=== PATIENT | male | born 1950 | race Caucasian/White ===

== ENCOUNTER 2017-10-30 13:34 | Inpatient (IN) ==
[2017-10-30] MEDS ORDERED: Acetaminophen 325 MG TABLET PO PRN (16:37)
[2017-10-30] MEDS ORDERED: Naloxone 0.4 MG/ML INJ IVP PRN (16:37)
--- NOTE | 2017-10-30 16:58 | Internal Med History&Physical ---
<HollyBrian kwon - Last Filed: 10/30/17 17:38> Date of Encounter: 10/30/17 Time of Encounter: 16:00 Assessment and Plan (1) Left trimalleolar fracture Current visit: Yes Status: Acute Acute left trimalleolar fracture sustained 2 days ago when patient fell at local grocery store. 3 view x-ray of the left ankle shows acute, displaced, and mildly comminuted fractures of the medial malleolus and distal fibula. There is probable fracture of the posterior malleolus. There is disruption of the ankle mortise teas concerning for ligamentous injuries. There is moderate to severe osteopenia. [id number]-jq-[id number] degenerative changes. [facility] consulted Dr. Alegre from Podiatry and I appreciate the consult. Will work to bring pts. INR to therapeutic level for possible surgical intervention. Stair- step pain medications for pain mgmt. Falls/safety precautions, up with assist, bed rest w/bedside commode w/assist only. Pt. is high risk for further morbidity and complications d/t left ankle fxs, supratherapeutic INR, chronic anemia, recent C. diff dx (10/07/17), hx, and risk factors. Inpatient. Qualifiers: Encounter type: initial encounter Fracture type: closed Qualified Code(s) : S82.852A - Displaced trimalleolar fracture of left lower leg, initial encounter for closed fracture (2) Elevated INR Current visit: Yes Status: Acute Acutely supratherapeutic INR of 4.6 on admission. Pt. takes Coumadin for mechanical heart valve and states he is compliant. AquaMEPHYTON IVPB 10 mg ordered. w/follow-up INR and APTT ordered. Coumadin to be continued w/pharmacy dosing w/monitoring. Monitor pt. for signs of bleeding. (3) C. difficile diarrhea Current visit: Yes Status: Suspected Hx of C. diff on 10/07/17. Will presume pt. is infectious w/contact precautions until ordered C. diff toxin screen results are back. Pt. denies current diarrhea. Will add Cipro and Flagyl if warranted. Monitor I&O. (4) CKD (chronic kidney disease) stage 3, GFR 30-59 ml/min Current visit: Yes Status: Chronic Hx of CKD. Current GFR 34 and creatinine 1.99. Will use IV fluids judiciously. Avoid nephrotoxins. Monitor I&O and daily weight. (5) HTN (hypertension) Current visit: Yes Status: Chronic Hx of chronic HTN. Monitor patient and vital signs. Continue patient's Lopressor. Qualifiers: Hypertension type: essential hypertension Qualified Code(s): I10 - Essential (primary) hypertension (6) HLD (hyperlipidemia) Current visit: Yes Status: Chronic Hx of chronic HLD. Lipid panel in a.m. labs. Continue patient's Zocor and fenofibrate. Qualifiers: Hyperlipidemia type: pure hypercholesterolemia Qualified Code(s): E78.00 - Pure hypercholesterolemia, unspecified; E78.0 - Pure hypercholesterolemia (7) Anemia Current visit: Yes Status: Chronic Hx of chronic anemia. Hgb 9.1 and Hct 27.4 on admission, down from 9.8 and 30.9 on 10/07/17. Patient denies unusual bleeding. Fecal Hemoccult ordered. Will continue patient's by mouth iron. H/H in a.m. labs. Qualifiers: Anemia type: unspecified type Qualified Code(s): D64.9 - Anemia, unspecified (8) GERD (gastroesophageal reflux disease) Current visit: Yes Status: Chronic Hx of chronic GERD. IVP Zofran 4 mg Q8 for N/V. Will continue pts. Pepcid. Qualifiers: Esophagitis presence: esophagitis presence not specified Qualified Code(s) : K21.9 - Gastro-esophageal reflux disease without esophagitis (9) COPD (chronic obstructive pulmonary disease) Current visit: Yes Status: Chronic Hx of chronic COPD. Stable. Qualifiers: COPD type: unspecified COPD Qualified Code(s): J44.9 - Chronic obstructive pulmonary disease, unspecified (10) Hypothyroid Current visit: Yes Status: Chronic Hx fof chronic hypothyroidism. Continue pts. Synthroid. Qualifiers: Hypothyroidism type: acquired Qualified Code(s): E03.9 - Hypothyroidism, unspecified (11) Insulin dependent diabetes mellitus Current visit: Yes Status: Chronic Hx of chronic diabetes controlled by insulin pump. Will continue pts. insulin pump while inpatient. BG checks ACHS. A1c in a.m. labs. (12) Gout Current visit: Yes Status: Chronic Hx of chronic gout. Continue pts. Allopurinol. Qualifiers: Gout site: unspecified site Gout etiology: unspecified cause Chronicity: chronic Presence of tophus: without tophus Qualified Code(s): M1A.9XX0 - Chronic gout, unspecified, without tophus (tophi) (13) Previous myocardial infarction older than 8 weeks Current visit: No Status: Resolved Hx of two previous MIs in 2004 and 2005. No stents placed. (14) DVT prophylaxis Current visit: Yes Status: Acute Will continue pts. Coumadin w/pharmacy dosing for DVT prophylaxis. Pt. is currently supratherapeutic w/INR of 4.6. Monitor pt. for signs of bleeding. Internal Medicine - H&P: HPI Chief complaint: Left ankle injury Admitted From: Intrahospital Transfer Plans for Post Hospital Care: Home History of present illness: Mr. Cortez is a 66 year old male with medical history of asthma, prostate cancer ( resolved), COPD, diabetes controlled with insulin pump, HLD, HTN, myocardial infarctions in 2004 and 2005 without stent placement, renal disease, gout, GERD , and thyroid disease presents with a [facility] with chief complaint of left ankle injury that he sustained 2 days ago. Patient states he has bilateral peripheral neuropathy due to his diabetes and lost his balance 2 days ago at the grocery store. Patient also reports history of falls at home. Patient is currently anticoagulated on Coumadin due to mechanical heart valve. Patient denies recent illness, fever, chills, nausea, vomiting, headache, changes in vision, numbness, tingling, chest pain, shortness of breath, abdominal pain, diarrhea, constipation, dizziness, lightheadedness, pre-syncope , or syncope. Past Med Surg Social Fam HX - Past Medical History Source: patient, old records reviewed Medical history: asthma, cancer (Prostate (resolved)), CHF, COPD, diabetes ( Controlled by insulin pump), hyperlipidemia, hypertension, myocardial infarction (2004, 2005 w/o stent placement), renal disease, thyroid disease Psychiatric history: no psych history - Past Surgical History Surgical History: cholecystectomy - Social History Smoking Status: Former smoker Packs per day: 1 PPD Smokeless Tobacco Status: Yes Alcohol use: none Drug use: none Current living situation: Home, With Family Activity Level: Independent ambulation, Uses cane/walker Recent Out of Country Travel Within the Last 8 Weeks: No Exposure or Possible Exposure to Illness During Travel: No - Family History Father Race: Family Member Ethnicity: Non- Living Status: Age at : 63 Cause of : Lung cancer Hx Family Cancer: Yes (Lung) Mother Race: Family Member Ethnicity: Non- Living Status: Age at : 83 Cause of : Old age Sister Race: Family Member Ethnicity: Non- Living Status: Age at : 57 Cause of : Breast cancer Hx Family Cancer: Yes (Breast, lung, brain) Internal Medicine - H&P: Meds Albuterol Sulfate [Ventolin Hfa] 2 puff IH BID 05/14/16 [History] Allopurinol [Zyloprim 100 MG] 200 mg PO DAILY 05/14/16 [History] Aspirin [Lo-Dose Aspirin EC] 81 mg PO DAILY 05/14/16 [History] Bicalutamide [Casodex] 50 mg PO DAILY 05/14/16 [History] Budesonide/Formoterol 160/4.5 [Symbicort 160/4.5] 2 puff IH BIDR 05/14/16 [ History] Calcitriol [Rocaltrol] 0.25 mcg PO DAILY 05/14/16 [History] Cholecalciferol (Vitamin D3) [Vitamin D3] 5,000 unit PO DAILY 05/14/16 [History] Docusate [Colace] 100 mg PO BID PRN 05/14/16 [History] Famotidine [Pepcid] 40 mg PO HS 05/14/16 [History] Fenofibrate 145 mg PO DAILY 05/14/16 [History] Flecainide Acetate 100 mg PO Q12HR 05/14/16 [History] Furosemide [Lasix] 40 mg PO BID 05/14/16 [History] Insulin Regular U-500 [HumuLIN R U-500] 0 unit SQ PRN PRN 05/14/16 [History] Levothyroxine [Synthroid] 150 mcg PO DAILY 05/14/16 [History] Montelukast [Singulair] 10 mg PO DAILY 05/14/16 [History] Nitroglycerin [Nitrostat] 0.4 mg SL AD PRN 05/14/16 [History] Simvastatin [Zocor] 40 mg PO HS 05/14/16 [History] Valsartan [Diovan] 80 mg PO DAILY 05/14/16 [History] Warfarin [Coumadin] 5.5 mg PO SUMOWETHFRSA@1800 05/14/16 [History] Warfarin [Coumadin] 10 mg PO TU@1800 05/14/16 [History] Metoprolol [Lopressor] 25 mg PO DAILY 07/31/16 [History] Pantoprazole Sodium [Protonix] 40 mg PO DAILY 07/31/16 [History] Albuterol Neb [Proventil Neb] 2.5 mg IH Q4HR PRN 10/07/17 [History] Citalopram [CeleXA] 20 mg PO DAILY 10/07/17 [History] FentaNYL PATCH [Duragesic] 50 mcg TD Q72H 10/07/17 [History] Gabapentin [Neurontin] 100 mg PO HS 10/07/17 [History] Iron 65 mg PO BID 10/07/17 [History] Phenylephrine/Dm/Acetaminop/GG [Kro Mucus Relief Cold-Flu Cplt] 1 each PO Q6-8H PRN 10/07/17 [History] Dicyclomine [Bentyl] 10 mg PO QID PRN #20 capsule 10/08/17 [Rx] Ondansetron HCl [Zofran] 4 mg PO Q6H PRN #10 tablet 10/08/17 [Rx] 3 Allergy/AdvReac Type Severity Reaction Status Date / Time niacin Allergy See Verified 10/30/17 14:26 [From [facility] Comments Extended-Release] All Systems PM: A 10-system review of systems was performed and is negative for pertinent findings except as documented above in the HPI. - Constitutional Constitutional: as per HPI, falls, no chills, no fever(s), no night sweats - EENT Eyes: no change in vision, no discharge, no pain, no photophobia Ears: no ear discharge, no ear pain, no tinnitus Nose, mouth and throat: no dysphagia, no nasal discharge, no neck pain, no sore throat - Breasts Breasts: as per HPI - Cardiovascular Cardiovascular ROS IM: no chest pain, no diaphoresis, no dyspnea, no lightheadedness, no palpitations, no syncope - Respiratory Respiratory: no cough, no dyspnea, no wheezing, no excessive phlegm production - Gastrointestinal Gastrointestinal: no abdominal pain, no diarrhea, no hematemesis, no hematochezia, no melena, no nausea, no vomiting - Genitourinary Genitourinary ROS male: as per HPI - Musculoskeletal Musculoskeletal ROS IM: as per HPI, other (Left ankle pain and swelling), no numbness, no tingling - Integumentary Integumentary IM: no rash, no unusual bruising - Neurological Neurological ROS: no confusion, no convulsions, no focal weakness, no numbness, no tingling, no tremor(s) - Psychiatric Psychiatric: as per HPI - Endocrine Endocrine IM: as per HPI - Hematologic/Lymphatic Hematologic/Lymphatic: no easy bruising - Allergic/Immunologic Allergic/Immunologic: as per HPI - Constitutional Vitals: Temp Pulse Resp BP Pulse Ox 100.3 F H 74 18 150/87 98 10/30/17 16:01 10/30/17 16:01 10/30/17 16:01 10/30/17 16:10/30/17 16:01 General appearance: Present: cooperative, A&O X 3, no acute distress, obese, answers questions appropriately - Head Head exam: Present: atraumatic, normocephalic - Eye Eye exam: Present: PERRL, conjuntiva pink, sclera anicteric Pupils: Present: PERRL - ENT ENT exam: Present: normal exam - Neck Neck exam general surgery: Present: supple, trachea midline. Absent: lymphadenopathy - Respiratory Respiratory exam: Present: CTAB. Absent: accessory muscle use, rales, rhonchi, wheezes - Cardiovascular Cardiovascular exam: Present: RRR, +S1, +S2. Absent: diastolic murmur, gallop, rubs, systolic murmur - GI/Abdominal GI/Abdominal exam: Present: normal bowel sounds, soft, no peritoneal signs. Absent: distended, tenderness - Rectal Rectal exam: Present: deferred - Additional comments: exam deferred. - Extremities Exam Extremities exam: Present: pedal edema (Left ankle), tenderness (Left ankle), warm, radial pulses palpable and symmetrical. Absent: calf tenderness, cyanotic - Back Exam Back exam: Present: normal inspection - Neurological Exam Neurological exam: Present: CN II-XII intact, oriented X3, no focal deficits. Absent: pronater drift, facial droop, speech deficit - Psychiatric Psychiatric exam: Present: normal affect, normal mood - Skin Skin exam: Present: dry, intact Internal Med - H&P Results - EKG Data EKG shows normal: sinus rhythm - EKG Data Prior EKG available for review: no EKG comments: 10/30/17 17:04 EKG dated 10/30/17 sinus rhythm with first-degree AV block, marked left axis deviation, and right bundle branch block. - Diagnostic Studies Chest x-ray Additional comments: EXAMINATION: SINGLE VIEW OF THE CHEST 10/30/2017 12:13 pm COMPARISON: 09/20/2017. HISTORY: ORDERING SYSTEM PROVIDED HISTORY: PRE OP FINDINGS: Status post median sternotomy. Enlarged cardiomediastinal silhouettes are unchanged. No focal consolidation, pneumothorax, or pleural effusions. XR/XR chest 1V portable IMPRESSION: No significant interval change since 09/20/2017. Enlarged cardiomediastinal silhouettes are unchanged D/ / Sav Liao MD / Sav Liao MD Interpreting Provider: Sav Liao MD Other Images Additional comments: EXAMINATION: 3 VIEWS OF THE LEFT ANKLE 10/30/2017 12:14 pm COMPARISON: None. HISTORY: ORDERING SYSTEM PROVIDED HISTORY: fell 2 days ago FINDINGS: There are acute, displaced, and mildly comminuted fracture of medial malleolus, and distal fibula. There is probable fracture of the posterior malleolus. There is disruption of the ankle mortise, concerning for ligamentous injuries. There is moderate to severe osteopenia. [id number] degenerative changes. XR/XR ankle complete min 3V LT IMPRESSION: Acute fracture-dislocation of the left ankle as detailed above. D/ / Sav Liao MD / Sav Liao MD Interpreting Provider: Sav Liao MD <Slava Goddard - Last Filed: 10/30/17 17:52> Date of Encounter: 10/30/17 Internal Medicine - H&P: HPI History of present illness: Mr. Cortez is a 66 year old male All Systems PM: A 10-system review of systems was performed and is negative for pertinent findings except as documented above in the HPI. - Constitutional Vitals: Temp Pulse Resp BP Pulse Ox 100.3 F H 74 18 150/87 98 10/30/17 16:01 10/30/17 16:01 10/30/17 16:01 10/30/17 16:01 10/30/17 16:01 - Attending Attestation I examined this patient and my medical decision-making was reviewed with the Resident Physician. I agree with the documented findings, disposition and treatment plan as described except to the extent set forth below.
[2017-10-30] MEDS ORDERED: Ondansetron 4 MG/2 ML VIAL IVP PRN (17:18)
[2017-10-30] MEDS: 0.9 % Sodium Chloride 1,000 ML IVC SCH (17:56)
[2017-10-30] MEDS: *HR* HYDROcodone/Acet 5/325 mg TABLET PO PRN (17:56)
[2017-10-30] MEDS ORDERED: Warfarin perPT PO PRN (18:00)
[2017-10-31 04:30] LABS: Basophils % 0.1 %; Eosinophils # 0.3 K/mcL (0.0-0.6); Eosinophils % 3.2 %; Hematocrit 26.9 % (37.5-50.1); Hemoglobin 8.4 g/dL (12.9-16.9); Immature Granulocytes % 0.5 % (0-4); Lymphocytes # 0.8 K/mcL (0.6-4.6); Lymphocytes % 9.4 %; Mean Corpuscular HGB Conc 31.2 g/dL (31.6-35.5); Mean Corpuscular Hemoglobin 28.4 pg (28.0-33.3); Mean Corpuscular Volume 90.9 fL (83.0-100.0); Mean Platelet Volume 10.1 fL (9.4-12.4); Monocytes # 0.8 K/mcL (0.0-1.3); Monocytes % 9.5 %; Neutrophils # 6.6 K/mcL (1.6-8.9); Platelet Count 284 K/mcL (140-400); Red Blood Count 2.96 M/mcL (4.19-5.50); Red Cell Distribution Width 14.9 % (11.5-14.5); Segmented Neutrophils % 77.3 %
[2017-10-31 04:32] LABS: INR 1.7; Prothrombin Time 18.6 Seconds (9.4-12.1)
[2017-10-31 04:35] LABS: Activated Partial Thrombo Time 30.4 Seconds (26.0-36.0)
[2017-10-31 04:38] LABS: Hemoglobin A1C 5.3 %
[2017-10-31 04:55] LABS: Albumin 3.1 g/dL (3.5-5.7); Albumin/Globulin Ratio 0.9 (1.1-2.2); Bilirubin,Total 0.5 mg/dL (0.3-1.0); Calcium 8.4 mg/dL (8.6-10.3); Chol/HDL Ratio 4.1 (0-4.9); Globulin 3.4 g/dL (2.4-3.5); Potassium 3.8 mEq/L (3.5-5.1); Total Protein 6.5 g/dL (6.4-8.9)
[2017-10-31] MEDS: 0.9 % Sodium Chloride 1,000 ML IVC SCH (10:03)
--- NOTE | 2017-10-31 11:48 | Podiatry Consult Note ---
Date of Encounter: 10/31/17 Time of Encounter: 11:05 Assessment and Plan (1) Closed trimalleolar fracture of left ankle Current visit: Yes Status: Acute I had a thorough review with the patient regarding his injury/condition, my findings, and treatment options. Discussed with patient trimalleolar ankle fracture and surgery. Nature of left ankle ORIF disussed at length as well as the risks vs benefits, potential complications and consequences of the procedure. 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 Risks and potential complications included but were not limited to infection, bleeding, swelling, nerve damage, numbness, tingling, loss of function, wound healing problems, delayed or non-union of bone fracture healing , loss of leg, , heart attack, blood clot, pulomary embolism, pneumonia, reaction to implants, need for implant removal, and need for further surgery. It was explained he could need more surgery in the future. No guarantees made as to the outcome. Discussed typical course of recovery and he will be non- weight bearing up to 12 weeks following the procedure. All questions answered. Informed consent signed. Spoke with Dr. Vicente regarding patient, will get cardio on board for evaluation and recommendations. Will require surgery once optimized and INR approx 1. Qualifiers: Encounter type: initial encounter Qualified Code(s): S82.852A - Displaced trimalleolar fracture of left lower leg, initial encounter for closed fracture History of Present Illness HPI: Mr. Cortez is a 66 year old diabetic male with neuropathy who says he fell a few days ago in the parking lot at [employer]. He says he just fell over and when he tried to get up he could not put weight on the left ankle. He says he crawled around for a while. He was taken to [facility], found and told he had an ankle fracture. I was called. He was transferred to [facility]. He has a mechanical heart valve and on coumadin. His INR was 4.6 in [facility]. Past Med Surg Social Fam HX - Past Medical History Medical history: asthma, cancer (Prostate (resolved)), CHF, COPD, diabetes ( Controlled by insulin pump), hyperlipidemia, hypertension, myocardial infarction (2004, 2005 w/o stent placement), renal disease, thyroid disease Psychiatric history: no psych history - Past Surgical History Surgical History: cholecystectomy - Social History Smoking Status: Former smoker Packs per day: 1 PPD Smokeless Tobacco Status: Yes Alcohol use: none Drug use: none - Family History Father Race: Family Member Ethnicity: Non- Living Status: Age at : 63 Cause of : Lung cancer Hx Family Cancer: Yes (Lung) Mother Race: Family Member Ethnicity: Non- Living Status: Age at : 83 Cause of : Old age Sister Race: Family Member Ethnicity: Non- Living Status: Age at : 57 Cause of : Breast cancer Hx Family Cancer: Yes (Breast, lung, brain) Medications and Allergies Albuterol Sulfate [Ventolin Hfa] 2 puff IH BID 05/14/16 [History] Allopurinol [Zyloprim 100 MG] 200 mg PO DAILY 05/14/16 [History] Aspirin [Lo-Dose Aspirin EC] 81 mg PO DAILY 05/14/16 [History] Bicalutamide [Casodex] 50 mg PO DAILY 05/14/16 [History] Calcitriol [Rocaltrol] 0.25 mcg PO DAILY 05/14/16 [History] Cholecalciferol (Vitamin D3) [Vitamin D3] 5,000 unit PO DAILY 05/14/16 [History] Docusate [Colace] 100 mg PO BID PRN 05/14/16 [History] Famotidine [Pepcid] 40 mg PO HS 05/14/16 [History] Fenofibrate 145 mg PO DAILY 05/14/16 [History] Flecainide Acetate 100 mg PO Q12HR 05/14/16 [History] Furosemide [Lasix] 40 mg PO BID 05/14/16 [History] Insulin Regular U-500 [HumuLIN R U-500] 0 unit SQ PRN PRN 05/14/16 [History] Levothyroxine [Synthroid] 150 mcg PO DAILY 05/14/16 [History] Montelukast [Singulair] 10 mg PO DAILY 05/14/16 [History] Nitroglycerin [Nitrostat] 0.4 mg SL AD PRN 05/14/16 [History] Simvastatin [Zocor] 40 mg PO HS 05/14/16 [History] Warfarin [Coumadin] 10 mg PO DAILY@1800 05/14/16 [History] Metoprolol [Lopressor] 25 mg PO DAILY 07/31/16 [History] Pantoprazole Sodium [Protonix] 40 mg PO DAILY 07/31/16 [History] Albuterol Neb [Proventil Neb] 2.5 mg IH Q4HR PRN 10/07/17 [History] Citalopram [CeleXA] 20 mg PO DAILY 10/07/17 [History] FentaNYL PATCH [Duragesic] 50 mcg TD Q72H 10/07/17 [History] Gabapentin [Neurontin] 100 mg PO HS 10/07/17 [History] Iron 65 mg PO BID 10/07/17 [History] Phenylephrine/Dm/Acetaminop/GG [Kro Mucus Relief Cold-Flu Cplt] 1 each PO Q6-8H PRN 10/07/17 [History] Dicyclomine [Bentyl] 10 mg PO QID PRN #20 capsule 10/08/17 [Rx] Budesonide/Formoterol 160/4.5 [Symbicort 160/4.5] 2 puff IH BIDR 10/31/17 [ History] Nut.tx.gluc.intoler,Lac-Fr,Soy [Glucerna] 1 can PO TID 10/31/17 [History] Primidone [Mysoline] 25 mg PO BID 10/31/17 [History] Valsartan [Diovan] 80 mg PO DAILY 10/31/17 [History] 3 Allergy/AdvReac Type Severity Reaction Status Date / Time niacin Allergy See Verified 10/30/17 14:26 [From [facility] Comments Extended-Release] All Systems Reviewed: A 10-system review of systems was performed and is negative for pertinent findings except as documented above in the HPI. - Constitutional Constitutional: as per HPI, no fever(s) - Cardiovascular Cardiovascular: as per HPI, no chest pain, no dyspnea - Respiratory Respiratory: no cough, no dyspnea - Musculoskeletal Musculoskeletal: abnormal gait, joint swelling Physical Exam - Constitutional Vitals: Temp Pulse Resp BP Pulse Ox 99.3 F 71 17 117/70 96 10/31/17 07:16 10/31/17 07:16 10/31/17 07:16 10/31/17 07:16 10/31/17 07:16 Exam: Well-developed obese male, AO x 3 in no acute distress CFT < 3 sec x 5 digits left foot. left foot warm to touch. mild to moderate edema of the left ankle. no open lesions. no tenting of the skin. no necrosis. skin is warm to touch. sensation absent to touch. Results - Labs Result Diagrams: 10/31/17 04:10 10/31/17 04:10 Labs: Abnormal lab results RBC 2.96 M/mcL (4.19-5.50) L 10/31/17 04:10 Hgb 8.4 g/dL (12.9-16.9) L 10/31/17 04:10 Hct 26.9 % (37.5-50.1) L 10/31/17 04:10 MCHC 31.2 g/dL (31.6-35.5) L 10/31/17 04:10 RDW 14.9 % (11.5-14.5) H 10/31/17 04:10 PT 18.6 Seconds (9.4-12.1) H D 10/31/17 04:10 Carbon Dioxide 30 mEq/L (23-29) H 10/31/17 04:10 BUN 31 mg/dL (8-23) H 10/31/17 04:10 Creatinine 2.04 mg/dL (0.70-1.30) H 10/31/17 04:10 Est GFR ( Amer) 40 (> 60) L 10/31/17 04:10 Est GFR (Non-Af Amer) 33 (> 60) L 10/31/17 04:10 Glucose 147 mg/dL (70-105) H 10/31/17 04:10 Calcium 8.4 mg/dL (8.6-10.3) L 10/31/17 04:10 Albumin 3.1 g/dL (3.5-5.7) L 10/31/17 04:10 Albumin/Globulin Ratio 0.9 (1.1-2.2) L 10/31/17 04:10 HDL Cholesterol 29 mg/dL (40-59) L 10/31/17 04:10 H & H 10/31/17 Range/Units 04:10 Hgb 8.4 L (12.9-16.9) g/dL Hct 26.9 L (37.5-50.1) % All other labs normal. Consult Discharge Plan - Plan Instructions: Bed Bugs (GEN), Bed Bugs, [employer]st [employer] (GEN) Referrals: Calli Estes, STORE STOCK ASSOCIATE [Primary Care Provider] -
[2017-10-31] MEDS ORDERED: Albuterol 2.5 MG/3 ML NEBULIZER IH PRN (16:26)
[2017-10-31] MEDS ORDERED: Nitroglycerin 0.4 MG TAB.SUBL SL PRN (16:26)
[2017-10-31] MEDS ORDERED: *HR* FentaNYL PATCH 50 MCG PATCH TD SCH (16:30)
[2017-10-31] MEDS ORDERED: *HR* Warfarin 7.5 MG TABLET PO ONE ×2 (17:20→18:00)
[2017-10-31] MEDS: Furosemide 40 MG TABLET PO SCH (17:29)
--- NOTE | 2017-10-31 18:07 | Internal Med Progress Note ---
Date of Encounter: 10/31/17 Time of Encounter: 18:05 - Assessment and plan (1) Closed trimalleolar fracture of left ankle Current Visit: Yes Status: Acute Assessment and plan: patient has closed trimalleolar fracture. Podiatry on board and plan for surgical intervention in next 1-2 days. noted that in view of multiple comorbid conditions this patient needs risk stratification and possible cardiology evaluation. ( patient has mechanical heart valve and Podiatry prefers INE to be around 1 before he goes for surgery.) Qualifiers: Encounter type: initial encounter Qualified Code(s): S82.852A - Displaced trimalleolar fracture of left lower leg, initial encounter for closed fracture (2) S/P aortic valve replacement Current Visit: No Status: Chronic Assessment and plan: Patient has mechanical aortic valve upon admission his INR was above 4 and he received Vitamin K for reversal. patient's current INR is 1.7 and it is not acceptable when he has mechanical valve. plan we will start heparin drip. will get cardiology tomorrow close observation. (3) Chronic anticoagulation Current Visit: No Status: Acute Assessment and plan: patient is on chronic coumadin therapy and noted that pharmacy to manage A/C therapy. (4) HTN (hypertension) Current Visit: No Status: Chronic Assessment and plan: stable for now. Qualifiers: Hypertension type: essential hypertension Qualified Code(s): I10 - Essential (primary) hypertension (5) Insulin dependent diabetes mellitus Current Visit: No Status: Chronic Assessment and plan: patient is known to have Type II DM he is using presently insulin pump. will need DM educator to take care insulin Pump. will call tomorrow. (6) DVT prophylaxis Current Visit: No Status: Acute Assessment and plan: heparin drip Medical decision making: this patient has moderate to severe risk of worsening in spite of getting appropriate treatment as he has multiple chronic comorbid conditions. - Subjective Interval history: patient seen and examined. chart reviewed. noted that patient has ongoing pain in ankle for more than 4 days. denies chest pain/AVEL/Nausea and vomiting. - Constitutional Vitals: Temp Pulse Resp BP Pulse Ox 99.8 F H 74 17 132/70 96 10/31/17 17:35 10/31/17 17:35 10/31/17 17:35 10/31/17 17:35 10/31/17 17:35 General appearance: Present: cooperative, A&O X 3, no acute distress, obese, answers questions appropriately - Head Head exam: Present: atraumatic, normocephalic - Eye Eye exam: Present: PERRL, conjuntiva pink, sclera anicteric Pupils: Present: PERRL - Neck Neck exam general surgery: Present: supple, trachea midline. Absent: lymphadenopathy - Respiratory Respiratory exam: Present: CTAB. Absent: accessory muscle use, rales, rhonchi, wheezes - Cardiovascular Cardiovascular exam: Present: RRR, +S1, +S2. Absent: diastolic murmur, gallop, rubs, systolic murmur - GI/Abdominal GI/Abdominal exam: Present: normal bowel sounds, soft, no peritoneal signs. Absent: distended, tenderness - Extremities Exam Extremities exam: Present: warm, radial pulses palpable and symmetrical. Absent : calf tenderness, cyanotic, pedal edema - Neurological Exam Neurological exam: Present: CN II-XII intact, oriented X3, no focal deficits. Absent: pronater drift, facial droop, speech deficit - Skin Skin exam: Present: dry, intact Internal Medicine: Result - Labs CBC & Chem 7: 10/31/17 04:10 10/31/17 04:10 Labs: Short CBC 10/31/17 Range/Units 04:10 WBC 8.6 (4.3-11.1) K/mcL Hgb 8.4 L (12.9-16.9) g/dL Hct 26.9 L (37.5-50.1) % Plt Count 284 (140-400) K/mcL Neutrophils # 6.6 (1.6-8.9) K/mcL BMP 10/31/17 04:10 Sodium 136 Potassium 3.8 Chloride 100 Carbon Dioxide 30 H BUN 31 H Creatinine 2.04 H Glucose 147 H Calcium 8.4 L Liver Function 10/31/17 Range/Units 04:10 Total Bilirubin 0.5 (0.3-1.0) mg/dL AST 13 (13-39) Units/L ALT 8 (7-52) Units/L Alkaline Phosphatase 45 (34-104) Units/L Albumin 3.1 L (3.5-5.7) g/dL - ABG Interpretation ABG results: PT/INR, D-dimer PT 18.6 Seconds (9.4-12.1) H D 10/31/17 04:10 Consult Discharge Plan - Plan Instructions: Bed Bugs (GEN), Bed Bugs, Estate Administrator (GEN) Referrals: Calli Estes, FLOOR POLISHER [Primary Care Provider] -
[2017-10-31] MEDS ORDERED: Heparin 25,000 UNIT/500 ML D5W 25,000 UNIT/500 ML BAG IVC SCH (18:15)
[2017-10-31] MEDS ORDERED: *HR* Heparin 5,000 UNIT/ML VIAL IVP PRN ×2 (18:28)
[2017-10-31] MEDS ORDERED: *HR* Heparin 5,000 UNIT/ML VIAL IVP ONE (18:28)
[2017-10-31 20:41] LABS: Hemoglobin 8.8 g/dL (12.9-16.9); Mean Corpuscular HGB Conc 31.4 g/dL (31.6-35.5); Mean Corpuscular Hemoglobin 28.9 pg (28.0-33.3); Mean Corpuscular Volume 91.8 fL (83.0-100.0); Platelet Count 311 K/mcL (140-400); Red Blood Count 3.05 M/mcL (4.19-5.50); Red Cell Distribution Width 14.7 % (11.5-14.5)
[2017-10-31] MEDS: Budesonide/Formoterol 160/4.5 MDI IH SCH (20:42)
[2017-10-31 20:47] LABS: INR 1.4; Prothrombin Time 14.7 Seconds (9.4-12.1)
[2017-10-31 20:49] LABS: Activated Partial Thrombo Time 22.6 Seconds (26.0-36.0)
[2017-10-31] MEDS: Heparin 25,000 UNIT/500 ML D5W 25,000 UNIT/500 ML BAG IVC SCH (20:55)
[2017-10-31] MEDS: Primidone 50 MG TABLET PO SCH (20:55)
[2017-10-31] MEDS: Gabapentin 100 MG CAPSULE PO SCH (20:55)
[2017-10-31] MEDS: Famotidine 20 MG TABLET PO SCH (20:56)
[2017-11-01 02:59] LABS: Basophils % 0.2 %; Eosinophils # 0.3 K/mcL (0.0-0.6); Eosinophils % 3.3 %; Hematocrit 25.7 % (37.5-50.1); Hemoglobin 8.3 g/dL (12.9-16.9); Immature Granulocytes % 0.5 % (0-4); Lymphocytes # 0.8 K/mcL (0.6-4.6); Lymphocytes % 9.5 %; Mean Corpuscular HGB Conc 32.3 g/dL (31.6-35.5); Mean Corpuscular Volume 89.9 fL (83.0-100.0); Mean Platelet Volume 9.9 fL (9.4-12.4); Monocytes # 0.7 K/mcL (0.0-1.3); Monocytes % 7.7 %; Neutrophils # 6.7 K/mcL (1.6-8.9); Platelet Count 308 K/mcL (140-400); Red Blood Count 2.86 M/mcL (4.19-5.50); Red Cell Distribution Width 14.7 % (11.5-14.5); Segmented Neutrophils % 78.8 %
[2017-11-01 03:05] LABS: INR 1.4; Prothrombin Time 14.7 Seconds (9.4-12.1)
[2017-11-01 03:07] LABS: Activated Partial Thrombo Time 28.1 Seconds (26.0-36.0)
[2017-11-01 03:22] LABS: Albumin 3.1 g/dL (3.5-5.7); Albumin/Globulin Ratio 0.9 (1.1-2.2); Bilirubin,Total 0.5 mg/dL (0.3-1.0); Calcium 8.4 mg/dL (8.6-10.3); Globulin 3.5 g/dL (2.4-3.5); Potassium 3.9 mEq/L (3.5-5.1); Total Protein 6.6 g/dL (6.4-8.9)
[2017-11-01] MEDS: Bicalutamide 50 MG TABLET PO SCH (09:44)
[2017-11-01] MEDS: Primidone 50 MG TABLET PO SCH ×2 (09:44→21:38)
[2017-11-01] MEDS: Valsartan 80 MG TABLET PO SCH (09:45)
[2017-11-01] MEDS: Furosemide 40 MG TABLET PO SCH ×2 (09:45→18:00)
[2017-11-01] MEDS: Fenofibrate 54 MG TABLET PO SCH (09:45)
[2017-11-01] MEDS: Cholecalciferol (D-3) 1,000 UNIT TABLET PO SCH (09:45)
[2017-11-01] MEDS: Budesonide/Formoterol 160/4.5 MDI IH SCH ×2 (10:53→20:24)
[2017-11-01] MEDS: Heparin 25,000 UNIT/500 ML D5W 25,000 UNIT/500 ML BAG IVC SCH (11:16)
--- NOTE | 2017-11-01 13:48 | Cardiology Consult Note ---
Date of Encounter: 11/01/17 Time of Encounter: 13:43 Assessment and Plan (1) Closed trimalleolar fracture of left ankle Current Visit: Yes Status: Acute Per cardiology: -Admitted after fall with closed trimalleolar fracture. -Awaiting surgery. -Management per priamary and podiatry services. Qualifiers: Encounter type: initial encounter Qualified Code(s): S82.852A - Displaced trimalleolar fracture of left lower leg, initial encounter for closed fracture (2) S/P aortic valve replacement Current Visit: No Status: Chronic Per cardiology: -Known mechanical aortic valve replacement 2005 at [facility]. -Last TTE 10/2012 with LVEF 55%, mild diastolic dysfunction, biatrial enlargement , mechanical aortic valve, mildly elevated gradiant of 22mmHg (unknown valve type and size) may be underestimated. No segmental wall motion abnormalities. -ON coumadin in outpatient setting. Currently being held due to upcoming surgery. -Currently on heparin drip. -Recommend continuing heparin drip. Recommend bridging with heparin drip to coumadin for a goal INR of 2.5-3.5. -Will check TTE. (3) Preop cardiovascular exam Current Visit: Yes Status: Acute Per cardiology: -Pre-op risk assessment for ankle surgery. -Denies chest pain, shortness of breath, or increased fatigue. -States is able to do activities of daily living without symptoms. Patient states ADLs is the most active thing he does. -ECG with SR, first degree AV blockk, right bundle branch block. -Last TTE as above. -Will repeat TTE. -Further recommendations pending TTE. Discussion w patient/family: The assessment and plan as outlined above was discussed with the patient who expressed understanding and agreement. All questions were answered. Thank you for involving us in the care of your patient. Please call with any questions. Discussed and reviewed with . History of Present Illness Consult date: 11/01/17 Requesting physician: Nikhil Vicente Consult reason: mechanical aortic valve Chief complaint: left ankle injury History of present illness: Mr. Cortez is a 66 year old male with a relevant past medical history of DMII has insulin pump, HTN, hyperlipidemia, CKD, hypothyroidism, neuropathy, COPD, GERD, PAF, obesity, LENNY, pancreatitic cancer, tobacco abuse (chewing tobacco). Patient presented to [facility] after a fall with ankle injury last . Patient denies loss of consciousness prior to fall. Patient denies chest pain. Denies shortness of breath or increased fatigue. Patient denies increased edema or weight gain. Patient denies bleeding or blood loss. Past Med Surg Social Fam HX - Past Medical History Attestation: Yes The following information was validated with the patient. Source: patient, old records reviewed Medical history: asthma, cancer (Prostate (resolved)), CHF, COPD, diabetes ( Controlled by insulin pump), hyperlipidemia, hypertension, myocardial infarction (2004, 2005 w/o stent placement), renal disease, thyroid disease, valvular heart disease Psychiatric history: no psych history - Past Surgical History Surgical History: cholecystectomy - Social History Smoking Status: Former smoker Packs per day: 1 PPD Smokeless Tobacco Status: Yes Alcohol use: none Drug use: none - Family History Father Race: Family Member Ethnicity: Non- Living Status: Age at : 63 Cause of : Lung cancer Hx Family Cancer: Yes (Lung) Mother Race: Family Member Ethnicity: Non- Living Status: Age at : 83 Cause of : Old age Sister Race: Family Member Ethnicity: Non- Living Status: Age at : 57 Cause of : Breast cancer Hx Family Cancer: Yes (Breast, lung, brain) Medications and Allergies Albuterol Sulfate [Ventolin Hfa] 2 puff IH BID 05/14/16 [History] Allopurinol [Zyloprim 100 MG] 200 mg PO DAILY 05/14/16 [History] Aspirin [Lo-Dose Aspirin EC] 81 mg PO DAILY 05/14/16 [History] Bicalutamide [Casodex] 50 mg PO DAILY 05/14/16 [History] Calcitriol [Rocaltrol] 0.25 mcg PO DAILY 05/14/16 [History] Cholecalciferol (Vitamin D3) [Vitamin D3] 5,000 unit PO DAILY 05/14/16 [History] Docusate [Colace] 100 mg PO BID PRN 05/14/16 [History] Famotidine [Pepcid] 40 mg PO HS 05/14/16 [History] Fenofibrate 145 mg PO DAILY 05/14/16 [History] Flecainide Acetate 100 mg PO Q12HR 05/14/16 [History] Furosemide [Lasix] 40 mg PO BID 05/14/16 [History] Insulin Regular U-500 [HumuLIN R U-500] 0 unit SQ PRN PRN 05/14/16 [History] Levothyroxine [Synthroid] 150 mcg PO DAILY 05/14/16 [History] Montelukast [Singulair] 10 mg PO DAILY 05/14/16 [History] Nitroglycerin [Nitrostat] 0.4 mg SL AD PRN 05/14/16 [History] Simvastatin [Zocor] 40 mg PO HS 05/14/16 [History] Warfarin [Coumadin] 10 mg PO MOWEFR 05/14/16 [History] Metoprolol [Lopressor] 25 mg PO DAILY 07/31/16 [History] Pantoprazole Sodium [Protonix] 40 mg PO DAILY 07/31/16 [History] Albuterol Neb [Proventil Neb] 2.5 mg IH Q4HR PRN 10/07/17 [History] Citalopram [CeleXA] 20 mg PO DAILY 10/07/17 [History] FentaNYL PATCH [Duragesic] 50 mcg TD Q72H 10/07/17 [History] Gabapentin [Neurontin] 100 mg PO HS 10/07/17 [History] Iron 65 mg PO BID 10/07/17 [History] Phenylephrine/Dm/Acetaminop/GG [Kro Mucus Relief Cold-Flu Cplt] 1 tab PO Q6-8H PRN 10/07/17 [History] Dicyclomine [Bentyl] 10 mg PO QID PRN #20 capsule 10/08/17 [Rx] Budesonide/Formoterol 160/4.5 [Symbicort 160/4.5] 2 puff IH BIDR 10/31/17 [ History] Nut.tx.gluc.intoler,Lac-Fr,Soy [Glucerna] 1 can PO TID 10/31/17 [History] Primidone [Mysoline] 25 mg PO BID 10/31/17 [History] Valsartan [Diovan] 80 mg PO DAILY 10/31/17 [History] Warfarin [Coumadin] 7.5 mg PO SUTUTHSA 10/31/17 [History] 3 Allergy/AdvReac Type Severity Reaction Status Date / Time niacin Allergy See Verified 10/30/17 14:26 [From [facility] Comments Extended-Release] All Systems Review: A 10-system review of systems was performed and is negative for pertinent findings except as documented above in the HPI. - Cardiovascular Cardiovascular: as per HPI - Musculoskeletal Musculoskeletal: other (fall, left ankle pain) Physical Examination Vital Signs, Last 4 Hours Temp Pulse Resp BP Pulse Ox 11/01/17 11:21 98.4 F 82 18 149/64 95 11/01/17 10:53 18 93 General: Conversant, No Apparent Distress HEENT: Atraumatic, Normocephaly, Mucus Membranes Moist Neck: No JVD, Normal carotid pulses Cardiac: Reg Rate and Rhythm, Normal S1 and S2, No Murmur Lungs: Normal Breath Sounds, No Wheeze, Rales, Rhonchi Neuro: Alert and responsive, No focal deficits noted Abdomen: Soft, Non-Tender Skin: No rashes noted on visualized skin Musculoskeletal: No Chest Wall Tenderness Extremities: No Clubbing, No Cyanosis, No Edema, Normal Pulses, Other (Left ankle with moi wrap noted. ) Results 11/01/17 02:51 11/01/17 02:51 Lab Results Active Medications Acetaminophen (Tylenol) 650 mg PO Q6HR PRN PRN Reason: Mild Pain/Fever Stop: 05/01/18 16:38 Hydrocodone Bitart/Acetaminophen ([place] 5-325 Mg) 1 tab PO Q6HR PRN PRN Reason: Moderate Pain Stop: 05/01/18 16:38 Last Admin: 10/30/17 17:56 Dose: 1 tab Albuterol Sulfate (Proventil Neb) 2.5 mg IH Q4HR PRN; Protocol PRN Reason: Bronchospasm Stop: 05/02/18 16:27 Allopurinol (Zyloprim) 200 mg PO DAILY [facility] Stop: 05/03/18 09:01 Last Admin: 11/01/17 09:45 Dose: 200 mg Bicalutamide (Casodex) 50 mg PO DAILY [facility] Stop: 05/03/18 09:01 Last Admin: 11/01/17 09:44 Dose: 50 mg Budesonide/Formoterol Fumarate (Symbicort) 2 puff IH BIDR [facility] PRN Reason: Protocol Stop: 05/02/18 22:01 Last Admin: 11/01/17 10:53 Dose: 2 puff Citalopram Hydrobromide (Celexa) 20 mg PO DAILY [facility] Stop: 05/03/18 09:01 Last Admin: 11/01/17 09:45 Dose: 20 mg Dicyclomine HCl (Bentyl) 10 mg PO QID PRN PRN Reason: Diarrhea Stop: 05/02/18 16:27 Docusate Sodium (Colace) 100 mg PO BID PRN; Protocol PRN Reason: Constipation Stop: 05/02/18 16:27 Famotidine (Pepcid) 20 mg PO HS BECKY PRN Reason: Protocol Stop: 05/02/18 21:01 Last Admin: 10/31/17 20:56 Dose: 20 mg Fenofibrate (Tricor) 108 mg PO DAILY BECKY Stop: 05/03/18 09:01 Last Admin: 11/01/17 09:45 Dose: 108 mg Fentanyl (Duragesic) 50 mcg TD Q72H [facility] Stop: 05/02/18 16:31 Last Admin: 10/31/17 17:57 Dose: 50 mcg Flecainide Acetate (Flecainide) 100 mg PO Q12HR BECKY Stop: 05/02/18 18:01 Last Admin: 11/01/17 06:30 Dose: 100 mg Furosemide (Lasix) 40 mg PO BIDDIURETIC BECKY Stop: 05/02/18 17:01 Last Admin: 11/01/17 09:45 Dose: 40 mg Gabapentin (Neurontin) 100 mg PO HS [facility] Stop: 05/02/18 21:01 Last Admin: 10/31/17 20:55 Dose: 100 mg Heparin Sodium (Porcine) (Heparin) 9,000 unit 70 unit/kg (9000 unit) IVP Q6HR PRN PRN Reason: SEE COMMENTS Stop: 05/02/18 18:29 Last Admin: 11/01/17 04:23 Dose: 9,000 unit Heparin Sodium (Porcine) (Heparin) 4,500 unit 35 unit/kg (4500 unit) IVP Q6H PRN PRN Reason: SEE COMMENTS Stop: 05/02/18 18:29 Heparin Sodium/Dextrose (Heparin 25,000 Unit/500 Ml D5w) 25,000 unit in 500 mls @ 35.924 mls/hr IVC .[id number] BECKY; 14 UNIT/KG/HR PRN Reason: Protocol Stop: 05/02/18 18:31 Last Admin: 11/01/17 11:16 Dose: 17.88 unit/kg/hr, 45.9 mls/hr Levothyroxine Sodium (Synthroid) 150 mcg PO 0630 [facility] Stop: 05/03/18 06:31 Last Admin: 11/01/17 06:30 Dose: 150 mcg Metoprolol Tartrate (Lopressor) 25 mg PO DAILY [facility] Stop: 05/03/18 09:01 Last Admin: 11/01/17 09:45 Dose: 25 mg Montelukast Sodium (Singulair) 10 mg PO DAILY [facility] Stop: 05/03/18 09:01 Last Admin: 11/01/17 09:44 Dose: 10 mg Naloxone HCl (Narcan) 0.4 mg IVP Q2MIN PRN PRN Reason: SEE COMMENTS Stop: 05/01/18 16:38 Nitroglycerin (Nitroglycerin) 0.4 mg SL AD PRN PRN Reason: Chest Pain Stop: 05/02/18 16:27 Omeprazole (Prilosec) 40 mg PO DAILY [facility] Stop: 05/03/18 09:01 Last Admin: 11/01/17 09:44 Dose: 40 mg Ondansetron HCl (Zofran) 4 mg IVP Q8HR PRN; Protocol PRN Reason: Nausea And Vomiting Stop: 05/01/18 17:19 Oxycodone HCl (Roxicodone) 10 mg PO Q6HR PRN PRN Reason: Severe Pain Stop: 05/01/18 16:38 Primidone (Mysoline) 25 mg PO BID [facility] Stop: 05/02/18 21:01 Last Admin: 11/01/17 09:44 Dose: 25 mg Simvastatin (Zocor) 40 mg PO HS BECKY PRN Reason: Protocol Stop: 05/02/18 21:01 Last Admin: 10/31/17 20:56 Dose: 40 mg Valsartan (Diovan) 80 mg PO DAILY [facility] Stop: 05/03/18 09:01 Last Admin: 11/01/17 09:45 Dose: 80 mg Vitamin D (Vitamin D) 1,000 unit PO DAILY [facility] Stop: 05/03/18 09:01 Last Admin: 11/01/17 09:45 Dose: 1,000 unit Laboratory Tests 09/20/17 10/07/17 10/30/17 16:42 23:10 12:38 Hgb Creatinine 2.65 H 3.39 H 1.99 H 10/31/17 11/01/17 11/01/17 04:10 02:51 02:51 Hgb 8.3 L Creatinine 2.04 H 1.77 H - Imaging and Cardiology Chest Xray: report reviewed Stress Test: report reviewed Echo: pending, report reviewed - EKG Interpretation EKG results cardiology: personally reviewed (ECG with SR, HR 64. First degree AV block, RIght BBB.), other (Not on telemetry.) Consult Discharge Plan - Plan Instructions: Bed Bugs (GEN), Bed Bugs, Wing Commander (GEN) Referrals: Calli Estes, SYSTEMS PLANNER [Primary Care Provider] -
--- NOTE | 2017-11-01 18:22 | Internal Med Progress Note ---
Date of Encounter: 11/01/17 Time of Encounter: 18:20 - Assessment and plan (1) Closed trimalleolar fracture of left ankle Current Visit: Yes Status: Acute Assessment and plan: patient has closed trimalleolar fracture. Podiatry on board and plan for surgical intervention in next 1-2 days. noted that in view of multiple comorbid conditions this patient needs risk stratification and possible cardiology evaluation. ( patient has mechanical heart valve and Podiatry prefers INR to be around 1 before he goes for surgery.) 11/01/2017 Patient denies any pain. Comfortably lying in bed. Cardiology on the board for risk stratification. Qualifiers: Encounter type: initial encounter Qualified Code(s): S82.852A - Displaced trimalleolar fracture of left lower leg, initial encounter for closed fracture (2) S/P aortic valve replacement Current Visit: No Status: Chronic Assessment and plan: Patient has mechanical aortic valve upon admission his INR was above 4 and he received Vitamin K for reversal. patient's current INR is 1.7 and it is not acceptable when he has mechanical valve. plan we will start heparin drip. will get cardiology tomorrow close observation. 11/01/2017 Cardiology on the board. We will follow the recommendations. Awaiting echocardiogram (3) Chronic anticoagulation Current Visit: No Status: Acute Assessment and plan: patient is on chronic coumadin therapy and noted that pharmacy to manage A/C therapy. (4) HTN (hypertension) Current Visit: No Status: Chronic Assessment and plan: stable for now. Qualifiers: Hypertension type: essential hypertension Qualified Code(s): I10 - Essential (primary) hypertension (5) Insulin dependent diabetes mellitus Current Visit: No Status: Chronic Assessment and plan: patient is known to have Type II DM he is using presently insulin pump. will need DM educator to take care insulin Pump. will call tomorrow. (6) DVT prophylaxis Current Visit: No Status: Acute Assessment and plan: heparin drip Medical decision making: this patient has moderate to severe risk of worsening in spite of getting appropriate treatment as he has multiple chronic comorbid conditions. - Subjective Interval history: patient seen and examined. chart reviewed. noted that patient has ongoing pain in ankle for more than 4 days. denies chest pain/AVEL/Nausea and vomiting. 11/01/2017 Patient seen and examined. Chart reviewed. Patient is comfortably lying in the bed. Patient's is at bedside. Patient denies any pain at this point. - Constitutional Vitals: Temp Pulse Resp BP Pulse Ox 99.3 F 68 20 126/67 98 11/01/17 15:21 11/01/17 15:21 11/01/17 15:21 11/01/17 15:21 11/01/17 15:21 General appearance: Present: cooperative, A&O X 3, no acute distress, obese, answers questions appropriately - Head Head exam: Present: atraumatic, normocephalic - Eye Eye exam: Present: PERRL, conjuntiva pink, sclera anicteric Pupils: Present: PERRL - Neck Neck exam general surgery: Present: supple, trachea midline. Absent: lymphadenopathy - Respiratory Respiratory exam: Present: CTAB. Absent: accessory muscle use, rales, rhonchi, wheezes - Cardiovascular Cardiovascular exam: Present: RRR, +S1, +S2. Absent: diastolic murmur, gallop, rubs, systolic murmur - GI/Abdominal GI/Abdominal exam: Present: normal bowel sounds, soft, no peritoneal signs. Absent: distended, tenderness - Extremities Exam Extremities exam: Present: warm, radial pulses palpable and symmetrical. Absent : calf tenderness, cyanotic, pedal edema - Neurological Exam Neurological exam: Present: CN II-XII intact, oriented X3, no focal deficits. Absent: pronater drift, facial droop, speech deficit - Skin Skin exam: Present: dry, intact Internal Medicine: Result - Labs CBC & Chem 7: 11/01/17 02:51 11/01/17 02:51 Labs: Short CBC 10/31/17 11/01/17 Range/Units 20:34 02:51 WBC 9.7 8.5 (4.3-11.1) K/mcL Hgb 8.8 L 8.3 L (12.9-16.9) g/dL Hct 28.0 L 25.7 L (37.5-50.1) % Plt Count 311 308 (140-400) K/mcL Neutrophils # 6.7 (1.6-8.9) K/mcL BMP 11/01/17 02:51 Sodium 133 L Potassium 3.9 Chloride 98 Carbon Dioxide 26 BUN 26 H Creatinine 1.77 H Glucose 166 H Calcium 8.4 L Liver Function 11/01/17 Range/Units 02:51 Total Bilirubin 0.5 (0.3-1.0) mg/dL AST 12 L (13-39) Units/L ALT 8 (7-52) Units/L Alkaline Phosphatase 50 (34-104) Units/L Albumin 3.1 L (3.5-5.7) g/dL - ABG Interpretation ABG results: PT/INR, D-dimer PT 14.7 Seconds (9.4-12.1) H 11/01/17 02:51 Consult Discharge Plan - Plan Instructions: Bed Bugs (GEN), Bed Bugs, Public Health Representative (GEN) Referrals: Calli Estes, MANUFACTURING QUALITY TECHNICIAN [Primary Care Provider] -
[2017-11-01] MEDS: Famotidine 20 MG TABLET PO SCH (21:38)
[2017-11-01] MEDS: *HR* OxyCODONE Immed Rel 5 MG TABLET PO PRN (21:38)
[2017-11-01] MEDS: Gabapentin 100 MG CAPSULE PO SCH (21:38)
[2017-11-02] MEDS: Heparin 25,000 UNIT/500 ML D5W 25,000 UNIT/500 ML BAG IVC SCH ×2 (00:31→13:01)
[2017-11-02] MEDS: *HR* OxyCODONE Immed Rel 5 MG TABLET PO PRN (04:29)
[2017-11-02 07:48] LABS: INR 1.4; Prothrombin Time 14.7 Seconds (9.4-12.1)
[2017-11-02 08:07] LABS: Albumin/Globulin Ratio 0.9 (1.1-2.2); Bilirubin,Total 0.4 mg/dL (0.3-1.0); Calcium 8.3 mg/dL (8.6-10.3); Globulin 3.4 g/dL (2.4-3.5); Potassium 3.9 mEq/L (3.5-5.1); Total Protein 6.4 g/dL (6.4-8.9)
[2017-11-02 08:11] LABS: Basophils % 0.3 %; Eosinophils # 0.3 K/mcL (0.0-0.6); Hematocrit 23.9 % (37.5-50.1); Hemoglobin 7.7 g/dL (12.9-16.9); Immature Granulocytes % 0.5 % (0-4); Lymphocytes # 0.6 K/mcL (0.6-4.6); Lymphocytes % 10.2 %; Mean Corpuscular HGB Conc 32.2 g/dL (31.6-35.5); Mean Corpuscular Hemoglobin 28.5 pg (28.0-33.3); Mean Corpuscular Volume 88.5 fL (83.0-100.0); Mean Platelet Volume 10.4 fL (9.4-12.4); Monocytes # 0.5 K/mcL (0.0-1.3); Monocytes % 8.3 %; Neutrophils # 4.7 K/mcL (1.6-8.9); Platelet Count 314 K/mcL (140-400); Red Cell Distribution Width 14.6 % (11.5-14.5); Segmented Neutrophils % 75.7 %
[2017-11-02] MEDS: Budesonide/Formoterol 160/4.5 MDI IH SCH ×2 (08:14→22:11)
[2017-11-02] MEDS: Primidone 50 MG TABLET PO SCH ×2 (09:15→19:57)
[2017-11-02] MEDS: Bicalutamide 50 MG TABLET PO SCH (09:15)
[2017-11-02] MEDS: Cholecalciferol (D-3) 1,000 UNIT TABLET PO SCH (09:15)
[2017-11-02] MEDS: Fenofibrate 54 MG TABLET PO SCH (09:15)
[2017-11-02] MEDS: Valsartan 80 MG TABLET PO SCH (09:28)
[2017-11-02] MEDS: Furosemide 40 MG TABLET PO SCH ×2 (09:28→18:23)
--- NOTE | 2017-11-02 12:13 | Cardiology Progress Note ---
Date of Encounter: 11/02/17 Time of Encounter: 12:11 Assessment and Plan (1) Closed trimalleolar fracture of left ankle Current Visit: Yes Status: Acute Per cardiology: -Admitted after fall with closed trimalleolar fracture. -Awaiting surgery. -Management per priamary and podiatry services. Qualifiers: Encounter type: initial encounter Qualified Code(s): S82.852A - Displaced trimalleolar fracture of left lower leg, initial encounter for closed fracture (2) S/P aortic valve replacement Current Visit: No Status: Chronic Per cardiology: -Known mechanical aortic valve replacement 2005 at [facility]. -Last TTE 10/2012 with LVEF 55%, mild diastolic dysfunction, biatrial enlargement , mechanical aortic valve, mildly elevated gradiant of 22mmHg (unknown valve type and size) may be underestimated. No segmental wall motion abnormalities. -TTE this admisison with LVEF 55-60%, mild concentric LVH, mild diastolic dysfunction, normal RV structure with low normal function, borderline aortic valve stenosis with no regurgitation, mild MR, mild TR, borderline PH, trivial pericardial effusion without evidence of tamponade, no segmental wall motion abnormalities. -ON coumadin in outpatient setting. Currently being held due to upcoming surgery. -Currently on heparin drip. -Recommend continuing heparin drip. Recommend bridging with heparin drip to coumadin for a goal INR of 2.5-3.5. -Cardiology will follow in outpatient setting. Follow up set. (3) Preop cardiovascular exam Current Visit: Yes Status: Acute Per cardiology: -Pre-op risk assessment for ankle surgery. -Denies chest pain, shortness of breath, or increased fatigue. -States is able to do activities of daily living without symptoms. Patient states ADLs is the most active thing he does. -ECG with SR, first degree AV block, right bundle branch block. -Last TTE as above. -TTE this admission as above. -Discussed and reviewed with , patient is acceptable, intermediate risk for cardiovascular complications. Discussion w patient/family: The assessment and plan as outlined above was discussed with the patient who expressed understanding and agreement. All questions were answered. Thank you for involving us in the care of your patient. Please call with any questions. Discussed and reviewed with . Subjective Principal diagnosis: left ankle fracture Interval history: Patient denies chest pain or shortness of breath. Patient reports ankle pain. Objective Vital Signs, Last 4 Hours Temp Pulse Resp BP Pulse Ox 11/02/17 10:56 98.4 F 84 18 101/66 94 11/02/17 08:16 18 94 General: Conversant, No Apparent Distress HEENT: Atraumatic, Normocephaly, Mucus Membranes Moist Neck: No JVD, Normal carotid pulses Cardiac: Reg Rate and Rhythm, Normal S1 and S2, No Murmur Lungs: Normal Breath Sounds, No Wheeze, Rales, Rhonchi Neuro: Alert and responsive, No focal deficits noted Abdomen: Soft, Non-Tender Skin: No rashes noted on visualized skin Musculoskeletal: No Chest Wall Tenderness Extremities: No Clubbing, No Cyanosis, No Edema, Normal Pulses, Other (left leg moi wrap noted. ) Results 11/02/17 07:14 11/02/17 07:14 Lab Results Impressions Echocardiogram 11/01/17 12:42 Impressions: LVEF 55-60%. Mild concentric left ventricular hypertrophy. Mild left ventricular diastolic dysfunction. Normal right ventricular structure with low normal function. Mechanical aortic valve is suboptimally visualized. Borderline criteria for prosthetic stenosis. No regurgitation. Mild mitral regurgitation. Mild tricuspid regurgitation. Borderline pulmonary hypertension. There is a trivial pericardial effusion present. There is no echocardiographic evidence of tamponade. Left Ventricular Wall Motion: Rest Echo Findings All wall segments showed normal motion. Findings: Study Quality * Technically challenging due to body habitus. ECG Findings * Sinus rhythm with BBB. Left Ventricle * LVEF 55-60%. * Mild concentric left ventricular hypertrophy. * Mild left ventricular diastolic dysfunction. Right Ventricle * Normal right ventricular structure with low normal function. Left Atrium * Moderately dilated left atrium. Right Atrium * Normal right atrial size. Aortic Valve * Aortic valve not well visualized. * No aortic regurgitation. * Borderline criteria for prosthetic stenosis (PV 3.5m/s, MG 26 mmHg, DI 0.25, EOA 0.80cm2, AT 88ms) Mitral Valve * Mitral valve not well visualized. * No mitral stenosis. * Mild mitral regurgitation. * Mild mitral annular calcification * Mildly calcified mitral valve leaflets. Tricuspid Valve * Tricuspid valve not well visualized. * Mild tricuspid regurgitation. * Estimated RA pressure is 3 mmHg. * Estimated RVSP is 35 mmHg. * Borderline pulmonary hypertension. Pulmonic Valve * Pulmonic valve is not well visualized. * No pulmonic stenosis. * No pulmonic regurgitation. Pulmonary Artery * Pulmonary artery not well visualized. Aorta * Normally sized aortic root. * Ascending aorta is not well visualized. Pericardium * There is a trivial pericardial effusion present. * There is no echocardiographic evidence of tamponade. Interatrial Septum * No evidence of PFO by color Doppler. IVC * Normal IVC dimensions and inspiratory collapse. Active Medications Acetaminophen (Tylenol) 650 mg PO Q6HR PRN PRN Reason: Mild Pain/Fever Stop: 05/01/18 16:38 Hydrocodone Bitart/Acetaminophen ([place] 5-325 Mg) 1 tab PO Q6HR PRN PRN Reason: Moderate Pain Stop: 05/01/18 16:38 Last Admin: 10/30/17 17:56 Dose: 1 tab Albuterol Sulfate (Proventil Neb) 2.5 mg IH Q4HR PRN; Protocol PRN Reason: Bronchospasm Stop: 05/02/18 16:27 Allopurinol (Zyloprim) 200 mg PO DAILY BECKY Stop: 05/03/18 09:01 Last Admin: 11/02/17 09:15 Dose: 200 mg Bicalutamide (Casodex) 50 mg PO DAILY BECKY Stop: 05/03/18 09:01 Last Admin: 11/02/17 09:15 Dose: 50 mg Budesonide/Formoterol Fumarate (Symbicort) 2 puff IH BIDR BECKY PRN Reason: Protocol Stop: 05/02/18 22:01 Last Admin: 11/02/17 08:14 Dose: 2 puff Citalopram Hydrobromide (Celexa) 20 mg PO DAILY BECKY Stop: 05/03/18 09:01 Last Admin: 11/02/17 09:15 Dose: 20 mg Dicyclomine HCl (Bentyl) 10 mg PO QID PRN PRN Reason: Diarrhea Stop: 05/02/18 16:27 Docusate Sodium (Colace) 100 mg PO BID PRN; Protocol PRN Reason: Constipation Stop: 05/02/18 16:27 Famotidine (Pepcid) 20 mg PO HS BECKY PRN Reason: Protocol Stop: 05/02/18 21:01 Last Admin: 11/01/17 21:38 Dose: 20 mg Fenofibrate (Tricor) 108 mg PO DAILY BECKY Stop: 08/07/18 09:01 Last Admin: 11/02/17 09:15 Dose: 108 mg Fentanyl (Duragesic) 50 mcg TD Q72H BECKY Stop: 05/02/18 16:31 Last Admin: 10/31/17 17:57 Dose: 50 mcg Flecainide Acetate (Flecainide) 100 mg PO Q12HR BECYK Stop: 05/02/18 18:01 Last Admin: 11/02/17 05:29 Dose: 100 mg Furosemide (Lasix) 40 mg PO BIDDIURETIC BECKY Stop: 05/02/18 17:01 Last Admin: 11/02/17 09:28 Dose: Not Given Gabapentin (Neurontin) 100 mg PO HS BECKY Stop: 05/02/18 21:01 Last Admin: 11/01/17 21:38 Dose: 100 mg Heparin Sodium (Porcine) (Heparin) 9,000 unit 70 unit/kg (9000 unit) IVP Q6HR PRN PRN Reason: SEE COMMENTS Stop: 05/02/18 18:29 Last Admin: 11/01/17 04:23 Dose: 9,000 unit Heparin Sodium (Porcine) (Heparin) 4,500 unit 35 unit/kg (4500 unit) IVP Q6H PRN PRN Reason: SEE COMMENTS Stop: 05/02/18 18:29 Heparin Sodium/Dextrose (Heparin 25,000 Unit/500 Ml D5w) 25,000 unit in 500 mls @ 35.924 mls/hr IVC .[id number] BECKY; 14 UNIT/KG/HR PRN Reason: Protocol Stop: 05/02/18 18:31 Last Admin: 11/02/17 00:31 Dose: 17.88 unit/kg/hr, 45.9 mls/hr Levothyroxine Sodium (Synthroid) 150 mcg PO 0630 BECKY Stop: 05/03/18 06:31 Last Admin: 11/02/17 05:29 Dose: 150 mcg Metoprolol Tartrate (Lopressor) 25 mg PO BID [facility] Stop: 05/03/18 21:01 Last Admin: 11/02/17 09:20 Dose: Not Given Montelukast Sodium (Singulair) 10 mg PO DAILY BECKY Stop: 05/03/18 09:01 Last Admin: 11/02/17 09:15 Dose: 10 mg Naloxone HCl (Narcan) 0.4 mg IVP Q2MIN PRN PRN Reason: SEE COMMENTS Stop: 05/01/18 16:38 Nitroglycerin (Nitroglycerin) 0.4 mg SL AD PRN PRN Reason: Chest Pain Stop: 05/02/18 16:27 Omeprazole (Prilosec) 40 mg PO DAILY BECKY Stop: 05/03/18 09:01 Last Admin: 11/02/17 09:15 Dose: 40 mg Ondansetron HCl (Zofran) 4 mg IVP Q8HR PRN; Protocol PRN Reason: Nausea And Vomiting Stop: 05/01/18 17:19 Oxycodone HCl (Roxicodone) 10 mg PO Q6HR PRN PRN Reason: Severe Pain Stop: 05/01/18 16:38 Last Admin: 11/02/17 04:29 Dose: 10 mg Primidone (Mysoline) 25 mg PO BID BECKY Stop: 05/02/18 21:01 Last Admin: 11/02/17 09:15 Dose: 25 mg Simvastatin (Zocor) 40 mg PO HS BECKY PRN Reason: Protocol Stop: 05/02/18 21:01 Last Admin: 11/01/17 21:38 Dose: 40 mg Valsartan (Diovan) 80 mg PO DAILY BECKY Stop: 05/03/18 09:01 Last Admin: 11/02/17 09:28 Dose: Not Given Vitamin D (Vitamin D) 1,000 unit PO DAILY BECKY Stop: 05/03/18 09:01 Last Admin: 11/02/17 09:15 Dose: 1,000 unit - Imaging and Cardiology Chest Xray: report reviewed Echo: report reviewed - EKG Interpretation EKG results cardiology: other (Patient is not on telemetry) Consult Discharge Plan - Plan Instructions: Bed Bugs (GEN), Bed Bugs, Director Of Sustainability Programs (GEN) Referrals: Calli Estes, QUARTER INSPECTOR [Primary Care Provider] -
--- NOTE | 2017-11-02 14:49 | Podiatry Progress Note ---
Date of Encounter: 11/03/17 Time of Encounter: 12:50 - Assessment and Plan (1) Closed trimalleolar fracture of left ankle Current Visit: Yes Status: Acute Posterior splint dry and intact to the LLE. Closed trimalleolar fracture of left ankle. INR: 1.4 Cardiovascular evaluated patient, patient is acceptable, intermediate risk for cardiovascular complications. Plan for ORIF of left ankle with Dr. Alegre tomorrow on 11/03/17. Recommend stopping Herparin drip 6 hours prior to surgery. Possible transfusion post operatively. NPO after midnight. Qualifiers: Encounter type: initial encounter Qualified Code(s): S82.852A - Displaced trimalleolar fracture of left lower leg, initial encounter for closed fracture Subjective Principal diagnosis: left ankle fracture Interval history: Patient is lying in bed with posterior splint dry and intact to the LLE. Patient rates pain currently at a 6 out of 10 to the LLE. Patient is awaiting an ORIF of the left ankle with Dr. Alegre once patient has cardiac clearance. Patient had a TTE this admisison with LVEF 55-60%, per cardiology patient is acceptable, intermediate risk for cardiovascular complications. No c/o fever, chills, cp or sob. Objective - Vital Signs Vital Signs: Vital Signs Temp Pulse Resp BP Pulse Ox 11/02/17 10:56 98.4 F 84 18 101/66 94 11/02/17 08:16 18 94 11/02/17 06:26 98.6 F 66 18 105/63 93 11/02/17 04:28 98.9 F 71 20 129/76 98 11/01/17 22:56 100.6 F H 72 20 120/70 97 11/01/17 21:40 97 11/01/17 20:25 16 97 11/01/17 19:17 99.7 F H 74 20 130/67 96 11/01/17 15:21 99.3 F 68 20 126/67 98 Intake and Output 11/01/17 11/02/17 11/02/17 23:59 07:59 15:59 Intake Total 540 / 540 60 / 60 740 / 740 Output Total 300 / 300 450 / 450 800 / 800 Balance 240 / 240 -390 / -390 -60 / -60 Intake: IV Fluids 440 / 440 60 / 60 500 / 500 Heparin 25,000 UNIT/500 ML D5W 440 / 440 60 / 60 500 / 500 25,000 unit In 500 ml @ 14 UNIT /KG/HR 35.924 mls/hr IVC . [id number] BECKY Rx#:[id number] Oral 100 / 100 240 / 240 Output: Urine 300 / 300 450 / 450 800 / 800 Other: Meal Dinner Lunch Percent of Meal Consumed 75% 60% # Voids 1 1 1 # Urine Diapers 1 Blood Glucose* 295 251 266 - Exam Exam: General appearance: alert awake oriented X 3. Calm and pleasant, no acute distress.. Vascular: LLE: No evidence of cyanosis, pallor or rubor, Posterior splint is dry and intact, toes #1 through #5 left are pink, warm and dry, No calf pain with manual compression. capillary refill time is immediate to digits. Neurologic: Sensation diminished with light touch to foot. Musckuloskeletal: Posterior splint dry and intact to the LLE. - Lab Result Diagrams: 11/03/17 00:29 11/03/17 00:29 Labs: Abnormal lab results RBC 2.70 M/mcL (4.19-5.50) L 11/02/17 07:14 Hgb 7.7 g/dL (12.9-16.9) L 11/02/17 07:14 Hct 23.9 % (37.5-50.1) L 11/02/17 07:14 RDW 14.6 % (11.5-14.5) H 11/02/17 07:14 PT 14.7 Seconds (9.4-12.1) H 11/02/17 07:14 APTT 86.2 Seconds (26.0-36.0) H 11/01/17 22:10 Sodium 133 mEq/L (136-145) L 11/02/17 07:14 Chloride 96 mEq/L (98-107) L 11/02/17 07:14 Carbon Dioxide 30 mEq/L (23-29) H 11/02/17 07:14 BUN 27 mg/dL (8-23) H 11/02/17 07:14 Creatinine 1.65 mg/dL (0.70-1.30) H 11/02/17 07:14 Est GFR ( Amer) 51 (> 60) L 11/02/17 07:14 Est GFR (Non-Af Amer) 42 (> 60) L 11/02/17 07:14 Glucose 225 mg/dL (70-105) H 11/02/17 07:14 POC Glucose 266 (58-89) H 11/02/17 10:58 Calcium 8.3 mg/dL (8.6-10.3) L 11/02/17 07:14 AST 12 Units/L (13-39) L 11/02/17 07:14 Albumin 3.0 g/dL (3.5-5.7) L 11/02/17 07:14 Albumin/Globulin Ratio 0.9 (1.1-2.2) L 11/02/17 07:14 HDL Cholesterol 29 mg/dL (40-59) L 10/31/17 04:10 Consult Discharge Plan - Plan Instructions: Bed Bugs (GEN), Bed Bugs, State Game Protector (GEN) Referrals: Calli Estes, SILVER SOLUTION MIXER [Primary Care Provider] -
--- NOTE | 2017-11-02 17:42 | Internal Med Progress Note ---
Date of Encounter: 11/02/17 Time of Encounter: 14:30 - Assessment and plan (1) Closed trimalleolar fracture of left ankle Current Visit: Yes Status: Acute Assessment and plan: Left ankle fracture status post mechanical fall, confirmed with left ankle x- ray. Podiatry has been consulted, plan for open reduction and internal fixation tomorrow. Cardiology evaluation completed, patient cleared with intermediate perioperative risk. Continue supportive care and pain control with oral oxycodone and hydrocodone, continue home dose of fentanyl patch. Supportive care. Qualifiers: Encounter type: initial encounter Qualified Code(s): S82.852A - Displaced trimalleolar fracture of left lower leg, initial encounter for closed fracture (2) Diabetes mellitus Current Visit: Yes Status: Chronic Assessment and plan: Continue Accu-Chek blood glucose monitoring with sliding scale insulin. Diabetic diet. Qualifiers: Diabetes mellitus type: type 2 Diabetes mellitus complication status: with kidney complications Diabetes mellitus complication detail: with chronic kidney disease Diabetes mellitus assisted insulin use: with watermelon harvesting supervisor use Chronic kidney disease stage: stage 3 (moderate) Qualified Code(s): E11.22 - Type 2 diabetes mellitus with diabetic chronic kidney disease; N18.3 - Chronic kidney disease, stage 3 (moderate); N18.3 - Chronic kidney disease, stage 3 ( moderate); Z79.4 - custodial (current) use of insulin; Z79.4 - intermediate project manager ( current) use of insulin; Z79.4 - intermediate project manager (current) use of insulin; Z79.4 - intermediate project manager (current) use of insulin (3) COPD (chronic obstructive pulmonary disease) Current Visit: Yes Status: Chronic Qualifiers: COPD type: unspecified COPD Qualified Code(s): J44.9 - Chronic obstructive pulmonary disease, unspecified (4) HTN (hypertension) Current Visit: Yes Status: Chronic Assessment and plan: Blood pressure well controlled. Continue home medications. Qualifiers: Hypertension type: essential hypertension Qualified Code(s): I10 - Essential (primary) hypertension (5) Hypothyroid Current Visit: Yes Status: Chronic Assessment and plan: Continue levothyroxine. Qualifiers: Hypothyroidism type: unspecified Qualified Code(s): E03.9 - Hypothyroidism , unspecified (6) S/P aortic valve replacement Current Visit: Yes Status: Chronic Assessment and plan: INR currently subtherapeutic, started on IV heparin drip for uninterrupted anticoagulation. Echocardiogram showed preserved ejection fraction, mild concentric LVH, mild left ventricular diastolic dysfunction, mechanical aortic valve is suboptimally visualized. - Subjective Interval history: Reports left ankle pain, plan for surgical fixation tomorrow. No chest or abdominal pain, shortness of breath, vomiting. - Constitutional Vitals: Temp Pulse Resp BP Pulse Ox 99.3 F 63 18 112/65 96 11/02/17 16:08 11/02/17 16:08 11/02/17 16:08 11/02/17 16:08 11/02/17 16:08 General appearance: Present: A&O X 3, obese, answers questions appropriately - Respiratory Respiratory exam: Present: CTAB. Absent: accessory muscle use, rales, rhonchi, wheezes - Cardiovascular Cardiovascular exam: Present: RRR, +S1, +S2 (Mechanical heart sound). Absent: diastolic murmur, gallop, rubs, systolic murmur - GI/Abdominal GI/Abdominal exam: Present: normal bowel sounds, soft (Obese), no peritoneal signs. Absent: distended, tenderness - Extremities Exam Extremities exam: Present: full ROM (Restricted in left ankle), warm, radial pulses palpable and symmetrical. Absent: calf tenderness, cyanotic, pedal edema Additional comments: Left ankle currently in a pressure dressing/Roly wrap - Neurological Exam Neurological exam: Present: CN II-XII intact, oriented X3, no focal deficits. Absent: pronater drift, facial droop, speech deficit Internal Medicine: Result - Labs CBC & Chem 7: 11/03/17 00:29 11/03/17 00:29 Labs: Short CBC 11/02/17 Range/Units 07:14 WBC 6.2 (4.3-11.1) K/mcL Hgb 7.7 L (12.9-16.9) g/dL Hct 23.9 L (37.5-50.1) % Plt Count 314 (140-400) K/mcL Neutrophils # 4.7 (1.6-8.9) K/mcL BMP 11/02/17 07:14 Sodium 133 L Potassium 3.9 Chloride 96 L Carbon Dioxide 30 H BUN 27 H Creatinine 1.65 H Glucose 225 H Calcium 8.3 L Liver Function 11/02/17 Range/Units 07:14 Total Bilirubin 0.4 (0.3-1.0) mg/dL AST 12 L (13-39) Units/L ALT 7 (7-52) Units/L Alkaline Phosphatase 50 (34-104) Units/L Albumin 3.0 L (3.5-5.7) g/dL - ABG Interpretation ABG results: PT/INR, D-dimer PT 14.7 Seconds (9.4-12.1) H 11/02/17 07:14 - Impressions Impressions Echocardiogram 11/01/17 12:42 Impressions: LVEF 55-60%. Mild concentric left ventricular hypertrophy. Mild left ventricular diastolic dysfunction. Normal right ventricular structure with low normal function. Mechanical aortic valve is suboptimally visualized. Borderline criteria for prosthetic stenosis. No regurgitation. Mild mitral regurgitation. Mild tricuspid regurgitation. Borderline pulmonary hypertension. There is a trivial pericardial effusion present. There is no echocardiographic evidence of tamponade. Left Ventricular Wall Motion: Rest Echo Findings All wall segments showed normal motion. Findings: Study Quality * Technically challenging due to body habitus. ECG Findings * Sinus rhythm with BBB. Left Ventricle * LVEF 55-60%. * Mild concentric left ventricular hypertrophy. * Mild left ventricular diastolic dysfunction. Right Ventricle * Normal right ventricular structure with low normal function. Left Atrium * Moderately dilated left atrium. Right Atrium * Normal right atrial size. Aortic Valve * Aortic valve not well visualized. * No aortic regurgitation. * Borderline criteria for prosthetic stenosis (PV 3.5m/s, MG 26 mmHg, DI 0.25, EOA 0.80cm2, AT 88ms) Mitral Valve * Mitral valve not well visualized. * No mitral stenosis. * Mild mitral regurgitation. * Mild mitral annular calcification * Mildly calcified mitral valve leaflets. Tricuspid Valve * Tricuspid valve not well visualized. * Mild tricuspid regurgitation. * Estimated RA pressure is 3 mmHg. * Estimated RVSP is 35 mmHg. * Borderline pulmonary hypertension. Pulmonic Valve * Pulmonic valve is not well visualized. * No pulmonic stenosis. * No pulmonic regurgitation. Pulmonary Artery * Pulmonary artery not well visualized. Aorta * Normally sized aortic root. * Ascending aorta is not well visualized. Pericardium * There is a trivial pericardial effusion present. * There is no echocardiographic evidence of tamponade. Interatrial Septum * No evidence of PFO by color Doppler. IVC * Normal IVC dimensions and inspiratory collapse. Consult Discharge Plan - Plan Instructions: Bed Bugs (GEN), Bed Bugs, Wiring Mechanic (GEN) Referrals: Calli Estes, HARP ACTION ASSEMBLER [Primary Care Provider] -
[2017-11-02] MEDS: Famotidine 20 MG TABLET PO SCH (19:56)
[2017-11-02] MEDS: Gabapentin 100 MG CAPSULE PO SCH (19:56)
[2017-11-02] MEDS: *HR* HYDROcodone/Acet 5/325 mg TABLET PO PRN (19:57)
--- NOTE | 2017-11-02 20:32 | Anesthesia Evaluation PreOp ---
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) Other Medical History: Renal (stage 3 CKD), Diabetes Type II, Thyroid, GERD Anesthesia History: No Prior Anesthetic Complications, Past Anesthesia Alcohol Use: none Drug use: none Medications and Allergies Albuterol Sulfate [Ventolin Hfa] 2 puff IH BID 05/14/16 [History] Allopurinol [Zyloprim 100 MG] 200 mg PO DAILY 05/14/16 [History] Aspirin [Lo-Dose Aspirin EC] 81 mg PO DAILY 05/14/16 [History] Bicalutamide [Casodex] 50 mg PO DAILY 05/14/16 [History] Calcitriol [Rocaltrol] 0.25 mcg PO DAILY 05/14/16 [History] Cholecalciferol (Vitamin D3) [Vitamin D3] 5,000 unit PO DAILY 05/14/16 [History] Docusate [Colace] 100 mg PO BID PRN 05/14/16 [History] Famotidine [Pepcid] 40 mg PO HS 05/14/16 [History] Fenofibrate 145 mg PO DAILY 05/14/16 [History] Flecainide Acetate 100 mg PO Q12HR 05/14/16 [History] Furosemide [Lasix] 40 mg PO BID 05/14/16 [History] Insulin Regular U-500 [HumuLIN R U-500] 0 unit SQ PRN PRN 05/14/16 [History] Levothyroxine [Synthroid] 150 mcg PO DAILY 05/14/16 [History] Montelukast [Singulair] 10 mg PO DAILY 05/14/16 [History] Nitroglycerin [Nitrostat] 0.4 mg SL AD PRN 05/14/16 [History] Simvastatin [Zocor] 40 mg PO HS 05/14/16 [History] Warfarin [Coumadin] 10 mg PO MOWEFR 05/14/16 [History] Metoprolol [Lopressor] 25 mg PO DAILY 07/31/16 [History] Pantoprazole Sodium [Protonix] 40 mg PO DAILY 07/31/16 [History] Albuterol Neb [Proventil Neb] 2.5 mg IH Q4HR PRN 10/07/17 [History] Citalopram [CeleXA] 20 mg PO DAILY 10/07/17 [History] FentaNYL PATCH [Duragesic] 50 mcg TD Q72H 10/07/17 [History] Gabapentin [Neurontin] 100 mg PO HS 10/07/17 [History] Iron 65 mg PO BID 10/07/17 [History] Phenylephrine/Dm/Acetaminop/GG [Kro Mucus Relief Cold-Flu Cplt] 1 tab PO Q6-8H PRN 10/07/17 [History] Dicyclomine [Bentyl] 10 mg PO QID PRN #20 capsule 10/08/17 [Rx] Budesonide/Formoterol 160/4.5 [Symbicort 160/4.5] 2 puff IH BIDR 10/31/17 [ History] Nut.tx.gluc.intoler,Lac-Fr,Soy [Glucerna] 1 can PO TID 10/31/17 [History] Primidone [Mysoline] 25 mg PO BID 10/31/17 [History] Valsartan [Diovan] 80 mg PO DAILY 10/31/17 [History] Warfarin [Coumadin] 7.5 mg PO SUTUTHSA 10/31/17 [History] 3 Allergy/AdvReac Type Severity Reaction Status Date / Time niacin Allergy See Verified 10/30/17 14:26 [From [facility] Comments Extended-Release] - Meds/Allergy Pre-op Review Medications Reviewed: Yes Allergies Reviewed: Yes Beta Blockers on Current Med List: Yes If Beta Blockers taken, Date/Time (Last Dose taken): 11/02/2017 at 1956 Anesthesia Results - Labs 11/02/17 07:14 11/02/17 07:14 - Imaging EKG: report reviewed (10/30/2017 SINUS RHYTHM WITH FIRST DEGREE AV BLOCK MARKED LEFT AXIS DEVIATION RIGHT BUNDLE BRANCH BLOCK) Additional studies: 11/01/2017 Echo Impressions: LVEF 55-60%. Mild concentric left ventricular hypertrophy. Mild left ventricular diastolic dysfunction. Normal right ventricular structure with low normal function. Mechanical aortic valve is suboptimally visualized. Borderline criteria for prosthetic stenosis. No regurgitation. Mild mitral regurgitation. Mild tricuspid regurgitation. Borderline pulmonary hypertension. There is a trivial pericardial effusion present. There is no echocardiographic evidence of tamponade. Anesthesia Exam Vital Signs/O2 Sat/Glucose, Most Recent Temp Pulse Resp BP Pulse Ox 98.3 F 68 16 127/70 98 11/02/17 19:42 11/02/17 19:42 11/02/17 19:42 11/02/17 19:42 11/02/17 19:42 Blood Glucose* 252 Height: 6'3''/1.91m Weight: 282 lbs/128.3 kg NPO (# of Hours): 8 Pain Scale: 6 Pain Scale Used: Numeric (1 - 10) - HEENT Pupil (Motor): EOMI Mallampati: III Teeth: Edentulous Oral Opening: Greater than 3 - FARM MACHINERY ASSEMBLER LOC: Oriented FARM MACHINERY ASSEMBLER Motor: Normal RUE, Normal RLE, Normal LLE, Normal Face, Deficit LUE FARM MACHINERY ASSEMBLER Sensory: Normal: RUE, LUE, Face, Deficit: RLE (neuropathy), LLE (neuropathy) - Cardiac Rhythm: Regular Murmur: None - Pulmonary Breath Sounds: bilateral Clear Respiratory Effort: Symmetrical Anesthesia Assess/Plan ASA Score: 4 Modified Hubbard Scale for Level of Consciousness: Cooperative, oriented, and tranquil Anesthetic Plan: General, Regional Monitoring Plan: Standard Monitors Recovery Plan: PACU
[2017-11-03 01:41] LABS: Basophils % 0.2 %; Eosinophils # 0.3 K/mcL (0.0-0.6); Eosinophils % 5.3 %; Hematocrit 24.5 % (37.5-50.1); Hemoglobin 7.7 g/dL (12.9-16.9); Immature Platelets 5.8 % (1.1-6.1); Lymphocytes # 0.6 K/mcL (0.6-4.6); Lymphocytes % 9.2 %; Mean Corpuscular HGB Conc 31.4 g/dL (31.6-35.5); Mean Corpuscular Hemoglobin 28.9 pg (28.0-33.3); Mean Corpuscular Volume 92.1 fL (83.0-100.0); Mean Platelet Volume 10.8 fL (9.4-12.4); Monocytes # 0.5 K/mcL (0.0-1.3); Monocytes % 8.2 %; Neutrophils # 4.6 K/mcL (1.6-8.9); Platelet Count 335 K/mcL (140-400); Red Blood Count 2.66 M/mcL (4.19-5.50); Red Cell Distribution Width 14.6 % (11.5-14.5); Segmented Neutrophils % 76.1 %
[2017-11-03 01:49] LABS: INR 1.3; Prothrombin Time 13.8 Seconds (9.4-12.1)
[2017-11-03 02:14] LABS: Albumin 2.9 g/dL (3.5-5.7); Albumin/Globulin Ratio 0.9 (1.1-2.2); Bilirubin,Total 0.4 mg/dL (0.3-1.0); Calcium 8.4 mg/dL (8.6-10.3); Globulin 3.3 g/dL (2.4-3.5); Potassium 3.9 mEq/L (3.5-5.1); Total Protein 6.2 g/dL (6.4-8.9)
[2017-11-03] MEDS: Budesonide/Formoterol 160/4.5 MDI IH SCH ×2 (08:38→20:22)
[2017-11-03] MEDS: Furosemide 40 MG TABLET PO SCH ×2 (09:44→17:07)
[2017-11-03] MEDS: Valsartan 80 MG TABLET PO SCH (09:44)
[2017-11-03] MEDS: Primidone 50 MG TABLET PO SCH ×2 (09:44→21:14)
[2017-11-03] MEDS: Bicalutamide 50 MG TABLET PO SCH (09:44)
[2017-11-03] MEDS: Cholecalciferol (D-3) 1,000 UNIT TABLET PO SCH (09:45)
[2017-11-03] MEDS: Fenofibrate 54 MG TABLET PO SCH (09:45)
--- NOTE | 2017-11-03 10:36 | Podiatry Progress Note ---
Date of Encounter: 11/03/17 Time of Encounter: 10:20 - Assessment and Plan (1) Closed trimalleolar fracture of left ankle Current Visit: Yes Status: Acute reviewed again with the patient regarding his injury/condition, my findings, and treatment options. Discussed with patient again the trimalleolar ankle fracture and surgery. Nature of left ankle ORIF disussed at length as well as the risks vs benefits, potential complications and consequences of the procedure. 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 Risks and potential complications included but were not limited to infection, bleeding, swelling, nerve damage, numbness, tingling, loss of function, wound healing problems, delayed or non-union of bone fracture healing , loss of leg, , heart attack, blood clot, pulomary embolism, pneumonia, reaction to implants, need for implant removal, and need for further surgery. It was explained he could need more surgery in the future. No guarantees made as to the outcome. Discussed typical course of recovery and he will be non- weight bearing up to 12 weeks following the procedure. Patient says he understands and is ready for the procedure. Heparin drip was stopped early this AM. Proceed as planned with ORIF of left ankle fracture. . Qualifiers: Encounter type: initial encounter Qualified Code(s): S82.852A - Displaced trimalleolar fracture of left lower leg, initial encounter for closed fracture Subjective Principal diagnosis: left ankle fracture Interval history: patient says he feels okay. denies f/c/n/v/sob/cp. Objective - Vital Signs Vital Signs: Vital Signs Temp Pulse Resp BP Pulse Ox 11/03/17 10:00 80 11/03/17 06:55 98.6 F 57 18 100/55 96 11/03/17 00:41 98.9 F 67 16 109/67 93 11/02/17 22:14 14 98 11/02/17 19:42 98.3 F 68 16 127/70 98 11/02/17 16:08 99.3 F 63 18 112/65 96 11/02/17 10:56 98.4 F 84 18 101/66 94 Intake and Output 11/02/17 11/03/17 11/03/17 23:59 07:59 15:59 Intake Total 120 / 120 370 / 370 Output Total 400 / 400 Balance -280 / -280 370 / 370 Intake: IV Fluids 370 / 370 Heparin 25,000 UNIT/500 ML D5W 370 / 370 25,000 unit In 500 ml @ 14 UNIT /KG/HR 35.924 mls/hr IVC . [id number] [facility] Rx#:[id number] Oral 120 / 120 Output: Urine 400 / 400 Other: Meal Dinner Percent of Meal Consumed 100% Blood Glucose* 293 242 - Exam Exam: deformity left ankle. foot and ankle warm to touch. ecchymosis present. no fracture blisters. absent sensation to touch. - Lab Result Diagrams: 11/03/17 00:29 11/03/17 00:29 Labs: Abnormal lab results RBC 2.66 M/mcL (4.19-5.50) L 11/03/17 00:29 Hgb 7.7 g/dL (12.9-16.9) L 11/03/17 00:29 Hct 24.5 % (37.5-50.1) L 11/03/17 00:29 MCHC 31.4 g/dL (31.6-35.5) L 11/03/17 00:29 RDW 14.6 % (11.5-14.5) H 11/03/17 00:29 PT 13.8 Seconds (9.4-12.1) H 11/03/17 00:29 APTT 70.2 Seconds (26.0-36.0) H 11/03/17 00:29 Sodium 131 mEq/L (136-145) L 11/03/17 00:29 Chloride 93 mEq/L (98-107) L 11/03/17 00:29 Carbon Dioxide 30 mEq/L (23-29) H 11/03/17 00:29 BUN 29 mg/dL (8-23) H 11/03/17 00:29 Creatinine 1.86 mg/dL (0.70-1.30) H 11/03/17 00:29 Est GFR ( Amer) 44 (> 60) L 11/03/17 00:29 Est GFR (Non-Af Amer) 37 (> 60) L 11/03/17 00:29 Glucose 252 mg/dL (70-105) H 11/03/17 00:29 POC Glucose 242 (58-89) H 11/03/17 06:57 Calcium 8.4 mg/dL (8.6-10.3) L 11/03/17 00:29 AST 10 Units/L (13-39) L 11/03/17 00:29 Serum Total Protein 6.2 g/dL (6.4-8.9) L 11/03/17 00:29 Albumin 2.9 g/dL (3.5-5.7) L 11/03/17 00:29 Albumin/Globulin Ratio 0.9 (1.1-2.2) L 11/03/17 00:29 HDL Cholesterol 29 mg/dL (40-59) L 10/31/17 04:10 Consult Discharge Plan - Plan Instructions: Bed Bugs (GEN), Bed Bugs, Interlibrary Loan Services Librarian (GEN) Referrals: Calli Estes, STANISLAV [Primary Care Provider] -
[2017-11-03] MEDS ORDERED: *HR* FentaNYL (PF) 100 MCG/2 ML VIAL ONE (11:22)
[2017-11-03] MEDS ORDERED: EPHEDrine 50 MG/ML VIAL ONE (11:22)
[2017-11-03] MEDS ORDERED: Lidocaine -MPF 2% 2 ML VIAL ONE (11:22)
[2017-11-03] MEDS ORDERED: *HR* Propofol 200 MG/20 ML VIAL IVP ONE (11:22)
[2017-11-03] MEDS ORDERED: *HR* Midazolam HCl 2 MG/2 ML VIAL ONE (11:22)
[2017-11-03] MEDS ORDERED: Ondansetron 4 MG/2 ML VIAL ONE (11:38)
[2017-11-03] MEDS ORDERED: Dexamethasone 4 MG/ML VIAL ONE (11:38)
[2017-11-03] MEDS ORDERED: Dextrose Gel 15 GM/37.5 ML TUBE PO PRN ×4 (13:06→14:06)
[2017-11-03] MEDS ORDERED: D5% in Water 1,000 ML IVC PRN ×2 (13:06→14:06)
[2017-11-03] MEDS ORDERED: *HR* Dextrose 50 % in Water (Syg) 50 ML SYRINGE IVP PRN ×2 (13:06→14:06)
--- NOTE | 2017-11-03 13:09 | Operative Note ---
Date of procedure: 11/03/17 Pre-op diagnosis: left trimalleolar ankle fracture Post-op diagnosis: same Procedure: left trimalleolar ankle fracture ORIF left syndesmosis ORIF left deltoid ligament repair Implants: Jenners locking plate with 3.5mm locking and non-locking screws, arthrex 3.5mm anchor Complications: none Anesthesia: GETA Local Anesthetics: 1% Lidocaine HCL SubQ (cc) Surgeon: Ajith Alegre Was there an dietetic assistant present: No Estimated blood loss (cc): 20 Specimen: none Condition: stable Disposition: PACU Procedure in Detail: Indications: 67 year old diabetic male with profound neuropathy who sustained a left trimalleolar ankle fracture. He has a mechanical heart valve and was admitted to the hospital with his ankle fracture and an INR of 4.6. He was seen and evaluated by Cardiology and INR was at an acceptable level at the time of the surgery. The nature of the procedure ORIF of left ankle fracture was discussed with the patient at length. The risks versus benefits potential complications and consequences of the procedure discussed with the patient preoperatively. No guarantees made as to the outcome. Patient understood that he will have arthritis due to the nature of his injury and the left ankle joint may always have some swelling and could require further surgery. All questions were answered and informed consent was signed patient was taken from the preoperative holding area and into the operating room placed on operating room table in the supine position. Following induction of general anesthesia the left lower extremity was scrubbed prepped and draped in the usual sterile fashion and a thigh tourniquet was inflated to 300 mmHg. Following procedures began. ORIF left trimalleolar ankle fracture and syndesmosis, deltoid ligament repair. Attention was directed to the lateral aspect of the patient's left ankle where a #15 blade was used to make an incision approximately 8 cm in length over the fibula. Skin incision was deepened through blunt dissection taking care to protect all neurovascular tendinous structures. Once down to the level of the periosteum, it was incised and reflected from the fibula exposing the fracture zone of the fibula. Hematoma from the site was evacuated and bone curet used to freshen the ends of the fracture zone. Reduction clamps were then used to hold the fibula in a reduced position. C-arm was utilized to ensure that the fibula was out to length and reduction of the fracture of the fibula had been achieved. Next using standard technique and 3.5 mm Payal cortical lag screw was thrown using standard technique. Excellent compression was noted across the fracture zone. Next using standard technique a Jenners fibula plate was applied to the lateral aspect of the fibula using 3.5 mm locking and nonlocking screws. Attention was then directed medially where the displaced small medial malleolar fracture was present. A #15 blade was used to make an incision approximately 4 cm in length. The deltoid ligament was visualized and noted to be frangly rupture with the small medial malleolar fragment within the rupture. K-wire were used to pin the fragment, k-wires were thrown through the small fragment while it was held with a reduction clamp. One 4.0mm screw was thrown through the fragment and the fragment cracked. A k-wire was used to hold the fragment in addition to the screw.. A cotton hook test was performed and syndesmotic instability was felt to be present. Tib-profib screws were thrown x 3 across the syndesmosis The reduction clamp was utilized and three Payal non-locking screw was utilized through the plate to reduce the syndesmosis with the reduction clamp in place. The C-arm was utilized and there was tib-fib overlap was present. The talus was sitting well in the ankle mortise but with some valgus tilt. As the deltoid ligament was frankly ruptured and there was some widening of the medial clear space with tilting of the talus in the mortise, a deltoid ligament repair was performed using an Arthrex 3.5mm suture anchor using standard techinique. The ruptured ligament was grasped with the fiberwire suture and cinched down to the medial malleolusClinically the syndesmosis was felt to be stable. Posterior malleolar fragment was small and the decision was made not to fixate the small posterior malleolus fragment. C-arm was utilized to confirm good position and alignment of the ankle joint and hardware in AP lateral and oblique views. Surgical site was flushed with copious amounts of normal sterile saline. Deep and subcutaneous tissues were closed with 2-0 Vicryl and the skin was reapproximated with que. Postoperative bandaging included Xeroform, 4 x 4 gauze, abdomen pad, Kerlix and an adequately padded posterior splint applied. The patient tolerated the anesthesia and procedure well and was escorted to the recovery room with vital signs stable and vascular status intact to the left foot noted by instant capillary refill time to all digits of the left foot. He will return to the floor where he will restart the heparin drip and coumadin and be bridged back to a therapeutic INR level. Ancef ordered post-operatively. Patient given strict instructions for nonweightbearing to the left lower extremity.
[2017-11-03] MEDS ORDERED: Lidocaine 1% 20 ML MDV ONE (13:13)
[2017-11-03] MEDS ORDERED: *HR* Heparin 5,000 UNIT/ML VIAL IVP PRN (13:52)
[2017-11-03] MEDS ORDERED: Naloxone 0.4 MG/ML INJ IVP PRN (13:52)
[2017-11-03] MEDS ORDERED: Acetaminophen 325 MG TABLET PO PRN (13:52)
[2017-11-03] MEDS ORDERED: Albuterol 2.5 MG/3 ML NEBULIZER IH PRN (13:52)
[2017-11-03] MEDS ORDERED: Ondansetron 4 MG/2 ML VIAL IVP PRN (13:52)
[2017-11-03] MEDS ORDERED: Nitroglycerin 0.4 MG TAB.SUBL SL PRN (13:52)
--- NOTE | 2017-11-03 14:30 | Event Note ---
Date of Encounter: 11/03/17 Time of Encounter: 13:00 okay to restart hep drip to bridge coumadin back to therapeutic level. monitor H &H. blood loss approx 20cc in surgery.
--- NOTE | 2017-11-03 14:56 | Anesthesia Evaluation Post Op ---
Date of Encounter: 11/03/17 Time of Encounter: 13:30 - Vital Signs Vital Signs: Vital Signs/O2 Sat/Glucose, Most Current Temp Pulse Resp BP Pulse Ox 11/03/17 13:39 98.9 F 67 17 109/69 100 11/03/17 13:29 66 18 118/66 98 11/03/17 13:19 67 15 126/60 97 11/03/17 13:09 35.7 F L 70 16 113/59 96 - Lungs Lungs: Clear Ascult./Percussion - Airway Airway: Non-obstructed - Cardiovascular Regular Rate - Mental Status Mental Status: Alert & Oriented, Answers Appropriately - Pain Pain Scale: 0 Pain Scale used: Numeric (1 - 10) - Nausea Vomiting Nausea Vomiting: Not Present - Hydration Hydration: Tolerates oral liquids - Discharge PostOp Status: Transfer Patient to floor
[2017-11-03] MEDS: *HR* HYDROcodone/Acet 5/325 mg TABLET PO PRN (15:35)
[2017-11-03] MEDS ORDERED: Insulin LISPRO 300 UNITS/3 ML VIAL SQ SCH (16:30)
[2017-11-03] MEDS ORDERED: 0.9 % Sodium Chloride 250 ML IVC ONE (16:58)
[2017-11-03] MEDS ORDERED: 0.9 % Sodium Chloride 250 ML ONE (17:04)
[2017-11-03] MEDS: *HR* FentaNYL PATCH 50 MCG PATCH TD SCH (17:07)
[2017-11-03] MEDS: Insulin LISPRO 300 UNITS/3 ML VIAL SQ SCH ×2 (17:07→21:15)
--- NOTE | 2017-11-03 17:08 | Internal Med Progress Note ---
Date of Encounter: 11/03/17 Time of Encounter: 15:30 - Assessment and plan (1) Closed trimalleolar fracture of left ankle Current Visit: Yes Status: Acute Assessment and plan: Left ankle fracture status post mechanical fall, confirmed with left ankle x- ray. Podiatry has been consulted, underwent left trimalleolar ankle fracture ORIF left syndesmosis ORIF, left deltoid ligament repair, postoperative day 0. Continue supportive care and pain control with oral oxycodone and hydrocodone, continue home dose of fentanyl patch. Physical and occupational therapy evaluation. Qualifiers: Encounter type: initial encounter Qualified Code(s): S82.852A - Displaced trimalleolar fracture of left lower leg, initial encounter for closed fracture (2) Diabetes mellitus Current Visit: Yes Status: Chronic Assessment and plan: Noted to have elevated blood sugars. Start basal bolus insulin regimen. Continue Accu-Chek blood glucose monitoring. Hemoglobin A1c noted to be 5.3%. Diabetic diet. Qualifiers: Diabetes mellitus type: type 2 Diabetes mellitus complication status: with kidney complications Diabetes mellitus complication detail: with chronic kidney disease Diabetes mellitus oil heaterman insulin use: with oil heaterman use Chronic kidney disease stage: stage 3 (moderate) Qualified Code(s): E11.22 - Type 2 diabetes mellitus with diabetic chronic kidney disease; N18.3 - Chronic kidney disease, stage 3 (moderate); N18.3 - Chronic kidney disease, stage 3 ( moderate); Z79.4 - senior care (current) use of insulin; Z79.4 - senior care ( current) use of insulin; Z79.4 - senior care (current) use of insulin; 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 Continue home medications. Qualifiers: Hypertension type: essential hypertension Qualified Code(s): I10 - Essential (primary) hypertension (5) Hypothyroid Current Visit: Yes Status: Chronic Assessment and plan: Continue levothyroxine. Qualifiers: Hypothyroidism type: unspecified Qualified Code(s): E03.9 - Hypothyroidism , unspecified (6) S/P aortic valve replacement Current Visit: Yes Status: Chronic Assessment and plan: INR currently subtherapeutic at 1.3. We will restart IV heparin drip post surgery, resume Coumadin. (7) Hyponatremia Current Visit: Yes Status: Acute Assessment and plan: Hypoosmolar. Likely related to diuretic use. Continue to monitor. - Subjective Interval history: He just returned from operating room. Reports minimal pain in left ankle. No chest pain, shortness of breath, palpitations. No fever or chills. - Constitutional Vitals: Temp Pulse Resp BP Pulse Ox 98.4 F 89 16 122/66 93 11/03/17 15:22 11/03/17 15:22 11/03/17 15:22 11/03/17 15:22 11/03/17 15:22 General appearance: Present: A&O X 3, obese, answers questions appropriately - Respiratory Respiratory exam: Present: decreased breath sounds (At bilateral bases), CTAB. Absent: accessory muscle use, rales, rhonchi, wheezes - Cardiovascular Cardiovascular exam: Present: RRR, +S1, +S2 (Mechanical heart sound). Absent: diastolic murmur, gallop, rubs, systolic murmur - GI/Abdominal GI/Abdominal exam: Present: normal bowel sounds, soft (Obese), no peritoneal signs. Absent: distended, tenderness - Extremities Exam Extremities exam: Present: warm, radial pulses palpable and symmetrical. Absent : calf tenderness, cyanotic, pedal edema Additional comments: Left ankle in surgical dressing, dry and intact - Neurological Exam Neurological exam: Present: CN II-XII intact, oriented X3, no focal deficits. Absent: pronater drift, facial droop, speech deficit Internal Medicine: Result - Labs CBC & Chem 7: 11/03/17 00:29 11/03/17 00:29 Labs: Short CBC 11/03/17 Range/Units 00:29 WBC 6.1 (4.3-11.1) K/mcL Hgb 7.7 L (12.9-16.9) g/dL Hct 24.5 L (37.5-50.1) % Plt Count 335 (140-400) K/mcL Neutrophils # 4.6 (1.6-8.9) K/mcL BMP 11/03/17 00:29 Sodium 131 L Potassium 3.9 Chloride 93 L Carbon Dioxide 30 H BUN 29 H Creatinine 1.86 H Glucose 252 H Calcium 8.4 L Liver Function 11/03/17 Range/Units 00:29 Total Bilirubin 0.4 (0.3-1.0) mg/dL AST 10 L (13-39) Units/L ALT 8 (7-52) Units/L Alkaline Phosphatase 51 (34-104) Units/L Albumin 2.9 L (3.5-5.7) g/dL - ABG Interpretation ABG results: PT/INR, D-dimer PT 13.8 Seconds (9.4-12.1) H 11/03/17 00:29 - Impressions Impressions Ankle X-Ray 11/03/17 11:28 IMPRESSION: Intraprocedural fluoroscopic spot images as above. See separate procedure report for more information. D/ /03/2017 13:13:17 Fidelia Liao MD / giorgio Interpreting Provider: Fidelia Liao MD Fluoroscopy 11/03/17 11:28 IMPRESSION: Intraprocedural fluoroscopic spot images as above. See separate procedure report for more information. D/ /03/2017 13:13:17 Fidelia Liao MD / giorgio Interpreting Provider: Fidelia Liao MD - VTE Documentation of Mechanical Device: Intermittent pneumatic compression device Consult Discharge Plan - Plan Instructions: Bed Bugs (GEN), Bed Bugs, Track Leader (GEN) Referrals: Calli Estes, MARINE HABITAT RESOURCE SPECIALIST [Primary Care Provider] -
[2017-11-03] MEDS ORDERED: *HR* Warfarin 5 MG TABLET PO SCH (18:00)
[2017-11-03] MEDS: Heparin 25,000 UNIT/500 ML D5W 25,000 UNIT/500 ML BAG IVC SCH (18:35)
[2017-11-03] MEDS: CeFAZolin Premix DUPLEX 2,000 MG/50 ML BAG IVPB SCH (19:51)
[2017-11-03] MEDS: *HR* OxyCODONE Immed Rel 5 MG TABLET PO PRN (20:07)
[2017-11-03] MEDS ORDERED: Insulin DETEMIR 100 UNIT/ML X5UNITS SQ SCH (21:00)
[2017-11-03] MEDS: Famotidine 20 MG TABLET PO SCH (21:14)
[2017-11-03] MEDS: Gabapentin 100 MG CAPSULE PO SCH (21:15)
[2017-11-03] MEDS: Insulin DETEMIR 100 UNIT/ML X5UNITS SQ SCH (21:16)
[2017-11-04] MEDS: *HR* OxyCODONE Immed Rel 5 MG TABLET PO PRN (04:16)
[2017-11-04] MEDS: CeFAZolin Premix DUPLEX 2,000 MG/50 ML BAG IVPB SCH ×2 (04:38→14:57)
[2017-11-04 06:50] LABS: Basophils % 0.1 %; Eosinophils % 0.6 %; Hematocrit 21.8 % (37.5-50.1); Hemoglobin 6.9 g/dL (12.9-16.9); Immature Granulocytes % 1.1 % (0-4); Lymphocytes # 0.5 K/mcL (0.6-4.6); Lymphocytes % 7.2 %; Mean Corpuscular HGB Conc 31.7 g/dL (31.6-35.5); Mean Corpuscular Hemoglobin 29.1 pg (28.0-33.3); Mean Platelet Volume 9.8 fL (9.4-12.4); Monocytes # 0.6 K/mcL (0.0-1.3); Monocytes % 7.9 %; Platelet Count 284 K/mcL (140-400); Red Blood Count 2.37 M/mcL (4.19-5.50); Red Cell Distribution Width 14.6 % (11.5-14.5); Segmented Neutrophils % 83.1 %
[2017-11-04 06:58] LABS: INR 1.3; Prothrombin Time 14.6 Seconds (9.4-12.1)
[2017-11-04 07:11] LABS: Albumin 2.9 g/dL (3.5-5.7); Albumin/Globulin Ratio 0.9 (1.1-2.2); Bilirubin,Total 0.2 mg/dL (0.3-1.0); Globulin 3.2 g/dL (2.4-3.5); Total Protein 6.1 g/dL (6.4-8.9)
[2017-11-04] MEDS: Budesonide/Formoterol 160/4.5 MDI IH SCH ×2 (08:26→23:12)
[2017-11-04] MEDS: Cholecalciferol (D-3) 1,000 UNIT TABLET PO SCH (08:44)
[2017-11-04] MEDS: Insulin DETEMIR 100 UNIT/ML X5UNITS SQ SCH ×2 (08:44→22:45)
[2017-11-04] MEDS: Insulin LISPRO 300 UNITS/3 ML VIAL SQ SCH ×4 (08:44→22:44)
[2017-11-04] MEDS: Furosemide 40 MG TABLET PO SCH ×2 (08:45→17:15)
[2017-11-04] MEDS: Primidone 50 MG TABLET PO SCH ×2 (08:45→19:53)
[2017-11-04] MEDS: Bicalutamide 50 MG TABLET PO SCH (08:45)
[2017-11-04] MEDS: Fenofibrate 54 MG TABLET PO SCH (08:46)
[2017-11-04] MEDS: Valsartan 80 MG TABLET PO SCH (08:46)
[2017-11-04] MEDS: *HR* Heparin 5,000 UNIT/ML VIAL IVP PRN (11:04)
[2017-11-04] MEDS: Heparin 25,000 UNIT/500 ML D5W 25,000 UNIT/500 ML BAG IVC SCH (11:06)
[2017-11-04] MEDS ORDERED: 0.9 % Sodium Chloride 250 ML ONE ×2 (11:50→16:23)
--- NOTE | 2017-11-04 12:50 | Podiatry Progress Note ---
Date of Encounter: 11/04/17 Time of Encounter: 12:20 - Assessment and Plan (1) Closed trimalleolar fracture of left ankle Current Visit: Yes Status: Acute Closed trimalleolar fracture of left ankle. S/p left trimalleolar ankle fracture ORIF, left syndesmosis ORIF, left deltoid ligament repair by Dr. Alegre on 11/03/17. Hgb: 6.9, 2 units of PRBC ordered to be transfused today. Strict non weight bearing to LLE. PT/OT consulted to assess for possible rehabilitation needs. Okay to restart heparin drip to bridge coumadin back to therapeutic level. lawn maintenance worker consulted for discharge planning. Keep posterior splint dry and intact. Patient will need a 1 week f/u in Podiatry clinic a week after discharge from the hospital. Qualifiers: Encounter type: initial encounter Qualified Code(s): S82.852A - Displaced trimalleolar fracture of left lower leg, initial encounter for closed fracture Subjective Principal diagnosis: left ankle fracture Interval history: Patient is sitting up on the bedside commode with posterior splint dry and intact. Patient transferred to bed with assistance, no weight applied to the LLE. Patient is s/p left trimalleolar ankle fracture ORIF, left syndesmosis ORIF , left deltoid ligament repair by Dr. Alegre on 11/03/17. Patient states he has neck and LLE pain, rates it at a 9 out 10. Nurse is preparing blood transfusion at bedside. Patients Hgb was 6.9 today and is scheduled to receive 2 units of PRBC. No c/o fever, chills, cp or sob. Objective - Vital Signs Vital Signs: Vital Signs Temp Pulse Resp BP Pulse Ox 11/04/17 12:29 97.8 F 89 16 91/41 96 11/04/17 11:42 97.8 F 65 16 99/45 97 11/04/17 08:26 16 96 11/04/17 06:42 98.5 F 59 16 108/69 94 11/03/17 23:32 98.9 F 88 19 115/72 96 11/03/17 20:33 98.2 F 90 19 125/65 98 11/03/17 20:22 18 99 11/03/17 15:22 98.4 F 89 16 122/66 93 11/03/17 14:49 98.7 F 89 16 118/72 100 11/03/17 14:11 98.7 F 89 16 123/99 93 11/03/17 13:39 98.9 F 67 17 109/69 100 11/03/17 13:29 66 18 118/66 98 11/03/17 13:19 67 15 126/60 97 11/03/17 13:09 35.7 F L 70 16 113/59 96 Intake and Output 11/03/17 11/04/17 11/04/17 23:59 07:59 15:59 Intake Total 650 / 650 614 / 614 286 / 286 Output Total 400 / 400 700 / 700 Balance 250 / 250 -86 / -86 286 / 286 Intake: IV Fluids 50 / 50 214 / 214 286 / 286 Heparin 25,000 UNIT/500 ML D5W 214 / 214 286 / 286 25,000 unit In 500 ml @ 14 UNIT /KG/HR 35.924 mls/hr IVC . [id number] [facility] Rx#:[id number] Ancef Premix DUPLEX 2,000 mg In 50 / 50 50 ml @ 100 mls/hr IVPB Q8H [facility] Rx#:[id number] Oral 600 / 600 400 / 400 Blood Product 0 / 0 Rbcs Leuko Poor As-1 Unit 0 / 0 [id number] Output: Urine 400 / 400 700 / 700 Other: Weight 129.6 kg Blood Glucose* 382 363 287 Patient Weight 11/04/17 23:59 Weight 129.6 kg - Exam Exam: General appearance: alert awake oriented X 3. Calm and pleasant, no acute distress.. Vascular: LLE: No evidence of cyanosis, pallor or rubor, Posterior splint is dry and intact, toes #1 through #5 left are pink, warm and dry, No calf pain with manual compression. capillary refill time is immediate to digits. Neurologic: Sensation diminished with light touch to foot. Musckuloskeletal: Posterior splint dry and intact to the LLE. - Lab Result Diagrams: 11/04/17 06:35 11/04/17 06:35 Labs: Abnormal lab results RBC 2.37 M/mcL (4.19-5.50) L 11/04/17 06:35 Hgb 6.9 g/dL (12.9-16.9) L 11/04/17 06:35 Hct 21.8 % (37.5-50.1) L 11/04/17 06:35 RDW 14.6 % (11.5-14.5) H 11/04/17 06:35 Lymphocytes # 0.5 K/mcL (0.6-4.6) L 11/04/17 06:35 PT 14.6 Seconds (9.4-12.1) H 11/04/17 06:35 APTT 50.2 Seconds (26.0-36.0) H 11/04/17 08:47 Sodium 131 mEq/L (136-145) L 11/04/17 06:35 Chloride 94 mEq/L (98-107) L 11/04/17 06:35 Carbon Dioxide 30 mEq/L (23-29) H 11/04/17 06:35 BUN 34 mg/dL (8-23) H 11/04/17 06:35 Creatinine 2.00 mg/dL (0.70-1.30) H 11/04/17 06:35 Est GFR ( Amer) 41 (> 60) L 11/04/17 06:35 Est GFR (Non-Af Amer) 34 (> 60) L 11/04/17 06:35 Glucose 349 mg/dL (70-105) H 11/04/17 06:35 POC Glucose 382 (58-89) H 11/03/17 20:23 Calcium 8.0 mg/dL (8.6-10.3) L 11/04/17 06:35 Total Bilirubin 0.2 mg/dL (0.3-1.0) L 11/04/17 06:35 AST 12 Units/L (13-39) L 11/04/17 06:35 ALT 6 Units/L (7-52) L 11/04/17 06:35 Serum Total Protein 6.1 g/dL (6.4-8.9) L 11/04/17 06:35 Albumin 2.9 g/dL (3.5-5.7) L 11/04/17 06:35 Albumin/Globulin Ratio 0.9 (1.1-2.2) L 11/04/17 06:35 HDL Cholesterol 29 mg/dL (40-59) L 10/31/17 04:10 - VTE Documentation of Mechanical Device: Intermittent pneumatic compression device Consult Discharge Plan - Plan Instructions: Bed Bugs (GEN), Bed Bugs, Teacher Resource (GEN) Referrals: Calli Estes, SCORER SINGLE [Primary Care Provider] -
--- NOTE | 2017-11-04 17:55 | Internal Med Progress Note ---
Date of Encounter: 11/04/17 Time of Encounter: 14:45 - Assessment and plan (1) Closed trimalleolar fracture of left ankle Current Visit: Yes Status: Acute Assessment and plan: Left ankle fracture status post mechanical fall, confirmed with left ankle x- ray. Podiatry has been consulted, underwent left trimalleolar ankle fracture ORIF left syndesmosis ORIF, left deltoid ligament repair, postoperative day 1. Patient noted to have acute blood loss anemia, hemoglobin dropped to 6.9. We will transfuse 2 units PRBC. Continue supportive care and pain control with oral oxycodone and hydrocodone, continue home dose of fentanyl patch. Physical and occupational therapy evaluation pending. Qualifiers: Encounter type: subsequent encounter Fracture healing: with routine healing Qualified Code(s): S82.852D - Displaced trimalleolar fracture of left lower leg, subsequent encounter for closed fracture with routine healing (2) Diabetes mellitus Current Visit: Yes Status: Chronic Assessment and plan: Continues to have uncontrolled blood sugars. We will increase Levemir and add nutritional insulin. Continue sliding scale insulin. Continue Accu-Chek blood glucose monitoring. Hemoglobin A1c noted to be 5.3%. Diabetic diet. Patient is noted to be on insulin pump at home, currently turned off. Qualifiers: Diabetes mellitus type: type 2 Diabetes mellitus complication status: with kidney complications Diabetes mellitus complication detail: with chronic kidney disease Diabetes mellitus intermediate school teacher insulin use: with intermediate school teacher use Chronic kidney disease stage: stage 3 (moderate) Qualified Code(s): E11.22 - Type 2 diabetes mellitus with diabetic chronic kidney disease; N18.3 - Chronic kidney disease, stage 3 (moderate); N18.3 - Chronic kidney disease, stage 3 ( moderate); Z79.4 - terminal operations supervisor (current) use of insulin; Z79.4 - terminal operations supervisor ( current) use of insulin; Z79.4 - USP (current) use of insulin; Z79.4 - USP (current) use of insulin (3) COPD (chronic obstructive pulmonary disease) Current Visit: Yes Status: Chronic Qualifiers: COPD type: unspecified COPD Qualified Code(s): J44.9 - Chronic obstructive pulmonary disease, unspecified (4) HTN (hypertension) Current Visit: Yes Status: Chronic Assessment and plan: Blood pressure well controlled. Continue home medications. Qualifiers: Hypertension type: essential hypertension Qualified Code(s): I10 - Essential (primary) hypertension (5) Hypothyroid Current Visit: Yes Status: Chronic Qualifiers: Hypothyroidism type: unspecified Qualified Code(s): E03.9 - Hypothyroidism , unspecified (6) S/P aortic valve replacement Current Visit: Yes Status: Chronic Assessment and plan: INR currently subtherapeutic at 1.3. Continue bridging IV heparin drip along with Coumadin until at least 2 therapeutic INRs. (7) Hyponatremia Current Visit: Yes Status: Acute Assessment and plan: Hypoosmolar. Likely related to diuretic use. Improving. Continue to monitor. (8) Chronic kidney disease Current Visit: Yes Status: Chronic Assessment and plan: Serum creatinine slightly worsening from baseline, 2 today, likely related to anemia. Continue to monitor. Qualifiers: Chronic kidney disease stage: stage 3 (moderate) Qualified Code(s): N18.3 - Chronic kidney disease, stage 3 (moderate) - Subjective Interval history: Noted to be slightly drowsy, but answers appropriately. Reports no chest or abdominal pain, vomiting or diarrhea. Reports some left ankle pain. - Constitutional Vitals: Temp Pulse Resp BP Pulse Ox 98.7 F 64 16 120/79 95 11/04/17 17:00 11/04/17 17:00 11/04/17 17:00 11/04/17 17:00 11/04/17 17:00 General appearance: Present: A&O X 3 (Slightly drowsy), obese, answers questions appropriately - Respiratory Respiratory exam: Present: CTAB. Absent: accessory muscle use, rales, rhonchi, wheezes - Cardiovascular Cardiovascular exam: Present: RRR, +S1, +S2 (Mechanical heart sound). Absent: diastolic murmur, gallop, rubs, systolic murmur - GI/Abdominal GI/Abdominal exam: Present: normal bowel sounds, soft (obese), no peritoneal signs. Absent: distended, tenderness - Extremities Exam Extremities exam: Present: pedal edema (Bilateral pedal edema, left more than right), warm, radial pulses palpable and symmetrical. Absent: calf tenderness, cyanotic Additional comments: Left foot in surgical dressing Internal Medicine: Result - Labs CBC & Chem 7: 11/05/17 06:30 11/05/17 06:30 Labs: Short CBC 11/04/17 Range/Units 06:35 WBC 7.2 (4.3-11.1) K/mcL Hgb 6.9 L (12.9-16.9) g/dL Hct 21.8 L (37.5-50.1) % Plt Count 284 (140-400) K/mcL Neutrophils # 6.0 (1.6-8.9) K/mcL BMP 11/04/17 06:35 Sodium 131 L Potassium 4.0 Chloride 94 L Carbon Dioxide 30 H BUN 34 H Creatinine 2.00 H Glucose 349 H Calcium 8.0 L Liver Function 11/04/17 Range/Units 06:35 Total Bilirubin 0.2 L (0.3-1.0) mg/dL AST 12 L (13-39) Units/L ALT 6 L (7-52) Units/L Alkaline Phosphatase 50 (34-104) Units/L Albumin 2.9 L (3.5-5.7) g/dL - ABG Interpretation ABG results: PT/INR, D-dimer PT 14.6 Seconds (9.4-12.1) H 11/04/17 06:35 - VTE Documentation of Mechanical Device: Intermittent pneumatic compression device Consult Discharge Plan - Plan Instructions: Bed Bugs (GEN), Bed Bugs, Substitute School Nurse (GEN) Referrals: Calli Estes, PAINTING DEPARTMENT SUPERVISOR [Primary Care Provider] -
[2017-11-04] MEDS ORDERED: *HR* Warfarin 5 MG TABLET PO ONE (18:00)
[2017-11-04] MEDS ORDERED: Warfarin perPT PO PRN (18:00)
[2017-11-04] MEDS ORDERED: Furosemide 40 MG/4 ML VIAL IVP ONE (19:22)
[2017-11-04] MEDS: Gabapentin 100 MG CAPSULE PO SCH (19:53)
[2017-11-04] MEDS: Famotidine 20 MG TABLET PO SCH (19:53)
[2017-11-05] MEDS: *HR* Heparin 5,000 UNIT/ML VIAL IVP PRN (00:08)
[2017-11-05] MEDS: Heparin 25,000 UNIT/500 ML D5W 25,000 UNIT/500 ML BAG IVC SCH ×3 (00:20→23:58)
[2017-11-05 07:13] LABS: Calcium 8.5 mg/dL (8.6-10.3); Potassium 3.7 mEq/L (3.5-5.1)
[2017-11-05 07:27] LABS: Basophils % 0.3 %; Eosinophils # 0.3 K/mcL (0.0-0.6); Eosinophils % 3.8 %; Hematocrit 29.8 % (37.5-50.1); Immature Granulocytes % 1.3 % (0-4); Lymphocytes # 0.8 K/mcL (0.6-4.6); Lymphocytes % 9.4 %; Mean Corpuscular HGB Conc 31.2 g/dL (31.6-35.5); Mean Corpuscular Hemoglobin 28.7 pg (28.0-33.3); Mean Platelet Volume 10.4 fL (9.4-12.4); Monocytes # 0.6 K/mcL (0.0-1.3); Monocytes % 6.8 %; Platelet Count 405 K/mcL (140-400); Red Blood Count 3.24 M/mcL (4.19-5.50); Red Cell Distribution Width 14.7 % (11.5-14.5); Segmented Neutrophils % 78.4 %
[2017-11-05 07:30] LABS: INR 1.5; Prothrombin Time 16.5 Seconds (9.4-12.1)
[2017-11-05 07:32] LABS: Activated Partial Thrombo Time 64.6 Seconds (26.0-36.0)
[2017-11-05 07:48] LABS: Hemoglobin 9.3 g/dL (12.9-16.9)
[2017-11-05] MEDS: Budesonide/Formoterol 160/4.5 MDI IH SCH ×2 (07:55→20:23)
[2017-11-05] MEDS: Bicalutamide 50 MG TABLET PO SCH (08:23)
[2017-11-05] MEDS: Valsartan 80 MG TABLET PO SCH (08:23)
[2017-11-05] MEDS: Fenofibrate 54 MG TABLET PO SCH (08:23)
[2017-11-05] MEDS: Cholecalciferol (D-3) 1,000 UNIT TABLET PO SCH (08:23)
[2017-11-05] MEDS: Primidone 50 MG TABLET PO SCH ×2 (08:24→20:28)
[2017-11-05] MEDS: Insulin LISPRO 300 UNITS/3 ML VIAL SQ SCH ×7 (08:24→20:29)
[2017-11-05] MEDS: Furosemide 40 MG TABLET PO SCH ×2 (08:24→17:10)
[2017-11-05] MEDS: Insulin DETEMIR 100 UNIT/ML X5UNITS SQ SCH ×2 (08:31→20:29)
--- NOTE | 2017-11-05 13:16 | Podiatry Progress Note ---
Date of Encounter: 11/05/17 Time of Encounter: 10:15 - Assessment and Plan (1) Closed trimalleolar fracture of left ankle Current Visit: Yes Status: Acute Closed trimalleolar fracture of left ankle. S/p left trimalleolar ankle fracture ORIF, left syndesmosis ORIF, left deltoid ligament repair by Dr. Alegre on 11/03/17. Strict non weight bearing to LLE. PT/OT consulted - recommend SNF placement Heparin gtt to bridge to coumadin welfare eligibility worker consulted for discharge planning. Keep posterior splint dry and intact. Patient will need a 1 week f/u in Podiatry clinic a week after discharge from the hospital. Qualifiers: Encounter type: subsequent encounter Fracture healing: with routine healing Qualified Code(s): S82.852D - Displaced trimalleolar fracture of left lower leg, subsequent encounter for closed fracture with routine healing Subjective Principal diagnosis: left ankle fracture Interval history: Patient is asleep in bed with posterior splint dry and intact. Patient is s/p left trimalleolar ankle fracture ORIF, left syndesmosis ORIF, left deltoid ligament repair by Dr. Alegre on 11/03/17. Patient states he has neck and body pain rates it at a 9 out 10. Patient was asleep on arrival and very tired today , dozing off during conversation. Patient received 2 units PRBCs yesterday. No c/o fever, chills, cp or sob. Objective - Vital Signs Vital Signs: Vital Signs Temp Pulse Resp BP Pulse Ox 11/05/17 10:45 98.9 F 68 16 114/68 94 11/05/17 07:57 14 90 11/05/17 06:30 98.8 F 73 16 118/76 96 11/05/17 04:26 99.1 F 78 18 113/72 95 11/05/17 00:51 100.4 F H 98 16 115/73 93 11/04/17 19:28 98.6 F 69 15 137/87 95 11/04/17 17:00 98.7 F 64 16 120/79 95 11/04/17 16:45 98.7 F 65 15 115/75 96 11/04/17 14:55 98.0 F 65 17 109/70 94 11/04/17 14:22 64 18 97/59 95 Intake and Output 11/04/17 11/05/17 11/05/17 23:59 07:59 15:59 Intake Total 508 / 508 1047 / 1047 700 / 700 Output Total 400 / 400 750 / 750 750 / 750 Balance 108 / 108 297 / 297 -50 / -50 Intake: IV Fluids 253 / 253 247 / 247 500 / 500 Heparin 25,000 UNIT/500 ML D5W 253 / 253 247 / 247 500 / 500 25,000 unit In 500 ml @ 14 UNIT /KG/HR 35.924 mls/hr IVC . [id number] [facility] Rx#:[id number] Oral 800 / 800 200 / 200 Blood Product 255 / 255 Rbcs Leuko Poor As-1 Unit 255 / 255 [id number] Output: Urine 400 / 400 750 / 750 750 / 750 Other: # Voids 1 1 Blood Glucose* 233 149 - Exam Exam: Awake alert and oriented Sensation and movement intact to toes Toes #1 through #5 warm, cap refill <3 seconds No calf pain with manual compression Will leave posterior splint intact- no drainage - Lab Result Diagrams: 11/05/17 06:30 11/05/17 06:30 Labs: Abnormal lab results RBC 3.24 M/mcL (4.19-5.50) L 11/05/17 06:30 Hgb 9.3 g/dL (12.9-16.9) L D 11/05/17 06:30 Hct 29.8 % (37.5-50.1) L 11/05/17 06:30 MCHC 31.2 g/dL (31.6-35.5) L 11/05/17 06:30 RDW 14.7 % (11.5-14.5) H 11/05/17 06:30 Plt Count 405 K/mcL (140-400) H 11/05/17 06:30 PT 16.5 Seconds (9.4-12.1) H 11/05/17 06:30 APTT 71.7 Seconds (26.0-36.0) H 11/05/17 12:10 Chloride 96 mEq/L (98-107) L 11/05/17 06:30 Carbon Dioxide 31 mEq/L (23-29) H 11/05/17 06:30 BUN 33 mg/dL (8-23) H 11/05/17 06:30 Creatinine 1.80 mg/dL (0.70-1.30) H 11/05/17 06:30 Est GFR ( Amer) 46 (> 60) L 11/05/17 06:30 Est GFR (Non-Af Amer) 38 (> 60) L 11/05/17 06:30 Glucose 138 mg/dL (70-105) H 11/05/17 06:30 POC Glucose 233 (58-89) H 11/04/17 20:43 Calcium 8.5 mg/dL (8.6-10.3) L 11/05/17 06:30 Total Bilirubin 0.2 mg/dL (0.3-1.0) L 11/04/17 06:35 AST 12 Units/L (13-39) L 11/04/17 06:35 ALT 6 Units/L (7-52) L 11/04/17 06:35 Serum Total Protein 6.1 g/dL (6.4-8.9) L 11/04/17 06:35 Albumin 2.9 g/dL (3.5-5.7) L 11/04/17 06:35 Albumin/Globulin Ratio 0.9 (1.1-2.2) L 11/04/17 06:35 HDL Cholesterol 29 mg/dL (40-59) L 10/31/17 04:10 - VTE Documentation of Mechanical Device: Intermittent pneumatic compression device Consult Discharge Plan - Plan Instructions: Bed Bugs (GEN), Bed Bugs, Bilingual Call Center Representative (GEN) Referrals: Calli Estes, MILLINERY COPYIST [Primary Care Provider] -
--- NOTE | 2017-11-05 17:54 | Internal Med Progress Note ---
Date of Encounter: 11/05/17 Time of Encounter: 14:00 - Assessment and plan (1) Closed trimalleolar fracture of left ankle Current Visit: Yes Status: Acute Assessment and plan: Left ankle fracture status post mechanical fall, confirmed with left ankle x- ray. Podiatry has been consulted, underwent left trimalleolar ankle fracture ORIF left syndesmosis ORIF, left deltoid ligament repair, postoperative day 2. Patient noted to have acute blood loss anemia, hemoglobin improved to 9.3 status post 2 units PRBC transfusion. Continue supportive care and pain control with oral oxycodone and hydrocodone, continue home dose of fentanyl patch. Physical and occupational therapy evaluation noted, recommend inpatient rehabilitation. clinical services manager on board , awaiting insurance prior authorization. Qualifiers: Encounter type: subsequent encounter Fracture healing: with routine healing Qualified Code(s): S82.852D - Displaced trimalleolar fracture of left lower leg, subsequent encounter for closed fracture with routine healing (2) Diabetes mellitus Current Visit: Yes Status: Chronic Assessment and plan: Blood sugars noted to be better controlled. Continue current basal bolus insulin regimen. Continue Accu-Chek blood glucose monitoring. Hemoglobin A1c noted to be 5.3%. Diabetic diet. Patient is noted to be on insulin pump at home, currently turned off. Qualifiers: Diabetes mellitus type: type 2 Diabetes mellitus complication status: with kidney complications Diabetes mellitus complication detail: with chronic kidney disease Diabetes mellitus nursing home insulin use: with nursing home use Chronic kidney disease stage: stage 3 (moderate) Qualified Code(s): E11.22 - Type 2 diabetes mellitus with diabetic chronic kidney disease; N18.3 - Chronic kidney disease, stage 3 (moderate); N18.3 - Chronic kidney disease, stage 3 ( moderate); Z79.4 - buttermaker (current) use of insulin; Z79.4 - buttermaker ( current) use of insulin; Z79.4 - buttermaker (current) use of insulin; Z79.4 - buttermaker (current) use of insulin (3) COPD (chronic obstructive pulmonary disease) Current Visit: Yes Status: Chronic Qualifiers: COPD type: unspecified COPD Qualified Code(s): J44.9 - Chronic obstructive pulmonary disease, unspecified (4) HTN (hypertension) Current Visit: Yes Status: Chronic Qualifiers: Hypertension type: essential hypertension Qualified Code(s): I10 - Essential (primary) hypertension (5) Hypothyroid Current Visit: Yes Status: Chronic Qualifiers: Hypothyroidism type: unspecified Qualified Code(s): E03.9 - Hypothyroidism , unspecified (6) S/P aortic valve replacement Current Visit: Yes Status: Chronic Assessment and plan: INR currently subtherapeutic at 1.5. Continue bridging IV heparin drip along with Coumadin until at least 2 therapeutic INRs. (7) Hyponatremia Current Visit: Yes Status: Resolved Assessment and plan: Hypoosmolar. Likely related to diuretic use. Improving. Continue to monitor. (8) Chronic kidney disease Current Visit: Yes Status: Chronic Assessment and plan: Serum creatinine slightly worsened initially likely due to anemia. Currently at 1.8, stable. Continue to monitor. Qualifiers: Chronic kidney disease stage: stage 3 (moderate) Qualified Code(s): N18.3 - Chronic kidney disease, stage 3 (moderate) - Subjective Interval history: Reports feeling well. Some left ankle pain, improving. No fever, chills, nausea, vomiting or shortness of breath. Awaiting rehabilitation placement. - Constitutional Vitals: Temp Pulse Resp BP Pulse Ox 98.7 F 64 16 118/57 95 11/05/17 14:25 11/05/17 14:25 11/05/17 14:25 11/05/17 14:25 11/05/17 14:25 General appearance: Present: A&O X 3, obese, answers questions appropriately - Respiratory Respiratory exam: Present: CTAB. Absent: accessory muscle use, rales, rhonchi, wheezes - Cardiovascular Cardiovascular exam: Present: RRR, +S1, +S2 (Mechanical heart sound). Absent: diastolic murmur, gallop, rubs, systolic murmur - GI/Abdominal GI/Abdominal exam: Present: normal bowel sounds, soft (Obese), no peritoneal signs. Absent: distended, tenderness - Extremities Exam Extremities exam: Present: full ROM, pedal edema, warm, radial pulses palpable and symmetrical. Absent: calf tenderness, cyanotic Additional comments: Left foot in surgical dressing Internal Medicine: Result - Labs CBC & Chem 7: 11/05/17 06:30 11/05/17 06:30 Labs: Short CBC 11/05/17 Range/Units 06:30 WBC 8.9 (4.3-11.1) K/mcL Hgb 9.3 L D (12.9-16.9) g/dL Hct 29.8 L (37.5-50.1) % Plt Count 405 H (140-400) K/mcL Neutrophils # 7.0 (1.6-8.9) K/mcL BMP 11/05/17 06:30 Sodium 136 Potassium 3.7 Chloride 96 L Carbon Dioxide 31 H BUN 33 H Creatinine 1.80 H Glucose 138 H Calcium 8.5 L - ABG Interpretation ABG results: PT/INR, D-dimer PT 16.5 Seconds (9.4-12.1) H 11/05/17 06:30 - VTE Documentation of Mechanical Device: Intermittent pneumatic compression device Consult Discharge Plan - Plan Instructions: Bed Bugs (GEN), Bed Bugs, Reference Data Expert (GEN) Referrals: Calli Estes, AGING ROOM HAND [Primary Care Provider] -
[2017-11-05] MEDS ORDERED: *HR* Warfarin 5 MG TABLET PO ONE (18:00)
[2017-11-05] MEDS: *HR* OxyCODONE Immed Rel 5 MG TABLET PO PRN (20:27)
[2017-11-05] MEDS: Famotidine 20 MG TABLET PO SCH (20:28)
[2017-11-05] MEDS: Gabapentin 100 MG CAPSULE PO SCH (20:28)
[2017-11-06] MEDS: *HR* OxyCODONE Immed Rel 5 MG TABLET PO PRN ×2 (04:00→21:37)
[2017-11-06 04:08] LABS: INR 1.7; Prothrombin Time 18.6 Seconds (9.4-12.1)
[2017-11-06] MEDS: Budesonide/Formoterol 160/4.5 MDI IH SCH ×2 (07:37→22:38)
[2017-11-06] MEDS: Valsartan 80 MG TABLET PO SCH (08:17)
[2017-11-06] MEDS: Fenofibrate 54 MG TABLET PO SCH (08:17)
[2017-11-06] MEDS: Primidone 50 MG TABLET PO SCH ×2 (08:17→20:55)
[2017-11-06] MEDS: Bicalutamide 50 MG TABLET PO SCH (08:17)
[2017-11-06] MEDS: Cholecalciferol (D-3) 1,000 UNIT TABLET PO SCH (08:17)
[2017-11-06] MEDS: Insulin LISPRO 300 UNITS/3 ML VIAL SQ SCH ×7 (08:18→20:55)
[2017-11-06] MEDS: Furosemide 40 MG TABLET PO SCH ×2 (08:18→16:10)
[2017-11-06] MEDS: Insulin DETEMIR 100 UNIT/ML X5UNITS SQ SCH ×2 (08:18→20:55)
[2017-11-06] MEDS: Heparin 25,000 UNIT/500 ML D5W 25,000 UNIT/500 ML BAG IVC SCH (11:09)
[2017-11-06] MEDS: *HR* FentaNYL PATCH 50 MCG PATCH TD SCH (16:10)
--- NOTE | 2017-11-06 17:51 | Internal Med Progress Note ---
Date of Encounter: 11/06/17 Time of Encounter: 13:00 - Assessment and plan (1) Closed trimalleolar fracture of left ankle Current Visit: Yes Status: Acute Assessment and plan: Left ankle fracture status post mechanical fall, confirmed with left ankle x- ray. Podiatry has been consulted, underwent left trimalleolar ankle fracture ORIF left syndesmosis ORIF, left deltoid ligament repair, postoperative day 3. Patient noted to have acute blood loss anemia, hemoglobin improved to 9.3 status post 2 units PRBC transfusion. Continue supportive care and pain control with oral oxycodone and hydrocodone, continue home dose of fentanyl patch. Physical and occupational therapy evaluation noted, recommend inpatient rehabilitation. shipping services sales representative on board , awaiting insurance prior authorization. Qualifiers: Encounter type: subsequent encounter Fracture healing: with routine healing Qualified Code(s): S82.852D - Displaced trimalleolar fracture of left lower leg, subsequent encounter for closed fracture with routine healing (2) Diabetes mellitus Current Visit: Yes Status: Chronic Assessment and plan: Blood sugars noted to be better controlled. Continue current basal bolus insulin regimen. Continue Accu-Chek blood glucose monitoring. Hemoglobin A1c noted to be 5.3%. Diabetic diet. Patient is noted to be on insulin pump at home, currently turned off. Qualifiers: Diabetes mellitus type: type 2 Diabetes mellitus complication status: with kidney complications Diabetes mellitus complication detail: with chronic kidney disease Diabetes mellitus shelter insulin use: with shelter use Chronic kidney disease stage: stage 3 (moderate) Qualified Code(s): E11.22 - Type 2 diabetes mellitus with diabetic chronic kidney disease; N18.3 - Chronic kidney disease, stage 3 (moderate); N18.3 - Chronic kidney disease, stage 3 ( moderate); Z79.4 - intermodal truck driver (current) use of insulin; Z79.4 - intermodal truck driver ( current) use of insulin; Z79.4 - intermodal truck driver (current) use of insulin; Z79.4 - intermodal truck driver (current) use of insulin (3) COPD (chronic obstructive pulmonary disease) Current Visit: Yes Status: Chronic Qualifiers: COPD type: unspecified COPD Qualified Code(s): J44.9 - Chronic obstructive pulmonary disease, unspecified (4) HTN (hypertension) Current Visit: Yes Status: Chronic Qualifiers: Hypertension type: essential hypertension Qualified Code(s): I10 - Essential (primary) hypertension (5) Hypothyroid Current Visit: Yes Status: Chronic Qualifiers: Hypothyroidism type: unspecified Qualified Code(s): E03.9 - Hypothyroidism , unspecified (6) S/P aortic valve replacement Current Visit: Yes Status: Chronic Assessment and plan: INR currently subtherapeutic at 1.7. Continue bridging IV heparin drip along with Coumadin until at least 2 therapeutic INRs. (7) Hyponatremia Current Visit: Yes Status: Resolved (8) Chronic kidney disease Current Visit: Yes Status: Chronic Qualifiers: Chronic kidney disease stage: stage 3 (moderate) Qualified Code(s): N18.3 - Chronic kidney disease, stage 3 (moderate) - Subjective Interval history: Reports feeling well. No new complaints. Awaiting rehabilitation placement. - Constitutional Vitals: Temp Pulse Resp BP Pulse Ox 98.4 F 60 16 105/66 95 11/06/17 15:23 11/06/17 15:23 11/06/17 15:23 11/06/17 15:23 11/06/17 15:23 General appearance: Present: A&O X 3, obese, answers questions appropriately - Respiratory Respiratory exam: Present: CTAB. Absent: accessory muscle use, rales, rhonchi, wheezes - Cardiovascular Cardiovascular exam: Present: RRR, +S1, +S2 (Mechanical heart sound). Absent: diastolic murmur, gallop, rubs, systolic murmur - GI/Abdominal GI/Abdominal exam: Present: normal bowel sounds, soft, no peritoneal signs. Absent: distended, tenderness Internal Medicine: Result - Labs CBC & Chem 7: 11/05/17 06:30 11/05/17 06:30 - ABG Interpretation ABG results: PT/INR, D-dimer PT 18.6 Seconds (9.4-12.1) H 11/06/17 03:50 - Impressions Impressions Ankle X-Ray 11/03/17 11:28 IMPRESSION: Intraprocedural fluoroscopic spot images as above. See separate procedure report for more information. D/ / 11/03/2017 13:13:17 Fidelia Liao MD / earnold Interpreting Provider: Fidelia Liao MD Fluoroscopy 11/03/17 11:28 IMPRESSION: Intraprocedural fluoroscopic spot images as above. See separate procedure report for more information. D/ / 11/03/2017 13:13:17 Fidelia Liao MD / giorgio Interpreting Provider: Fidelia Liao MD - VTE Documentation of Mechanical Device: Intermittent pneumatic compression device Consult Discharge Plan - Plan Instructions: Bed Bugs (GEN), Bed Bugs, Head Of Strategy (GEN) Referrals: Calli Estes, MOVING VAN DRIVER [Primary Care Provider] -
[2017-11-06] MEDS ORDERED: *HR* Warfarin 7.5 MG TABLET PO ONE (18:00)
[2017-11-06] MEDS: Gabapentin 100 MG CAPSULE PO SCH (20:55)
[2017-11-06] MEDS: Famotidine 20 MG TABLET PO SCH (20:55)
[2017-11-07] MEDS: Heparin 25,000 UNIT/500 ML D5W 25,000 UNIT/500 ML BAG IVC SCH ×2 (00:06→12:46)
[2017-11-07 04:37] LABS: Basophils % 0.3 %; Eosinophils # 0.3 K/mcL (0.0-0.6); Eosinophils % 4.6 %; Hematocrit 26.6 % (37.5-50.1); Hemoglobin 8.4 g/dL (12.9-16.9); Immature Granulocytes % 1.9 % (0-4); Lymphocytes # 0.9 K/mcL (0.6-4.6); Lymphocytes % 11.7 %; Mean Corpuscular HGB Conc 31.6 g/dL (31.6-35.5); Mean Corpuscular Hemoglobin 28.8 pg (28.0-33.3); Mean Corpuscular Volume 91.1 fL (83.0-100.0); Mean Platelet Volume 10.1 fL (9.4-12.4); Monocytes # 0.5 K/mcL (0.0-1.3); Monocytes % 6.6 %; Neutrophils # 5.6 K/mcL (1.6-8.9); Platelet Count 349 K/mcL (140-400); Red Blood Count 2.92 M/mcL (4.19-5.50); Red Cell Distribution Width 14.5 % (11.5-14.5); Segmented Neutrophils % 74.9 %
[2017-11-07 04:43] LABS: Prothrombin Time 21.6 Seconds (9.4-12.1)
[2017-11-07 05:19] LABS: Calcium 8.2 mg/dL (8.6-10.3); Potassium 3.1 mEq/L (3.5-5.1)
[2017-11-07] MEDS: Insulin DETEMIR 100 UNIT/ML X5UNITS SQ SCH ×2 (08:19→22:05)
[2017-11-07] MEDS: Insulin LISPRO 300 UNITS/3 ML VIAL SQ SCH ×7 (08:19→22:06)
[2017-11-07] MEDS: Bicalutamide 50 MG TABLET PO SCH (08:19)
[2017-11-07] MEDS: Cholecalciferol (D-3) 1,000 UNIT TABLET PO SCH (08:20)
[2017-11-07] MEDS: Primidone 50 MG TABLET PO SCH ×2 (08:20→22:05)
[2017-11-07] MEDS: Furosemide 40 MG TABLET PO SCH ×2 (08:20→16:52)
[2017-11-07] MEDS: Valsartan 80 MG TABLET PO SCH (08:20)
[2017-11-07] MEDS: Fenofibrate 54 MG TABLET PO SCH (08:20)
[2017-11-07] MEDS: Budesonide/Formoterol 160/4.5 MDI IH SCH ×2 (08:36→21:49)
[2017-11-07] MEDS: Potassium Chloride Elixir 20 MEQ/15 ML UDC PO SCH ×2 (14:28→18:11)
[2017-11-07] MEDS: *HR* OxyCODONE Immed Rel 5 MG TABLET PO PRN (16:55)
--- NOTE | 2017-11-07 17:23 | Internal Med Progress Note ---
Date of Encounter: 11/07/17 Time of Encounter: 13:40 - Assessment and plan (1) Closed trimalleolar fracture of left ankle Current Visit: Yes Status: Acute Assessment and plan: Left ankle fracture status post mechanical fall, confirmed with left ankle x- ray. Podiatry has been consulted, underwent left trimalleolar ankle fracture ORIF left syndesmosis ORIF, left deltoid ligament repair, postoperative day 4. Patient noted to have acute blood loss anemia, hemoglobin improved to 9.3 status post 2 units PRBC transfusion. Continue supportive care and pain control with oral oxycodone and hydrocodone, continue home dose of fentanyl patch. Physical and occupational therapy evaluation noted, recommend inpatient rehabilitation. fitness services manager on board , awaiting insurance prior authorization. Qualifiers: Encounter type: subsequent encounter Fracture healing: with routine healing Qualified Code(s): S82.852D - Displaced trimalleolar fracture of left lower leg, subsequent encounter for closed fracture with routine healing (2) Diabetes mellitus Current Visit: Yes Status: Chronic Assessment and plan: Blood sugars noted to be better controlled. Continue current basal bolus insulin regimen. Continue Accu-Chek blood glucose monitoring. Hemoglobin A1c noted to be 5.3%. Diabetic diet. Patient is noted to be on insulin pump at home, currently turned off. Qualifiers: Diabetes mellitus type: type 2 Diabetes mellitus complication status: with kidney complications Diabetes mellitus complication detail: with chronic kidney disease Diabetes mellitus fpc insulin use: with fpc use Chronic kidney disease stage: stage 3 (moderate) Qualified Code(s): E11.22 - Type 2 diabetes mellitus with diabetic chronic kidney disease; N18.3 - Chronic kidney disease, stage 3 (moderate); N18.3 - Chronic kidney disease, stage 3 ( moderate); Z79.4 - religious assistant (current) use of insulin; Z79.4 - religious assistant ( current) use of insulin; Z79.4 - religious assistant (current) use of insulin; Z79.4 - religious assistant (current) use of insulin (3) COPD (chronic obstructive pulmonary disease) Current Visit: Yes Status: Chronic Qualifiers: COPD type: unspecified COPD Qualified Code(s): J44.9 - Chronic obstructive pulmonary disease, unspecified (4) HTN (hypertension) Current Visit: Yes Status: Chronic Assessment and plan: Blood pressure well controlled. Continue home medications. Qualifiers: Hypertension type: essential hypertension Qualified Code(s): I10 - Essential (primary) hypertension (5) Hypothyroid Current Visit: Yes Status: Chronic Qualifiers: Hypothyroidism type: unspecified Qualified Code(s): E03.9 - Hypothyroidism , unspecified (6) S/P aortic valve replacement Current Visit: Yes Status: Chronic Assessment and plan: INR currently subtherapeutic, but improving at 2. Target INR 2.5-3.5. Continue bridging IV heparin drip along with Coumadin until at least 2 therapeutic INRs. (7) Hyponatremia Current Visit: Yes Status: Resolved (8) Chronic kidney disease Current Visit: Yes Status: Chronic Qualifiers: Chronic kidney disease stage: stage 3 (moderate) Qualified Code(s): N18.3 - Chronic kidney disease, stage 3 (moderate) - Subjective Interval history: Reports feeling well. No new complaints. Awaiting rehabilitation placement. On IV Heparin drip. - Constitutional Vitals: Temp Pulse Resp BP Pulse Ox 98.8 F 53 18 132/78 98 11/07/17 15:45 11/07/17 15:45 11/07/17 15:45 11/07/17 15:45 11/07/17 15:45 General appearance: Present: A&O X 3, obese, answers questions appropriately - Respiratory Respiratory exam: Present: CTAB. Absent: accessory muscle use, rales, rhonchi, wheezes - Cardiovascular Cardiovascular exam: Present: RRR, +S1, +S2 (Mechanical heart sound). Absent: diastolic murmur, gallop, rubs, systolic murmur Internal Medicine: Result - Labs CBC & Chem 7: 11/07/17 04:20 11/08/17 04:48 Labs: Short CBC 11/07/17 Range/Units 04:20 WBC 7.4 (4.3-11.1) K/mcL Hgb 8.4 L (12.9-16.9) g/dL Hct 26.6 L (37.5-50.1) % Plt Count 349 (140-400) K/mcL Neutrophils # 5.6 (1.6-8.9) K/mcL BMP 11/07/17 04:20 Sodium 135 L Potassium 3.1 L Chloride 95 L Carbon Dioxide 32 H BUN 29 H Creatinine 1.69 H Glucose 182 H Calcium 8.2 L - ABG Interpretation ABG results: PT/INR, D-dimer PT 21.6 Seconds (9.4-12.1) H 11/07/17 04:20 - VTE Documentation of Mechanical Device: Intermittent pneumatic compression device Consult Discharge Plan - Plan Instructions: Bed Bugs (GEN), Bed Bugs, Mash Tub Cooker Operator (GEN) Referrals: Calli Estes, VENETIAN BLIND CLEANER AND REPAIRER [Primary Care Provider] -
[2017-11-07] MEDS ORDERED: *HR* Warfarin 7.5 MG TABLET PO ONE (18:00)
[2017-11-07] MEDS: Gabapentin 100 MG CAPSULE PO SCH (22:05)
[2017-11-07] MEDS: Famotidine 20 MG TABLET PO SCH (22:05)
[2017-11-08] MEDS: *HR* OxyCODONE Immed Rel 5 MG TABLET PO PRN ×2 (01:33→22:43)
[2017-11-08] MEDS: Heparin 25,000 UNIT/500 ML D5W 25,000 UNIT/500 ML BAG IVC SCH (01:43)
[2017-11-08 02:27] LABS: Activated Partial Thrombo Time 164.3 Seconds (26.0-36.0)
[2017-11-08 02:37] LABS: Heparin anti-factor XA UFH 0.37 IU/mL (0.30-0.70)
[2017-11-08 05:00] LABS: INR 2.2; Prothrombin Time 24.3 Seconds (9.4-12.1)
[2017-11-08 05:04] LABS: Activated Partial Thrombo Time 51.7 Seconds (26.0-36.0)
[2017-11-08 05:16] LABS: Calcium 8.5 mg/dL (8.6-10.3); Magnesium 1.9 mg/dL (1.6-2.6); Potassium 3.6 mEq/L (3.5-5.1)
[2017-11-08] MEDS: Furosemide 40 MG TABLET PO SCH ×2 (08:19→17:35)
[2017-11-08] MEDS: Cholecalciferol (D-3) 1,000 UNIT TABLET PO SCH (08:19)
[2017-11-08] MEDS: Primidone 50 MG TABLET PO SCH ×2 (08:20→22:44)
[2017-11-08] MEDS: Fenofibrate 54 MG TABLET PO SCH (08:20)
[2017-11-08] MEDS: Bicalutamide 50 MG TABLET PO SCH (08:20)
[2017-11-08] MEDS: Valsartan 80 MG TABLET PO SCH (08:20)
[2017-11-08] MEDS: Insulin DETEMIR 100 UNIT/ML X5UNITS SQ SCH ×2 (08:20→22:46)
[2017-11-08] MEDS: Insulin LISPRO 300 UNITS/3 ML VIAL SQ SCH ×7 (08:21→20:36)
[2017-11-08] MEDS: Budesonide/Formoterol 160/4.5 MDI IH SCH ×2 (08:37→22:41)
[2017-11-08 11:53] LABS: Activated Partial Thrombo Time 139.4 Seconds (26.0-36.0)
[2017-11-08 11:56] LABS: Heparin anti-factor XA UFH 0.33 IU/mL (0.30-0.70)
--- NOTE | 2017-11-08 17:31 | Podiatry Progress Note ---
Date of Encounter: 11/08/17 Time of Encounter: 16:30 - Assessment and Plan (1) Closed trimalleolar fracture of left ankle Current Visit: Yes Status: Acute Closed trimalleolar fracture of left ankle. S/p left trimalleolar ankle fracture ORIF, left syndesmosis ORIF, left deltoid ligament repair by Dr. Alegre on 11/03/17. Strict non weight bearing to LLE. PT/OT consulted to assess for possible rehabilitation needs. early childhood worker coordinating discharge, awaiting insurance authorization for [facility]. Keep posterior splint dry and intact. Patient will need a 1 week f/u in Podiatry clinic a week after discharge from the hospital. Qualifiers: Encounter type: subsequent encounter Fracture healing: with routine healing Qualified Code(s): S82.852D - Displaced trimalleolar fracture of left lower leg, subsequent encounter for closed fracture with routine healing Subjective Principal diagnosis: left ankle fracture Interval history: Patient is lying in bed with posterior splint dry and intact. Patient is s/p left trimalleolar ankle fracture ORIF, left syndesmosis ORIF, left deltoid ligament repair by Dr. Alegre on 11/03/17. Patient states his LLE pain is more tolerable today. No c/o fever, chills, cp or sob. Objective - Vital Signs Vital Signs: Vital Signs Temp Pulse Resp BP Pulse Ox 11/08/17 16:51 98.6 F 54 17 110/67 99 11/08/17 11:49 98.8 F 54 16 101/65 95 11/08/17 08:38 16 95 11/08/17 08:12 62 11/08/17 08:10 98.1 F 67 16 138/68 95 11/08/17 02:38 98.1 F 67 14 135/72 99 11/07/17 21:50 16 94 11/07/17 21:26 99.2 F 66 16 98/58 96 Intake and Output 11/08/17 11/08/17 11/08/17 07:59 15:59 23:59 Intake Total 638.1 / 638.1 226.2 / 226.2 Output Total 300 / 300 300 / 300 Balance 338.1 / 338.1 -73.8 / -73.8 Intake: IV Fluids 638.1 / 638.1 226.2 / 226.2 Heparin 25,000 UNIT/500 ML D5W 638.1 / 638.1 226.2 / 226.2 25,000 unit In 500 ml @ 14 UNIT /KG/HR 35.924 mls/hr IVC . [id number] [id number] Rx#:[id number] Output: Urine 300 / 300 300 / 300 Other: # Voids 1 Blood Glucose* 240 152 - Exam Exam: eneral appearance: alert awake oriented X 3. Calm and pleasant, no acute distress.. Vascular: LLE: No evidence of cyanosis, pallor or rubor, Posterior splint is dry and intact, toes #1 through #5 left are pink, warm and dry, No calf pain with manual compression. capillary refill time is immediate to digits. Neurologic: Sensation diminished with light touch to foot. Musckuloskeletal: Posterior splint dry and intact to the LLE. - Lab Result Diagrams: 11/07/17 04:20 11/08/17 04:48 Labs: Abnormal lab results RBC 2.92 M/mcL (4.19-5.50) L 11/07/17 04:20 Hgb 8.4 g/dL (12.9-16.9) L 11/07/17 04:20 Hct 26.6 % (37.5-50.1) L 11/07/17 04:20 PT 24.3 Seconds (9.4-12.1) H 11/08/17 04:48 APTT 164.3 Seconds (26.0-36.0) H* D 11/08/17 Unknown Carbon Dioxide 31 mEq/L (23-29) H 11/08/17 04:48 BUN 25 mg/dL (8-23) H 11/08/17 04:48 Creatinine 1.59 mg/dL (0.70-1.30) H 11/08/17 04:48 Est GFR ( Amer) 53 (> 60) L 11/08/17 04:48 Est GFR (Non-Af Amer) 44 (> 60) L 11/08/17 04:48 Glucose 167 mg/dL (70-105) H 11/08/17 04:48 POC Glucose 152 (58-89) H 11/08/17 16:55 Calcium 8.5 mg/dL (8.6-10.3) L 11/08/17 04:48 Total Bilirubin 0.2 mg/dL (0.3-1.0) L 11/04/17 06:35 AST 12 Units/L (13-39) L 11/04/17 06:35 ALT 6 Units/L (7-52) L 11/04/17 06:35 Serum Total Protein 6.1 g/dL (6.4-8.9) L 11/04/17 06:35 Albumin 2.9 g/dL (3.5-5.7) L 11/04/17 06:35 Albumin/Globulin Ratio 0.9 (1.1-2.2) L 11/04/17 06:35 HDL Cholesterol 29 mg/dL (40-59) L 10/31/17 04:10 - VTE Documentation of Mechanical Device: Intermittent pneumatic compression device Consult Discharge Plan - Plan Instructions: Bed Bugs (GEN), Bed Bugs, Fish House Worker (GEN) Referrals: Calli Estes, GAS DISTRIBUTION SUPERVISOR [Primary Care Provider] -
[2017-11-08] MEDS: *HR* Enoxaparin 150 MG/ML SYRINGE SQ SCH (17:35)
[2017-11-08] MEDS ORDERED: *HR* Warfarin 7.5 MG TABLET PO ONE (18:00)
--- NOTE | 2017-11-08 18:13 | Discharge Summary ---
Date of Encounter: 11/08/17 Time of Encounter: 15:15 - Discharge Diagnosis (1) Closed trimalleolar fracture of left ankle Priority: Primary Status: Acute Qualifiers: Encounter type: subsequent encounter Fracture healing: with routine healing Qualified Code(s): S82.852D - Displaced trimalleolar fracture of left lower leg, subsequent encounter for closed fracture with routine healing (2) Diabetes mellitus Priority: Secondary Status: Chronic Qualifiers: Diabetes mellitus type: type 2 Diabetes mellitus complication status: with kidney complications Diabetes mellitus complication detail: with chronic kidney disease Diabetes mellitus termite exterminator insulin use: with termite exterminator use Chronic kidney disease stage: stage 3 (moderate) Qualified Code(s): E11.22 - Type 2 diabetes mellitus with diabetic chronic kidney disease; N18.3 - Chronic kidney disease, stage 3 (moderate); N18.3 - Chronic kidney disease, stage 3 ( moderate); Z79.4 - intermediate project manager (current) use of insulin; Z79.4 - intermediate project manager ( current) use of insulin; Z79.4 - intermediate project manager (current) use of insulin; Z79.4 - intermediate project manager (current) use of insulin (3) COPD (chronic obstructive pulmonary disease) Priority: Secondary Status: Chronic Qualifiers: COPD type: unspecified COPD Qualified Code(s): J44.9 - Chronic obstructive pulmonary disease, unspecified (4) HTN (hypertension) Priority: Secondary Status: Chronic Qualifiers: Hypertension type: essential hypertension Qualified Code(s): I10 - Essential (primary) hypertension (5) Hypothyroid Priority: Secondary Status: Chronic Qualifiers: Hypothyroidism type: unspecified Qualified Code(s): E03.9 - Hypothyroidism , unspecified (6) S/P aortic valve replacement Priority: Secondary Status: Chronic (7) Hyponatremia Priority: Primary Status: Resolved (8) Chronic kidney disease Priority: Secondary Status: Chronic Qualifiers: Chronic kidney disease stage: stage 3 (moderate) Qualified Code(s): N18.3 - Chronic kidney disease, stage 3 (moderate) - Discharge Medications Prescriptions: HYDROcodone/Acet 5/325 mg [Walnut 5-325 mg] 1 tab PO Q6HR PRN 5 Days #10 tablet PRN Reason: Severe Pain FentaNYL PATCH [Duragesic] 50 mcg TD Q72H 15 Days #5 patch.td72 Gabapentin [Neurontin] 100 mg PO HS #10 capsule Home Medications: Albuterol Sulfate [Ventolin Hfa] 2 puff IH BID 05/14/16 [History] Allopurinol [Zyloprim 100 MG] 200 mg PO DAILY 05/14/16 [History] Aspirin [Lo-Dose Aspirin EC] 81 mg PO DAILY 05/14/16 [History] Bicalutamide [Casodex] 50 mg PO DAILY 05/14/16 [History] Calcitriol [Rocaltrol] 0.25 mcg PO DAILY 05/14/16 [History] Cholecalciferol (Vitamin D3) [Vitamin D3] 5,000 unit PO DAILY 05/14/16 [History] Docusate [Colace] 100 mg PO BID PRN 05/14/16 [History] Famotidine [Pepcid] 40 mg PO HS 05/14/16 [History] Fenofibrate 145 mg PO DAILY 05/14/16 [History] Flecainide Acetate 100 mg PO Q12HR 05/14/16 [History] Furosemide [Lasix] 40 mg PO BID 05/14/16 [History] Levothyroxine [Synthroid] 150 mcg PO DAILY 05/14/16 [History] Montelukast [Singulair] 10 mg PO DAILY 05/14/16 [History] Nitroglycerin [Nitrostat] 0.4 mg SL AD PRN 05/14/16 [History] Simvastatin [Zocor] 40 mg PO HS 05/14/16 [History] Warfarin [Coumadin] 10 mg PO MOWEFR 05/14/16 [History] Metoprolol [Lopressor] 25 mg PO DAILY 07/31/16 [History] Pantoprazole Sodium [Protonix] 40 mg PO DAILY 07/31/16 [History] Albuterol Neb [Proventil Neb] 2.5 mg IH Q4HR PRN 10/07/17 [History] Citalopram [CeleXA] 20 mg PO DAILY 10/07/17 [History] FentaNYL PATCH [Duragesic] 50 mcg TD Q72H 10/07/17 [History] Gabapentin [Neurontin] 100 mg PO HS 10/07/17 [History] Iron 65 mg PO BID 10/07/17 [History] Phenylephrine/Dm/Acetaminop/GG [Kro Mucus Relief Cold-Flu Cplt] 1 tab PO Q6-8H PRN 10/07/17 [History] Dicyclomine [Bentyl] 10 mg PO QID PRN #20 capsule 10/08/17 [Rx] Budesonide/Formoterol 160/4.5 [Symbicort 160/4.5] 2 puff IH BIDR 10/31/17 [ History] Nut.tx.gluc.intoler,Lac-Fr,Soy [Glucerna] 1 can PO TID 10/31/17 [History] Primidone [Mysoline] 25 mg PO BID 10/31/17 [History] Valsartan [Diovan] 80 mg PO DAILY 10/31/17 [History] Warfarin [Coumadin] 7.5 mg PO SUTUTHSA 10/31/17 [History] Enoxaparin [Lovenox] 130 mg SQ Q12HR #10 syringe 11/08/17 [Rx] FentaNYL PATCH [Duragesic] 50 mcg TD Q72H 15 Days #5 patch.td72 11/08/17 [Rx] Gabapentin [Neurontin] 100 mg PO HS #10 capsule 11/08/17 [Rx] HYDROcodone/Acet 5/325 mg [Walnut 5-325 mg] 1 tab PO Q6HR PRN 5 Days #10 tablet 11/08/17 [Rx] Insulin DETEMIR [Levemir] 25 unit SQ BID [id number] 11/08/17 [Rx] Insulin LISPRO [HumaLOG] 0 units SQ HS vial 11/08/17 [Rx] Insulin LISPRO [HumaLOG] 0 units SQ TIDAC vial 11/08/17 [Rx] Insulin LISPRO [HumaLOG] 6 units SQ TIDWM vial 11/08/17 [Rx] Allergies/Adverse Reactions: 3 Allergy/AdvReac Type Severity Reaction Status Date / Time niacin Allergy See Verified 10/30/17 14:26 [From [facility] Comments Extended-Release] Date of admission: 10/30/17 17:18 Primary care physician: Calli Estes CNP Consults: 10/30/17 16:40 Consult to Cosmetic Consultant [CONS] Routine Reason for SW Consult: Please assess patient for possible home needs for post -discharge planning. Pt. states he needs a wheelchair. 10/30/17 16:41 Consult to Occupational Therapy [CONS] Routine Comment: Evaluate, develop and implement POC Reason for Consult: Pt. has left ankle fx and dislocation. Please assess patient for possible rehabilitation needs post-orthopedic consult for post-discharge planning. 10/30/17 16:42 Consult to Physical Therapy [CONS] Routine Comment: Evaluate, develop and implement POC Reason for Consult: Pt. has left ankle fx and dislocation. Please assess patient for possible rehabilitation needs post-orthopedic consult for post-discharge planning. 10/30/17 16:49 Consult to Nutrition [CONS] Routine Comment: Consulting Provider: NUTRITION Reason for Dietary Consult: MST Score 10/30/17 16:51 Consult to Podiatry [CONS] Routine Consulting Provider: Podiatry [facility] Reason for Consult: Pt. has acute fracture/dislocation of the left ankle that occurred two days ago. [facility] ED consult discussed w/Dr. Alegre. Call Completed: Yes 11/01/17 09:37 Consult to Cardiology [CONS] Routine Comment: Consulting Provider: Cardiology [facility] Reason for Consult: MEchanical Aortic valve/Anticoagulation management in patient with ankle # and risk assessment. Call Completed: Yes 11/04/17 10:07 Consult to Occupational Therapy [CONS] Routine Comment: Evaluate, develop and implement POC Reason for Consult: S/p ORIF left ankle, surgery date: 11/03/17. Nonweight bearing to LLE. Please assess patient for possible rehabilitation needs post- orthopedic consult for post-discharge planning. Consult to Physical Therapy [CONS] Routine Comment: Evaluate, develop and implement POC Reason for Consult: S/p ORIF left ankle, surgery date: 11/03/17. Nonweight bearing to LLE. Please assess patient for possible rehabilitation needs post- orthopedic consult for post-discharge planning. Discharging clinician: Karrie Lozada Anticipated date of discharge: 11/08/17 - Patient Status Disposition: Transfer Inpatient Rehab Fac Condition: Fair Functional capacity at discharge: uses cane/walker Overall status at discharge: patient is progressing back to baseline - Discharge Instructions Instructions: Bed Bugs (GEN), Bed Bugs, Plant Manager (GEN) Follow Up With: Calli Estes, MEDICAL LIAISON [Primary Care Provider] - Additional Instructions: F/up with Podiatry in 1 week F/up with PCP in 1-2 weeks - Diet and Activity Activity: as per physical therapy (nonweight-bearing on left foot) Diet: diabetic diet, low fat, low cholesterol, low salt diet, other (renal diet) Hospital course: Mr. Cortez is a 67 year old male with the above medical problems, admitted with left ankle fracture s/p mechanical fall. XRay left foot showed acute ankle fracture. Podiatry has been consulted, underwent left trimalleolar ankle fracture ORIF left syndesmosis ORIF, left deltoid ligament repai on 11/03/17, after Cardiology clearance. He had acute blood loss anemia after surgery and received 2units PRBC with improvement in Hb to around 9. PT/OT evaluation recommend IP rehab. He has been on Coumadin for mechanical aortic valve, which was held for perioperative bridging with IV Heparin. His INR is 2.2 today and has been steadily increasing; patient may need bridging subcutaneous Lovenox for 3-5 more days. He is medically stable for discharge. - Time Spent with Patient Total time spent providing and/or coordinating discharge services: Greater than 30 minutes (45 min) - Constitutional Vitals: Temp Pulse Resp BP Pulse Ox 98.6 F 54 17 110/67 99 11/08/17 16:51 11/08/17 16:51 11/08/17 16:51 11/08/17 16:51 11/08/17 16:51 General appearance: Present: A&O X 3, obese, answers questions appropriately - Respiratory Respiratory exam: Present: CTAB. Absent: accessory muscle use, rales, rhonchi, wheezes - Cardiovascular Cardiovascular exam: Present: RRR, +S1, +S2 (mechanical heart sound). Absent: diastolic murmur, gallop, rubs, systolic murmur - VTE Documentation of Mechanical Device: Intermittent pneumatic compression device
--- NOTE | 2017-11-08 18:20 | Physician Discharge Referral ---
ExtendedCare Referral Info Transfer To: [facility] Provider in Charge: Karrie Lozada Provider in Charge after Transfer: PCP Institutional Level of Care: Intermediate - Diagnosis (1) Closed trimalleolar fracture of left ankle Priority: Primary Status: Acute (2) Diabetes mellitus Priority: Secondary Status: Chronic (3) COPD (chronic obstructive pulmonary disease) Priority: Secondary Status: Chronic (4) HTN (hypertension) Priority: Secondary Status: Chronic (5) Hypothyroid Priority: Secondary Status: Chronic (6) S/P aortic valve replacement Priority: Secondary Status: Chronic (7) Hyponatremia Priority: Primary Status: Resolved (8) Chronic kidney disease Priority: Secondary Status: Chronic Expected Duration of Placement: 2 weeks Prognosis: Fair Aware of Diagnosis: Patient Aware of Prognosis: Patient - Transfer Medications Prescriptions: HYDROcodone/Acet 5/325 mg [Julian 5-325 mg] 1 tab PO Q6HR PRN 5 Days #10 tablet PRN Reason: Severe Pain FentaNYL PATCH [Duragesic] 50 mcg TD Q72H 15 Days #5 patch.td72 Gabapentin [Neurontin] 100 mg PO HS #10 capsule Home Medications: Albuterol Sulfate [Ventolin Hfa] 2 puff IH BID 05/14/16 [History] Allopurinol [Zyloprim 100 MG] 200 mg PO DAILY 05/14/16 [History] Aspirin [Lo-Dose Aspirin EC] 81 mg PO DAILY 05/14/16 [History] Bicalutamide [Casodex] 50 mg PO DAILY 05/14/16 [History] Calcitriol [Rocaltrol] 0.25 mcg PO DAILY 05/14/16 [History] Cholecalciferol (Vitamin D3) [Vitamin D3] 5,000 unit PO DAILY 05/14/16 [History] Docusate [Colace] 100 mg PO BID PRN 05/14/16 [History] Famotidine [Pepcid] 40 mg PO HS 05/14/16 [History] Fenofibrate 145 mg PO DAILY 05/14/16 [History] Flecainide Acetate 100 mg PO Q12HR 05/14/16 [History] Furosemide [Lasix] 40 mg PO BID 05/14/16 [History] Levothyroxine [Synthroid] 150 mcg PO DAILY 05/14/16 [History] Montelukast [Singulair] 10 mg PO DAILY 05/14/16 [History] Nitroglycerin [Nitrostat] 0.4 mg SL AD PRN 05/14/16 [History] Simvastatin [Zocor] 40 mg PO HS 05/14/16 [History] Warfarin [Coumadin] 10 mg PO MOWEFR 05/14/16 [History] Metoprolol [Lopressor] 25 mg PO DAILY 07/31/16 [History] Pantoprazole Sodium [Protonix] 40 mg PO DAILY 07/31/16 [History] Albuterol Neb [Proventil Neb] 2.5 mg IH Q4HR PRN 10/07/17 [History] Citalopram [CeleXA] 20 mg PO DAILY 10/07/17 [History] FentaNYL PATCH [Duragesic] 50 mcg TD Q72H 10/07/17 [History] Gabapentin [Neurontin] 100 mg PO HS 10/07/17 [History] Iron 65 mg PO BID 10/07/17 [History] Phenylephrine/Dm/Acetaminop/GG [Kro Mucus Relief Cold-Flu Cplt] 1 tab PO Q6-8H PRN 10/07/17 [History] Dicyclomine [Bentyl] 10 mg PO QID PRN #20 capsule 10/08/17 [Rx] Budesonide/Formoterol 160/4.5 [Symbicort 160/4.5] 2 puff IH BIDR 10/31/17 [ History] Nut.tx.gluc.intoler,Lac-Fr,Soy [Glucerna] 1 can PO TID 10/31/17 [History] Primidone [Mysoline] 25 mg PO BID 10/31/17 [History] Valsartan [Diovan] 80 mg PO DAILY 10/31/17 [History] Warfarin [Coumadin] 7.5 mg PO SUTUTHSA 10/31/17 [History] Enoxaparin [Lovenox] 130 mg SQ Q12HR #10 syringe 11/08/17 [Rx] FentaNYL PATCH [Duragesic] 50 mcg TD Q72H 15 Days #5 patch.td72 11/08/17 [Rx] Gabapentin [Neurontin] 100 mg PO HS #10 capsule 11/08/17 [Rx] HYDROcodone/Acet 5/325 mg [Julian 5-325 mg] 1 tab PO Q6HR PRN 5 Days #10 tablet 11/08/17 [Rx] Insulin DETEMIR [Levemir] 25 unit SQ BID [id number] 11/08/17 [Rx] Insulin LISPRO [HumaLOG] 0 units SQ HS vial 11/08/17 [Rx] Insulin LISPRO [HumaLOG] 0 units SQ TIDAC vial 11/08/17 [Rx] Insulin LISPRO [HumaLOG] 6 units SQ TIDWM vial 11/08/17 [Rx] Allergies/Adverse Reactions: 3 Allergy/AdvReac Type Severity Reaction Status Date / Time niacin Allergy See Verified 10/30/17 14:26 [From [facility] Comments Extended-Release] - Respiratory Orders Smoking Cessation: Smoking cessation has been advised. For more information, call the [place] Tobacco Quit Line at 2-492-DIWQNOW. - Advance Directives Code Status: Full Code - Mobility Orders Ambulate - Rehabiliation Orders Rehab Potential: Fair Rehab Orders: ROM Exercises, Evaluation for Physical Therapy, Evaluation for Occupational Therapy - Treatments List/Other: Needs subcutaneous Lovenox until two therapeutic INRs have been attained; target INR 2.5-3.5; - Diet Orders No Concentrated Sweets (diabetic), Cardiac CERTIFICATION: I certify that the transfer of the above named patient to an Extended Care Facility is necessary for the continuing treatment of the diagnosis listed. The above information is true and accurate reflection of patient's current condition. Confidential - Redisclosure prohibited without a patient's written consent.
[2017-11-08] MEDS: Famotidine 20 MG TABLET PO SCH (22:42)
[2017-11-08] MEDS: Gabapentin 100 MG CAPSULE PO SCH (22:42)
[2017-11-09] MEDS: *HR* Enoxaparin 150 MG/ML SYRINGE SQ SCH ×2 (06:22→17:43)
[2017-11-09 07:43] LABS: INR 2.3; Prothrombin Time 24.8 Seconds (9.4-12.1)
[2017-11-09] MEDS: Budesonide/Formoterol 160/4.5 MDI IH SCH ×2 (07:51→22:02)
[2017-11-09] MEDS: Fenofibrate 54 MG TABLET PO SCH (08:35)
[2017-11-09] MEDS: Furosemide 40 MG TABLET PO SCH ×2 (08:35→17:43)
[2017-11-09] MEDS: Primidone 50 MG TABLET PO SCH ×2 (08:35→20:30)
[2017-11-09] MEDS: Cholecalciferol (D-3) 1,000 UNIT TABLET PO SCH (08:35)
[2017-11-09] MEDS: Valsartan 80 MG TABLET PO SCH (08:35)
[2017-11-09] MEDS: Bicalutamide 50 MG TABLET PO SCH (08:36)
[2017-11-09] MEDS: Insulin LISPRO 300 UNITS/3 ML VIAL SQ SCH ×7 (08:36→20:30)
[2017-11-09] MEDS: Insulin DETEMIR 100 UNIT/ML X5UNITS SQ SCH ×2 (08:43→20:30)
--- NOTE | 2017-11-09 14:31 | Podiatry Progress Note ---
Date of Encounter: 11/09/17 Time of Encounter: 12:30 - Assessment and Plan (1) Closed trimalleolar fracture of left ankle Current Visit: Yes Status: Acute Closed trimalleolar fracture of left ankle. S/p left trimalleolar ankle fracture ORIF, left syndesmosis ORIF, left deltoid ligament repair by Dr. Alegre on 11/03/17. Strict non weight bearing to LLE. 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 Dressing was removed, incision line cleansed with saline and pat dry, new adaptic, 4x4, ABD, roll cast padding, kerlix, posterior splint and GERRY reapplied Keep posterior splint dry and intact.- no change needed unless becomes saturated Patient will need a 1 week f/u in Podiatry clinic a week after discharge from the hospital. Qualifiers: Encounter type: subsequent encounter Fracture healing: with routine healing Qualified Code(s): S82.852D - Displaced trimalleolar fracture of left lower leg, subsequent encounter for closed fracture with routine healing Subjective Principal diagnosis: left ankle fracture Interval history: Patient is resting in bed with posterior splint dry and intact. Patient is s/ p left trimalleolar ankle fracture ORIF, left syndesmosis ORIF, left deltoid ligament repair by Dr. Alegre on 11/03/17. Patient states he is doing ok. Patient awaiting LTCF placement, awaiting INR to reach therapeutic level. 2.3 today. Heparin gtt was stopped last night. Afebrile. Denies any chills, n/v or flu like symptoms. Denies calf pain or sob Objective - Vital Signs Vital Signs: Vital Signs Temp Pulse Resp BP Pulse Ox 11/09/17 12:09 98.5 F 50 16 116/71 96 11/09/17 08:53 67 11/09/17 07:52 16 96 11/09/17 07:48 98.3 F 53 16 134/74 95 11/08/17 22:42 16 94 11/08/17 22:34 98.9 F 59 18 139/71 96 11/08/17 20:21 98.7 F 58 18 156/79 97 11/08/17 16:51 98.6 F 54 17 110/67 99 Intake and Output 11/08/17 11/09/17 11/09/17 23:59 07:59 15:59 Intake Total 675.7 / 675.7 Output Total 1775 / 1775 750 / 750 Balance -1099.3 / -1099.3 -750 / -750 Intake: IV Fluids 135.7 / 135.7 Heparin 25,000 UNIT/500 ML D5W 135.7 / 135.7 25,000 unit In 500 ml @ 14 UNIT /KG/HR 35.924 mls/hr IVC . [id number] Rx#:[id number] Oral 540 / 540 Output: Urine 1775 / 1775 750 / 750 Other: # Voids 2 1 Blood Glucose* 143 169 129 - Exam Exam: Dressing fully removed Podiatry General Exam: General appearance: alert awake oriented X 3. Calm and pleasant, no acute distress.. Vascular: Pedal pulses +1/4 DP/PT , No evidence of cyanosis, pallor or rubor, Edema graded at 1+/4, Skin Temperature warm, No calf pain with manual compression. capillary refill time is immediate to digits. Edema noted at most to dorsal aspect of foot Neurologic: Sensation intact with light touch to foot. . Postop Exam: S/P que intact to medial and lateral ncision lines, no signs of dehiscence. No open area, no drainage, no odor, minimal erythema, no streaking. Minimal edema. There is a small fluid blister noted to posterior heel area. Intact- no drainage. No clinical appearance of infection. Clear/yellow center. - Lab Result Diagrams: 11/07/17 04:20 11/08/17 04:48 Labs: Abnormal lab results RBC 2.92 M/mcL (4.19-5.50) L 11/07/17 04:20 Hgb 8.4 g/dL (12.9-16.9) L 11/07/17 04:20 Hct 26.6 % (37.5-50.1) L 11/07/17 04:20 PT 24.8 Seconds (9.4-12.1) H 11/09/17 07:24 APTT 164.3 Seconds (26.0-36.0) H* D 11/08/17 Unknown Carbon Dioxide 31 mEq/L (23-29) H 11/08/17 04:48 BUN 25 mg/dL (8-23) H 11/08/17 04:48 Creatinine 1.59 mg/dL (0.70-1.30) H 11/08/17 04:48 Est GFR ( Amer) 53 (> 60) L 11/08/17 04:48 Est GFR (Non-Af Amer) 44 (> 60) L 11/08/17 04:48 Glucose 167 mg/dL (70-105) H 11/08/17 04:48 POC Glucose 143 (58-89) H 11/08/17 20:18 Calcium 8.5 mg/dL (8.6-10.3) L 11/08/17 04:48 Total Bilirubin 0.2 mg/dL (0.3-1.0) L 11/04/17 06:35 AST 12 Units/L (13-39) L 11/04/17 06:35 ALT 6 Units/L (7-52) L 11/04/17 06:35 Serum Total Protein 6.1 g/dL (6.4-8.9) L 11/04/17 06:35 Albumin 2.9 g/dL (3.5-5.7) L 11/04/17 06:35 Albumin/Globulin Ratio 0.9 (1.1-2.2) L 11/04/17 06:35 HDL Cholesterol 29 mg/dL (40-59) L 10/31/17 04:10 - VTE Documentation of Mechanical Device: Intermittent pneumatic compression device Consult Discharge Plan - Plan Instructions: Bed Bugs (GEN), Bed Bugs, 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
[2017-11-09] MEDS: *HR* FentaNYL PATCH 50 MCG PATCH TD SCH (17:43)
[2017-11-09] MEDS ORDERED: *HR* Warfarin 7.5 MG TABLET PO ONE (18:00)
--- NOTE | 2017-11-09 19:10 | Event Note ---
Date of Encounter: 11/09/17 Time of Encounter: 11:00 Awaiting placement at [facility]
[2017-11-09] MEDS: Gabapentin 100 MG CAPSULE PO SCH (20:30)
[2017-11-09] MEDS: Famotidine 20 MG TABLET PO SCH (20:30)
[2017-11-09] MEDS: *HR* OxyCODONE Immed Rel 5 MG TABLET PO PRN (20:43)
[2017-11-10] MEDS: *HR* HYDROcodone/Acet 5/325 mg TABLET PO PRN ×2 (00:37→09:41)
[2017-11-10] MEDS: *HR* Enoxaparin 150 MG/ML SYRINGE SQ SCH ×2 (05:02→17:59)
[2017-11-10 05:35] LABS: INR 2.1; Prothrombin Time 22.8 Seconds (9.4-12.1)
[2017-11-10] MEDS: Insulin LISPRO 300 UNITS/3 ML VIAL SQ SCH ×7 (07:54→21:45)
[2017-11-10] MEDS: Bicalutamide 50 MG TABLET PO SCH (08:00)
[2017-11-10] MEDS: Insulin DETEMIR 100 UNIT/ML X5UNITS SQ SCH ×2 (08:00→22:09)
[2017-11-10] MEDS: Cholecalciferol (D-3) 1,000 UNIT TABLET PO SCH (08:01)
[2017-11-10] MEDS: Primidone 50 MG TABLET PO SCH ×2 (08:01→22:09)
[2017-11-10] MEDS: Furosemide 40 MG TABLET PO SCH ×2 (08:01→17:59)
[2017-11-10] MEDS: Fenofibrate 54 MG TABLET PO SCH (08:01)
[2017-11-10] MEDS: Valsartan 80 MG TABLET PO SCH (08:01)
[2017-11-10] MEDS: Budesonide/Formoterol 160/4.5 MDI IH SCH ×2 (08:35→20:10)
[2017-11-10] MEDS ORDERED: *HR* Warfarin 5 MG TABLET PO ONE (18:00)
--- NOTE | 2017-11-10 19:36 | Event Note ---
Date of Encounter: 11/10/17 Time of Encounter: 11:00 Awaiting placement for ECF
[2017-11-10] MEDS: Famotidine 20 MG TABLET PO SCH (22:09)
[2017-11-10] MEDS: Gabapentin 100 MG CAPSULE PO SCH (22:09)
[2017-11-11] MEDS: *HR* Enoxaparin 150 MG/ML SYRINGE SQ SCH (05:58)
[2017-11-11] MEDS: Budesonide/Formoterol 160/4.5 MDI IH SCH (08:06)
[2017-11-11 08:10] LABS: INR 1.9; Prothrombin Time 20.6 Seconds (9.4-12.1)
[2017-11-11] MEDS: Insulin LISPRO 300 UNITS/3 ML VIAL SQ SCH ×4 (08:50→11:52)
[2017-11-11] MEDS: Cholecalciferol (D-3) 1,000 UNIT TABLET PO SCH (08:51)
[2017-11-11] MEDS: Fenofibrate 54 MG TABLET PO SCH (08:51)
[2017-11-11] MEDS: Primidone 50 MG TABLET PO SCH (08:51)
[2017-11-11] MEDS: Bicalutamide 50 MG TABLET PO SCH (08:51)
[2017-11-11] MEDS: Furosemide 40 MG TABLET PO SCH (08:51)
[2017-11-11] MEDS: Insulin DETEMIR 100 UNIT/ML X5UNITS SQ SCH (08:52)
[2017-11-11] MEDS: Valsartan 80 MG TABLET PO SCH (08:52)
[2017-11-11 11:10] VITALS: BP 118/76
--- NOTE | 2017-11-11 15:51 | Event Note ---
Date of Encounter: 11/11/17 Time of Encounter: 11:00 Patient was discharged to ECF today
[2017-11-11] MEDS ORDERED: *HR* Warfarin 7.5 MG TABLET PO ONE (18:00)
== END 2017-11-11 14:05 | DRG 493 ==
LOC: 3NENU → SUATTDRO 17:18
PROVIDERS: ADMIT Internal Medicine Cardiovascular Disease; ATTEND Hospitalist

== ENCOUNTER 2018-01-20 10:48 | Inpatient (IN) ==
[2018-01-20 13:28] LABS: Basophils % 0.4 %; Eosinophils # 0.1 K/mcL (0.0-0.6); Eosinophils % 1.8 %; Hematocrit 35.7 % (37.5-50.1); Hemoglobin 11.4 g/dL (12.9-16.9); Immature Granulocytes % 0.5 % (0-4); Lymphocytes # 1.1 K/mcL (0.6-4.6); Lymphocytes % 14.1 %; Mean Corpuscular HGB Conc 31.9 g/dL (31.6-35.5); Mean Corpuscular Hemoglobin 28.9 pg (28.0-33.3); Mean Corpuscular Volume 90.4 fL (83.0-100.0); Mean Platelet Volume 9.9 fL (9.4-12.4); Monocytes # 0.5 K/mcL (0.0-1.3); Monocytes % 6.2 %; Neutrophils # 6.1 K/mcL (1.6-8.9); Platelet Count 463 K/mcL (140-400); Red Blood Count 3.95 M/mcL (4.19-5.50); Red Cell Distribution Width 14.6 % (11.5-14.5)
[2018-01-20 13:34] LABS: INR 2.4; Prothrombin Time 25.9 Seconds (9.4-12.1)
--- NOTE | 2018-01-20 13:50 | Emergency Department Note ---
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 insulin use: with residential use Qualified Code(s): E11.621 - Type 2 diabetes mellitus with foot ulcer; L97.509 - Non-pressure chronic ulcer of other part of unspecified foot with unspecified severity; L97.509 - Non-pressure chronic ulcer of other part of unspecified foot with unspecified severity; L97.509 - Non-pressure chronic ulcer of other part of unspecified foot with unspecified severity; L97.509 - Non-pressure chronic ulcer of other part of unspecified foot with unspecified severity; Z79.4 - custodial (current) use of insulin; Z79.4 - custodial (current) use of insulin; Z79.4 - meterman (current) use of insulin; Z79.4 - meterman (current) use of insulin Disposition: Admitted As Inpatient Condition: Good Referrals: Calli Estes CNP [Primary Care Provider] - Forms: ED Satisfaction Letter Time of Disposition: 15:05 General Adult HPI - General Chief complaint: ED Wound/Laceration Stated complaint: foot infection/ tissue Time Seen by Provider: 01/20/18 11:52 Source: patient Limitations: physical limitation Nursing Notes Reviewed: Yes Vital Signs Reviewed: Yes - History of Present Illness HPI Narrative: Sent From wound care for admission for surgical debridement of left heel non- healing wound. Pain Scale: 4 - Related Data Home Medications Medication Instructions Recorded Confirmed Albuterol Sulfate [Ventolin Hfa] 2 puff IH BID 05/14/16 01/19/18 Allopurinol [Zyloprim 100 MG] 200 mg PO DAILY 05/14/16 01/19/18 Aspirin [Lo-Dose Aspirin EC] 81 mg PO DAILY 05/14/16 01/19/18 Bicalutamide [Casodex] 50 mg PO DAILY 05/14/16 01/19/18 Calcitriol [Rocaltrol] 0.25 mcg PO DAILY 05/14/16 01/19/18 Cholecalciferol (Vitamin D3) 5,000 unit PO DAILY 05/14/16 01/19/18 [Vitamin D3] Docusate [Colace] 100 mg PO BID PRN 05/14/16 01/19/18 Famotidine [Pepcid] 40 mg PO HS 05/14/16 01/19/18 Fenofibrate 145 mg PO DAILY 05/14/16 01/19/18 Flecainide Acetate 100 mg PO Q12HR 05/14/16 01/19/18 Furosemide [Lasix] 40 mg PO BID 05/14/16 01/19/18 Levothyroxine [Synthroid] 150 mcg PO DAILY 05/14/16 01/19/18 Montelukast [Singulair] 10 mg PO DAILY 05/14/16 01/19/18 Nitroglycerin [Nitrostat] 0.4 mg SL AD PRN 05/14/16 01/19/18 Simvastatin [Zocor] 40 mg PO HS 05/14/16 01/19/18 Warfarin [Coumadin] 10 mg PO MOWEFR 05/14/16 01/19/18 Metoprolol [Lopressor] 25 mg PO DAILY 07/31/16 01/19/18 Pantoprazole Sodium [Protonix] 40 mg PO DAILY 07/31/16 01/19/18 Albuterol Neb [Proventil Neb] 2.5 mg IH Q4HR PRN 10/07/17 01/19/18 Citalopram [CeleXA] 20 mg PO DAILY 10/07/17 01/19/18 Phenylephrine/Dm/Acetaminop/GG 1 tab PO Q6-8H PRN 10/07/17 01/19/18 [Kro Mucus Relief Cold-Flu Cplt] Budesonide/Formoterol 160/4.5 2 puff IH BIDR 10/31/17 01/19/18 [Symbicort 160/4.5] Nut.tx.gluc.intoler,Lac-Fr,Soy 1 can PO TID 10/31/17 01/19/18 [Glucerna] Primidone [Mysoline] 25 mg PO BID 10/31/17 01/19/18 Valsartan [Diovan] 80 mg PO DAILY 10/31/17 01/19/18 Warfarin [Coumadin] 7.5 mg PO SUTUTHSA 10/31/17 01/19/18 Previous Rx's Medication Instructions Recorded Dicyclomine [Bentyl] 10 mg PO QID PRN #20 capsule 10/08/17 Gabapentin [Neurontin] 100 mg PO HS #10 capsule 11/08/17 Insulin DETEMIR [Levemir] 25 unit SQ BID f2ogyev 11/08/17 Insulin LISPRO [HumaLOG] 6 units SQ TIDWM vial 11/08/17 Ferrous Sulfate 325 mg PO BIDWM tablet 11/18/17 Allergies Allergy/AdvReac Type Severity Reaction Status Date / Time niacin Allergy See Verified 01/20/18 10:50 [From [facility] Comments Extended-Release] All systems ED: reviewed and negative except as stated. Constitutional: Denies: fever ENT ED: Denies: congestion Cardiovascular: Denies: chest pain Respiratory: Denies: cough, dyspnea Gastrointestinal: Denies: abdominal pain, nausea, vomiting, diarrhea Genitourinary: Denies: urgency Musculoskeletal: Denies: back pain, neck pain Integumentary: Reports: lesions (The left heel. Purulent discharge.). Denies: rash Neurological: Denies: headache, weakness Past Medical History - Past Medical History Attestation: Yes The following information was validated with the patient. Source: patient Medical history: Reports: asthma, cancer, CHF, COPD, diabetes, hyperlipidemia, hypertension, myocardial infarction, renal disease, thyroid disease, valvular heart disease Surgical history: Reports: cholecystectomy Psychiatric history: Reports: no psych history - Social History Smoking Status: Former smoker Smokeless Tobacco Status: Yes Alcohol use: Reports: none Drug use: Reports: none Physical Exam - General Limitations: physical limitation General appearance: alert, in no apparent distress - Head Head exam: atraumatic, normocephalic, normal inspection - Eye Eye exam: Present: normal appearance, PERRL, EOMI - ENT ENT exam: normal exam, normal oropharynx, mucous membranes moist - Neck Neck exam: Present: normal inspection, full ROM, trachea midline - Chest Chest inspection: Present: normal inspection, symmetric chest wall rise - Respiratory Respiratory exam: Present: normal lung sounds bilaterally. Absent: respiratory distress - Cardiovascular Cardiovascular exam: Present: regular rate, normal rhythm - Abdominal Exam Abdominal exam: Present: soft, Non-Tender, organomegaly. Absent: distention, rigidity - Extremities Exam Extremities exam: Present: normal inspection, full ROM. Absent: tenderness, pedal edema - Back Exam Back exam: Present: normal inspection, full ROM. Absent: tenderness - Neurological Exam Neurological exam: Present: alert, oriented X3 - Psychiatric Psychiatric exam: Present: normal affect, normal mood - Skin Skin exam: Present: warm, dry, other (Nonhealing wounds the posterior left heel. Purulent discharge. necrotic center) Course Course Narrative: Patient presents emergency department after presenting to wound care today. He has a wound to his left heel that is nonhealing. He had surgery in October for a fracture ankle and has had trouble with this wound ever since. He is a diabetic. States he was on antibiotics a couple weeks ago however the wound has gotten progressively worse. He reports 3 on discharge. Denies any fevers. No other symptoms. He is requesting food whenever I enter the room. We will order him a food tray get basic lab workup and start patient on antibiotics and admitted to the hospital. Pt INR is elevated. He is on Coumadin. This will need to be normalized prior to surgery. - Consultations Consultation #1: I spoke with Dr Alegre. He agrees for the Pt to be started on vancomycin and he will consult with him in the hospital for surgical debriedment. Time: 14:26 Consultation #2: Dr Maddox accepted Pt in stable condition. Time: 15:02 Vital Signs Temperature 98.1 F 01/20/18 10:51 Pulse Rate 62 01/20/18 10:51 Respiratory Rate 18 01/20/18 10:51 Blood Pressure 130/77 01/20/18 10:51 O2 Sat by Pulse Oximetry 96 01/20/18 10:51 Temperature 98.1 F 01/20/18 10:51 Pulse Rate 62 01/20/18 10:51 Respiratory Rate 18 01/20/18 10:51 Blood Pressure 130/77 01/20/18 10:51 O2 Sat by Pulse Oximetry 96 01/20/18 10:51 Oxygen Delivery Oxygen Delivery Room Air Medical Decision Making - Medical Records Medical records reviewed: Yes I reviewed the patient's medical records. - Lab Data Lab results reviewed: Yes I reviewed the patient's lab results. Result diagrams: 01/20/18 13:16 01/20/18 13:16 Lab Results 01/20/18 01/20/18 01/20/18 Range/Units 13:16 13:16 13:16 WBC 7.9 (4.3-11.1) K/mcL RBC 3.95 L (4.19-5.50) M/mcL Hgb 11.4 L (12.9-16.9) g/dL Hct 35.7 L (37.5-50.1) % MCV 90.4 (83.0-100.0) fL MCH 28.9 (28.0-33.3) pg MCHC 31.9 (31.6-35.5) g/dL RDW 14.6 H (11.5-14.5) % Plt Count 463 H (140-400) K/mcL MPV 9.9 (9.4-12.4) fL Immature Gran % 0.5 (0-4) % Seg Neutrophils % 77.0 % Lymphocytes % 14.1 % Monocytes % 6.2 % Eosinophils % 1.8 % Basophils % 0.4 % Neutrophils # 6.1 (1.6-8.9) K/mcL Lymphocytes # 1.1 (0.6-4.6) K/mcL Monocytes # 0.5 (0.0-1.3) K/mcL Eosinophils # 0.1 (0.0-0.6) K/mcL Basophils # 0.0 (0.0-0.2) K/mcL PT 25.9 H (9.4-12.1) Seconds INR 2.4 Sodium 131 L (136-145) mEq/L Potassium 4.2 (3.5-5.1) mEq/L Chloride 93 L (98-107) mEq/L Carbon Dioxide 29 (23-29) mEq/L BUN 33 H (8-23) mg/dL Creatinine 1.80 H (0.70-1.30) mg/dL Est GFR ( Amer) 46 L (> 60) Est GFR (Non-Af Amer) 38 L (> 60) BUN/Creatinine Ratio 18 (6-26) Glucose 272 H (70-105) mg/dL Calculated Osmolality 289 (280-300) Calcium 9.4 (8.6-10.3) mg/dL - Radiology Data Radiology results reviewed: Yes I reviewed the patient's radiology results. Foot X-Ray 01/20/18 13:18 IMPRESSION: 1. Diffuse soft tissue swelling along the dorsal aspect of the left foot, near the metatarsals. Underlying infection cannot be excluded. 2. There are no areas of bone destruction or periosteal reaction to suggest osteomyelitis at this time. D/ / 01/20/2018 13:51:54 Gilmer Ventura MD / gauri Interpreting Provider: Gilmer Ventura MD Chest X-Ray 01/20/18 14:18 IMPRESSION: No acute process. D/ / Xiomara Vaughan MD / Xiomara Vaughan MD Interpreting Provider: Xiomara Vaughan MD
--- NOTE | 2018-01-20 14:13 | Emergency Department Note ---
START Narrative - START START: I examined this patient and my medical decision-making was reviewed with the Resident Physician. I agree with the documented findings, disposition and treatment plan as described except to the extent set forth below. 67-year-old male presented to the emergency room for left foot infection. Patient had recent surgical repair of the left foot that had a nonhealing surgical wound. Was sent over from the wound care clinic for admission for IV antibiotics. Plain films of the left foot showed no osteomyelitis findings. CBC shows a normal white count. He is afebrile. We will consult with diet tree in regards to antibiotic choice. Patient will be admitted at their request.
[2018-01-20 14:22] LABS: Calcium 9.4 mg/dL (8.6-10.3); Potassium 4.2 mEq/L (3.5-5.1)
[2018-01-20] MEDS ORDERED: Nitroglycerin 0.4 MG TAB.SUBL SL PRN (17:43)
[2018-01-20] MEDS ORDERED: Albuterol 2.5 MG/3 ML NEBULIZER IH PRN (17:43)
[2018-01-20] MEDS ORDERED: ACETAMINOP PO PRN (17:43)
[2018-01-20] MEDS ORDERED: PHENYLEPHRINE PO PRN (17:43)
[2018-01-20] MEDS ORDERED: SUBCUTANEOUS INSULIN PUMP MC PRN (17:43)
[2018-01-20] MEDS ORDERED: [UNRECOGNIZED DRUG - OTHER] PO PRN (17:43)
[2018-01-20] MEDS ORDERED: *HR* Phytonadione 10 MG/ML AMPUL SQ ONE (17:48)
[2018-01-20] MEDS ORDERED: Dextrose Gel 15 GM/37.5 ML TUBE PO PRN ×2 (17:49)
[2018-01-20] MEDS ORDERED: *HR* Dextrose 50 % in Water (Syg) 50 ML SYRINGE IVP PRN (17:49)
[2018-01-20] MEDS ORDERED: D5% in Water 1,000 ML IVC PRN (17:49)
[2018-01-20] MEDS ORDERED: Acetaminophen 325 MG TABLET PO PRN (17:52)
[2018-01-20] MEDS ORDERED: Naloxone 0.4 MG/ML INJ IVP PRN (17:52)
--- NOTE | 2018-01-20 18:02 | Internal Med History&Physical ---
<Shyam Maddox - Last Filed: 01/20/18 18:34> Date of Encounter: 01/20/18 Time of Encounter: 18:00 Internal Medicine - H&P: HPI Admitted From: Home Plans for Post Hospital Care: Home History of present illness: Mr. Cortez is a 67 year old male presented to the emergency room for left foot infection. Patient had recent surgical repair of the left foot that had a nonhealing surgical wound. Was sent over from the wound care clinic for admission for IV antibiotics. Plain films of the left foot showed no osteomyelitis findings. CBC shows a normal white count. He is afebrile. We will consult with podiatry in regards to antibiotic choice. Patient will be admitted at their request. Past Med Surg Social Fam HX - Past Medical History Medical history: asthma, cancer, CHF, COPD, diabetes, hyperlipidemia, hypertension, myocardial infarction, renal disease, thyroid disease, valvular heart disease Psychiatric history: no psych history - Past Surgical History Surgical History: cholecystectomy - Social History Smoking Status: Former smoker Smokeless Tobacco Status: Yes Alcohol use: none Drug use: none - Family History Father Family Member Ethnicity: Non- Living Status: Hx Family Cancer: Yes (Lung) Mother Family Member Ethnicity: Non- Living Status: Hx Family Cardiac Disorders: No Hx Family Respiratory Disorders: Yes Hx Family Cancer: No Hx Family GI Disorders: No Hx Family Endocrine Disorder: No Hx Family Neuromuscular Disorders: No Hx Family Neurologic Disorders: No Hx Family HEENT Disorders: No Hx Family Autoimmune Disorders: No Sister Adopted: No Family Member Ethnicity: Non- Living Status: Still Living Hx Family Cardiac Disorders: No Hx Family Respiratory Disorders: Yes Hx Family Cancer: Yes Hx Family GI Disorders: No Hx Family Endocrine Disorder: No Hx Family Neuromuscular Disorders: No Hx Family Neurologic Disorders: No Hx Family HEENT Disorders: No Hx Family Autoimmune Disorders: No Internal Medicine - H&P: Meds Albuterol Sulfate [Ventolin Hfa] 2 puff IH BID 05/14/16 [History] Allopurinol [Zyloprim 100 MG] 200 mg PO DAILY 05/14/16 [History] Aspirin [Lo-Dose Aspirin EC] 81 mg PO DAILY 05/14/16 [History] Bicalutamide [Casodex] 50 mg PO DAILY 05/14/16 [History] Calcitriol [Rocaltrol] 0.25 mcg PO DAILY 05/14/16 [History] Cholecalciferol (Vitamin D3) [Vitamin D3] 5,000 unit PO BID 05/14/16 [History] Docusate [Colace] 100 mg PO BID PRN 05/14/16 [History] Fenofibrate 145 mg PO DAILY 05/14/16 [History] Flecainide Acetate 100 mg PO Q12HR 05/14/16 [History] Furosemide [Lasix] 40 mg PO BID 05/14/16 [History] Levothyroxine [Synthroid] 150 mcg PO DAILY 05/14/16 [History] Montelukast [Singulair] 10 mg PO DAILY 05/14/16 [History] Nitroglycerin [Nitrostat] 0.4 mg SL AD PRN 05/14/16 [History] Simvastatin [Zocor] 40 mg PO HS 05/14/16 [History] Warfarin [Coumadin] 15 mg PO SUSA 05/14/16 [History] Metoprolol [Lopressor] 25 mg PO DAILY 07/31/16 [History] Pantoprazole Sodium [Protonix] 40 mg PO DAILY 07/31/16 [History] Albuterol Neb [Proventil Neb] 2.5 mg IH Q4HR PRN 10/07/17 [History] Citalopram [CeleXA] 20 mg PO DAILY 10/07/17 [History] Phenylephrine/Dm/Acetaminop/GG [Kro Mucus Relief Cold-Flu Cplt] 1 tab PO Q6-8H PRN 10/07/17 [History] Budesonide/Formoterol 160/4.5 [Symbicort 160/4.5] 2 puff IH BIDR 10/31/17 [ History] Nut.tx.gluc.intoler,Lac-Fr,Soy [Glucerna] 1 can PO TID 10/31/17 [History] Primidone [Mysoline] 25 mg PO BID 10/31/17 [History] Valsartan [Diovan] 80 mg PO DAILY 10/31/17 [History] Gabapentin [Neurontin] 100 mg PO HS #10 capsule 11/08/17 [Rx] Ferrous Sulfate 325 mg PO BIDWM tablet 11/18/17 [Rx] Collagenase Oint [Santyl] 1 appl TP BID 01/20/18 [History] Famotidine [Pepcid] 40 mg PO DAILY 01/20/18 [History] Gabapentin [Neurontin] 300 mg PO TID 01/20/18 [History] Subcutaneous Insulin Pump [T:Slim] 0 unit MC DAILY PRN MDD HUMULIN RU 500 [History] Warfarin [Coumadin] 10 mg PO MOTUWETHFR 01/20/18 [History] 3 Allergy/AdvReac Type Severity Reaction Status Date / Time niacin Allergy See Verified 01/20/18 15:22 [From [facility] Comments Extended-Release] All Systems PM: A 10-system review of systems was performed and is negative for pertinent findings except as documented above in the HPI. Review of systems: REVIEW OF SYSTEMS: CONSTITUTIONAL: No weight loss, fever, chills, weakness or fatigue. HEENT: Eyes: No visual loss, blurred vision, double vision or yellow sclerae. Ears, Nose, Throat: No hearing loss, sneezing, congestion, runny nose or sore throat. SKIN: No rash or itching. CARDIOVASCULAR: No chest pain, chest pressure or chest discomfort. No palpitations or edema. RESPIRATORY: No shortness of breath, cough or sputum. GASTROINTESTINAL: No anorexia, nausea, vomiting or diarrhea. No abdominal pain or blood. GENITOURINARY: No dysuria, urgency, or frequency. NEUROLOGICAL: No headache, dizziness, syncope, paralysis, ataxia, numbness or tingling in the extremities. No change in bowel or bladder control. MUSCULOSKELETAL: No muscle, back pain, joint pain or stiffness. HEMATOLOGIC: No anemia, bleeding or bruising. LYMPHATICS: No enlarged nodes. No history of splenectomy. PSYCHIATRIC: No history of depression or anxiety. ENDOCRINOLOGIC: No reports of sweating, cold or heat intolerance. No polyuria or polydipsia. - Constitutional Vitals: Temp Pulse Resp BP Pulse Ox 98.1 F 63 18 153/95 97 01/20/18 10:51 01/20/18 16:16 01/20/18 16:16 01/20/18 16:16 01/20/18 16:16 General appearance: Present: A&O X 3 Exam: PHYSICAL EXAMINATION: GENERAL APPEARANCE: The patient is alert, oriented and in no acute distress. HEENT: Head is normocephalic. The sinuses are nontender. Pupils are equal and reactive. The nares are patent. Oropharynx clear without lesions. NECK: Supple without lymphadenopathy. HEART: Regular rate and rhythm. LUNGS: No crackles or wheezes are heard. ABDOMEN: Soft, nontender, nondistended with good bowel sounds heard. Inguinal area is normal. EXTREMITIES: Without cyanosis, clubbing or edema. NEUROLOGICAL: Gross nonfocal. SKIN: Warm and dry without any rash. Internal Med - H&P Results - Labs CBC & Chem 7: 01/20/18 13:16 01/20/18 13:16 - Assessment and plan (1) Type 2 diabetes mellitus with foot ulcer Current Visit: Yes Status: Acute Assessment and plan: - pt had a diabetic ulcer at the bottom of the left foot, had a recent procedure done by a home planning consultant salesperson, wound was poorly healed after surgery. - He has an insulin pump, he manage the insulin doses by himself. It seems that his blood sugar was poorly controlled based on the labs upon admission. - He has developed another foot ulcer on the heel of left foot, he also has erythematous rash on the back of the left foot. - He has been seen by home planning consultant salesperson in the office today, X-ray of left foot did not reveal osteomyelitis, but cellulitis was suspected, patient was sent to the hospital for IV antibiotics. Received 1 dose of IV vancomycin at ED, continue IV vancomycin, dose adjusted based on renal function. Blood culture sent, wound culture ordered. - INR 2.4, home planning consultant salesperson wants INR to be reversed for the upcoming surgery. will give vitamin K 5 mg subcutaneous, repeat PT/INR in the morning, may give FFP if needed. Qualifiers: Diabetes mellitus snf insulin use: with snf use Qualified Code( s): E11.621 - Type 2 diabetes mellitus with foot ulcer; L97.509 - Non-pressure chronic ulcer of other part of unspecified foot with unspecified severity; L97.509 - Non-pressure chronic ulcer of other part of unspecified foot with unspecified severity; L97.509 - Non-pressure chronic ulcer of other part of unspecified foot with unspecified severity; L97.509 - Non-pressure chronic ulcer of other part of unspecified foot with unspecified severity; Z79.4 - senior care (current) use of insulin; Z79.4 - watermelon harvesting supervisor (current) use of insulin; Z79.4 - senior care (current) use of insulin; Z79.4 - senior care (current) use of insulin (2) Cellulitis Current Visit: Yes Status: Acute Assessment and plan: - Wound culture ordered, blood culture pending, Continue IV vancomycin. Qualifiers: Site of cellulitis: extremity Site of cellulitis of extremity: lower extremity Laterality: left Qualified Code(s): L03.116 - Cellulitis of left lower limb (3) S/P aortic valve replacement Current Visit: No Status: Chronic Assessment and plan: - On Coumadin, INR therapeutic, will hold Coumadin for upcoming surgery, reverse INR with vitamin K, may give FFP if needed. (4) Chronic renal failure, stage 3 (moderate) Current Visit: No Status: Chronic Assessment and plan: Creatinine slightly higher than baseline, hold Lasix, Repeat BMP in a.m. (5) GERD (gastroesophageal reflux disease) Current Visit: No Status: Chronic Assessment and plan: - Continue home medications. Qualifiers: Qualified Code(s): K21.9 - Gastro-esophageal reflux disease without esophagitis (6) Insulin dependent diabetes mellitus Current Visit: No Status: Chronic Assessment and plan: - Continue insulin pump, add insulin sliding scale. (7) Hypertension Current Visit: No Status: Chronic Assessment and plan: - BP under control, continue home medications. Qualifiers: Hypertension type: unspecified Qualified Code(s): I10 - Essential (primary ) hypertension (8) Diastolic heart failure Current Visit: No Status: Chronic Assessment and plan: - Euvolemic, creatinine slightly higher than baseline, hold Lasix, repeat BMP in a.m. Qualifiers: Heart failure chronicity: chronic Qualified Code(s): I50.32 - Chronic diastolic (congestive) heart failure - Time Spent With Patient Total time spent is greater than 50% in coordination of care (as documented) at patient's floor/unit and/or counseling patient: Greater than 35 minutes <Antonia Gilliam - Last Filed: 01/21/18 11:15> Date of Encounter: 01/21/18 Internal Medicine - H&P: HPI History of present illness: Mr. Cortez is a 67 year old male All Systems PM: A 10-system review of systems was performed and is negative for pertinent findings except as documented above in the HPI. - Constitutional Vitals: Temp Pulse Resp BP Pulse Ox 97.6 F 65 15 131/71 97 01/21/18 08:09 01/21/18 08:09 01/21/18 08:09 01/21/18 08:09 01/21/18 08:09 Internal Med - H&P Results - Labs CBC & Chem 7: 01/21/18 05:12 01/21/18 05:12 Labs: Short CBC 01/21/18 Range/Units 05:12 WBC 6.4 (4.3-11.1) K/mcL Hgb 9.6 L D (12.9-16.9) g/dL Hct 29.6 L (37.5-50.1) % Plt Count 378 (140-400) K/mcL Neutrophils # 4.4 (1.6-8.9) K/mcL BMP 01/21/18 05:12 Sodium 133 L Potassium 4.1 Chloride 97 L Carbon Dioxide 28 BUN 34 H Creatinine 1.67 H Glucose 195 H Calcium 8.7 Liver Function 01/21/18 Range/Units 05:12 Total Bilirubin 0.3 (0.3-1.0) mg/dL AST 11 L (13-39) Units/L ALT 7 (7-52) Units/L Alkaline Phosphatase 83 (34-104) Units/L Albumin 3.1 L (3.5-5.7) g/dL - Attending Attestation Examined the patient, reviewed the note and agree with plan of care except vitamin K was put on the hold. As per patient during last admission INR was high and only thing was done to hold warfarin and INR came down nicely therefore no vitamin K was given thought it could be a bit aggressive to reverse INR. Hold Coumadin for now. Daily INR. AK I therefore held Lasix. Continue vancomycin and will wait for culture report that was done outpatient - Assessment and plan (1) S/P aortic valve replacement Current Visit: Yes Status: Chronic (2) Chronic renal failure, stage 3 (moderate) Current Visit: No Status: Chronic (3) GERD (gastroesophageal reflux disease) Current Visit: No Status: Chronic Qualifiers: Qualified Code(s): K21.9 - Gastro-esophageal reflux disease without esophagitis (4) Diastolic heart failure Current Visit: No Status: Chronic Qualifiers: Heart failure chronicity: chronic Qualified Code(s): I50.32 - Chronic diastolic (congestive) heart failure (5) Insulin dependent diabetes mellitus Current Visit: No Status: Chronic (6) Hypertension Current Visit: No Status: Chronic Qualifiers: Hypertension type: unspecified Qualified Code(s): I10 - Essential (primary ) hypertension (7) Type 2 diabetes mellitus with foot ulcer Current Visit: Yes Status: Acute Qualifiers: Diabetes mellitus snf insulin use: with snf use Qualified Code( s): E11.621 - Type 2 diabetes mellitus with foot ulcer; L97.509 - Non-pressure chronic ulcer of other part of unspecified foot with unspecified severity; L97.509 - Non-pressure chronic ulcer of other part of unspecified foot with unspecified severity; L97.509 - Non-pressure chronic ulcer of other part of unspecified foot with unspecified severity; L97.509 - Non-pressure chronic ulcer of other part of unspecified foot with unspecified severity; Z79.4 - senior care (current) use of insulin; Z79.4 - watermelon harvesting supervisor (current) use of insulin; Z79.4 - watermelon harvesting supervisor (current) use of insulin; Z79.4 - watermelon harvesting supervisor (current) use of insulin (8) Cellulitis Current Visit: Yes Status: Acute Qualifiers: Site of cellulitis: extremity Site of cellulitis of extremity: lower extremity Laterality: left Qualified Code(s): L03.116 - Cellulitis of left lower limb - Time Spent With Patient Total time spent is greater than 50% in coordination of care (as documented) at patient's floor/unit and/or counseling patient:
[2018-01-20] MEDS: FLECAINIDE ACETATE 100 MG PO SCH (19:13)
[2018-01-20] MEDS: traMADol 50 MG TABLET PO PRN (20:26)
[2018-01-20] MEDS ORDERED: NON-FORMULARY MEDICATION 1 EACH EACH (Nut.Tx.Gluc.Intoler,Lac-Fr,Soy [Glucerna] 1 CAN) PO SCH (21:00)
[2018-01-20] MEDS: Gabapentin 300 MG CAPSULE PO SCH (21:43)
[2018-01-20] MEDS: Gabapentin 100 MG CAPSULE PO SCH (21:43)
[2018-01-20] MEDS: Primidone 50 MG TABLET PO SCH (21:43)
[2018-01-20] MEDS: Insulin LISPRO 300 UNITS/3 ML VIAL SQ SCH (21:43)
[2018-01-20] MEDS: Budesonide/Formoterol 160/4.5 MDI IH SCH (23:07)
[2018-01-20] MEDS ORDERED: traMADol 50 MG TABLET PO ONE (23:37)
[2018-01-21 05:57] LABS: Basophils % 0.3 %; Eosinophils # 0.2 K/mcL (0.0-0.6); Eosinophils % 3.1 %; Hematocrit 29.6 % (37.5-50.1); Immature Granulocytes % 0.5 % (0-4); Lymphocytes # 1.1 K/mcL (0.6-4.6); Lymphocytes % 17.1 %; Mean Corpuscular HGB Conc 32.4 g/dL (31.6-35.5); Mean Corpuscular Hemoglobin 29.4 pg (28.0-33.3); Mean Corpuscular Volume 90.8 fL (83.0-100.0); Mean Platelet Volume 10.1 fL (9.4-12.4); Monocytes # 0.6 K/mcL (0.0-1.3); Monocytes % 9.9 %; Neutrophils # 4.4 K/mcL (1.6-8.9); Platelet Count 378 K/mcL (140-400); Red Blood Count 3.26 M/mcL (4.19-5.50); Red Cell Distribution Width 14.6 % (11.5-14.5); Segmented Neutrophils % 69.1 %
[2018-01-21 06:08] LABS: Hemoglobin 9.6 g/dL (12.9-16.9)
[2018-01-21 06:11] LABS: Albumin 3.1 g/dL (3.5-5.7); Albumin/Globulin Ratio 0.9 (1.1-2.2); Bilirubin,Total 0.3 mg/dL (0.3-1.0); Calcium 8.7 mg/dL (8.6-10.3); Globulin 3.6 g/dL (2.4-3.5); Potassium 4.1 mEq/L (3.5-5.1); Total Protein 6.7 g/dL (6.4-8.9)
[2018-01-21] MEDS: FLECAINIDE ACETATE 100 MG PO SCH ×2 (06:13→16:27)
[2018-01-21 06:30] LABS: Prothrombin Time 21.4 Seconds (9.4-12.1)
[2018-01-21] MEDS: Budesonide/Formoterol 160/4.5 MDI IH SCH ×2 (07:38→20:37)
[2018-01-21] MEDS: Insulin LISPRO 300 UNITS/3 ML VIAL SQ SCH ×4 (09:05→21:31)
[2018-01-21] MEDS: Bicalutamide 50 MG TABLET PO SCH (09:06)
[2018-01-21] MEDS: Primidone 50 MG TABLET PO SCH ×2 (09:07→21:30)
[2018-01-21] MEDS: Fenofibrate 54 MG TABLET PO SCH (09:07)
[2018-01-21] MEDS: Valsartan 80 MG TABLET PO SCH (09:07)
[2018-01-21] MEDS: Gabapentin 300 MG CAPSULE PO SCH ×3 (09:07→21:30)
[2018-01-21] MEDS: Aspirin Enteric Coated 81 MG Tablet PO SCH (09:08)
[2018-01-21] MEDS: Cholecalciferol (D-3) 1,000 UNIT TABLET PO SCH (09:08)
[2018-01-21] MEDS ORDERED: *HR* Heparin 5,000 UNIT/ML VIAL IVP ONE (10:02)
[2018-01-21] MEDS ORDERED: *HR* Heparin 5,000 UNIT/ML VIAL IVP PRN ×2 (10:02)
[2018-01-21] MEDS ORDERED: Iron Sucrose Complex 400 MG in 0.9 % Sodium Chloride 250 ML IVPB ONE (10:09)
--- NOTE | 2018-01-21 10:14 | Internal Med Progress Note ---
Date of Encounter: 01/21/18 Time of Encounter: 10:11 - Assessment and plan (1) Type 2 diabetes mellitus with foot ulcer Current Visit: Yes Status: Acute Assessment and plan: - pt had a diabetic ulcer at the bottom of the left foot, had a recent procedure done by a construction technician, wound was poorly healed after surgery. - He has an insulin pump, he manage the insulin doses by himself. It seems that his blood sugar was poorly controlled based on the labs upon admission. - He has developed another foot ulcer on the heel of left foot, he also has erythematous rash on the back of the left foot. - He has been seen by construction technician in the office today, X-ray of left foot did not reveal osteomyelitis, but cellulitis was suspected, patient was sent to the hospital for IV antibiotics. Received 1 dose of IV vancomycin at ED, continue IV vancomycin, dose adjusted based on renal function. Blood culture sent, wound culture ordered. - INR 2.4, construction technician wants INR to be reversed for the upcoming surgery. will give vitamin K 5 mg subcutaneous, repeat PT/INR in the morning, may give FFP if needed. 01/21/2018-podiatry consult is awaited as is the plan of care in terms of debridement. Should he need a debridement his INR needs to be at least 1.5 and plan for and evaluation as documented below. For now I will continue him on antibiotics. He is already on IV vancomycin and pharmacy is following the dosing for that. I will not add Zosyn at this point. We will send cultures and wait for speciation before adjusting his antibiotics. Consider ID consultation as well. As mentioned below he did not get 5 mg of vitamin K, however his INR did drop significantly after holding just 1 days dosing. He is to have appropriate and accommodation on board until he goes for surgery because of his mechanical aortic valve and the plan of care has been explained to the patient as well as the nursing staff in detail. We will tailor the antibiotics cautiously going forward over the next several days. Qualifiers: Diabetes mellitus chcf insulin use: with parts counterman use Qualified Code( s): E11.621 - Type 2 diabetes mellitus with foot ulcer; L97.509 - Non-pressure chronic ulcer of other part of unspecified foot with unspecified severity; L97.509 - Non-pressure chronic ulcer of other part of unspecified foot with unspecified severity; L97.509 - Non-pressure chronic ulcer of other part of unspecified foot with unspecified severity; L97.509 - Non-pressure chronic ulcer of other part of unspecified foot with unspecified severity; Z79.4 - termination clerk (current) use of insulin; Z79.4 - termination clerk (current) use of insulin; Z79.4 - termination clerk (current) use of insulin; Z79.4 - care home (current) use of insulin (2) S/P aortic valve replacement Current Visit: Yes Status: Chronic Assessment and plan: - Patient takes Coumadin as an outpatient and had a tough time reaching his therapeutic INR of 2-1/2 for mechanical aortic valve. We have to partially reverse the INR in preparation for a potential debridement per podiatry. Yesterday he committed a dose of Coumadin and his INR today is 2.0 I am going to start him on IV heparin without a bolus at a maintenance dose to keep him anticoagulated. The IV heparin can be stopped for 3-4 hours prior to going for debridement. He did not receive vitamin K yesterday and I will refrain from using it today because we do not want to line up in a situation where we will overcorrect his INR and will again have trouble in reaching back to therapeutic levels once we resume his Coumadin. I discussed it with the pharmacy as well as the nursing care managing the patient. Once the surgery is done and then we will need to bridge him back to his therapeutic level on IV heparin. This may delay his discharge because we can ideally not use Lovenox given acute renal failure on chronic renal disease. Based on his GFR Lovenox may also be an option to bridge him on Coumadin to a therapeutic dosing but this will need to be determined at a later date in this hospitalization. (3) Chronic renal failure, stage 3 (moderate) Current Visit: No Status: Chronic Assessment and plan: Chronic renal failure stage III with acute renal failure on top of it. Today the creatinine is much better. We will continue to trend daily BMP (4) GERD (gastroesophageal reflux disease) Current Visit: No Status: Chronic Assessment and plan: - Continue home medications. Qualifiers: Qualified Code(s): K21.9 - Gastro-esophageal reflux disease without esophagitis (5) Diastolic heart failure Current Visit: No Status: Chronic Assessment and plan: - Euvolemic, we will continue to monitor. Qualifiers: Heart failure chronicity: chronic Qualified Code(s): I50.32 - Chronic diastolic (congestive) heart failure (6) Insulin dependent diabetes mellitus Current Visit: No Status: Chronic Assessment and plan: - We will stop the patient's insulin pump and remove it. It does not have insulin and has not been using it anyways. For now I will continue him on insulin sliding scale and may need to add a long-acting insulin in the form of Levemir depending on how his sugars go. He has been having some insurance trouble covering his insulin pump as an outpatient and most likely will need to be discharged on insulin sliding scale and Levemir combination at the time of discharge. Consult diabetes education. Off note, he does have an javascript front end developer but has not been able to get to their clinic in a regular fashion. His blood sugars are in the 200 range and hence I am comfortable with insulin sliding scale alone (7) Hypertension Current Visit: No Status: Chronic Assessment and plan: - BP under control, continue home medications. Qualifiers: Hypertension type: unspecified Qualified Code(s): I10 - Essential (primary ) hypertension (8) Cellulitis Current Visit: Yes Status: Acute Assessment and plan: - See plan as mentioned above. Continue antibiotics. Await blood cultures Qualifiers: Site of cellulitis: extremity Site of cellulitis of extremity: lower extremity Laterality: left Qualified Code(s): L03.116 - Cellulitis of left lower limb - Time Spent With Patient Total time spent is greater than 50% in coordination of care (as documented) at patient's floor/unit and/or counseling patient: Greater than 35 minutes (More than 50% of the time spent in counseling face-to- face) - Subjective Interval history: Patient denies any new shortness of breath, chest pain, fevers, chills. He has been feeling a little bit cold but that is due to the temperature in his room. He is awaiting decision and determination from podiatry. He states that his endocrine issues have been doing pretty well with his insulin pump functioning well but due to her recent change in insurance he has run out of the option to continue the same pump. He also told me that his outpatient primary care physician was going to give him a dose of IV iron for his iron deficiency anemia. - Constitutional Vitals: Temp Pulse Resp BP Pulse Ox 97.6 F 65 15 131/71 97 01/21/18 08:09 01/21/18 08:09 01/21/18 08:09 01/21/18 08:09 01/21/18 08:09 General appearance: Present: A&O X 3 Exam: GENERAL: Alert, moderate distress, cooperative EYES: PERRLA, EOMI EARS: External ears normal, canals clear OROPHARYNX: Lips, mucosa, and tongue normal. Teeth and gums normal. Oropharynx normal. NECK: No jugulovenous distention, No carotid bruits, Carotid pulse normal contour, Supple LUNGS: Lungs clear to auscultation, Good diaphragmatic excursion CARDIAC: Normal S1 and S2; no rubs, murmurs, or gallops ABDOMEN: Abdomen soft, non-tender, BS normal, No masses or organomegaly EXTREMITIES: 1+ pitting edema bilateral lower extremities Patient has a protective cushioning around his foot and it was not taken off due to patient preference however I was able to visualize the wound in pictures on his smartphone which were taken just prior to coming into the hospital. Left foot has a nonhealing necrotic ulcer to the left heel as well as left side of the foot. There is surrounding erythema that was documented in those images as well NEURO: Gait normal. Reflexes normal and symmetric. Sensation grossly intact, Cranial nerves II-XII intact PULSES: 2+ radial, 2+ carotid Rest of the exam is non contributory Internal Medicine: Result - Labs CBC & Chem 7: 01/21/18 05:12 01/21/18 05:12 Labs: Short CBC 01/21/18 Range/Units 05:12 WBC 6.4 (4.3-11.1) K/mcL Hgb 9.6 L D (12.9-16.9) g/dL Hct 29.6 L (37.5-50.1) % Plt Count 378 (140-400) K/mcL Neutrophils # 4.4 (1.6-8.9) K/mcL BMP 01/21/18 05:12 Sodium 133 L Potassium 4.1 Chloride 97 L Carbon Dioxide 28 BUN 34 H Creatinine 1.67 H Glucose 195 H Calcium 8.7 Liver Function 01/21/18 Range/Units 05:12 Total Bilirubin 0.3 (0.3-1.0) mg/dL AST 11 L (13-39) Units/L ALT 7 (7-52) Units/L Alkaline Phosphatase 83 (34-104) Units/L Albumin 3.1 L (3.5-5.7) g/dL - ABG Interpretation ABG results: PT/INR, D-dimer PT 21.4 Seconds (9.4-12.1) H 01/21/18 05:12 Consult Discharge Plan - Plan Referrals: Calli Estes, STANISLAV [Primary Care Provider] -
[2018-01-21] MEDS ORDERED: Heparin 25,000 UNIT/500 ML D5W 25,000 UNIT/500 ML BAG IVC SCH (10:15)
[2018-01-21 11:08] LABS: Hematocrit 30.7 % (37.5-50.1); Hemoglobin 9.9 g/dL (12.9-16.9); INR 1.8; Mean Corpuscular HGB Conc 32.2 g/dL (31.6-35.5); Mean Corpuscular Hemoglobin 29.4 pg (28.0-33.3); Mean Corpuscular Volume 91.1 fL (83.0-100.0); Mean Platelet Volume 10.3 fL (9.4-12.4); Platelet Count 371 K/mcL (140-400); Prothrombin Time 19.6 Seconds (9.4-12.1); Red Blood Count 3.37 M/mcL (4.19-5.50); Red Cell Distribution Width 14.5 % (11.5-14.5)
[2018-01-21 11:11] LABS: Activated Partial Thrombo Time 30.8 Seconds (26.0-36.0)
[2018-01-21] MEDS: traMADol 50 MG TABLET PO PRN ×2 (13:48→21:38)
--- NOTE | 2018-01-21 15:52 | Podiatry Consult Note ---
Date of Encounter: 01/21/18 Time of Encounter: 12:00 Assessment and Plan (1) Suspected deep tissue injury of unknown depth of heel Current visit: Yes Status: Acute DTI of left heel, eshcar tissue present- no fluctuance no surrounding warmth, edema or erythema. No appearance of infection Prevalon boot in place, continue offloading. Dry dressing (2) Type 2 diabetes mellitus with foot ulcer Current visit: Yes Status: Acute Estrada stage 3 ulcer to lateral aspect of left foot with probe to bone with associated cellulitis Plan: Continue IV antibiotics Once medically stable and INR to 1.5 will plan for formal debridement in OR with Cleansed wound with saline at bedside, calcium alginate placed to wound, adaptic applied to pressure area to medial ankle and dry sterile kerlix applied Change BID Keep foot elevated at all times Will continue to monitor. Orders placed for BID dressing changes until patient is taken to OR for surgical intervention. Qualifiers: Diabetes mellitus usp insulin use: with assistant terminal manager use Qualified Code( s): E11.621 - Type 2 diabetes mellitus with foot ulcer; L97.509 - Non-pressure chronic ulcer of other part of unspecified foot with unspecified severity; L97.509 - Non-pressure chronic ulcer of other part of unspecified foot with unspecified severity; L97.509 - Non-pressure chronic ulcer of other part of unspecified foot with unspecified severity; L97.509 - Non-pressure chronic ulcer of other part of unspecified foot with unspecified severity; Z79.4 - snf (current) use of insulin; Z79.4 - snf (current) use of insulin; Z79.4 - ferry terminal agent (current) use of insulin; Z79.4 - snf (current) use of insulin History of Present Illness HPI: Mr. Cortez is a 67 year old male underwent open reduction internal fixation bimalleolar fracture dislocation left ankle November 03. He has a chronic persistent ulcer on the lateral aspect base fifth metatarsal which has been managed with Santyl and ongoing dressing changes daily as well as a DTI to the heel. Patient is followed per in wound care center. Patient was seen in [facility] on 01/20 where appearance of lateral foot wound had worsened. He was sent to ED for admission for IV antibiotics and I&D of wound. Patient is also on coumadin, INR was obtained and coumadin is being held for now. Patient is resting comfortably at this time. Denies any pain. Denies any fevers or chills. Past Med Surg Social Fam HX - Past Medical History Medical history: asthma, cancer, CHF, COPD, diabetes, hyperlipidemia, hypertension, myocardial infarction, renal disease, thyroid disease, valvular heart disease Psychiatric history: no psych history - Past Surgical History Surgical History: cholecystectomy - Social History Smoking Status: Former smoker Smokeless Tobacco Status: Yes Alcohol use: none Drug use: none - Family History Father Family Member Ethnicity: Non- Living Status: Hx Family Cancer: Yes (Lung) Mother Family Member Ethnicity: Non- Living Status: Hx Family Cardiac Disorders: No Hx Family Respiratory Disorders: Yes Hx Family Cancer: No Hx Family GI Disorders: No Hx Family Endocrine Disorder: No Hx Family Neuromuscular Disorders: No Hx Family Neurologic Disorders: No Hx Family HEENT Disorders: No Hx Family Autoimmune Disorders: No Sister Adopted: No Family Member Ethnicity: Non- Living Status: Still Living Hx Family Cardiac Disorders: No Hx Family Respiratory Disorders: Yes Hx Family Cancer: Yes Hx Family GI Disorders: No Hx Family Endocrine Disorder: No Hx Family Neuromuscular Disorders: No Hx Family Neurologic Disorders: No Hx Family HEENT Disorders: No Hx Family Autoimmune Disorders: No Medications and Allergies Albuterol Sulfate [Ventolin Hfa] 2 puff IH BID 05/14/16 [History] Allopurinol [Zyloprim 100 MG] 200 mg PO DAILY 05/14/16 [History] Aspirin [Lo-Dose Aspirin EC] 81 mg PO DAILY 05/14/16 [History] Bicalutamide [Casodex] 50 mg PO DAILY 05/14/16 [History] Calcitriol [Rocaltrol] 0.25 mcg PO DAILY 05/14/16 [History] Cholecalciferol (Vitamin D3) [Vitamin D3] 5,000 unit PO BID 05/14/16 [History] Docusate [Colace] 100 mg PO BID PRN 05/14/16 [History] Fenofibrate 145 mg PO DAILY 05/14/16 [History] Flecainide Acetate 100 mg PO Q12HR 05/14/16 [History] Furosemide [Lasix] 40 mg PO BID 05/14/16 [History] Levothyroxine [Synthroid] 150 mcg PO DAILY 05/14/16 [History] Montelukast [Singulair] 10 mg PO DAILY 05/14/16 [History] Nitroglycerin [Nitrostat] 0.4 mg SL AD PRN 05/14/16 [History] Simvastatin [Zocor] 40 mg PO HS 05/14/16 [History] Warfarin [Coumadin] 15 mg PO SUSA 05/14/16 [History] Metoprolol [Lopressor] 25 mg PO DAILY 07/31/16 [History] Pantoprazole Sodium [Protonix] 40 mg PO DAILY 07/31/16 [History] Albuterol Neb [Proventil Neb] 2.5 mg IH Q4HR PRN 10/07/17 [History] Citalopram [CeleXA] 20 mg PO DAILY 10/07/17 [History] Phenylephrine/Dm/Acetaminop/GG [Kro Mucus Relief Cold-Flu Cplt] 1 tab PO Q6-8H PRN 10/07/17 [History] Budesonide/Formoterol 160/4.5 [Symbicort 160/4.5] 2 puff IH BIDR 10/31/17 [ History] Nut.tx.gluc.intoler,Lac-Fr,Soy [Glucerna] 1 can PO TID 10/31/17 [History] Primidone [Mysoline] 25 mg PO BID 10/31/17 [History] Valsartan [Diovan] 80 mg PO DAILY 10/31/17 [History] Gabapentin [Neurontin] 100 mg PO HS #10 capsule 11/08/17 [Rx] Ferrous Sulfate 325 mg PO BIDWM tablet 11/18/17 [Rx] Collagenase Oint [Santyl] 1 appl TP BID 01/20/18 [History] Famotidine [Pepcid] 40 mg PO DAILY 01/20/18 [History] Gabapentin [Neurontin] 300 mg PO TID 01/20/18 [History] Subcutaneous Insulin Pump [T:Slim] 0 unit MC DAILY PRN MDD HUMULIN RU 500 [History] Warfarin [Coumadin] 10 mg PO MOTUWETHFR 01/20/18 [History] 3 Allergy/AdvReac Type Severity Reaction Status Date / Time niacin Allergy See Verified 01/20/18 15:22 [From [facility] Comments Extended-Release] All Systems Reviewed: The remainder of the systems were reviewed and are negative Physical Exam - Constitutional Vitals: Temp Pulse Resp BP Pulse Ox 98.5 F 85 16 148/71 94 01/21/18 15:07 01/21/18 15:07 01/21/18 15:07 01/21/18 15:07 01/21/18 15:07 Exam: General Examination: CONSTITUTIONAL: Alert, oriented, in no acute distress, non-toxic. EXTREMITIES: CFT 3 seconds all toes. Edema +1 and pedal pulses palpable DP/PT SKIN: There is a noted ulceration to the lateral aspect of the left foot measuring [id number] with probe to bone and undermining of 0.4cm at the 9oclock area. Wound bed is 80% brown/green fibrous tissue 20% granulation. There is moderate serous drainage. Mild odor. Surrounding warmth, edema and erythema which is only direct to the wound, there is no ascending cellulitis noted at this time. There is a suspected DTI to heel measuring 1.5cmx1.5cm of black eschar tissue. Minimal surrounding erythema which is blanchable. There is no warmth edema or tenderness. No fluctuance. No appearance of abscess formation. Appears directly related to pressure There is also what appears to be an area of pressure injury just proximal to the left medial malleolus. 0.5cmx0.5cm deep purple discoloration which does not pricila. No appearance of ulceration at this time. No appearance of infection. No surrounding edema or erythema. No warmth. NEUROLOGIC: Intact sensation to moderate touch. Results - Labs Result Diagrams: 01/24/18 04:00 01/24/18 04:00 Labs: Abnormal lab results RBC 3.37 M/mcL (4.19-5.50) L 01/21/18 10:17 Hgb 9.9 g/dL (12.9-16.9) L 01/21/18 10:17 Hct 30.7 % (37.5-50.1) L 01/21/18 10:17 PT 19.6 Seconds (9.4-12.1) H 01/21/18 10:17 Sodium 133 mEq/L (136-145) L 01/21/18 05:12 Chloride 97 mEq/L (98-107) L 01/21/18 05:12 BUN 34 mg/dL (8-23) H 01/21/18 05:12 Creatinine 1.67 mg/dL (0.70-1.30) H 01/21/18 05:12 Est GFR ( Amer) 50 (> 60) L 01/21/18 05:12 Est GFR (Non-Af Amer) 41 (> 60) L 01/21/18 05:12 Glucose 195 mg/dL (70-105) H 01/21/18 05:12 POC Glucose 291 mg/dL (70-99) H 01/21/18 11:49 AST 11 Units/L (13-39) L 01/21/18 05:12 Albumin 3.1 g/dL (3.5-5.7) L 01/21/18 05:12 Globulin 3.6 g/dL (2.4-3.5) H 01/21/18 05:12 Albumin/Globulin Ratio 0.9 (1.1-2.2) L 01/21/18 05:12 H & H 01/21/18 01/21/18 Range/Units 05:12 10:17 Hgb 9.6 L D 9.9 L (12.9-16.9) g/dL Hct 29.6 L 30.7 L (37.5-50.1) % All other labs normal. Consult Discharge Plan - Plan Referrals: Calli Estes, STANISLAV [Primary Care Provider] -
[2018-01-21] MEDS: Gabapentin 100 MG CAPSULE PO SCH (21:30)
[2018-01-22] MEDS: FLECAINIDE ACETATE 100 MG PO SCH ×2 (05:39→17:42)
[2018-01-22] MEDS: traMADol 50 MG TABLET PO PRN (05:39)
[2018-01-22] MEDS: Budesonide/Formoterol 160/4.5 MDI IH SCH ×2 (07:39→21:46)
[2018-01-22] MEDS: Insulin LISPRO 300 UNITS/3 ML VIAL SQ SCH ×4 (07:59→21:08)
[2018-01-22] MEDS: Fenofibrate 54 MG TABLET PO SCH (09:03)
[2018-01-22] MEDS: Bicalutamide 50 MG TABLET PO SCH (09:04)
[2018-01-22] MEDS: Aspirin Enteric Coated 81 MG Tablet PO SCH (09:04)
[2018-01-22] MEDS: Primidone 50 MG TABLET PO SCH ×2 (09:04→21:06)
[2018-01-22] MEDS: Gabapentin 300 MG CAPSULE PO SCH ×2 (09:05→17:00)
[2018-01-22] MEDS: Valsartan 80 MG TABLET PO SCH (09:05)
[2018-01-22] MEDS: Cholecalciferol (D-3) 1,000 UNIT TABLET PO SCH (09:14)
--- NOTE | 2018-01-22 09:55 | Podiatry Progress Note ---
Date of Encounter: 01/22/18 Time of Encounter: 09:20 - Assessment and Plan (1) Type 2 diabetes mellitus with foot ulcer Current Visit: Yes Status: Acute emery grade 3 ulceration left lateral foot, worsening I had a thorough review with the patient regarding his condition, my findings, and treatment options. We discussed the possibility of bone infection in his x- ray. We also discussed clinically that the ulceration does probe down to the bone. We discussed the condition of the wound. We discussed the drainage able to be expressed from the wound sites. Incision and drainage of the left foot/ ankle discussed with patient at length as well as bone biopsy and removal of devitalized tissue from the left foot wound. Nature of these procedures discussed. Risks versus benefits potential complications and consequences of the procedure and his infection were also discussed. He understood that he could have persistent infection could require partial foot or leg amputation, during or after surgery, develop a blood clot, have a heart attack, pulmonary embolism, need further surgery, etc. It was explained to him that this is a staged procedure and could require future surgery. No guarantees were made as to the outcome of any procedure. High risk for partial foot/limb loss. Heparin drip stopped. hydro generation manager to OR. Qualifiers: Diabetes mellitus senior care insulin use: with manager long term care use Qualified Code( s): E11.621 - Type 2 diabetes mellitus with foot ulcer; L97.509 - Non-pressure chronic ulcer of other part of unspecified foot with unspecified severity; L97.509 - Non-pressure chronic ulcer of other part of unspecified foot with unspecified severity; L97.509 - Non-pressure chronic ulcer of other part of unspecified foot with unspecified severity; L97.509 - Non-pressure chronic ulcer of other part of unspecified foot with unspecified severity; Z79.4 - correction (current) use of insulin; Z79.4 - correction (current) use of insulin; Z79.4 - correction (current) use of insulin; Z79.4 - terminal carman (current) use of insulin Subjective Interval history: 67-year-old diabetic male admitted with a left diabetic foot infection, left fifth metatarsal bone is exposed and he has a small pin tract wound around the ankle with drainage. Previously underwent ORIF of the left ankle. Denies fever, chills, nausea, vomiting. Patient has been out of his insulin for approximately a week at home prior to admission. He does have neuropathy however says he has pain in the left foot. patient is NPO for OR. heparin drip stopped. Patient's family talked to me yesterday in the hallway and stated they cannot get him to listen and he was out mowing the lawn before he was admitted and stated his foot was probably getting dirt and grass under the bandage. Objective - Vital Signs Vital Signs: Vital Signs Temp Pulse Resp BP Pulse Ox 01/22/18 07:41 16 93 01/22/18 06:35 98.0 F 66 16 145/74 93 01/22/18 03:28 97.9 F 66 16 125/66 97 01/21/18 23:53 98.6 F 63 15 116/68 94 01/21/18 20:38 17 98 01/21/18 19:31 98.3 F 57 14 145/75 96 01/21/18 15:07 98.5 F 85 16 148/71 94 01/21/18 11:47 98.3 F 93 16 129/73 96 Intake and Output 01/21/18 01/22/18 01/22/18 23:59 07:59 15:59 Intake Total 1970 / 1970 259 / 259 0 / 0 Output Total 350 / 350 0 / 0 Balance 1621 / 1621 259 / 259 0 / 0 Intake: IV Fluids 241 / 241 259 / 259 Heparin 25,000 UNIT/500 ML D5W 241 / 241 259 / 259 25,000 unit In 500 ml @ 14 UNIT /KG/HR 35.924 mls/hr IVC . [id number] [facility] Rx#:[id number] Oral 1730 / 1730 0 / 0 0 / 0 Output: Urine 350 / 350 0 / 0 Other: Meal Dinner NPO NPO Percent of Meal Consumed 100% 0% 0% # Bowel Movements 0 0 Weight 128.7 kg Blood Glucose* 201 249 Patient Weight 01/22/18 23:59 Weight 128.7 kg - Exam Exam: Well developed obese male in no acute distress Left foot is warm to touch. Edema of the left foot and ankle. Fibronecrotic wound over the left 5th metatarsal base with exposed bone. there is erythema which is ascending from the lateral foot wound. lateral ankle pin tract with serosanguinous drainage expressed. protective sensation diminished. xray-questionable change of cortex most recent xray compared to previous. - Lab Result Diagrams: 01/21/18 10:17 01/21/18 05:12 Labs: Abnormal lab results RBC 3.37 M/mcL (4.19-5.50) L 01/21/18 10:17 Hgb 9.9 g/dL (12.9-16.9) L 01/21/18 10:17 Hct 30.7 % (37.5-50.1) L 01/21/18 10:17 PT 19.6 Seconds (9.4-12.1) H 01/21/18 10:17 Sodium 133 mEq/L (136-145) L 01/21/18 05:12 Chloride 97 mEq/L (98-107) L 01/21/18 05:12 BUN 34 mg/dL (8-23) H 01/21/18 05:12 Creatinine 1.67 mg/dL (0.70-1.30) H 01/21/18 05:12 Est GFR ( Amer) 50 (> 60) L 01/21/18 05:12 Est GFR (Non-Af Amer) 41 (> 60) L 01/21/18 05:12 Glucose 195 mg/dL (70-105) H 01/21/18 05:12 POC Glucose 279 mg/dL (70-99) H 01/22/18 07:58 AST 11 Units/L (13-39) L 01/21/18 05:12 Albumin 3.1 g/dL (3.5-5.7) L 01/21/18 05:12 Globulin 3.6 g/dL (2.4-3.5) H 01/21/18 05:12 Albumin/Globulin Ratio 0.9 (1.1-2.2) L 01/21/18 05:12 Consult Discharge Plan - Plan Referrals: Calli Estes, CRYSTAL CALIBRATOR [Primary Care Provider] -
[2018-01-22] MEDS ORDERED: Bupivacaine-MPF 0.25% 10 ML VIAL ONE (10:20)
[2018-01-22] MEDS ORDERED: Vancomycin 1,000 MG VIAL ONE (10:21)
[2018-01-22] MEDS ORDERED: Lidocaine 1% 20 ML MDV ONE (10:21)
--- NOTE | 2018-01-22 11:27 | Anesthesia Evaluation PreOp ---
Date of Encounter: 01/22/18 Time of Encounter: 11:25 - Past History Planned Operation: I & D Left Foot Cardiac History: [place] (2005), CHF, HTN, Hyperlipidemia, Arrhythmia (H/O A-Fib), Cardiac Surgery (S/P AVR with mechanical valve in 2005) Pulmonary History: Asthma, COPD FORESTRY AID TECHNICIAN History: Other (tremors) Other Medical History: Renal, Diabetes Type II, Thyroid, GERD Anesthesia History: No Prior Anesthetic Complications, Past Anesthesia Alcohol Use: none Drug use: none Medications and Allergies Albuterol Sulfate [Ventolin Hfa] 2 puff IH BID 05/14/16 [History] Allopurinol [Zyloprim 100 MG] 200 mg PO DAILY 05/14/16 [History] Aspirin [Lo-Dose Aspirin EC] 81 mg PO DAILY 05/14/16 [History] Bicalutamide [Casodex] 50 mg PO DAILY 05/14/16 [History] Calcitriol [Rocaltrol] 0.25 mcg PO DAILY 05/14/16 [History] Cholecalciferol (Vitamin D3) [Vitamin D3] 5,000 unit PO BID 05/14/16 [History] Docusate [Colace] 100 mg PO BID PRN 05/14/16 [History] Fenofibrate 145 mg PO DAILY 05/14/16 [History] Flecainide Acetate 100 mg PO Q12HR 05/14/16 [History] Furosemide [Lasix] 40 mg PO BID 05/14/16 [History] Levothyroxine [Synthroid] 150 mcg PO DAILY 05/14/16 [History] Montelukast [Singulair] 10 mg PO DAILY 05/14/16 [History] Nitroglycerin [Nitrostat] 0.4 mg SL AD PRN 05/14/16 [History] Simvastatin [Zocor] 40 mg PO HS 05/14/16 [History] Warfarin [Coumadin] 15 mg PO SUSA 05/14/16 [History] Metoprolol [Lopressor] 25 mg PO DAILY 07/31/16 [History] Pantoprazole Sodium [Protonix] 40 mg PO DAILY 07/31/16 [History] Albuterol Neb [Proventil Neb] 2.5 mg IH Q4HR PRN 10/07/17 [History] Citalopram [CeleXA] 20 mg PO DAILY 10/07/17 [History] Phenylephrine/Dm/Acetaminop/GG [Kro Mucus Relief Cold-Flu Cplt] 1 tab PO Q6-8H PRN 10/07/17 [History] Budesonide/Formoterol 160/4.5 [Symbicort 160/4.5] 2 puff IH BIDR 10/31/17 [ History] Nut.tx.gluc.intoler,Lac-Fr,Soy [Glucerna] 1 can PO TID 10/31/17 [History] Primidone [Mysoline] 25 mg PO BID 10/31/17 [History] Valsartan [Diovan] 80 mg PO DAILY 10/31/17 [History] Gabapentin [Neurontin] 100 mg PO HS #10 capsule 11/08/17 [Rx] Ferrous Sulfate 325 mg PO BIDWM tablet 11/18/17 [Rx] Collagenase Oint [Santyl] 1 appl TP BID 01/20/18 [History] Famotidine [Pepcid] 40 mg PO DAILY 01/20/18 [History] Gabapentin [Neurontin] 300 mg PO TID 01/20/18 [History] Subcutaneous Insulin Pump [T:Slim] 0 unit MC DAILY PRN MDD HUMULIN RU 500 [History] Warfarin [Coumadin] 10 mg PO MOTUWETHFR 01/20/18 [History] 3 Allergy/AdvReac Type Severity Reaction Status Date / Time niacin Allergy See Verified 01/20/18 15:22 [From [facility] Comments Extended-Release] - Meds/Allergy Pre-op Review Medications Reviewed: Yes Allergies Reviewed: Yes Beta Blockers on Current Med List: Yes If Beta Blockers taken, Date/Time (Last Dose taken): 01/22/2018 at 0800 Anesthesia Results - Labs 01/21/18 10:17 01/21/18 05:12 - Imaging EKG: report reviewed (10/30/2017 SINUS RHYTHM WITH FIRST DEGREE AV BLOCK MARKED LEFT AXIS DEVIATION RIGHT BUNDLE BRANCH BLOCK) Additional studies: 11/01/2017 Echo Impressions: LVEF 55-60%. Mild concentric left ventricular hypertrophy. Mild left ventricular diastolic dysfunction. Normal right ventricular structure with low normal function. Mechanical aortic valve is suboptimally visualized. Borderline criteria for prosthetic stenosis. No regurgitation. Mild mitral regurgitation. Mild tricuspid regurgitation. Borderline pulmonary hypertension. There is a trivial pericardial effusion present. There is no echocardiographic evidence of tamponade. Anesthesia Exam Vital Signs/O2 Sat/Glucose, Most Recent Temp Pulse Resp BP Pulse Ox 98.0 F 66 16 145/74 93 01/22/18 06:35 01/22/18 06:35 01/22/18 07:41 01/22/18 06:35 01/22/18 07:41 Blood Glucose* 279 Height: 6'3''/1.91m Weight: 283 lbs/128.7 kg NPO (# of Hours): 8 Pain Scale: 0 Pain Scale Used: Numeric (1 - 10) - HEENT Pupil (Motor): EOMI Mallampati: III Teeth: Edentulous Oral Opening: Greater than 3 - FORESTRY AID TECHNICIAN LOC: Oriented FORESTRY AID TECHNICIAN Motor: Normal RUE, Normal RLE, Normal LLE, Normal Face, Deficit LUE FORESTRY AID TECHNICIAN Sensory: Normal: RUE, LUE, Face, Deficit: RLE, LLE - Cardiac Rhythm: Regular Murmur: None - Pulmonary Breath Sounds: bilateral Clear Respiratory Effort: Symmetrical Anesthesia Assess/Plan ASA Score: 4 Modified Javier Scale for Level of Consciousness: Cooperative, oriented, and tranquil Anesthetic Plan: MAC Monitoring Plan: Standard Monitors
[2018-01-22] MEDS ORDERED: *HR* Midazolam HCl 2 MG/2 ML VIAL ONE (11:56)
[2018-01-22] MEDS ORDERED: Propofol 500 MG/50 ML INFUS..BTL ONE (11:59)
--- NOTE | 2018-01-22 12:54 | Anesthesia Evaluation Post Op ---
Date of Encounter: 01/22/18 Time of Encounter: 12:52 - Vital Signs Vital Signs: 3 BP 128/64 Pulse 57 Resp 20 O2 Sat 98% - Lungs Lungs: Clear Ascult./Percussion - Airway Airway: Non-obstructed - Cardiovascular Regular Rate - Mental Status Mental Status: Alert & Oriented, Answers Appropriately - Pain Pain Scale: 0 Pain Scale used: Numeric (1 - 10) - Nausea Vomiting Nausea Vomiting: Not Present - Hydration Hydration: NPO, Has not voided - Discharge PostOp Status: Transfer Patient to floor
--- NOTE | 2018-01-22 12:55 | Operative Note ---
Date of procedure: 01/22/18 Pre-op diagnosis: left foot/ankle abscess, ulceration 1.5cmx1.5cmx0.5cm, possible osteomyelit Post-op diagnosis: same Procedure: incision and drainage left foot/ankle, excisional debridement of left foot wound , bone biopsy Implants: none Complications: none Anesthesia: MAC Surgeon: Ajith Alegre Was there an collections assistant present: No Estimated blood loss (cc): 15 Specimen: pathology and microbiology 5th met bone, micro-left foot ulcer, left ankle Condition: stable Disposition: PACU Procedure in Detail: Indications: 67-year-old diabetic male with neuropathy and sinus tract over the left ankle as well as an ulceration to lateral aspect of the left fifth metatarsal base which probes to bone and erythema surrounding the wound. Sinus tract has drainage coming from it and there is purulence at the ulceration site on the left foot. Patient underwent previous ankle ORIF and has hardware in place at the lateral ankle. Nature of above procedures, risks versus benefits potential propagation and consequences discussed with patient at length. Patient understood this is a staged procedure and he would likely require more surgery. No guarantees were made as to the outcome. The patient was brought to the operating room and placed on the operating room table in the supine position the left lower extremity was scrubbed prepped and draped in the usual sterile fashion. A tourniquet was applied but not inflated during the entire procedure. The following procedures then began. Incision and drainage left foot and ankle. Attention was directed to the lateral aspect of the patient's left ankle where sinus tract was present incision was made proximal and distal to the sinus tract and through the sinus tract excising the sinus tract. The area was probed and explored. There was a scant amount of purulent drainage present. The drainage was cultured and sent to microbiology. The Pulsavac with vancomycin was utilized to flush the area. The area was probed and explored and no further purulence could be expressed in devitalized tissue was not present at the site. 0-Prolene was utilized to place retention sutures and the site packed with gauze. Attention was directed to the lateral aspect of the patient's foot #15 blade was used to make an incision proximal to the ulceration and no purulence could be expressed from this site. There was some purulence in the deep tissue adjacent to the fifth metatarsal bone. Cultures were taken and sent to microbiology. The site was flushed with the Pulsavac with vancomycin. No further purulence could be identified or expressed. There was devitalized tissue present in the wound base. Excisional debridement of left fifth metatarsal wound. The CaseMetrix debridement wand was utilized to perform an excisional debridement of the fibronecrotic base of the fifth metatarsal ulceration on the left foot. The excisional debridement was through subcutaneous tissue and down to the level of the bone which the ulcer probed to the bone. The upon debridement the wound had a granular base and the area surrounding the fifth metatarsal base which was exposed. The peroneus brevis insertion site was not felt to be disrupted during the debridement. Adequate hemostasis was present. Left fifth metatarsal base bone biopsy. A Jamshidi needle was utilized to obtain bone biopsy from the fifth metatarsal base. Fifth metatarsal bone was felt to be soft. Bone obtained was sent to pathology and microbiology. The left fifth metatarsal ulceration was covered with a wet to dry dressing. Patient tolerated the anesthesia and the procedure well and was escorted the recovery room with vital signs stable and vascular status intact to digits of the left foot noted by instant capillary refill time. Adequate hemostasis was present. Remainder bandage included 4 x 4 gauze, ABD pads, kerlix, and an GERRY wrap.
[2018-01-22] MEDS ORDERED: ACETAMINOP PO PRN (12:57)
[2018-01-22] MEDS ORDERED: traMADol 50 MG TABLET PO PRN (12:57)
[2018-01-22] MEDS ORDERED: D5% in Water 1,000 ML IVC PRN (12:57)
[2018-01-22] MEDS ORDERED: *HR* Dextrose 50 % in Water (Syg) 50 ML SYRINGE IVP PRN (12:57)
[2018-01-22] MEDS ORDERED: Acetaminophen 325 MG TABLET PO PRN (12:57)
[2018-01-22] MEDS ORDERED: Naloxone 0.4 MG/ML INJ IVP PRN (12:57)
[2018-01-22] MEDS ORDERED: *HR* Heparin 5,000 UNIT/ML VIAL IVP PRN (12:57)
[2018-01-22] MEDS ORDERED: Dextrose Gel 15 GM/37.5 ML TUBE PO PRN ×2 (12:57)
[2018-01-22] MEDS ORDERED: [UNRECOGNIZED DRUG - OTHER] PO PRN (12:57)
[2018-01-22] MEDS ORDERED: Albuterol 2.5 MG/3 ML NEBULIZER IH PRN (12:57)
[2018-01-22] MEDS ORDERED: PHENYLEPHRINE PO PRN (12:57)
[2018-01-22] MEDS ORDERED: Nitroglycerin 0.4 MG TAB.SUBL SL PRN (12:57)
--- NOTE | 2018-01-22 13:11 | Event Note ---
Date of Encounter: 01/22/18 Time of Encounter: 13:10 s/p procedure, adequate hemostasis present resume previous meds including hep and warfarin.
--- NOTE | 2018-01-22 16:30 | Internal Med Progress Note ---
Date of Encounter: 01/22/18 Time of Encounter: 16:28 - Assessment and plan (1) Type 2 diabetes mellitus with foot ulcer Current Visit: Yes Status: Acute Assessment and plan: - pt had a diabetic ulcer at the bottom of the left foot, had a recent procedure done by a middle school librarian, wound was poorly healed after surgery. - He has an insulin pump, he manage the insulin doses by himself. It seems that his blood sugar was poorly controlled based on the labs upon admission. - He has developed another foot ulcer on the heel of left foot, he also has erythematous rash on the back of the left foot. - He has been seen by middle school librarian in the office today, X-ray of left foot did not reveal osteomyelitis, but cellulitis was suspected, patient was sent to the hospital for IV antibiotics. Received 1 dose of IV vancomycin at ED, continue IV vancomycin, dose adjusted based on renal function. Blood culture sent, wound culture ordered. - INR 2.4, middle school librarian wants INR to be reversed for the upcoming surgery. will give vitamin K 5 mg subcutaneous, repeat PT/INR in the morning, may give FFP if needed. 01/21/2018-podiatry consult is awaited as is the plan of care in terms of debridement. Should he need a debridement his INR needs to be at least 1.5 and plan for and evaluation as documented below. For now I will continue him on antibiotics. He is already on IV vancomycin and pharmacy is following the dosing for that. I will not add Zosyn at this point. We will send cultures and wait for speciation before adjusting his antibiotics. Consider ID consultation as well. As mentioned below he did not get 5 mg of vitamin K, however his INR did drop significantly after holding just 1 days dosing. He is to have appropriate and accommodation on board until he goes for surgery because of his mechanical aortic valve and the plan of care has been explained to the patient as well as the nursing staff in detail. We will tailor the antibiotics cautiously going forward over the next several days. 01/22: I&D with bone biopsy, tolerated procedure well. Pain control with Tylenol and Roxicodone prn. Qualifiers: Diabetes mellitus longterm insulin use: with longterm use Qualified Code( s): E11.621 - Type 2 diabetes mellitus with foot ulcer; L97.509 - Non-pressure chronic ulcer of other part of unspecified foot with unspecified severity; L97.509 - Non-pressure chronic ulcer of other part of unspecified foot with unspecified severity; L97.509 - Non-pressure chronic ulcer of other part of unspecified foot with unspecified severity; L97.509 - Non-pressure chronic ulcer of other part of unspecified foot with unspecified severity; Z79.4 - vermin exterminator (current) use of insulin; Z79.4 - vermin exterminator (current) use of insulin; Z79.4 - vermin exterminator (current) use of insulin; Z79.4 - nursing home (current) use of insulin (2) Cellulitis Current Visit: Yes Status: Acute Assessment and plan: - See plan as mentioned above. Continue antibiotics. Await blood cultures Qualifiers: Site of cellulitis: extremity Site of cellulitis of extremity: lower extremity Laterality: left Qualified Code(s): L03.116 - Cellulitis of left lower limb (3) S/P aortic valve replacement Current Visit: Yes Status: Chronic Assessment and plan: - Patient takes Coumadin as an outpatient and had a tough time reaching his therapeutic INR of 2-1/2 for mechanical aortic valve. We have to partially reverse the INR in preparation for a potential debridement per podiatry. Started on heparin drip which was stopped for 3-4 hours prior to going for debridement. Done today without issue. Bridge patient with heparin back to Coumadin. Stop heparin when INR therapeutic. (4) Chronic renal failure, stage 3 (moderate) Current Visit: No Status: Chronic Assessment and plan: Chronic renal failure stage III with acute renal failure on top of it. Renally dose medications and trend BMP (5) GERD (gastroesophageal reflux disease) Current Visit: No Status: Chronic Assessment and plan: - Continue home medications. Qualifiers: Esophagitis presence: esophagitis presence not specified Qualified Code(s) : K21.9 - Gastro-esophageal reflux disease without esophagitis (6) Diastolic heart failure Current Visit: No Status: Chronic Assessment and plan: - Euvolemic, we will continue to monitor. No acute issues Qualifiers: Heart failure chronicity: chronic Qualified Code(s): I50.32 - Chronic diastolic (congestive) heart failure (7) Insulin dependent diabetes mellitus Current Visit: No Status: Chronic Assessment and plan: - Insulin pump was stopped and removed. He was not using it. Continue ISS Levemir - start at 20 units HS and monitor. Optimize glucose for wound healing. Goal 140-180 Insulin: most likely will need to be discharged on insulin sliding scale and Levemir combination at the time of discharge. Consult diabetes education. Note: he does have an skip load driver but has not been able to get to their clinic in a regular fashion. (8) Hypertension Current Visit: No Status: Chronic Assessment and plan: - BP under control, continue home medications. Qualifiers: Hypertension type: unspecified Qualified Code(s): I10 - Essential (primary ) hypertension - Time Spent With Patient Total time spent is greater than 50% in coordination of care (as documented) at patient's floor/unit and/or counseling patient: - Subjective Interval history: Patient recently returning from I&D of left foot/ankle with debridement of left foot wound and bone biopsy. - Constitutional Vitals: Temp Pulse Resp BP Pulse Ox 98.5 F 58 16 146/81 98 01/22/18 14:10 01/22/18 14:10 01/22/18 14:10 01/22/18 14:10 01/22/18 14:10 General appearance: Present: A&O X 3 Exam: GENERAL: AAOx3, no acute distress EYES: PERRLA, EOMIr NECK: No jugulovenous distention, No carotid bruits, Carotid pulse normal contour, Supple LUNGS: Lungs clear to auscultation CARDIAC: Normal S1 and S2; no rubs, murmurs, or gallops ABDOMEN: Abdomen soft, non-tender, BS normal, No masses or organomegaly EXTREMITIES: 1+ pitting edema bilateral lower extremities. Left foot has a nonhealing necrotic ulcer not currently visualized because of dressing made post -op. NEURO: Gait normal. Reflexes normal and symmetric. Sensation grossly intact, Cranial nerves II-XII intact PULSES: 2+ radial, 2+ carotid Internal Medicine: Result - Labs CBC & Chem 7: 01/21/18 10:17 01/21/18 05:12 - ABG Interpretation ABG results: PT/INR, D-dimer PT 19.6 Seconds (9.4-12.1) H 01/21/18 10:17 Consult Discharge Plan - Plan Referrals: Calli Estes, [employer]MBRE[employer] MENDER [Primary Care Provider] -
[2018-01-22] MEDS: OXYCODONE Oral CONC 10 MG/0.5 ML ORAL.SYG SL PRN (17:00)
[2018-01-22] MEDS: Heparin 25,000 UNIT/500 ML D5W 25,000 UNIT/500 ML BAG IVC SCH (17:33)
[2018-01-22] MEDS: *HR* Warfarin 5 MG TABLET PO SCH (17:41)
[2018-01-22] MEDS ORDERED: Insulin DETEMIR 100 UNIT/ML X5UNITS SQ SCH (21:00)
[2018-01-22] MEDS: Gabapentin 100 MG CAPSULE PO SCH (21:06)
[2018-01-22] MEDS: Acetaminophen 325 MG TABLET PO PRN (21:07)
[2018-01-23] MEDS: OXYCODONE Oral CONC 10 MG/0.5 ML ORAL.SYG SL PRN ×2 (01:07→07:50)
[2018-01-23 04:02] LABS: Basophils % 0.2 %; Eosinophils # 0.3 K/mcL (0.0-0.6); Eosinophils % 5.6 %; Hemoglobin 8.8 g/dL (12.9-16.9); Immature Granulocytes % 0.7 % (0-4); Lymphocytes # 0.8 K/mcL (0.6-4.6); Lymphocytes % 13.4 %; Mean Corpuscular HGB Conc 32.6 g/dL (31.6-35.5); Mean Corpuscular Hemoglobin 29.9 pg (28.0-33.3); Mean Corpuscular Volume 91.8 fL (83.0-100.0); Mean Platelet Volume 9.9 fL (9.4-12.4); Monocytes # 0.4 K/mcL (0.0-1.3); Monocytes % 6.9 %; Neutrophils # 4.4 K/mcL (1.6-8.9); Platelet Count 323 K/mcL (140-400); Red Blood Count 2.94 M/mcL (4.19-5.50); Red Cell Distribution Width 14.5 % (11.5-14.5); Segmented Neutrophils % 73.2 %
[2018-01-23 04:21] LABS: BUN/Creatinine Ratio 15 (6-26); Blood Urea Nitrogen 22 mg/dL (8-23); Calcium 8.2 mg/dL (8.6-10.3); Carbon Dioxide 26 mEq/L (23-29); Chloride 100 mEq/L (98-107); Glucose 304 mg/dL (70-105); Osmolality,Calculated 287 (280-300); Potassium 3.9 mEq/L (3.5-5.1); Sodium 131 mEq/L (136-145); eGFR For African Americans > 60 (> 60); eGFR For Non-African Americans 50 (> 60)
[2018-01-23] MEDS: FLECAINIDE ACETATE 100 MG PO SCH ×2 (06:09→17:48)
[2018-01-23 07:45] LABS: Estimated Average Glucose 169 mg/dl; Hemoglobin A1C 7.5 %
[2018-01-23] MEDS: Budesonide/Formoterol 160/4.5 MDI IH SCH ×2 (07:45→20:19)
[2018-01-23] MEDS: Insulin LISPRO 300 UNITS/3 ML VIAL SQ SCH ×4 (07:48→20:06)
[2018-01-23] MEDS: Gabapentin 300 MG CAPSULE PO SCH ×3 (07:49→16:24)
[2018-01-23] MEDS: Heparin 25,000 UNIT/500 ML D5W 25,000 UNIT/500 ML BAG IVC SCH (08:50)
[2018-01-23] MEDS: Aspirin Enteric Coated 81 MG Tablet PO SCH (09:10)
[2018-01-23] MEDS: Fenofibrate 54 MG TABLET PO SCH (09:10)
[2018-01-23] MEDS: Acetaminophen 325 MG TABLET PO PRN (09:10)
[2018-01-23] MEDS: Bicalutamide 50 MG TABLET PO SCH (09:11)
[2018-01-23] MEDS: Cholecalciferol (D-3) 1,000 UNIT TABLET PO SCH (09:12)
[2018-01-23] MEDS: Valsartan 80 MG TABLET PO SCH (09:12)
[2018-01-23] MEDS: Primidone 50 MG TABLET PO SCH ×2 (09:13→20:09)
--- NOTE | 2018-01-23 12:43 | Internal Med Progress Note ---
Date of Encounter: 01/23/18 Time of Encounter: 12:40 - Assessment and plan (1) Type 2 diabetes mellitus with foot ulcer Current Visit: Yes Status: Acute Assessment and plan: - pt had a diabetic ulcer at the bottom of the left foot, had a recent procedure done by a transverse abdominal muscle nurse, wound was poorly healed after surgery. - He has an insulin pump, he manage the insulin doses by himself. It seems that his blood sugar was poorly controlled based on the labs upon admission. 01/22: I&D with bone biopsy, tolerated procedure well. Pain control with Tylenol and Roxicodone prn. 01/23 blood cultures NGTD, wound culture prelim gram neg coccobacilli. Continue broad spectrum antibiotics until final results. Qualifiers: Diabetes mellitus custodial insulin use: with custodial use Qualified Code( s): E11.621 - Type 2 diabetes mellitus with foot ulcer; L97.509 - Non-pressure chronic ulcer of other part of unspecified foot with unspecified severity; L97.509 - Non-pressure chronic ulcer of other part of unspecified foot with unspecified severity; L97.509 - Non-pressure chronic ulcer of other part of unspecified foot with unspecified severity; L97.509 - Non-pressure chronic ulcer of other part of unspecified foot with unspecified severity; Z79.4 - intermediate frame tender (current) use of insulin; Z79.4 - intermediate frame tender (current) use of insulin; Z79.4 - intermediate frame tender (current) use of insulin; Z79.4 - intermediate frame tender (current) use of insulin (2) Cellulitis Current Visit: Yes Status: Acute Assessment and plan: - See plan as mentioned above. Continue antibiotics. Blood cultures NGTD Qualifiers: Site of cellulitis: extremity Site of cellulitis of extremity: lower extremity Laterality: left Qualified Code(s): L03.116 - Cellulitis of left lower limb (3) S/P aortic valve replacement Current Visit: Yes Status: Chronic Assessment and plan: Continue coumadin and Stop heparin when INR therapeutic. (4) Chronic renal failure, stage 3 (moderate) Current Visit: No Status: Chronic Assessment and plan: Chronic renal failure stage III with acute renal failure on top of it. Shows improvement Renally dose medications and trend BMP (5) GERD (gastroesophageal reflux disease) Current Visit: No Status: Chronic Assessment and plan: - Continue home medications. Qualifiers: Esophagitis presence: esophagitis presence not specified Qualified Code(s) : K21.9 - Gastro-esophageal reflux disease without esophagitis (6) Diastolic heart failure Current Visit: No Status: Chronic Assessment and plan: - Euvolemic, we will continue to monitor. No acute issues Qualifiers: Heart failure chronicity: chronic Qualified Code(s): I50.32 - Chronic diastolic (congestive) heart failure (7) Insulin dependent diabetes mellitus Current Visit: No Status: Chronic Assessment and plan: - Insulin pump was stopped and removed. He was not using it. Optimize glucose for wound healing. Insulin: most likely will need to be discharged on insulin sliding scale and Levemir combination at the time of discharge. Consult diabetes education. 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 Goal 140-180 Increase basal insulin to 30 HS. (8) Hypertension Current Visit: No Status: Chronic Assessment and plan: - BP under control, continue home medications. Qualifiers: Hypertension type: unspecified Qualified Code(s): I10 - Essential (primary ) hypertension - Time Spent With Patient Total time spent is greater than 50% in coordination of care (as documented) at patient's floor/unit and/or counseling patient: - Subjective Interval history: No acute events. Rates foot pain 7/10 denies fevers/chills, n/v, diaphoresis - Constitutional Vitals: Temp Pulse Resp BP Pulse Ox 98.1 F 62 16 145/73 99 01/23/18 12:00 01/23/18 12:00 01/23/18 12:00 01/23/18 12:00 01/23/18 12:00 General appearance: Present: A&O X 3 Exam: GENERAL: AAOx3, no acute distress EYES: PERRLA, EOMIr NECK: No jugulovenous distention, No carotid bruits, Carotid pulse normal contour, Supple LUNGS: Lungs clear to auscultation CARDIAC: Normal S1 and S2; no rubs, murmurs, or gallops ABDOMEN: Abdomen soft, non-tender, BS normal, No masses or organomegaly EXTREMITIES: 1+ pitting edema bilateral lower extremities. Left foot in boot. NEURO: Gait normal. Reflexes normal and symmetric. Sensation grossly intact, Cranial nerves II-XII intact PULSES: 2+ radial, 2+ carotid Internal Medicine: Result - Labs CBC & Chem 7: 01/23/18 03:50 01/23/18 03:50 Labs: Short CBC 01/23/18 Range/Units 03:50 WBC 6.1 (4.3-11.1) K/mcL Hgb 8.8 L (12.9-16.9) g/dL Hct 27.0 L (37.5-50.1) % Plt Count 323 (140-400) K/mcL Neutrophils # 4.4 (1.6-8.9) K/mcL BMP 01/23/18 03:50 Sodium 131 L Potassium 3.9 Chloride 100 Carbon Dioxide 26 BUN 22 Creatinine 1.43 H Glucose 304 H Calcium 8.2 L - ABG Interpretation ABG results: PT/INR, D-dimer PT 19.6 Seconds (9.4-12.1) H 01/21/18 10:17 Consult Discharge Plan - Plan Referrals: Calli Estes, [employer] [Primary Care Provider] -
[2018-01-23 14:06] LABS: INR 1.5; Prothrombin Time 16.1 Seconds (9.4-12.1)
[2018-01-23] MEDS: Gentamicin Oint 15 GM TUBE TP SCH (14:45)
[2018-01-23] MEDS: OXYCODONE Oral CONC 10 MG/0.5 ML ORAL.SYG SL SCH ×2 (16:23→20:10)
[2018-01-23] MEDS: *HR* Warfarin 5 MG TABLET PO SCH (17:49)
[2018-01-23] MEDS: Gabapentin 100 MG CAPSULE PO SCH (20:10)
[2018-01-23] MEDS ORDERED: Insulin DETEMIR 100 UNIT/ML X5UNITS SQ SCH (21:00)
[2018-01-24] MEDS: Heparin 25,000 UNIT/500 ML D5W 25,000 UNIT/500 ML BAG IVC SCH ×2 (00:44→16:35)
[2018-01-24] MEDS: OXYCODONE Oral CONC 10 MG/0.5 ML ORAL.SYG SL SCH ×6 (00:47→20:44)
[2018-01-24 05:02] LABS: Basophils % 0.2 %; Eosinophils # 0.3 K/mcL (0.0-0.6); Eosinophils % 6.3 %; Hemoglobin 8.4 g/dL (12.9-16.9); Immature Granulocytes % 1.1 % (0-4); Lymphocytes # 0.8 K/mcL (0.6-4.6); Lymphocytes % 14.4 %; Mean Corpuscular HGB Conc 32.3 g/dL (31.6-35.5); Mean Corpuscular Hemoglobin 29.9 pg (28.0-33.3); Mean Corpuscular Volume 92.5 fL (83.0-100.0); Mean Platelet Volume 9.5 fL (9.4-12.4); Monocytes # 0.3 K/mcL (0.0-1.3); Monocytes % 6.1 %; Neutrophils # 3.9 K/mcL (1.6-8.9); Platelet Count 307 K/mcL (140-400); Red Blood Count 2.81 M/mcL (4.19-5.50); Red Cell Distribution Width 14.7 % (11.5-14.5); Segmented Neutrophils % 71.9 %
[2018-01-24 05:07] LABS: INR 1.6; Prothrombin Time 17.4 Seconds (9.4-12.1)
[2018-01-24 05:28] LABS: BUN/Creatinine Ratio 14 (6-26); Blood Urea Nitrogen 20 mg/dL (8-23); Calcium 8.3 mg/dL (8.6-10.3); Carbon Dioxide 27 mEq/L (23-29); Chloride 103 mEq/L (98-107); Glucose 269 mg/dL (70-105); Osmolality,Calculated 294 (280-300); Potassium 4.1 mEq/L (3.5-5.1); Sodium 136 mEq/L (136-145); eGFR For African Americans > 60 (> 60); eGFR For Non-African Americans 50 (> 60)
[2018-01-24] MEDS: FLECAINIDE ACETATE 100 MG PO SCH ×2 (06:11→18:04)
[2018-01-24] MEDS: Primidone 50 MG TABLET PO SCH ×2 (07:43→22:14)
[2018-01-24] MEDS: Fenofibrate 54 MG TABLET PO SCH (07:44)
[2018-01-24] MEDS: Aspirin Enteric Coated 81 MG Tablet PO SCH (07:45)
[2018-01-24] MEDS: Valsartan 80 MG TABLET PO SCH (07:45)
[2018-01-24] MEDS: Gabapentin 300 MG CAPSULE PO SCH ×3 (07:45→16:35)
[2018-01-24] MEDS: Cholecalciferol (D-3) 1,000 UNIT TABLET PO SCH (07:45)
[2018-01-24] MEDS: Insulin LISPRO 300 UNITS/3 ML VIAL SQ SCH ×5 (07:47→22:14)
[2018-01-24] MEDS: Budesonide/Formoterol 160/4.5 MDI IH SCH ×2 (08:08→20:39)
[2018-01-24] MEDS: Bicalutamide 50 MG TABLET PO SCH (08:59)
--- NOTE | 2018-01-24 10:01 | Internal Med Progress Note ---
<Jordan Price - Last Filed: 01/24/18 13:40> Date of Encounter: 01/24/18 Time of Encounter: 09:59 - Assessment and plan (1) Type 2 diabetes mellitus with foot ulcer Current Visit: Yes Status: Acute Assessment and plan: - pt had a diabetic ulcer at the bottom of the left foot, had a recent procedure done by a cash control specialist, wound was poorly healed after surgery. - He has an insulin pump, he manage the insulin doses by himself. It seems that his blood sugar was poorly controlled based on the labs upon admission. 01/22: I&D with bone biopsy, tolerated procedure well. Pain control with Tylenol and Roxicodone prn. 01/23 blood cultures NGTD, wound culture prelim gram neg coccobacilli ( H.parainfluenza). Continue broad spectrum antibiotics until final results. - A1c of 7.5% on admission, blood sugars running in the mid to high 200s. Possibly elevated secondary to infection vs stress - Basal insulin was increased to 30 units QHS. We will adjust sliding scale if sugars do not improve Plan - Continue antibiotics including vancomycin, day #5 - Start cefepime 2 g every 8 hours for gram-negative coverage - We will de-escalate antibiotics as able - Podiatry following Qualifiers: Diabetes mellitus oysterman insulin use: with shelter use Qualified Code( s): E11.621 - Type 2 diabetes mellitus with foot ulcer; L97.509 - Non-pressure chronic ulcer of other part of unspecified foot with unspecified severity; L97.509 - Non-pressure chronic ulcer of other part of unspecified foot with unspecified severity; L97.509 - Non-pressure chronic ulcer of other part of unspecified foot with unspecified severity; L97.509 - Non-pressure chronic ulcer of other part of unspecified foot with unspecified severity; Z79.4 - retirement (current) use of insulin; Z79.4 - retirement (current) use of insulin; Z79.4 - retirement (current) use of insulin; Z79.4 - retirement (current) use of insulin (2) S/P aortic valve replacement Current Visit: Yes Status: Chronic Assessment and plan: Bridging back to Coumadin for goal INR of 2.5-3.5 Continue heparin drip until INR is therapeutic (3) Chronic renal failure, stage 3 (moderate) Current Visit: No Status: Chronic Assessment and plan: - Chronic renal failure stage III with acute renal failure on top of it. - The urine/creatinine of 20/.42 - Creatinine appears to be at baseline levels Plan - Continue supportive care, avoid nephrotoxic agents - Renally dose medications and trend BMP (4) GERD (gastroesophageal reflux disease) Current Visit: No Status: Chronic Assessment and plan: - Continue home medications. - Stable, no acute exacerbations per patient Qualifiers: Esophagitis presence: esophagitis presence not specified Qualified Code(s) : K21.9 - Gastro-esophageal reflux disease without esophagitis (5) Diastolic heart failure Current Visit: No Status: Chronic Assessment and plan: - Euvolemic, we will continue to monitor. No acute issues Qualifiers: Heart failure chronicity: chronic Qualified Code(s): I50.32 - Chronic diastolic (congestive) heart failure (6) Insulin dependent diabetes mellitus Current Visit: No Status: Chronic Assessment and plan: - Insulin pump was stopped and removed. He was not using it. - Optimize glucose for wound healing. - A1c of 7.5%, blood sugar this morning of 241 - Insulin: most likely will need to be discharged on insulin sliding scale and Levemir combination at the time of discharge. - Consulted diabetes education. Note: he does have an seismology teacher but has not been able to get to their clinic in a regular fashion. Plan - Goal 140-180 - Increase basal insulin to 30 HS. (7) Hypertension Current Visit: No Status: Chronic Assessment and plan: - BP under control, continue home medications. Most recent BP of 149/81 Qualifiers: Hypertension type: unspecified Qualified Code(s): I10 - Essential (primary ) hypertension (8) Cellulitis Current Visit: Yes Status: Acute Assessment and plan: - See plan as mentioned above. Continue antibiotics. Blood cultures NGTD - Wound culture growing gram-negative coccobacilli Qualifiers: Site of cellulitis: extremity Site of cellulitis of extremity: lower extremity Laterality: left Qualified Code(s): L03.116 - Cellulitis of left lower limb - Time Spent With Patient Total time spent is greater than 50% in coordination of care (as documented) at patient's floor/unit and/or counseling patient: 25 - 35 minutes - Subjective Interval history: Patient seen and examined at bedside. States he has had no fevers, chills, nausea, vomiting. Mild throbbing pain in his LL extremity. No complaints of erythema, drainage, warmth. - Constitutional Vitals: Temp Pulse Resp BP Pulse Ox 98.1 F 67 16 149/81 98 01/24/18 07:28 01/24/18 07:28 01/24/18 08:08 01/24/18 07:28 01/24/18 08:08 General appearance: Present: A&O X 3 Exam: Gen.: Vitals noted. No acute distress. AAOx3 HEENT: PERRL/EOMI, oropharynx clear, Normocephalic, atraumatic Cardiac: RRR, no murmur, +S1/S2, prominent S2 consistent with aortic valve mechanical replacement Pulmonary: CTA bilaterally, no wheezes, rales or rhonchi, equal chest expansion Abdomen: soft, nontender, BS noted, no guarding MSK: ROM intact, no joint swelling noted Extremities: no BLE edema, nontender calf, no cyanosis or clubbing. Left lower extremity dressed with brace and Roly compression wrapping. No signs of infection. Neuro: A&Ox3, moves all extremities, no focal deficits Psych: Appropriate mood and behavior Internal Medicine: Result - Labs CBC & Chem 7: 01/24/18 04:00 01/24/18 04:00 Labs: Short CBC 01/24/18 Range/Units 04:00 WBC 5.4 (4.3-11.1) K/mcL Hgb 8.4 L (12.9-16.9) g/dL Hct 26.0 L (37.5-50.1) % Plt Count 307 (140-400) K/mcL Neutrophils # 3.9 (1.6-8.9) K/mcL BMP 01/24/18 04:00 Sodium 136 Potassium 4.1 Chloride 103 Carbon Dioxide 27 BUN 20 Creatinine 1.42 H Glucose 269 H Calcium 8.3 L - ABG Interpretation ABG results: PT/INR, D-dimer PT 17.4 Seconds (9.4-12.1) H 01/24/18 04:00 Consult Discharge Plan - Plan Referrals: Calli Estes, [employer] [Primary Care Provider] - <Otis Qiu - Last Filed: 01/24/18 18:11> Date of Encounter: 01/24/18 - Assessment and plan (1) S/P aortic valve replacement Current Visit: Yes Status: Chronic (2) Chronic renal failure, stage 3 (moderate) Current Visit: No Status: Chronic (3) GERD (gastroesophageal reflux disease) Current Visit: No Status: Chronic Qualifiers: Esophagitis presence: esophagitis presence not specified Qualified Code(s) : K21.9 - Gastro-esophageal reflux disease without esophagitis (4) Diastolic heart failure Current Visit: No Status: Chronic Qualifiers: Heart failure chronicity: chronic Qualified Code(s): I50.32 - Chronic diastolic (congestive) heart failure (5) Insulin dependent diabetes mellitus Current Visit: No Status: Chronic (6) Hypertension Current Visit: No Status: Chronic Qualifiers: Hypertension type: unspecified Qualified Code(s): I10 - Essential (primary ) hypertension (7) Type 2 diabetes mellitus with foot ulcer Current Visit: Yes Status: Acute Qualifiers: Diabetes mellitus shelter insulin use: with oysterman use Qualified Code( s): E11.621 - Type 2 diabetes mellitus with foot ulcer; L97.509 - Non-pressure chronic ulcer of other part of unspecified foot with unspecified severity; L97.509 - Non-pressure chronic ulcer of other part of unspecified foot with unspecified severity; L97.509 - Non-pressure chronic ulcer of other part of unspecified foot with unspecified severity; L97.509 - Non-pressure chronic ulcer of other part of unspecified foot with unspecified severity; Z79.4 - retirement (current) use of insulin; Z79.4 - retirement (current) use of insulin; Z79.4 - retirement (current) use of insulin; Z79.4 - parts counterman (current) use of insulin (8) Cellulitis Current Visit: Yes Status: Acute Qualifiers: Site of cellulitis: extremity Site of cellulitis of extremity: lower extremity Laterality: left Qualified Code(s): L03.116 - Cellulitis of left lower limb - Time Spent With Patient Total time spent is greater than 50% in coordination of care (as documented) at patient's floor/unit and/or counseling patient: - Constitutional Vitals: Temp Pulse Resp BP Pulse Ox 98.7 F 69 14 144/78 98 01/24/18 14:48 01/24/18 14:48 01/24/18 14:48 01/24/18 14:48 01/24/18 14:48 Internal Medicine: Result - Labs CBC & Chem 7: 01/24/18 04:00 01/24/18 04:00 Labs: Short CBC 01/24/18 Range/Units 04:00 WBC 5.4 (4.3-11.1) K/mcL Hgb 8.4 L (12.9-16.9) g/dL Hct 26.0 L (37.5-50.1) % Plt Count 307 (140-400) K/mcL Neutrophils # 3.9 (1.6-8.9) K/mcL BMP 01/24/18 04:00 Sodium 136 Potassium 4.1 Chloride 103 Carbon Dioxide 27 BUN 20 Creatinine 1.42 H Glucose 269 H Calcium 8.3 L - ABG Interpretation ABG results: PT/INR, D-dimer PT 17.4 Seconds (9.4-12.1) H 01/24/18 04:00 - Attending Attestation I performed a history and physical examination of the patient and discussed his/ her management with the resident. I reviewed the residents note and agree with the documented findings and plan of care.
[2018-01-24] MEDS: Gentamicin Oint 15 GM TUBE TP SCH (11:34)
[2018-01-24] MEDS: *HR* Heparin 5,000 UNIT/ML VIAL IVP PRN (14:02)
--- NOTE | 2018-01-24 17:29 | Podiatry Progress Note ---
Date of Encounter: 01/24/18 Time of Encounter: 17:00 - Assessment and Plan (1) CKD (chronic kidney disease) stage 3, GFR 30-59 ml/min Current Visit: No Status: Chronic (2) Diabetes mellitus Current Visit: No Status: Chronic Qualifiers: Diabetes mellitus type: type 2 Diabetes mellitus case manager insulin use: with shelter use Diabetes mellitus complication status: with kidney complications Diabetes mellitus complication detail: with chronic kidney disease Chronic kidney disease stage: stage 3 (moderate) Qualified Code(s): E11.22 - Type 2 diabetes mellitus with diabetic chronic kidney disease; N18.3 - Chronic kidney disease, stage 3 (moderate); N18.3 - Chronic kidney disease, stage 3 (moderate); Z79.4 - penitentiary (current) use of insulin; Z79.4 - contracting officer (current) use of insulin; Z79.4 - contracting officer (current) use of insulin; Z79.4 - contracting officer (current) use of insulin (3) Type 2 diabetes mellitus with foot ulcer Current Visit: Yes Status: Acute S/p incision and drainage left foot/ankle, excisional debridement of left foot wound, bone biopsy by Dr. Alegre on 01/22/18. WBC: 5.4, a febrile Wound cultures: 01/21/18 Left foot- isolated Haemophilus parainfluenzae 01/22/18 Left ankle- prelim GPC 01/22/18 Left foot: no pathogens isolated Intraop bone culture pending. Plan: Wound vac applied to ulceration of base of 5th metatarsal. Adaptic applied with small back simplace wound vac sponge, connected to 125 mmhg low continuous suction. Surrounding skin prepped with Allkare and drape applied, adapctic applied to incision line with 4x4 dry sterile gauze and kerlix. Patient will be discharged with wound vac, change every M-W-. Continue heel relief boot while in bed. NWB to left foot. Antibiotic therapy per Hospitalist, Vancomycin, started on cefepime 2 g every 8 hours for gram-negative coverage F/u with Dr. Alegre in wound care one week after discharge from hospital. Qualifiers: Diabetes mellitus shelter insulin use: with shelter use Qualified Code( s): E11.621 - Type 2 diabetes mellitus with foot ulcer; L97.509 - Non-pressure chronic ulcer of other part of unspecified foot with unspecified severity; L97.509 - Non-pressure chronic ulcer of other part of unspecified foot with unspecified severity; L97.509 - Non-pressure chronic ulcer of other part of unspecified foot with unspecified severity; L97.509 - Non-pressure chronic ulcer of other part of unspecified foot with unspecified severity; Z79.4 - contracting officer (current) use of insulin; Z79.4 - contracting officer (current) use of insulin; Z79.4 - penitentiary (current) use of insulin; Z79.4 - contracting officer (current) use of insulin Subjective Interval history: Patient is s/p incision and drainage left foot/ankle, excisional debridement of left foot wound, bone biopsy by Dr. Alegre on 01/22/18. Patient is lying in bed with dressing dry and intact to the left foot. Patient rates left foot pain at a 6 out of 10. No c/o fever, cp, sob. Patient states he had chills last night because his room was so cold. Objective - Vital Signs Vital Signs: Vital Signs Temp Pulse Resp BP Pulse Ox 01/24/18 14:48 98.7 F 69 14 144/78 98 01/24/18 12:13 97.9 F 67 17 154/81 100 01/24/18 08:08 16 98 01/24/18 07:28 98.1 F 67 17 149/81 97 01/24/18 03:00 98.3 F 74 15 133/71 98 01/23/18 20:19 18 98 01/23/18 19:41 98.4 F 71 15 137/80 99 Intake and Output 01/24/18 01/24/18 01/24/18 07:59 15:59 23:59 Intake Total 100 / 100 1080.0 / 1080.0 Output Total 1100 / 1100 250 / 250 Balance -1000 / -1000 830.0 / 830.0 Intake: IV Fluids 100 / 100 400.0 / 400.0 Heparin 25,000 UNIT/500 ML D5W 100 / 100 400.0 / 400.0 25,000 unit In 500 ml @ 14 UNIT /KG/HR 35.924 mls/hr IVC . [id number] [facility] Rx#:[id number] Oral 0 / 0 680 / 680 Output: Urine 1100 / 1100 250 / 250 Other: Meal Lunch Percent of Meal Consumed 100% Stool Size Moderate Stool Consistency formed Stool Color Brown # Voids 1 Weight 130.5 kg Blood Glucose* 241 260 257 Patient Weight 01/24/18 23:59 Weight 130.5 kg - Exam Exam: General appearance: alert awake oriented X 3. Calm and pleasant, no acute distress.. Vascular: No evidence of cyanosis, pallor or rubor, Edema graded at 1+/4, Skin Temperature warm, No calf pain with manual compression. capillary refill time is immediate to digits. Neurologic: Sensation diminished with light touch to foot. . Postop Exam: S/P Sutures intact to incision line to left lateral ankle no signs of dehiscence , light periwound erythema, no streaking. Full thickness ulceration to the base of the 5th metatarsal, lateral aspect measuring 2.5 cm in length x 1.2 cm in width x 0.7 cm in depth, base of wound with 100% granulation tissue. Moderate amount of serous drainage observed to dressing. No pus, no odor, no erythema, no streaking. Minimal edema. Ecchymosis to the medial left ankle, 1.5 cm in diameter. - Lab Result Diagrams: 01/24/18 04:00 01/24/18 04:00 Labs: Abnormal lab results RBC 2.81 M/mcL (4.19-5.50) L 01/24/18 04:00 Hgb 8.4 g/dL (12.9-16.9) L 01/24/18 04:00 Hct 26.0 % (37.5-50.1) L 01/24/18 04:00 RDW 14.7 % (11.5-14.5) H 01/24/18 04:00 PT 17.4 Seconds (9.4-12.1) H 01/24/18 04:00 APTT 53.4 Seconds (26.0-36.0) H 01/24/18 12:40 Creatinine 1.42 mg/dL (0.70-1.30) H 01/24/18 04:00 Est GFR (Non-Af Amer) 50 (> 60) L 01/24/18 04:00 Glucose 269 mg/dL (70-105) H 01/24/18 04:00 POC Glucose 257 mg/dL (70-99) H 01/24/18 16:59 Hemoglobin A1c 7.5 % (-5.6) H 01/22/18 03:28 Calcium 8.3 mg/dL (8.6-10.3) L 01/24/18 04:00 AST 11 Units/L (13-39) L 01/21/18 05:12 Albumin 3.1 g/dL (3.5-5.7) L 01/21/18 05:12 Globulin 3.6 g/dL (2.4-3.5) H 01/21/18 05:12 Albumin/Globulin Ratio 0.9 (1.1-2.2) L 01/21/18 05:12 Vancomycin Trough 15 mcg/mL (5-10) H 01/23/18 08:00 Consult Discharge Plan - Plan Referrals: Calli Estes, STANISLAV [Primary Care Provider] -
[2018-01-24] MEDS ORDERED: Cefepime HCl 2,000 MG in Water for inj. (sterile) 20 ML IVP SCH (18:00)
[2018-01-24] MEDS ORDERED: *HR* Warfarin 10 MG TABLET PO SCH (18:00)
[2018-01-24] MEDS: Cefepime HCl 2,000 MG in Water for inj. (sterile) 20 ML 20 ML IVP SCH (20:39)
[2018-01-24] MEDS: Gabapentin 100 MG CAPSULE PO SCH (22:13)
[2018-01-24] MEDS: Insulin DETEMIR 100 UNIT/ML X5UNITS SQ SCH (22:14)
[2018-01-25 03:39] LABS: Activated Partial Thrombo Time 131.1 Seconds (26.0-36.0)
[2018-01-25 04:00] LABS: Heparin anti-factor XA UFH 0.3 IU/mL (0.30-0.70)
[2018-01-25] MEDS: OXYCODONE Oral CONC 10 MG/0.5 ML ORAL.SYG SL SCH ×5 (05:05→14:12)
[2018-01-25] MEDS: Cefepime HCl 2,000 MG in Water for inj. (sterile) 20 ML 20 ML IVP SCH (05:12)
[2018-01-25 05:39] LABS: Basophils % 0.4 %; Eosinophils # 0.4 K/mcL (0.0-0.6); Eosinophils % 5.8 %; Hematocrit 26.5 % (37.5-50.1); Hemoglobin 8.3 g/dL (12.9-16.9); Immature Granulocytes % 1.5 % (0-4); Lymphocytes # 0.8 K/mcL (0.6-4.6); Lymphocytes % 11.8 %; Mean Corpuscular HGB Conc 31.3 g/dL (31.6-35.5); Mean Corpuscular Hemoglobin 29.3 pg (28.0-33.3); Mean Corpuscular Volume 93.6 fL (83.0-100.0); Mean Platelet Volume 10.1 fL (9.4-12.4); Monocytes # 0.5 K/mcL (0.0-1.3); Monocytes % 7.1 %; Nucleated Red Blood Cells 0.3 /100 WBC (0); Platelet Count 321 K/mcL (140-400); Red Blood Count 2.83 M/mcL (4.19-5.50); Segmented Neutrophils % 73.4 %
[2018-01-25] MEDS: FLECAINIDE ACETATE 100 MG PO SCH ×2 (05:43→17:40)
[2018-01-25 05:46] LABS: INR 1.9; Prothrombin Time 20.5 Seconds (9.4-12.1)
[2018-01-25 05:56] LABS: BUN/Creatinine Ratio 13 (6-26); Blood Urea Nitrogen 17 mg/dL (8-23); Calcium 8.6 mg/dL (8.6-10.3); Carbon Dioxide 28 mEq/L (23-29); Chloride 102 mEq/L (98-107); Glucose 194 mg/dL (70-105); Osmolality,Calculated 287 (280-300); Potassium 4.1 mEq/L (3.5-5.1); Sodium 135 mEq/L (136-145); eGFR For African Americans > 60 (> 60); eGFR For Non-African Americans 55 (> 60)
[2018-01-25] MEDS: Fenofibrate 54 MG TABLET PO SCH (07:48)
[2018-01-25] MEDS: Valsartan 80 MG TABLET PO SCH (07:48)
[2018-01-25] MEDS: Aspirin Enteric Coated 81 MG Tablet PO SCH (07:49)
[2018-01-25] MEDS: Bicalutamide 50 MG TABLET PO SCH (07:49)
[2018-01-25] MEDS: Gabapentin 300 MG CAPSULE PO SCH ×3 (07:49→16:40)
[2018-01-25] MEDS: Primidone 50 MG TABLET PO SCH ×2 (07:49→20:15)
[2018-01-25] MEDS: Cholecalciferol (D-3) 1,000 UNIT TABLET PO SCH (07:49)
[2018-01-25] MEDS: Insulin LISPRO 300 UNITS/3 ML VIAL SQ SCH ×7 (07:53→20:21)
[2018-01-25] MEDS: Gentamicin Oint 15 GM TUBE TP SCH (08:01)
[2018-01-25] MEDS ORDERED: Aminoglycoside Consult 1 EACH MC ONE (08:23)
--- NOTE | 2018-01-25 10:20 | Internal Med Progress Note ---
<Jordan Price - Last Filed: 01/25/18 11:35> Date of Encounter: 01/25/18 Time of Encounter: 10:18 - Assessment and plan (1) Type 2 diabetes mellitus with foot ulcer Current Visit: Yes Status: Acute Assessment and plan: - pt had a diabetic ulcer at the bottom of the left foot, had a recent procedure done by a billboard erector, wound was poorly healed after surgery. - He has an insulin pump, however he reports not using it consistently due to complexity. Blood sugars were poorly controlled on admission the hospital. 01/22: I&D with bone biopsy, tolerated procedure well. Pain control with Tylenol and Roxicodone prn. 01/23 blood cultures NGTD, wound culture prelim gram neg coccobacilli ( H.parainfluenza), MSSA. - A1c of 7.5% on admission, blood sugars running in the mid to high 200s. Possibly elevated secondary to infection vs stress. Improved today in 194 - Basal insulin was increased to 30 units QHS. We will adjust sliding scale if sugars do not improve Plan - Continue antibiotics, cefepime day #2 until bone biopsy results. Discontinue vancomycin(day 6) as well as wound culture returned methicillin sensitive staph aureus - We will de-escalate antibiotics as able - Bone biopsy pending - Podiatry following, appreciate recommendations. Per note continue wound VAC and follow-up with Dr. Alegre one week after discharge Qualifiers: Diabetes mellitus local intermodal truck driver insulin use: with [facility] use Qualified Code( s): E11.621 - Type 2 diabetes mellitus with foot ulcer; L97.509 - Non-pressure chronic ulcer of other part of unspecified foot with unspecified severity; L97.509 - Non-pressure chronic ulcer of other part of unspecified foot with unspecified severity; L97.509 - Non-pressure chronic ulcer of other part of unspecified foot with unspecified severity; L97.509 - Non-pressure chronic ulcer of other part of unspecified foot with unspecified severity; Z79.4 - care home (current) use of insulin; Z79.4 - technician terminal and repeater (current) use of insulin; Z79.4 - care home (current) use of insulin; Z79.4 - care home (current) use of insulin (2) S/P aortic valve replacement Current Visit: Yes Status: Chronic Assessment and plan: Bridging back to Coumadin for goal INR of 2.5-3.5 INR continues to be subtherapeutic at 1.9, pharmacy to dose Continue heparin drip until INR is therapeutic (3) Chronic renal failure, stage 3 (moderate) Current Visit: No Status: Chronic Assessment and plan: - Chronic renal failure stage III - The BUN/creatinine of 17/1.31, improved from yesterday at 1.42 - Creatinine appears to be at baseline levels Plan - Continue supportive care, avoid nephrotoxic agents - Renally dose medications and trend BMP (4) GERD (gastroesophageal reflux disease) Current Visit: No Status: Chronic Assessment and plan: - Continue home medications. - Stable, no acute exacerbations per patient Qualifiers: Esophagitis presence: esophagitis presence not specified Qualified Code(s) : K21.9 - Gastro-esophageal reflux disease without esophagitis (5) Diastolic heart failure Current Visit: No Status: Chronic Assessment and plan: - Euvolemic, we will continue to monitor. No acute issues Qualifiers: Heart failure chronicity: chronic Qualified Code(s): I50.32 - Chronic diastolic (congestive) heart failure (6) Insulin dependent diabetes mellitus Current Visit: No Status: Chronic Assessment and plan: - Insulin pump was stopped and removed. He was not using it. - Optimize glucose for wound healing. - A1c of 7.5%, blood sugar this morning of 194, improved - Insulin: most likely will need to be discharged on insulin sliding scale and Levemir combination at the time of discharge. - Consulted diabetes education. 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 Plan - Goal 140-180 - Increase basal insulin to 30 HS. - Increase sliding scale insulin today (7) Hypertension Current Visit: No Status: Chronic Assessment and plan: - BP under control, continue home medications. Mildly elevated this morning, has been under control. One isolated finding and will continue to monitor at this time Most recent BP of 152/80 Qualifiers: Hypertension type: unspecified Qualified Code(s): I10 - Essential (primary ) hypertension (8) Cellulitis Current Visit: Yes Status: Acute Assessment and plan: - See plan as mentioned above. Continue antibiotics. Blood cultures NGTD - Wound culture growing Haemophilus parainfluenza, MSSA - Bone biopsy pending Qualifiers: Site of cellulitis: extremity Site of cellulitis of extremity: lower extremity Laterality: left Qualified Code(s): L03.116 - Cellulitis of left lower limb - Time Spent With Patient Total time spent is greater than 50% in coordination of care (as documented) at patient's floor/unit and/or counseling patient: 25 - 35 minutes - Subjective Interval history: Patient seen and examined at bedside. States he has had no fevers, chills, nausea, vomiting. No complaints of pain today in his left lower extremity, states he is ready to be discharged at any time. And is eager to go home. No symptoms of redness, warmth, drainage from his wound. - Constitutional Vitals: Temp Pulse Resp BP Pulse Ox 98.1 F 81 16 152/80 96 01/25/18 07:16 01/25/18 07:16 01/25/18 07:16 01/25/18 07:16 01/25/18 07:16 General appearance: Present: A&O X 3 Exam: Gen.: Vitals noted. No acute distress. AAOx3, resting comfortably in bed HEENT: PERRL/EOMI, oropharynx clear, Normocephalic, atraumatic. Patient is chewing tobacco at time of interview, Cardiac: RRR, no murmur, +S1/S2, prominent S2 consistent with aortic valve replacement Pulmonary: CTA bilaterally, no wheezes, rales or rhonchi, equal chest expansion Abdomen: soft, nontender, BS noted, no guarding MSK: ROM intact, no joint swelling noted Extremities: no BLE edema, nontender calf, no cyanosis or clubbing. Left lower extremity wrapped in Kerlix, wound VAC attached with no drainage in canister. Mildly increased warmth compared to right lower extremity. No erythema, drainage, infection appreciated. Neuro: A&Ox3, moves all extremities, no focal deficits Psych: Appropriate mood and behavior Internal Medicine: Result - Labs CBC & Chem 7: 01/25/18 04:00 01/25/18 04:00 Labs: Short CBC 01/25/18 Range/Units 04:00 WBC 6.8 (4.3-11.1) K/mcL Hgb 8.3 L (12.9-16.9) g/dL Hct 26.5 L (37.5-50.1) % Plt Count 321 (140-400) K/mcL Neutrophils # 5.0 (1.6-8.9) K/mcL BMP 01/25/18 04:00 Sodium 135 L Potassium 4.1 Chloride 102 Carbon Dioxide 28 BUN 17 Creatinine 1.31 H Glucose 194 H Calcium 8.6 - ABG Interpretation ABG results: PT/INR, D-dimer PT 20.5 Seconds (9.4-12.1) H 01/25/18 04:00 Consult Discharge Plan - Plan Referrals: Calli Estes CNP [Primary Care Provider] - <Shine Hein - Last Filed: 01/25/18 16:53> Date of Encounter: 01/25/18 - Assessment and plan (1) Type 2 diabetes mellitus with foot ulcer Current Visit: Yes Status: Acute Qualifiers: Diabetes mellitus local intermodal truck driver insulin use: with local intermodal truck driver use Qualified Code( s): E11.621 - Type 2 diabetes mellitus with foot ulcer; L97.509 - Non-pressure chronic ulcer of other part of unspecified foot with unspecified severity; L97.509 - Non-pressure chronic ulcer of other part of unspecified foot with unspecified severity; L97.509 - Non-pressure chronic ulcer of other part of unspecified foot with unspecified severity; L97.509 - Non-pressure chronic ulcer of other part of unspecified foot with unspecified severity; Z79.4 - care home (current) use of insulin; Z79.4 - care home (current) use of insulin; Z79.4 - care home (current) use of insulin; Z79.4 - technician terminal and repeater (current) use of insulin (2) Cellulitis Current Visit: Yes Status: Acute Qualifiers: Site of cellulitis: extremity Site of cellulitis of extremity: lower extremity Laterality: left Qualified Code(s): L03.116 - Cellulitis of left lower limb (3) Chronic renal failure, stage 3 (moderate) Current Visit: No Status: Chronic (4) GERD (gastroesophageal reflux disease) Current Visit: No Status: Chronic Qualifiers: Esophagitis presence: esophagitis presence not specified Qualified Code(s) : K21.9 - Gastro-esophageal reflux disease without esophagitis (5) Diastolic heart failure Current Visit: No Status: Chronic Qualifiers: Heart failure chronicity: chronic Qualified Code(s): I50.32 - Chronic diastolic (congestive) heart failure (6) Hypertension Current Visit: No Status: Chronic Qualifiers: Hypertension type: essential hypertension Qualified Code(s): I10 - Essential (primary) hypertension (7) S/P aortic valve replacement Current Visit: Yes Status: Chronic - Time Spent With Patient Total time spent is greater than 50% in coordination of care (as documented) at patient's floor/unit and/or counseling patient: - Constitutional Vitals: Temp Pulse Resp BP Pulse Ox 97.6 F 73 16 132/79 96 01/25/18 15:00 01/25/18 15:00 01/25/18 15:00 01/25/18 15:00 01/25/18 15:00 Internal Medicine: Result - Labs CBC & Chem 7: 01/25/18 04:00 01/25/18 04:00 Labs: Short CBC 01/25/18 Range/Units 04:00 WBC 6.8 (4.3-11.1) K/mcL Hgb 8.3 L (12.9-16.9) g/dL Hct 26.5 L (37.5-50.1) % Plt Count 321 (140-400) K/mcL Neutrophils # 5.0 (1.6-8.9) K/mcL BMP 01/25/18 04:00 Sodium 135 L Potassium 4.1 Chloride 102 Carbon Dioxide 28 BUN 17 Creatinine 1.31 H Glucose 194 H Calcium 8.6 - ABG Interpretation ABG results: PT/INR, D-dimer PT 20.5 Seconds (9.4-12.1) H 01/25/18 04:00 - Attending Attestation I examined this patient and my medical decision-making was reviewed with the Resident Physician on 01/25/18. I agree with the documented findings, disposition and treatment plan as described except to the extent set forth below. Mr Cortez is currently admitted for acute diabetic foot ulcer and infection. He remains moderate to high risk due to potential for worsening clinical status. Mr Cortez is feeling OK. No fever or chills. Tolerating abx. Bone biopsy pending. Exam alert Comfortable Mucus membranes dry Heart distant with click Lungs clear Dressing intact I/P 1. Presumptive OM - bone biopsy pending 2 Diabetic foot ulcer with cellulitis Further diagnoses and plan as above.
[2018-01-25] MEDS: Heparin 25,000 UNIT/500 ML D5W 25,000 UNIT/500 ML BAG IVC SCH (10:32)
[2018-01-25] MEDS: *HR* Heparin 5,000 UNIT/ML VIAL IVP PRN (10:37)
[2018-01-25] MEDS: Budesonide/Formoterol 160/4.5 MDI IH SCH ×2 (10:43→22:47)
--- NOTE | 2018-01-25 16:36 | Podiatry Progress Note ---
Date of Encounter: 01/25/18 Time of Encounter: 12:30 - Assessment and Plan (1) CKD (chronic kidney disease) stage 3, GFR 30-59 ml/min Current Visit: No Status: Chronic (2) Diabetes mellitus Current Visit: No Status: Chronic Qualifiers: Diabetes mellitus type: type 2 Diabetes mellitus wastewater operator insulin use: with wastewater operator use Diabetes mellitus complication status: with kidney complications Diabetes mellitus complication detail: with chronic kidney disease Chronic kidney disease stage: stage 3 (moderate) Qualified Code(s): E11.22 - Type 2 diabetes mellitus with diabetic chronic kidney disease; N18.3 - Chronic kidney disease, stage 3 (moderate); N18.3 - Chronic kidney disease, stage 3 (moderate); Z79.4 - residential (current) use of insulin; Z79.4 - residential (current) use of insulin; Z79.4 - systems engineer (current) use of insulin; Z79.4 - residential (current) use of insulin (3) Type 2 diabetes mellitus with foot ulcer Current Visit: Yes Status: Acute S/p incision and drainage left foot/ankle, excisional debridement of left foot wound, bone biopsy by Dr. Alegre on 01/22/18. Wound vac intact to the left foot with 10 mls of serous drainage observed to canister, moderate amount of strikethrough drainage observed to dressing from incision line of lateral left ankle. WBC: 6.8, a febrile Wound cultures: 01/21/18 Left foot- isolated Haemophilus parainfluenzae 01/22/18 Left ankle- isolated MSSA 01/22/18 Left foot: no pathogens isolated Intraop bone culture pending. Plan: Wound vac intact to ulceration of base of 5th metatarsal. Wound care orders: Apply adaptic with small back simplace wound vac sponge to ulceration at base of 5th metatarsal lateral aspect, connect to 125 mmhg low continuous suction. Prep surrounding skin with Allkare and apply drape, apply adaptic to incision line with 4x4 dry sterile gauze and kerlix. Patient will be discharged with wound vac, change every M-W-F. Wound vac paperwork completed today. Will consult drug abuse social worker for discharge needs. Patient needs to be in a rehab to manage the wound vac. Patient will require wound vac changes every M-W- F. Continue heel relief boot while in bed. NWB to left foot. Antibiotic therapy per Hospitalist, Vancomycin discontinued, on cefepime 2 g every 8 hours for gram-negative coverage F/u with Dr. Alegre in wound care one week after discharge from hospital. Qualifiers: Diabetes mellitus wastewater operator insulin use: with wastewater operator use Qualified Code( s): E11.621 - Type 2 diabetes mellitus with foot ulcer; L97.509 - Non-pressure chronic ulcer of other part of unspecified foot with unspecified severity; L97.509 - Non-pressure chronic ulcer of other part of unspecified foot with unspecified severity; L97.509 - Non-pressure chronic ulcer of other part of unspecified foot with unspecified severity; L97.509 - Non-pressure chronic ulcer of other part of unspecified foot with unspecified severity; Z79.4 - systems engineer (current) use of insulin; Z79.4 - residential (current) use of insulin; Z79.4 - systems engineer (current) use of insulin; Z79.4 - residential (current) use of insulin Subjective Interval history: Patient is s/p incision and drainage left foot/ankle, excisional debridement of left foot wound, bone biopsy by Dr. Alegre on 01/22/18. Patient is sitting up in bed eating lunch with dressing intact to the left foot and connected to wound vac. Patient denies any pain currently. No c/o fever, cp, sob. Objective - Vital Signs Vital Signs: Vital Signs Temp Pulse Resp BP Pulse Ox 01/25/18 15:00 97.6 F 73 16 132/79 96 01/25/18 11:00 98.8 F 65 16 130/65 96 01/25/18 07:16 98.1 F 81 16 152/80 96 01/25/18 04:12 97.9 F 72 14 131/81 94 01/25/18 00:55 98.5 F 75 14 132/76 95 01/24/18 20:42 18 96 01/24/18 19:00 99.1 F 96 16 137/76 97 Intake and Output 01/25/18 01/25/18 01/25/18 07:59 15:59 23:59 Intake Total 288.3 / 288.3 131.3 / 131.3 Output Total 1300 / 1300 425 / 425 Balance -1011.7 / -1011.7 -293.7 / -293.7 Intake: IV Fluids 48.3 / 48.3 11.3 / 11.3 Heparin 25,000 UNIT/500 ML D5W 28.3 / 28.3 11.3 / 11.3 25,000 unit In 500 ml @ 14 UNIT /KG/HR 35.924 mls/hr IVC . [id number] [facility] Rx#:[id number] Maxipime 2,000 MG In Water for 20 / 20 inj. (sterile) 20 ML @ 300 mls/ hr IVP Q12HR [facility] Rx#:[id number] Oral 240 / 240 120 / 120 Output: Urine 1300 / 1300 425 / 425 Other: Meal Breakfast Percent of Meal Consumed 100% Stool Size Small Stool Color Black # Bowel Movements 1 Weight 130.317 kg Blood Glucose* 192 194 318 Patient Weight 01/25/18 23:59 Weight 130.317 kg - Exam Exam: General appearance: alert awake oriented X 3. Calm and pleasant, no acute distress.. Vascular: No evidence of cyanosis, pallor or rubor, Edema graded at 1+/4, Skin Temperature warm, No calf pain with manual compression. capillary refill time is immediate to digits. Neurologic: Sensation diminished with light touch to foot. . Postop Exam: S/P Sutures intact to incision line to left lateral ankle no signs of dehiscence , light periwound erythema, no streaking. Small black simplace wound vac sponge intact to the left lateral foot at the base of the 5th metatarsal. 10 ml of serous drainage observed to canister. Moderate amount of serous drainage observed to dressing from incision line. No pus, no odor, no erythema, no streaking. Minimal edema. Ecchymosis to the medial left ankle, 1.5 cm in diameter. - Lab Result Diagrams: 01/25/18 04:00 01/25/18 04:00 Labs: Abnormal lab results RBC 2.83 M/mcL (4.19-5.50) L 01/25/18 04:00 Hgb 8.3 g/dL (12.9-16.9) L 01/25/18 04:00 Hct 26.5 % (37.5-50.1) L 01/25/18 04:00 MCHC 31.3 g/dL (31.6-35.5) L 01/25/18 04:00 RDW 15.0 % (11.5-14.5) H 01/25/18 04:00 Nucleated RBCs/100 WBC 0.3 /100 WBC (0) H 01/25/18 04:00 PT 20.5 Seconds (9.4-12.1) H 01/25/18 04:00 APTT 55.4 Seconds (26.0-36.0) H D 01/25/18 09:40 Sodium 135 mEq/L (136-145) L 01/25/18 04:00 Creatinine 1.31 mg/dL (0.70-1.30) H 01/25/18 04:00 Est GFR (Non-Af Amer) 55 (> 60) L 01/25/18 04:00 Glucose 194 mg/dL (70-105) H 01/25/18 04:00 POC Glucose 257 mg/dL (70-99) H 01/24/18 16:59 Hemoglobin A1c 7.5 % (-5.6) H 01/22/18 03:28 AST 11 Units/L (13-39) L 01/21/18 05:12 Albumin 3.1 g/dL (3.5-5.7) L 01/21/18 05:12 Globulin 3.6 g/dL (2.4-3.5) H 01/21/18 05:12 Albumin/Globulin Ratio 0.9 (1.1-2.2) L 01/21/18 05:12 Vancomycin Trough 15 mcg/mL (5-10) H 01/23/18 08:00 Consult Discharge Plan - Plan Referrals: Calli Estes, FUR REPAIRER [Primary Care Provider] -
[2018-01-25] MEDS: Ampicillin/Sulbactam 3,000 MG in 0.9 % Sodium Chloride Mini Bag 100 ML IVPB SCH ×2 (17:41→23:25)
[2018-01-25] MEDS ORDERED: *HR* Warfarin 10 MG TABLET PO ONE (18:00)
[2018-01-25] MEDS ORDERED: Warfarin perPT PO PRN (18:00)
[2018-01-25] MEDS: Gabapentin 100 MG CAPSULE PO SCH (20:15)
[2018-01-25] MEDS: Insulin DETEMIR 100 UNIT/ML X5UNITS SQ SCH (20:20)
[2018-01-25 23:22] LABS: Activated Partial Thrombo Time 166.8 Seconds (26.0-36.0)
[2018-01-25 23:23] LABS: Heparin anti-factor XA UFH 0.25 IU/mL (0.30-0.70)
[2018-01-26] MEDS: Heparin 25,000 UNIT/500 ML D5W 25,000 UNIT/500 ML BAG IVC SCH ×2 (02:40→20:22)
[2018-01-26] MEDS: FLECAINIDE ACETATE 100 MG PO SCH ×2 (05:31→17:18)
[2018-01-26] MEDS: Ampicillin/Sulbactam 3,000 MG in 0.9 % Sodium Chloride Mini Bag 100 ML IVPB SCH ×4 (05:32→23:36)
[2018-01-26 06:00] LABS: Basophils % 0.4 %; Eosinophils # 0.3 K/mcL (0.0-0.6); Hematocrit 25.6 % (37.5-50.1); Hemoglobin 8.1 g/dL (12.9-16.9); Immature Granulocytes % 1.4 % (0-4); Lymphocytes # 0.6 K/mcL (0.6-4.6); Lymphocytes % 8.3 %; Mean Corpuscular HGB Conc 31.6 g/dL (31.6-35.5); Mean Corpuscular Hemoglobin 29.5 pg (28.0-33.3); Mean Corpuscular Volume 93.1 fL (83.0-100.0); Mean Platelet Volume 10.2 fL (9.4-12.4); Monocytes # 0.5 K/mcL (0.0-1.3); Monocytes % 6.1 %; Neutrophils # 6.2 K/mcL (1.6-8.9); Nucleated Red Blood Cells 0.6 /100 WBC (0); Platelet Count 293 K/mcL (140-400); Red Blood Count 2.75 M/mcL (4.19-5.50); Red Cell Distribution Width 15.3 % (11.5-14.5); Segmented Neutrophils % 79.8 %
[2018-01-26 06:03] LABS: INR 1.9; Prothrombin Time 20.7 Seconds (9.4-12.1)
[2018-01-26 06:15] LABS: BUN/Creatinine Ratio 14 (6-26); Blood Urea Nitrogen 19 mg/dL (8-23); Calcium 8.6 mg/dL (8.6-10.3); Carbon Dioxide 28 mEq/L (23-29); Chloride 103 mEq/L (98-107); Glucose 212 mg/dL (70-105); Osmolality,Calculated 295 (280-300); Potassium 4.4 mEq/L (3.5-5.1); Sodium 138 mEq/L (136-145); eGFR For African Americans > 60 (> 60); eGFR For Non-African Americans 52 (> 60)
[2018-01-26] MEDS: *HR* Heparin 5,000 UNIT/ML VIAL IVP PRN (06:35)
[2018-01-26] MEDS: Budesonide/Formoterol 160/4.5 MDI IH SCH ×2 (07:47→20:38)
[2018-01-26] MEDS: Insulin LISPRO 300 UNITS/3 ML VIAL SQ SCH ×7 (08:45→20:48)
[2018-01-26] MEDS: Fenofibrate 54 MG TABLET PO SCH (08:47)
[2018-01-26] MEDS: Cholecalciferol (D-3) 1,000 UNIT TABLET PO SCH (08:47)
[2018-01-26] MEDS: Bicalutamide 50 MG TABLET PO SCH (08:47)
[2018-01-26] MEDS: Primidone 50 MG TABLET PO SCH ×2 (08:47→20:30)
[2018-01-26] MEDS: Valsartan 80 MG TABLET PO SCH (08:47)
[2018-01-26] MEDS: Aspirin Enteric Coated 81 MG Tablet PO SCH (08:48)
[2018-01-26] MEDS: Gabapentin 300 MG CAPSULE PO SCH ×3 (08:48→17:18)
--- NOTE | 2018-01-26 10:48 | Internal Med Progress Note ---
<Jordan Price - Last Filed: 01/26/18 13:38> Date of Encounter: 01/26/18 Time of Encounter: 10:46 - Assessment and plan (1) Type 2 diabetes mellitus with foot ulcer Current Visit: Yes Status: Acute Assessment and plan: - pt had a diabetic ulcer at the bottom of the left foot, had a recent procedure done by a selector packer, wound was poorly healed after surgery. - He has an insulin pump, however he reports not using it consistently due to complexity. Blood sugars were poorly controlled on admission the hospital. 01/22: I&D with bone biopsy, tolerated procedure well. Pain control with Tylenol and Roxicodone prn. 01/23 blood cultures NGTD, wound culture prelim gram neg coccobacilli ( H.parainfluenza), MSSA. - A1c of 7.5% on admission, blood sugars running in the mid to high 200s. Possibly elevated secondary to infection vs stress. Stable today at 221 - Basal insulin was increased to 30 units QHS. We will adjust sliding scale if sugars do not improve - Wound cultures growing MSSA, H. parainfluenza. Plan - Continue antibiotics, deescalated to unasyn on 01/25, total of day 3 of gram negative coverage. Had 6 days of vancomycin previously. - Bone biopsy pending, operative report stated soft bone on debridement. - Podiatry following, appreciate recommendations. Per note continue wound VAC and follow-up with Dr. Alegre one week after discharge Qualifiers: Diabetes mellitus prison insulin use: with termite exterminator helper use Qualified Code( s): E11.621 - Type 2 diabetes mellitus with foot ulcer; L97.509 - Non-pressure chronic ulcer of other part of unspecified foot with unspecified severity; L97.509 - Non-pressure chronic ulcer of other part of unspecified foot with unspecified severity; L97.509 - Non-pressure chronic ulcer of other part of unspecified foot with unspecified severity; L97.509 - Non-pressure chronic ulcer of other part of unspecified foot with unspecified severity; Z79.4 - lobsterman (current) use of insulin; Z79.4 - USP (current) use of insulin; Z79.4 - USP (current) use of insulin; Z79.4 - USP (current) use of insulin (2) S/P aortic valve replacement Current Visit: Yes Status: Chronic Assessment and plan: Bridging back to Coumadin for goal INR of 2.5-3.5 INR continues to be subtherapeutic at 1.9, pharmacy to dose Discussed with pharmacy and will increase coumadin dose tonight to increase goal Continue heparin drip until INR is therapeutic (3) Chronic renal failure, stage 3 (moderate) Current Visit: No Status: Chronic Assessment and plan: - Chronic renal failure stage III - The BUN/creatinine of 17/1.38, stable from previous. - Creatinine appears to be at baseline levels Plan - Continue supportive care, avoid nephrotoxic agents - Renally dose medications and trend BMP (4) GERD (gastroesophageal reflux disease) Current Visit: No Status: Chronic Assessment and plan: - Continue home medications. - Stable, no acute exacerbations per patient Qualifiers: Esophagitis presence: esophagitis presence not specified Qualified Code(s) : K21.9 - Gastro-esophageal reflux disease without esophagitis (5) Diastolic heart failure Current Visit: No Status: Chronic Assessment and plan: - Euvolemic, we will continue to monitor. No acute issues Qualifiers: Heart failure chronicity: chronic Qualified Code(s): I50.32 - Chronic diastolic (congestive) heart failure (6) Hypertension Current Visit: No Status: Chronic Assessment and plan: - BP under control, continue home medications. Mildly elevated this morning, has been under control. Most recent BP of 151/80 Qualifiers: Hypertension type: essential hypertension Qualified Code(s): I10 - Essential (primary) hypertension (7) Cellulitis Current Visit: Yes Status: Acute Assessment and plan: - See plan as mentioned above. Continue antibiotics. Blood cultures NGTD - Wound culture growing Haemophilus parainfluenza, MSSA - Bone biopsy pending Qualifiers: Site of cellulitis: extremity Site of cellulitis of extremity: lower extremity Laterality: left Qualified Code(s): L03.116 - Cellulitis of left lower limb (8) DVT prophylaxis Current Visit: Yes Status: Acute Assessment and plan: - On heparin gtt while bridging back to coumadin (9) Tobacco use Current Visit: Yes Status: Acute Assessment and plan: - Pt observed to be using chewing tobacco on exam. Encouraged to quit both while inpatient and after discharge. - Time Spent With Patient Total time spent is greater than 50% in coordination of care (as documented) at patient's floor/unit and/or counseling patient: - Subjective Interval history: Patient seen and examined at bedside. States he has had no fevers, chills, nausea, vomiting. No complaints of pain today in his left lower extremity, states he is ready to be discharged at any time. And is eager to go home. No symptoms of redness, warmth, drainage from his wound. - Constitutional Vitals: Temp Pulse Resp BP Pulse Ox 98.4 F 66 16 151/80 97 01/26/18 07:27 01/26/18 07:27 01/26/18 07:27 01/26/18 07:27 01/26/18 07:27 General appearance: Present: A&O X 3 Exam: Gen.: Vitals noted. No acute distress. AAOx3 HEENT: PERRL/EOMI, oropharynx clear, Normocephalic, atraumatic, MMM Cardiac: RRR, no murmur, +S1/S2, prominent S2 as previous. Pulmonary: CTA bilaterally, no wheezes, rales or rhonchi, equal chest expansion Abdomen: soft, nontender, BS noted, no guarding, no rebound. MSK: ROM intact, no joint swelling noted Extremities: no BLE edema, nontender calf, no cyanosis or clubbing. LLE with kerlix surrounding, no appreciable warmth or erythema. No drainage. Left heel does have necrotic tissue visible. Wound vac attached with no output. Neuro: A&Ox3, moves all extremities, no focal deficits Psych: Appropriate mood and behavior Internal Medicine: Result - Labs CBC & Chem 7: 01/26/18 05:04 01/26/18 05:30 Labs: Short CBC 01/26/18 Range/Units 05:04 WBC 7.7 (4.3-11.1) K/mcL Hgb 8.1 L (12.9-16.9) g/dL Hct 25.6 L (37.5-50.1) % Plt Count 293 (140-400) K/mcL Neutrophils # 6.2 (1.6-8.9) K/mcL BMP 01/26/18 05:30 Sodium 138 Potassium 4.4 Chloride 103 Carbon Dioxide 28 BUN 19 Creatinine 1.38 H Glucose 212 H Calcium 8.6 - ABG Interpretation ABG results: PT/INR, D-dimer PT 20.7 Seconds (9.4-12.1) H 01/26/18 05:30 Consult Discharge Plan - Plan Referrals: Calli Estes, CLIMATOLOGY TEACHER [Primary Care Provider] - <Shine Hein - Last Filed: 01/26/18 17:41> Date of Encounter: 01/26/18 - Assessment and plan (1) Type 2 diabetes mellitus with foot ulcer Current Visit: Yes Status: Acute Qualifiers: Diabetes mellitus termite exterminator helper insulin use: with prison use Qualified Code( s): E11.621 - Type 2 diabetes mellitus with foot ulcer; L97.509 - Non-pressure chronic ulcer of other part of unspecified foot with unspecified severity; L97.509 - Non-pressure chronic ulcer of other part of unspecified foot with unspecified severity; L97.509 - Non-pressure chronic ulcer of other part of unspecified foot with unspecified severity; L97.509 - Non-pressure chronic ulcer of other part of unspecified foot with unspecified severity; Z79.4 - USP (current) use of insulin; Z79.4 - lobsterman (current) use of insulin; Z79.4 - lobsterman (current) use of insulin; Z79.4 - lobsterman (current) use of insulin (2) Cellulitis Current Visit: Yes Status: Acute Qualifiers: Site of cellulitis: extremity Site of cellulitis of extremity: lower extremity Laterality: left Qualified Code(s): L03.116 - Cellulitis of left lower limb (3) DVT prophylaxis Current Visit: Yes Status: Acute (4) S/P aortic valve replacement Current Visit: Yes Status: Chronic (5) Chronic renal failure, stage 3 (moderate) Current Visit: No Status: Chronic (6) GERD (gastroesophageal reflux disease) Current Visit: No Status: Chronic Qualifiers: Esophagitis presence: esophagitis presence not specified Qualified Code(s) : K21.9 - Gastro-esophageal reflux disease without esophagitis (7) Diastolic heart failure Current Visit: No Status: Chronic Qualifiers: Heart failure chronicity: chronic Qualified Code(s): I50.32 - Chronic diastolic (congestive) heart failure (8) Hypertension Current Visit: No Status: Chronic Qualifiers: Hypertension type: essential hypertension Qualified Code(s): I10 - Essential (primary) hypertension (9) Tobacco use Current Visit: Yes Status: Acute - Time Spent With Patient Total time spent is greater than 50% in coordination of care (as documented) at patient's floor/unit and/or counseling patient: - Constitutional Vitals: Temp Pulse Resp BP Pulse Ox 98.8 F 64 16 153/79 97 01/26/18 15:00 01/26/18 15:00 01/26/18 15:00 01/26/18 15:00 01/26/18 15:00 Internal Medicine: Result - Labs CBC & Chem 7: 01/26/18 05:04 01/26/18 05:30 Labs: Short CBC 01/26/18 Range/Units 05:04 WBC 7.7 (4.3-11.1) K/mcL Hgb 8.1 L (12.9-16.9) g/dL Hct 25.6 L (37.5-50.1) % Plt Count 293 (140-400) K/mcL Neutrophils # 6.2 (1.6-8.9) K/mcL BMP 01/26/18 05:30 Sodium 138 Potassium 4.4 Chloride 103 Carbon Dioxide 28 BUN 19 Creatinine 1.38 H Glucose 212 H Calcium 8.6 - ABG Interpretation ABG results: PT/INR, D-dimer PT 20.7 Seconds (9.4-12.1) H 01/26/18 05:30 - Attending Attestation I examined this patient and my medical decision-making was reviewed with the Resident Physician on 01/26/18. I agree with the documented findings, disposition and treatment plan as described except to the extent set forth below. Mr Cortez is currently admitted for diabetic foot ulcer with possible OM. He remains moderate risk at this time. Mr Cortez feels OK. No fever. Tolerating current treatment. Awaiting bone biopsy results. Exam Alert Comfortable Mucus membranes dry Heart distant No wheeze Abd soft Dressing intact I/P 1. Possible OM 2. Diabetic foot ulcer Further diagnoses and plan as above.
[2018-01-26] MEDS: Gentamicin Oint 15 GM TUBE TP SCH (10:57)
[2018-01-26] MEDS ORDERED: Insulin LISPRO 300 UNITS/3 ML VIAL SQ SCH (14:28)
[2018-01-26] MEDS: OXYCODONE Oral CONC 10 MG/0.5 ML ORAL.SYG SL PRN ×2 (15:18→22:03)
--- NOTE | 2018-01-26 16:19 | Podiatry Progress Note ---
Date of Encounter: 01/26/18 Time of Encounter: 12:30 - Assessment and Plan (1) CKD (chronic kidney disease) stage 3, GFR 30-59 ml/min Current Visit: No Status: Chronic (2) Diabetes mellitus Current Visit: No Status: Chronic Qualifiers: Diabetes mellitus type: type 2 Diabetes mellitus estimate clerk insulin use: with estimate clerk use Diabetes mellitus complication status: with kidney complications Diabetes mellitus complication detail: with chronic kidney disease Chronic kidney disease stage: stage 3 (moderate) Qualified Code(s): E11.22 - Type 2 diabetes mellitus with diabetic chronic kidney disease; N18.3 - Chronic kidney disease, stage 3 (moderate); N18.3 - Chronic kidney disease, stage 3 (moderate); Z79.4 - USP (current) use of insulin; Z79.4 - USP (current) use of insulin; Z79.4 - corporate relations director (current) use of insulin; Z79.4 - USP (current) use of insulin (3) Type 2 diabetes mellitus with foot ulcer Current Visit: Yes Status: Acute S/p incision and drainage left foot/ankle, excisional debridement of left foot wound, bone biopsy by Dr. Alegre on 01/22/18. Wound vac intact to the left foot with 20 mls of serous drainage observed to canister, moderate amount of strike through drainage observed to dressing from incision line of lateral left ankle. Unstageable left heel ulcer. WBC: 7.7, a febrile Wound cultures: 01/21/18 Left foot- isolated Haemophilus parainfluenzae 01/22/18 Left ankle- isolated MSSA 01/22/18 Left foot: no pathogens isolated Intraop bone culture pending. Plan: Wound vac changed at bedside. One suture removed from incision line to allow for drainage, incision irrigated with saline, calcium alginate applied with 4x4 dry sterile gauze and kerlix. Wound care orders: Apply adaptic with small back simplace wound vac sponge to ulceration at base of 5th metatarsal lateral aspect, connect to 125 mmhg low continuous suction. Prep surrounding skin with Allkare and apply drape, apply calcium alginate to incision line with 4x4 dry sterile gauze and kerlix. Patient will be discharged with wound vac, change every M-W-. Wound vac paperwork completed. Apply 50/50 mix of Santyl and Gentamicin on saline moistened gauze to the left heel ulcer. Change daily. office services manager consulted for discharge needs. Patient needs to be in a rehab to manage the wound vac. Patient will require wound vac changes every --. Continue heel relief boot while in bed. NWB to left foot. Antibiotic therapy per Hospitalist, Vancomycin discontinued, on cefepime 2 g every 8 hours for gram-negative coverage F/u with Dr. Alegre in wound care one week after discharge from hospital. Qualifiers: Diabetes mellitus retirement insulin use: with retirement use Qualified Code( s): E11.621 - Type 2 diabetes mellitus with foot ulcer; L97.509 - Non-pressure chronic ulcer of other part of unspecified foot with unspecified severity; L97.509 - Non-pressure chronic ulcer of other part of unspecified foot with unspecified severity; L97.509 - Non-pressure chronic ulcer of other part of unspecified foot with unspecified severity; L97.509 - Non-pressure chronic ulcer of other part of unspecified foot with unspecified severity; Z79.4 - USP (current) use of insulin; Z79.4 - corporate relations director (current) use of insulin; Z79.4 - USP (current) use of insulin; Z79.4 - corporate relations director (current) use of insulin Subjective Interval history: Patient is s/p incision and drainage left foot/ankle, excisional debridement of left foot wound, bone biopsy by Dr. Alegre on 01/22/18. Patient is lying in bed with dressing intact to the left foot, connected to wound vac. Patient denies any pain currently. No c/o fever, cp, sob. Objective - Vital Signs Vital Signs: Vital Signs Temp Pulse Resp BP Pulse Ox 01/26/18 15:00 98.8 F 64 16 153/79 97 01/26/18 11:45 98.3 F 61 14 134/70 96 01/26/18 07:47 18 93 01/26/18 07:27 98.4 F 66 16 151/80 97 01/26/18 03:43 98.6 F 73 14 114/72 96 01/25/18 23:10 98.7 F 65 16 143/83 94 01/25/18 22:47 22 95 01/25/18 19:55 99.1 F 71 14 139/81 97 Intake and Output 01/26/18 01/26/18 01/26/18 07:59 15:59 23:59 Intake Total 260 / 260 1429 / 1429 Output Total 975 / 975 1150 / 1150 Balance -715 / -715 279 / 279 Intake: IV Fluids 260 / 260 309 / 309 Heparin 25,000 UNIT/500 ML D5W 160 / 160 209 / 209 25,000 unit In 500 ml @ 14 UNIT /KG/HR 35.924 mls/hr IVC . [id number] [facility] Rx#:[id number] Unasyn 3,000 MG In 0.9 % Sodium 100 / 100 100 / 100 Chloride (Mini-Bag +) 100 ML @ 200 mls/hr IVPB Q6HR [facility] Rx#: [id number] Oral 0 / 0 1120 / 1120 Output: Urine 975 / 975 1150 / 1150 Wound Drainage 0 / 0 left foot incision from I&D 04/ 0 / 0 Other: Meal Full Percent of Meal Consumed 100% Weight 131 kg Blood Glucose* 221 329 Patient Weight 01/26/18 23:59 Weight 131 kg - Exam Exam: General appearance: alert awake oriented X 3. Calm and pleasant, no acute distress.. Vascular: No evidence of cyanosis, pallor or rubor, Edema graded at 1+/4, Skin Temperature warm, No calf pain with manual compression. capillary refill time is immediate to digits. Neurologic: Sensation diminished with light touch to foot. . Postop Exam: S/P Sutures intact to incision line to left lateral ankle with macerated wound edges to the proximal end of the incision line, with light periwound erythema, no streaking. Small black simplace wound vac sponge intact to the left lateral foot at the base of the 5th metatarsal. 20 ml of serous drainage observed to canister. Moderate amount of serous drainage observed to dressing from incision line. No pus, no odor, no erythema, no streaking. Minimal edema. Wound vac removed: Full thickness ulceration to the base of the 5th metatarsal, lateral aspect measuring 2.5 cm in length x 1.2 cm in width x 0.7 cm in depth, base of wound with 100% granulation tissue. No pus, no odor, no streaking. Minimal edema. Ecchymosis to the medial left ankle, 1.5 cm in diameter. Ulcer to the posterior aspect of the left heel measuring 2 cm in length x 1.5 cm in width, unstageable with black eschar connected. - Lab Result Diagrams: 01/26/18 05:04 01/26/18 05:30 Labs: Abnormal lab results RBC 2.75 M/mcL (4.19-5.50) L 01/26/18 05:04 Hgb 8.1 g/dL (12.9-16.9) L 01/26/18 05:04 Hct 25.6 % (37.5-50.1) L 01/26/18 05:04 RDW 15.3 % (11.5-14.5) H 01/26/18 05:04 Nucleated RBCs/100 WBC 0.6 /100 WBC (0) H 01/26/18 05:04 PT 20.7 Seconds (9.4-12.1) H 01/26/18 05:30 APTT 87.1 Seconds (26.0-36.0) H D 01/26/18 12:30 Heparin Anti-Xa, Unfract 0.25 IU/mL (0.30-0.70) L 01/25/18 22:45 Creatinine 1.38 mg/dL (0.70-1.30) H 01/26/18 05:30 Est GFR (Non-Af Amer) 52 (> 60) L 01/26/18 05:30 Glucose 212 mg/dL (70-105) H 01/26/18 05:30 POC Glucose 329 mg/dL (70-99) H 01/26/18 11:40 Hemoglobin A1c 7.5 % (-5.6) H 01/22/18 03:28 AST 11 Units/L (13-39) L 01/21/18 05:12 Albumin 3.1 g/dL (3.5-5.7) L 01/21/18 05:12 Globulin 3.6 g/dL (2.4-3.5) H 01/21/18 05:12 Albumin/Globulin Ratio 0.9 (1.1-2.2) L 01/21/18 05:12 Vancomycin Trough 15 mcg/mL (5-10) H 01/23/18 08:00 Consult Discharge Plan - Plan Referrals: Calli Estes, SPIRITUAL MINISTER [Primary Care Provider] -
[2018-01-26] MEDS ORDERED: *HR* Warfarin 10 MG TABLET PO ONE ×2 (18:00)
[2018-01-26] MEDS: Gabapentin 100 MG CAPSULE PO SCH (20:30)
[2018-01-26] MEDS: Insulin DETEMIR 100 UNIT/ML X5UNITS SQ SCH (20:31)
[2018-01-27] MEDS: Ampicillin/Sulbactam 3,000 MG in 0.9 % Sodium Chloride Mini Bag 100 ML IVPB SCH ×3 (05:49→17:41)
[2018-01-27] MEDS: FLECAINIDE ACETATE 100 MG PO SCH ×2 (05:50→17:43)
[2018-01-27] MEDS: Budesonide/Formoterol 160/4.5 MDI IH SCH ×2 (08:01→22:45)
[2018-01-27] MEDS: Fenofibrate 54 MG TABLET PO SCH (08:58)
[2018-01-27] MEDS: Valsartan 80 MG TABLET PO SCH (08:59)
[2018-01-27] MEDS: Cholecalciferol (D-3) 1,000 UNIT TABLET PO SCH (08:59)
[2018-01-27] MEDS: Primidone 50 MG TABLET PO SCH ×2 (08:59→20:18)
[2018-01-27] MEDS: Gabapentin 300 MG CAPSULE PO SCH ×3 (08:59→17:41)
[2018-01-27] MEDS: Bicalutamide 50 MG TABLET PO SCH (08:59)
[2018-01-27] MEDS: Aspirin Enteric Coated 81 MG Tablet PO SCH (09:00)
[2018-01-27] MEDS: Insulin LISPRO 300 UNITS/3 ML VIAL SQ SCH ×7 (09:00→20:14)
[2018-01-27] MEDS: OXYCODONE Oral CONC 10 MG/0.5 ML ORAL.SYG SL PRN ×2 (09:01→20:18)
[2018-01-27] MEDS: Gentamicin Oint 15 GM TUBE TP SCH (09:03)
--- NOTE | 2018-01-27 11:37 | Internal Med Progress Note ---
<Jordan Price - Last Filed: 01/27/18 15:17> Date of Encounter: 01/27/18 Time of Encounter: 11:32 - Assessment and plan (1) Type 2 diabetes mellitus with foot ulcer Current Visit: Yes Status: Acute Assessment and plan: - pt had a diabetic ulcer at the bottom of the left foot, had a recent procedure done by a credit products officer, wound was poorly healed after surgery. - He has an insulin pump, however he reports not using it consistently due to complexity. Blood sugars were poorly controlled on admission the hospital. 01/22: I&D with bone biopsy, tolerated procedure well. Pain control with Tylenol and Roxicodone prn. 01/23 blood cultures NGTD, wound culture prelim gram neg coccobacilli ( H.parainfluenza), MSSA. - A1c of 7.5% on admission, blood sugars improved to 100s. Possibly elevated secondary to infection vs stress. - Basal insulin was increased to 30 units QHS. Adjust sliding scale insulin yesterday - Wound cultures growing MSSA, H. parainfluenza. Plan - Continue antibiotics, deescalated to unasyn on 01/25, total of day 4 of gram negative coverage. Had 6 days of vancomycin previously. - Bone biopsy pending, operative report stated soft bone on debridement. - Podiatry following, appreciate recommendations. Per note continue wound VAC and follow-up with Dr. Alegre one week after discharge - Per podiatry recommendation, will consult ID and obtain ESR, CRP for antibiotic management with possibility of osteomyelitis. Qualifiers: Diabetes mellitus rehabilitation construction specialist insulin use: with rehabilitation construction specialist use Qualified Code( s): E11.621 - Type 2 diabetes mellitus with foot ulcer; L97.509 - Non-pressure chronic ulcer of other part of unspecified foot with unspecified severity; L97.509 - Non-pressure chronic ulcer of other part of unspecified foot with unspecified severity; L97.509 - Non-pressure chronic ulcer of other part of unspecified foot with unspecified severity; L97.509 - Non-pressure chronic ulcer of other part of unspecified foot with unspecified severity; Z79.4 - chief technician (current) use of insulin; Z79.4 - care home (current) use of insulin; Z79.4 - chief technician (current) use of insulin; Z79.4 - care home (current) use of insulin (2) S/P aortic valve replacement Current Visit: Yes Status: Chronic Assessment and plan: Bridging back to Coumadin for goal INR of 2.5-3.5 INR continues to be subtherapeutic at 2.0, pharmacy to dose Discussed with pharmacy and will increase coumadin dose tonight to increase goal Continue heparin drip until INR is therapeutic (3) Chronic renal failure, stage 3 (moderate) Current Visit: No Status: Chronic Assessment and plan: - Chronic renal failure stage III - The BUN/creatinine of 17.38 most recently, stable from previous. - Creatinine appears to be at baseline levels Plan - Continue supportive care, avoid nephrotoxic agents - Renally dose medications and trend BMP (4) GERD (gastroesophageal reflux disease) Current Visit: No Status: Chronic Assessment and plan: - Continue home medications. - Stable, no acute exacerbations per patient Qualifiers: Esophagitis presence: esophagitis presence not specified Qualified Code(s) : K21.9 - Gastro-esophageal reflux disease without esophagitis (5) Diastolic heart failure Current Visit: No Status: Chronic Assessment and plan: - Euvolemic, we will continue to monitor. No acute issues Qualifiers: Heart failure chronicity: chronic Qualified Code(s): I50.32 - Chronic diastolic (congestive) heart failure (6) Hypertension Current Visit: No Status: Chronic Assessment and plan: - BP under control, continue home medications. Mildly elevated this morning, has been under control. Most recent BP of 124/62 Qualifiers: Hypertension type: essential hypertension Qualified Code(s): I10 - Essential (primary) hypertension (7) Cellulitis Current Visit: Yes Status: Acute Assessment and plan: - See plan as mentioned above. Continue antibiotics. Blood cultures NGTD - Wound culture growing Haemophilus parainfluenza, MSSA - Bone biopsy pending Qualifiers: Site of cellulitis: extremity Site of cellulitis of extremity: lower extremity Laterality: left Qualified Code(s): L03.116 - Cellulitis of left lower limb (8) DVT prophylaxis Current Visit: Yes Status: Acute Assessment and plan: - On heparin gtt while bridging back to coumadin (9) Tobacco use Current Visit: Yes Status: Acute Assessment and plan: - Pt observed to be using chewing tobacco on exam. Encouraged to quit both while inpatient and after discharge. - Time Spent With Patient Total time spent is greater than 50% in coordination of care (as documented) at patient's floor/unit and/or counseling patient: 25 - 35 minutes - Subjective Interval history: Patient seen and examined at bedside. States he has had no fevers, chills, nausea, vomiting. No complaints of pain today in his left lower extremity, states he is ready to be discharged at any time. And is eager to go home. No symptoms of redness, warmth, drainage from his wound. No changes from yesterday - Constitutional Vitals: Temp Pulse Resp BP Pulse Ox 98.6 F 79 16 124/62 95 01/27/18 10:39 01/27/18 10:39 01/27/18 10:39 01/27/18 10:39 01/27/18 10:39 General appearance: Present: A&O X 3 Exam: Gen.: Vitals noted. No acute distress. AAOx3 HEENT: PERRL/EOMI, oropharynx clear, Normocephalic, atraumatic Cardiac: RRR, no murmur, +S1/S2, prominent S2 as before Pulmonary: CTA bilaterally, no wheezes, rales or rhonchi, equal chest expansion Abdomen: soft, nontender, BS noted, no guarding MSK: ROM intact, no joint swelling noted Extremities: no BLE edema, nontender calf, no cyanosis or clubbing. Left lower extremity wrapped in a boot, no evidence of warmth, drainage, infection. Wound vac attached with no drainage Neuro: A&Ox3, moves all extremities, no focal deficits Psych: Appropriate mood and behavior Internal Medicine: Result - Labs CBC & Chem 7: 01/26/18 05:04 01/26/18 05:30 - ABG Interpretation ABG results: PT/INR, D-dimer PT 22.0 Seconds (9.4-12.1) H 01/27/18 03:33 Consult Discharge Plan - Plan Additional Instructions: Wound care orders: Apply adaptic with small back simplace wound vac sponge to ulceration at base of 5th metatarsal lateral aspect, left foot, connect to 125 mmhg low continuous suction. Prep surrounding skin with Allkare and apply drape , apply calcium alginate to incision line of left lateral ankle with 4x4 dry sterile gauze and kerlix. Apply 50/50 mix of Santyl and Gentamicin on saline moistened gauze to the left heel ulcer. Wound Vac to be changed every M-W-F Referrals: Calli Estes, SPIRAL RUNNER [Primary Care Provider] - <Shine Hein - Last Filed: 01/27/18 17:56> Date of Encounter: 01/27/18 - Assessment and plan (1) Type 2 diabetes mellitus with foot ulcer Current Visit: Yes Status: Acute Qualifiers: Diabetes mellitus rehabilitation construction specialist insulin use: with rehabilitation construction specialist use Qualified Code( s): E11.621 - Type 2 diabetes mellitus with foot ulcer; L97.509 - Non-pressure chronic ulcer of other part of unspecified foot with unspecified severity; L97.509 - Non-pressure chronic ulcer of other part of unspecified foot with unspecified severity; L97.509 - Non-pressure chronic ulcer of other part of unspecified foot with unspecified severity; L97.509 - Non-pressure chronic ulcer of other part of unspecified foot with unspecified severity; Z79.4 - care home (current) use of insulin; Z79.4 - chief technician (current) use of insulin; Z79.4 - chief technician (current) use of insulin; Z79.4 - chief technician (current) use of insulin (2) Cellulitis Current Visit: Yes Status: Acute Qualifiers: Site of cellulitis: extremity Site of cellulitis of extremity: lower extremity Laterality: left Qualified Code(s): L03.116 - Cellulitis of left lower limb (3) S/P aortic valve replacement Current Visit: Yes Status: Chronic (4) Chronic renal failure, stage 3 (moderate) Current Visit: No Status: Chronic (5) GERD (gastroesophageal reflux disease) Current Visit: No Status: Chronic Qualifiers: Esophagitis presence: esophagitis presence not specified Qualified Code(s) : K21.9 - Gastro-esophageal reflux disease without esophagitis (6) Diastolic heart failure Current Visit: No Status: Chronic Qualifiers: Heart failure chronicity: chronic Qualified Code(s): I50.32 - Chronic diastolic (congestive) heart failure (7) Hypertension Current Visit: No Status: Chronic Qualifiers: Hypertension type: essential hypertension Qualified Code(s): I10 - Essential (primary) hypertension (8) Tobacco use Current Visit: Yes Status: Acute (9) DVT prophylaxis Current Visit: Yes Status: Acute - Time Spent With Patient Total time spent is greater than 50% in coordination of care (as documented) at patient's floor/unit and/or counseling patient: - Constitutional Vitals: Temp Pulse Resp BP Pulse Ox 98.1 F 63 17 149/73 98 01/27/18 15:10 01/27/18 15:10 01/27/18 15:10 01/27/18 15:10 01/27/18 15:10 Internal Medicine: Result - Labs CBC & Chem 7: 01/26/18 05:04 01/26/18 05:30 - ABG Interpretation ABG results: PT/INR, D-dimer PT 22.0 Seconds (9.4-12.1) H 01/27/18 03:33 - Attending Attestation I examined this patient and my medical decision-making was reviewed with the Resident Physician on 01/27/18. I agree with the documented findings, disposition and treatment plan as described except to the extent set forth below. Mr Cortez is currently admitted for diabetic foot ulcer and possible OM. He remains moderate to high risk due to potential for worsening clinical status. Mr Cortez is feeling OK. Bone biopsy not back yet. INR only 2 today. No fever. No CP or SOB. No GI issues. Exam alert Comfortable Mucus membranes dry Heart not tachy Lungs no wheeze Dressing intact I/P 1. Diabetic foot ulcer with possible OM 2. [facility] aortic valve Further diagnoses and plan as above. Awaiting bone bx results. ID to see regarding outpatient management of abx. Possible d/c tomorrow.
--- NOTE | 2018-01-27 12:23 | Podiatry Progress Note ---
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 insulin use: with local company intermodal truck driver use Diabetes mellitus complication status: with kidney complications Diabetes mellitus complication detail: with chronic kidney disease Chronic kidney disease stage: stage 3 (moderate) Qualified Code(s): E11.22 - Type 2 diabetes mellitus with diabetic chronic kidney disease; N18.3 - Chronic kidney disease, stage 3 (moderate); N18.3 - Chronic kidney disease, stage 3 (moderate); Z79.4 - skilled nursing (current) use of insulin; Z79.4 - skilled nursing (current) use of insulin; Z79.4 - intermediate school teacher (current) use of insulin; Z79.4 - skilled nursing (current) use of insulin (3) Type 2 diabetes mellitus with foot ulcer Current Visit: Yes Status: Acute S/p incision and drainage left foot/ankle, excisional debridement of left foot wound, bone biopsy by Dr. Alegre on 01/22/18. Unstageable left heel ulcer. Wound cultures: 01/21/18 Left foot- isolated Haemophilus parainfluenzae 01/22/18 Left ankle- isolated MSSA 01/22/18 Left foot: no pathogens isolated Intraop bone culture pending. Plan: Wound vac changed yesterday. Patient will be discharged with wound vac, change every M-W-F. Wound vac paperwork completed Wound care orders: Apply adaptic with small back simplace wound vac sponge to ulceration at base of 5th metatarsal lateral aspect, connect to 125 mmhg low continuous suction. Prep surrounding skin with Allkare and apply drape, apply calcium alginate to incision line of left lateral ankle with 4x4 dry sterile gauze and kerlix. . Apply 50/50 mix of Santyl and Gentamicin on saline moistened gauze to the left heel ulcer. Change daily. director of volunteer services consulted for discharge needs. Patient will require wound vac changes every M-W-F. Continue heel relief boot while in bed. NWB to left foot. Recommend consult to Infectious Disease for antibiotic therapy. Spoke with Dr. Hein and will consult ID once bone culture is finalized. F/u with Dr. Alegre in wound care one week after discharge from hospital. Qualifiers: Diabetes mellitus local company intermodal truck driver insulin use: with longterm use Qualified Code( s): E11.621 - Type 2 diabetes mellitus with foot ulcer; L97.509 - Non-pressure chronic ulcer of other part of unspecified foot with unspecified severity; L97.509 - Non-pressure chronic ulcer of other part of unspecified foot with unspecified severity; L97.509 - Non-pressure chronic ulcer of other part of unspecified foot with unspecified severity; L97.509 - Non-pressure chronic ulcer of other part of unspecified foot with unspecified severity; Z79.4 - intermediate school teacher (current) use of insulin; Z79.4 - intermediate school teacher (current) use of insulin; Z79.4 - skilled nursing (current) use of insulin; Z79.4 - skilled nursing (current) use of insulin Subjective Interval history: Patient is s/p incision and drainage left foot/ankle, excisional debridement of left foot wound, bone biopsy by Dr. Alegre on 01/22/18. Patient is sitting up in bed with dressing intact to the left foot, connected to wound vac. Patient denies any pain currently. No c/o fever, cp, sob. Objective - Vital Signs Vital Signs: Vital Signs Temp Pulse Resp BP Pulse Ox 01/27/18 10:39 98.6 F 79 16 124/62 95 01/27/18 08:01 16 95 01/27/18 07:05 98.5 F 72 16 137/83 95 01/27/18 04:22 98.7 F 74 16 128/73 95 01/26/18 20:39 16 95 01/26/18 20:00 98.7 F 68 16 155/83 94 01/26/18 15:00 98.8 F 64 16 153/79 97 Intake and Output 01/26/18 01/27/18 01/27/18 23:59 07:59 15:59 Intake Total 531 / 531 400 / 400 240 / 240 Output Total 450 / 450 950 / 950 Balance 81 / 81 -550 / -550 240 / 240 Intake: IV Fluids 291 / 291 200 / 200 Heparin 25,000 UNIT/500 ML D5W 191 / 191 25,000 unit In 500 ml @ 14 UNIT /KG/HR 35.924 mls/hr IVC . [id number] BECKY Rx#:[id number] Unasyn 3,000 MG In 0.9 % Sodium 100 / 100 200 / 200 Chloride (Mini-Bag +) 100 ML @ 200 mls/hr IVPB Q6HR BECKY Rx#: [id number] Oral 240 / 240 200 / 200 240 / 240 Output: Urine 450 / 450 950 / 950 Other: Meal Dinner Breakfast Percent of Meal Consumed 100% 100% Stool Size Large Stool Consistency formed Stool Color Brown Green Weight 129.7 kg Blood Glucose* 163 136 170 Patient Weight 01/27/18 23:59 Weight 129.7 kg - Exam Exam: General appearance: alert awake oriented X 3. Calm and pleasant, no acute distress.. Postop Exam: S/P Small black simplace wound vac sponge intact to the left lateral foot at the base of the 5th metatarsal. No drainage observed to canister. Dressing intact to the left foot with prevalon boot. - Lab Result Diagrams: 01/26/18 05:04 01/26/18 05:30 Labs: Abnormal lab results RBC 2.75 M/mcL (4.19-5.50) L 01/26/18 05:04 Hgb 8.1 g/dL (12.9-16.9) L 01/26/18 05:04 Hct 25.6 % (37.5-50.1) L 01/26/18 05:04 RDW 15.3 % (11.5-14.5) H 01/26/18 05:04 Nucleated RBCs/100 WBC 0.6 /100 WBC (0) H 01/26/18 05:04 PT 22.0 Seconds (9.4-12.1) H 01/27/18 03:33 APTT 88.7 Seconds (26.0-36.0) H 01/26/18 18:35 Heparin Anti-Xa, Unfract 0.25 IU/mL (0.30-0.70) L 01/25/18 22:45 Creatinine 1.38 mg/dL (0.70-1.30) H 01/26/18 05:30 Est GFR (Non-Af Amer) 52 (> 60) L 01/26/18 05:30 Glucose 212 mg/dL (70-105) H 01/26/18 05:30 POC Glucose 170 mg/dL (70-99) H 01/27/18 11:11 Hemoglobin A1c 7.5 % (-5.6) H 01/22/18 03:28 AST 11 Units/L (13-39) L 01/21/18 05:12 Albumin 3.1 g/dL (3.5-5.7) L 01/21/18 05:12 Globulin 3.6 g/dL (2.4-3.5) H 01/21/18 05:12 Albumin/Globulin Ratio 0.9 (1.1-2.2) L 01/21/18 05:12 Vancomycin Trough 15 mcg/mL (5-10) H 01/23/18 08:00 Consult Discharge Plan - Plan Additional Instructions: Wound care orders: Apply adaptic with small back simplace wound vac sponge to ulceration at base of 5th metatarsal lateral aspect, left foot, connect to 125 mmhg low continuous suction. Prep surrounding skin with Allkare and apply drape , apply calcium alginate to incision line of left lateral ankle with 4x4 dry sterile gauze and kerlix. Apply 50/50 mix of Santyl and Gentamicin on saline moistened gauze to the left heel ulcer. Wound Vac to be changed every M-W- Referrals: Calli Estes, MODELING AGENT [Primary Care Provider] -
[2018-01-27] MEDS: Heparin 25,000 UNIT/500 ML D5W 25,000 UNIT/500 ML BAG IVC SCH (14:21)
--- NOTE | 2018-01-27 14:26 | Infectious Disease Consult ---
Date of Encounter: 01/27/18 Time of Encounter: 14:24 Assessment and Plan (1) Osteomyelitis Status: Acute Assessment and plan: patient met one SIRS interior upon admission. 01/20/18 left foot x-ray showed diffuse soft tissue swelling along dorsal aspect of the left foot, near the metatarsals. No areas of bone destruction or periosteum reaction to suggest osteomyelitis. 01/20/18 blood cultures negative X2 sets. 01/21/18: left foot wound culture positive for Haemophilus parainfluenza 01/22/18 wound culture from left ankle positive for MSSA. 01/22/18 anaerobic cultures preliminary negative. 01/22/18 wound culture and anaerobic cultures negative. Creatinine clearance: 75 plan: left foot bone biopsy pending. patient received one day cefepime-stopped 01/25 he received 2 days vancomycin-stopped 01/24. unasyn day 2- continue duration of antibiotics: minimum six weeks place PICC line before dishcharge blood culutres x2 sets now will call micro tomorrow morning and request sensitivities for Haemophilus paraInfluenza Qualifiers: Osteomyelitis type: unspecified type Osteomyelitis location: foot Laterality: left Qualified Code(s): M86.9 - Osteomyelitis, unspecified (2) Foot ulcer Status: Acute Assessment and plan: plan as above Qualifiers: Laterality: right Non-pressure ulcer stage: unspecified non-pressure ulcer stage Qualified Code(s): L97.519 - Non-pressure chronic ulcer of other part of right foot with unspecified severity (3) Closed trimalleolar fracture of left ankle Status: Acute Assessment and plan: On 11/03/17,patient had ORIF for left try malleolus her ankle fracture, ORIF for left syndesmosis, let deltoid ligament repair by Dr. Alegre. After this he had been seeing wound clinic and podiatry for continued wound care. Due to a nonhealing surgical wound, patient was sent over from the care clinic for IV antibiotics. Qualifiers: Encounter type: subsequent encounter Fracture healing: with routine healing Qualified Code(s): S82.852D - Displaced trimalleolar fracture of left lower leg, subsequent encounter for closed fracture with routine healing (4) S/P aortic valve replacement Status: Chronic Assessment and plan: Patient is still being bridged with heparin and Coumadin due to sub therapeutic INR. Management per primary team. (5) Anemia Status: Acute Assessment and plan: Per primary Qualifiers: Anemia type: iron deficiency Iron deficiency anemia type: unspecified iron deficiency Qualified Code(s): D50.9 - Iron deficiency anemia, unspecified (6) Hypothyroid Status: Chronic Qualifiers: Hypothyroidism type: unspecified Qualified Code(s): E03.9 - Hypothyroidism , unspecified (7) GERD (gastroesophageal reflux disease) Status: Chronic Qualifiers: Esophagitis presence: esophagitis presence not specified Qualified Code(s) : K21.9 - Gastro-esophageal reflux disease without esophagitis (8) COPD (chronic obstructive pulmonary disease) Status: Chronic Qualifiers: COPD type: unspecified COPD Qualified Code(s): J44.9 - Chronic obstructive pulmonary disease, unspecified (9) CKD (chronic kidney disease) stage 3, GFR 30-59 ml/min Status: Chronic (10) HTN (hypertension) Status: Chronic Qualifiers: Hypertension type: essential hypertension Qualified Code(s): I10 - Essential (primary) hypertension (11) HLD (hyperlipidemia) Status: Chronic Qualifiers: Hyperlipidemia type: pure hypercholesterolemia Qualified Code(s): E78.00 - Pure hypercholesterolemia, unspecified; E78.0 - Pure hypercholesterolemia Infectious Disease HPI - Data of Consult Patient: new to practice Consult date: 01/27/18 Requesting Physician: Shine Hein DO Primary Care Provider: Calli Estes CNP - Consult Narrative Reason for consult: s/p I&D, purulent drainage of left foot and ankle, possible Osteo History of present illness: Mr. Cortez is a 67 year old male who arrived to the hospital on 01/20/18 with chief complaint of foot infection. He had recent surgical repair of the left foot and had a nonhealing surgical wound. Patient was sent over from wound care clinic for admission for IV antibiotics. Infectious disease was consult it on 01/27/18 for possible osteomyelitis, recommendations regarding long-term antibiotics. He has a past medical history of asthma, CHF, COPD, diabetes, hyperlipidemia, hypertension, myocardial infarction, CKD, valvular heart disease. On 11/03/17, patient had ORIF for left try malleolus her ankle fracture, ORIF for left syndesmosis, let deltoid ligament repair by Dr. Alegre. After this he had been seeing wound clinic and podiatry for continued wound care. Due to a nonhealing surgical wound, patient was sent over from the care clinic for IV antibiotics. She was not having any systemic symptoms at this time. He denied having nausea , vomiting, diarrhea, fever, chills, chest pain, shortness of breath. Upon admission vitals were as follows: temperature 98.1, pulse 62, respirations 18, but pressure 130/77, oxygen saturation 96% on room air. Pertinent labs: hemoglobin 11.4, platelets 463, sodium 131, B1 33, creatinine 1.8, A1C 7.5. Patient was placed on IV vancomycin. Consult to podiatry was made. Left foot x -ray showed diffuse soft tissue swelling along the dorsal aspect of the left foot near the metatarsals, no areas of bone destruction or periosteum reaction to suggest osteomyelitis. Chest x-ray showed no acute process. On 01/22/18, patient underwent I&D to the left foot/ankle with excisional debridement of the left foot wound and bone biopsy. Infection was down to the bone. 01/20/18 blood cultures x2 no growth. 01/21/18 left foot wound culture positive for Haemophilus parainfluenzae. 01/22/18 left ankle wound culture positive for MSSA. 01/22/18 anaerobic cultures negative. 01/22/18 left foot wound culture and anerobic cultures negative. Bone biopsy is still pending. Patiently is currently on unasyn day 2. He received one day of cefepime, 2 days vancomycin. Today patient denies nausea, vomiting, diarrhea, fever, chills, chest pain, shortness of breath. CC: Shine Hein, DO Past Med Surg Social Fam HX - Past Medical History Medical history: asthma, cancer, CHF, COPD, diabetes, hyperlipidemia, hypertension, myocardial infarction, renal disease, thyroid disease, valvular heart disease Psychiatric history: no psych history - Past Surgical History Surgical History: cholecystectomy - Social History Smoking Status: Former smoker Smokeless Tobacco Status: Yes Alcohol use: none Drug use: none - Family History Father Family Member Ethnicity: Non- Living Status: Hx Family Cancer: Yes (Lung) Mother Family Member Ethnicity: Non- Living Status: Hx Family Cardiac Disorders: No Hx Family Respiratory Disorders: Yes Hx Family Cancer: No Hx Family GI Disorders: No Hx Family Endocrine Disorder: No Hx Family Neuromuscular Disorders: No Hx Family Neurologic Disorders: No Hx Family HEENT Disorders: No Hx Family Autoimmune Disorders: No Sister Adopted: No Family Member Ethnicity: Non- Living Status: Still Living Hx Family Cardiac Disorders: No Hx Family Respiratory Disorders: Yes Hx Family Cancer: Yes Hx Family GI Disorders: No Hx Family Endocrine Disorder: No Hx Family Neuromuscular Disorders: No Hx Family Neurologic Disorders: No Hx Family HEENT Disorders: No Hx Family Autoimmune Disorders: No Infectious Disease-CN:Meds Albuterol Sulfate [Ventolin Hfa] 2 puff IH BID 05/14/16 [History] Allopurinol [Zyloprim 100 MG] 200 mg PO DAILY 05/14/16 [History] Aspirin [Lo-Dose Aspirin EC] 81 mg PO DAILY 05/14/16 [History] Bicalutamide [Casodex] 50 mg PO DAILY 05/14/16 [History] Calcitriol [Rocaltrol] 0.25 mcg PO DAILY 05/14/16 [History] Cholecalciferol (Vitamin D3) [Vitamin D3] 5,000 unit PO BID 05/14/16 [History] Docusate [Colace] 100 mg PO BID PRN 05/14/16 [History] Fenofibrate 145 mg PO DAILY 05/14/16 [History] Flecainide Acetate 100 mg PO Q12HR 05/14/16 [History] Furosemide [Lasix] 40 mg PO BID 05/14/16 [History] Levothyroxine [Synthroid] 150 mcg PO DAILY 05/14/16 [History] Montelukast [Singulair] 10 mg PO DAILY 05/14/16 [History] Nitroglycerin [Nitrostat] 0.4 mg SL AD PRN 05/14/16 [History] Simvastatin [Zocor] 40 mg PO HS 05/14/16 [History] Warfarin [Coumadin] 15 mg PO SUSA 05/14/16 [History] Metoprolol [Lopressor] 25 mg PO DAILY 07/31/16 [History] Pantoprazole Sodium [Protonix] 40 mg PO DAILY 07/31/16 [History] Albuterol Neb [Proventil Neb] 2.5 mg IH Q4HR PRN 10/07/17 [History] Citalopram [CeleXA] 20 mg PO DAILY 10/07/17 [History] Phenylephrine/Dm/Acetaminop/GG [Kro Mucus Relief Cold-Flu Cplt] 1 tab PO Q6-8H PRN 10/07/17 [History] Budesonide/Formoterol 160/4.5 [Symbicort 160/4.5] 2 puff IH BIDR 10/31/17 [ History] Nut.tx.gluc.intoler,Lac-Fr,Soy [Glucerna] 1 can PO TID 10/31/17 [History] Primidone [Mysoline] 50 mg PO BID 10/31/17 [History] Valsartan [Diovan] 80 mg PO DAILY 10/31/17 [History] Gabapentin [Neurontin] 100 mg PO HS #10 capsule 11/08/17 [Rx] Ferrous Sulfate 325 mg PO BIDWM tablet 11/18/17 [Rx] Collagenase Oint [Santyl] 1 appl TP BID 01/20/18 [History] Famotidine [Pepcid] 40 mg PO DAILY 01/20/18 [History] Gabapentin [Neurontin] 300 mg PO TID 01/20/18 [History] Warfarin [Coumadin] 10 mg PO MOTUWETHFR 01/20/18 [History] 3 Allergy/AdvReac Type Severity Reaction Status Date / Time niacin Allergy See Verified 01/20/18 15:22 [From [facility] Comments Extended-Release] All systems: reviewed and no additional remarkable complaints except as stated Exam - Constitutional Vitals: Temp Pulse Resp BP Pulse Ox 98.6 F 79 16 124/62 95 01/27/18 10:39 01/27/18 10:39 01/27/18 10:39 01/27/18 10:39 01/27/18 10:39 General appearance: no acute distress, obese - Head Head exam: Present: atraumatic, normocephalic - Respiratory Respiratory exam: Present: CTAB - Cardiovascular Cardiovascular exam: Present: irregular rhythm (Systolic click noted), +S1, +S2 - GI/Abdominal Additional comments: Soft, distended, nontender, positive bowel sounds. Midline surgical incision scar present from prior surgery. Patient has an abdominal hernia on the left side of the midline scar. - Extremities Exam Additional comments: Left lower extremity wrapped and in a boot cast. - Neurological Exam Neurological exam: Present: alert, oriented X3, no focal deficits Infectious Disease CN: Results - Labs CBC & Chem 7: 01/26/18 05:04 01/26/18 05:30 Consult Discharge Plan - Plan Additional Instructions: Wound care orders: Apply adaptic with small back simplace wound vac sponge to ulceration at base of 5th metatarsal lateral aspect, left foot, connect to 125 mmhg low continuous suction. Prep surrounding skin with Allkare and apply drape , apply calcium alginate to incision line of left lateral ankle with 4x4 dry sterile gauze and kerlix. Apply 50/50 mix of Santyl and Gentamicin on saline moistened gauze to the left heel ulcer. Wound Vac to be changed every -W- Follow up orders for Infection: Weekly labs including: CBC, BMP, ESR, CRP. Follow up with Dr. Waldron in 2 weeks. Podiatry: Follow up with Dr. Alegre in 1 week. Referrals: Calli Estes, SECTION LEADER [Primary Care Provider] - - Attending Attestation I examined this patient and my medical decision-making was reviewed with the Resident Physician. I agree with the documented findings, disposition and treatment plan as described except to the extent set forth below. This is an addendum to original report dictated by resident physician. Please refer to residents note for full detail. Patient is 67-year-old gentleman with past medical history mentioned below including CHF, diabetes mellitus type 2, hyperlipidemia and history of PA, coronary artery disease, valvular heart disease status post bioprosthetic valve replacement in 2005 on blood thinners had a fall back in October of this year. Patient underwent a production internal fixation for the left malleolus. Patient apparently was having and U ulcer on the lateral side of the foot from mechanical abrasion. Patient states the surgical wound healed fully. On further discussion with Dr. Smart from podiatry, apparently there is a small little open wound on the surgical wound some wound dehiscence with no drainage. Patient wound did not heal and eventually was brought in for further workup and evaluation. Since admission patient was taken to the OR where he underwent I&D to the left foot ankle with excisional debridement of the left foot wound and bone biopsy. Dr. Smart tell me that the bone was pretty soft and he had a high index of suspicion for osteomyelitis. Intra-Op note also mentions that there was purulence going all the way to the bone. So by definition the patient had osteomyelitis. I did call Dr. Smart with podiatry and discussed the case with him. He states that the cultures were deep and tract all the way down to the bone. He there was the wound dehiscence on the surgical wound but he does not know if it went all the way down to the hardware. Hardware was not removed at this point. Discussed the option of possible started rifampin but on further review the other meds and the patient being on Coumadin there is significant drug drug interaction with the rifampin. At this point patient is on Unasyn, we will continue current treatment until the susceptibility for the parainfluenza Haemophilus is back. At that time out followed to [facility] which should cover MSSA and the parainfluenza. Duration of treatment will be 6 weeks. Patient will need PICC line placement. While on antibiotics we will need to do weekly labs including CBC, BMP, ESR and CRP. Patient needs to follow-up with us in clinic in 2 weeks
[2018-01-27] MEDS ORDERED: *HR* Warfarin 10 MG TABLET PO ONE (18:00)
[2018-01-27] MEDS: Insulin DETEMIR 100 UNIT/ML X5UNITS SQ SCH (20:18)
[2018-01-27] MEDS: Gabapentin 100 MG CAPSULE PO SCH (20:18)
[2018-01-28] MEDS: Ampicillin/Sulbactam 3,000 MG in 0.9 % Sodium Chloride Mini Bag 100 ML IVPB SCH ×2 (00:46→06:35)
[2018-01-28 03:24] LABS: INR 2.2; Prothrombin Time 24.1 Seconds (9.4-12.1)
[2018-01-28] MEDS: Heparin 25,000 UNIT/500 ML D5W 25,000 UNIT/500 ML BAG IVC SCH ×3 (03:25→08:16)
[2018-01-28] MEDS: *HR* Heparin 5,000 UNIT/ML VIAL IVP PRN ×3 (03:57→19:51)
[2018-01-28] MEDS: FLECAINIDE ACETATE 100 MG PO SCH ×2 (06:35→17:48)
[2018-01-28] MEDS: Budesonide/Formoterol 160/4.5 MDI IH SCH ×2 (08:06→22:06)
[2018-01-28] MEDS: Insulin LISPRO 300 UNITS/3 ML VIAL SQ SCH ×7 (08:13→21:01)
[2018-01-28] MEDS: Valsartan 80 MG TABLET PO SCH (08:14)
[2018-01-28] MEDS: Cholecalciferol (D-3) 1,000 UNIT TABLET PO SCH (08:14)
[2018-01-28] MEDS: Fenofibrate 54 MG TABLET PO SCH (08:14)
[2018-01-28] MEDS: Primidone 50 MG TABLET PO SCH ×2 (08:15→21:13)
[2018-01-28] MEDS: Aspirin Enteric Coated 81 MG Tablet PO SCH (08:15)
[2018-01-28] MEDS: Bicalutamide 50 MG TABLET PO SCH (08:15)
[2018-01-28] MEDS: Gabapentin 300 MG CAPSULE PO SCH ×3 (08:15→17:46)
[2018-01-28] MEDS: Gentamicin Oint 15 GM TUBE TP SCH (08:17)
[2018-01-28] MEDS: OXYCODONE Oral CONC 10 MG/0.5 ML ORAL.SYG SL PRN ×2 (08:18→17:46)
--- NOTE | 2018-01-28 09:00 | Infectious Disease Progress No ---
Date of Encounter: 01/28/18 Time of Encounter: 08:58 - Assessment and Plan (1) Osteomyelitis Current Visit: Yes Status: Acute patient met one SIRS interior upon admission. 01/20/18 left foot x-ray showed diffuse soft tissue swelling along dorsal aspect of the left foot, near the metatarsals. No areas of bone destruction or periosteum reaction to suggest osteomyelitis. 01/20/18 blood cultures negative X2 sets. 01/21/18: left foot wound culture positive for Haemophilus parainfluenza 01/22/18 wound culture from left ankle positive for MSSA. 01/22/18 anaerobic cultures preliminary negative. 01/22/18 wound culture and anaerobic cultures negative. Creatinine clearance: 75 plan: left foot bone biopsy pending. patient received one day cefepime-stopped 01/25 he received 2 days vancomycin-stopped 01/24. stop unasyn start Rocephin 2g daily duration of antibiotics: minimum six weeks [address] PICC line before dishcharge repeat blood culutres x2 sets from 01/27 pending sensitivities for Haemophilus paraInfluenza pending- called micro. Follow u with ID in 2 weeks. On discharge, need weekly CBC, BMP, ESR, CRP. Qualifiers: Osteomyelitis type: unspecified type Osteomyelitis location: foot Laterality: left Qualified Code(s): M86.9 - Osteomyelitis, unspecified (2) Foot ulcer Current Visit: Yes Status: Acute plan as above Qualifiers: Laterality: right Non-pressure ulcer stage: unspecified non-pressure ulcer stage Qualified Code(s): L97.519 - Non-pressure chronic ulcer of other part of right foot with unspecified severity (3) Closed trimalleolar fracture of left ankle Current Visit: No Status: Acute On 11/03/17,patient had ORIF for left try malleolus her ankle fracture, ORIF for left syndesmosis, let deltoid ligament repair by Dr. Alegre. After this he had been seeing wound clinic and podiatry for continued wound care. Due to a nonhealing surgical wound, patient was sent over from the care clinic for IV antibiotics. Qualifiers: Encounter type: subsequent encounter Fracture healing: with routine healing Qualified Code(s): S82.852D - Displaced trimalleolar fracture of left lower leg, subsequent encounter for closed fracture with routine healing (4) S/P aortic valve replacement Current Visit: Yes Status: Chronic Patient is still being bridged with heparin and Coumadin due to sub therapeutic INR. Management per primary team. (5) Anemia Current Visit: No Status: Acute Qualifiers: Anemia type: iron deficiency Iron deficiency anemia type: unspecified iron deficiency Qualified Code(s): D50.9 - Iron deficiency anemia, unspecified (6) Hypothyroid Current Visit: No Status: Chronic Qualifiers: Hypothyroidism type: unspecified Qualified Code(s): E03.9 - Hypothyroidism , unspecified (7) GERD (gastroesophageal reflux disease) Current Visit: No Status: Chronic Qualifiers: Esophagitis presence: esophagitis presence not specified Qualified Code(s) : K21.9 - Gastro-esophageal reflux disease without esophagitis (8) COPD (chronic obstructive pulmonary disease) Current Visit: No Status: Chronic Qualifiers: COPD type: unspecified COPD Qualified Code(s): J44.9 - Chronic obstructive pulmonary disease, unspecified (9) CKD (chronic kidney disease) stage 3, GFR 30-59 ml/min Current Visit: No Status: Chronic (10) HTN (hypertension) Current Visit: No Status: Chronic Qualifiers: Hypertension type: essential hypertension Qualified Code(s): I10 - Essential (primary) hypertension (11) HLD (hyperlipidemia) Current Visit: No Status: Chronic Qualifiers: Hyperlipidemia type: pure hypercholesterolemia Qualified Code(s): E78.00 - Pure hypercholesterolemia, unspecified; E78.0 - Pure hypercholesterolemia - Subjective Interval history: 67-year-old male evaluated at bedside. He denies nausea, vomiting, diarrhea, fever, chills, chest pain, shortness of breath. Infect Dis PN-Objective Data - Labs CBC & Chem 7: 01/26/18 05:04 01/26/18 05:30 Labs: Laboratory Results - last 24 hr 01/27/18 01/27/18 01/27/18 11:11 13:52 13:52 ESR 48 H PT INR APTT POC Glucose 170 H C-Reactive Protein 60 H 01/27/18 01/27/18 01/27/18 16:37 18:30 20:07 ESR PT INR APTT 103.5 H POC Glucose 153 H 150 H C-Reactive Protein 01/28/18 01/28/18 01/28/18 03:00 03:00 07:20 ESR PT 24.1 H INR 2.2 APTT 50.4 H D POC Glucose 143 H C-Reactive Protein Exam - Constitutional Vitals: Temp Pulse Resp BP Pulse Ox 98.6 F 72 14 145/72 96 01/28/18 07:18 01/28/18 07:18 01/28/18 07:18 01/28/18 07:18 01/28/18 07:18 General appearance: no acute distress, obese - Head Head exam: Present: atraumatic, normocephalic - Respiratory Respiratory exam: Present: CTAB - Cardiovascular Cardiovascular exam: Present: RRR, +S1, +S2 Additional comments: Systolic click noted - GI/Abdominal GI/Abdominal exam: Present: normal bowel sounds, soft. Absent: distended, tenderness Additional comments: Scars present from prior surgery, abdominal hernia present. - Extremities Exam Additional comments: Left lower extremity in cast and boot. - Neurological Exam Neurological exam: Present: alert, oriented X3 Consult Discharge Plan - Plan Additional Instructions: Wound care orders: Apply adaptic with small back simplace wound vac sponge to ulceration at base of 5th metatarsal lateral aspect, left foot, connect to 125 mmhg low continuous suction. Prep surrounding skin with Allkare and apply drape , apply calcium alginate to incision line of left lateral ankle with 4x4 dry sterile gauze and kerlix. Apply 50/50 mix of Santyl and Gentamicin on saline moistened gauze to the left heel ulcer. Wound Vac to be changed every -W- Follow up orders for Infection: Weekly labs including: CBC, BMP, ESR, CRP. Follow up with Dr. Waldron in 2 weeks. Podiatry: Follow up with Dr. Alegre in 1 week. Referrals: Calli Estes, WOOD FURNITURE ASSEMBLER [Primary Care Provider] - - Attending Attestation I examined this patient and my medical decision-making was reviewed with the Resident Physician. I agree with the documented findings, disposition and treatment plan as described except to the extent set forth below. DC Unasyn Start Rocephin 2 g IV daily for hours Duration of treatment 6 weeks Patient will need a PICC line placement Unable to start rifampin because of the drug drug interaction with the Coumadin Discussed with Dr. Smart Patient will need weekly CBC, BMP, ESR and CRP Follow-up with me in clinic in 2 weeks
--- NOTE | 2018-01-28 11:23 | Discharge Summary ---
<Jordan Price - Last Filed: 01/28/18 16:03> Orders not resulted at time of discharge: Pending orders 01/27/18 17:12 Culture,Blood [BC] Stat 01/28/18 16:45 PTT [Activated Partial Thrombo Time] [COAG] Timed 01/29/18 04:00 PT/INR [Prothrombin Time INR] [COAG] AM 0400 01/30/18 04:00 PT/INR [Prothrombin Time INR] [COAG] AM 0400 01/31/18 04:00 PT/INR [Prothrombin Time INR] [COAG] AM 0400 02/01/18 04:00 PT/INR [Prothrombin Time INR] [COAG] AM 0400 02/02/18 04:00 PT/INR [Prothrombin Time INR] [COAG] AM 0400 Date of Encounter: 01/28/18 Time of Encounter: 11:21 - Discharge Diagnosis (1) DVT prophylaxis Priority: Secondary Status: Acute (2) S/P aortic valve replacement Priority: Secondary Status: Chronic (3) Chronic renal failure, stage 3 (moderate) Priority: Secondary Status: Chronic (4) GERD (gastroesophageal reflux disease) Priority: Secondary Status: Chronic Qualifiers: Esophagitis presence: esophagitis presence not specified Qualified Code(s) : K21.9 - Gastro-esophageal reflux disease without esophagitis (5) Diastolic heart failure Priority: Secondary Status: Chronic Qualifiers: Heart failure chronicity: chronic Qualified Code(s): I50.32 - Chronic diastolic (congestive) heart failure (6) Hypertension Priority: Secondary Status: Chronic Qualifiers: Hypertension type: essential hypertension Qualified Code(s): I10 - Essential (primary) hypertension (7) Type 2 diabetes mellitus with foot ulcer Priority: Primary Status: Acute Qualifiers: Diabetes mellitus correction insulin use: with correction use Qualified Code( s): E11.621 - Type 2 diabetes mellitus with foot ulcer; L97.509 - Non-pressure chronic ulcer of other part of unspecified foot with unspecified severity; L97.509 - Non-pressure chronic ulcer of other part of unspecified foot with unspecified severity; L97.509 - Non-pressure chronic ulcer of other part of unspecified foot with unspecified severity; L97.509 - Non-pressure chronic ulcer of other part of unspecified foot with unspecified severity; Z79.4 - termite control service representative (current) use of insulin; Z79.4 - senior care (current) use of insulin; Z79.4 - senior care (current) use of insulin; Z79.4 - termite control service representative (current) use of insulin (8) Cellulitis Priority: Secondary Status: Acute Qualifiers: Site of cellulitis: extremity Site of cellulitis of extremity: lower extremity Laterality: left Qualified Code(s): L03.116 - Cellulitis of left lower limb (9) Tobacco use Priority: Secondary Status: Chronic Hospital course: Mr. Cortez is a 67 year old male with past medical history of asthma, CHF, COPD, insulin-dependent diabetes, hypertension, CAD, CKD, mechanical valve since the emergency room from wound care for a nonhealing left heel wound. He did have surgery in October for a fractured ankle and has had poor healing ever since. Physical exam in ED reported purulent discharge and necrotic center. Vitals wnl. Labs showed no WBC elevation, hyponatremia at 131, BUN/Cr of 33/1.80, glucose 272, INR 2.4. Foot Xray showed diffuse soft tissue swelling without evidence of bone destruction or periosteal reaction. He was admitted for surgical intervention with a podiatry consult for non healing diabetic foot ulcer. During course of hospital stay, patient gradually improved. He did have a podiatry consult who after reversing his INR with a heparin drip, performed an I &D with debridement and cultures on 01/22/18. He was started on Vancomycin. After debridement, wound care was consulted for further dressing management. He was later started on cefepime for gram negative coverage. Cultures returned with growth of MSSA, H.parainfluenza. Antibiotics were then changed to unasyn given sensitivities. Infectious disease was consulted for Operative report stating there was periosteal purulence with concern for osteomyelitis. Per their suggestion, he will need ceftriaxone 2g Qday for 6 weeks. Bone biopsy returned negative for infection, however ID felt that he would need treatment for 6 weeks regardless. He had a wound vac placed. His Labs returned to baseline. He was bridged back to therapeutic INR of 2.5-3.5 using heparin drip and lovenox. He will follow up with podiatry, wound care, infectious disease, and PCP for further management. He will be discharged in stable condition to SNF. He will also have weekly labs to follow up with infection per ID. Insulin pump which he had been using was reportedly not working, he will be discharged on insulin. Discharge discussed with: patient, social work, case management - Time Spent with Patient Total time spent providing and/or coordinating discharge services: - Discharge Medications Prescriptions: Enoxaparin [Lovenox] 120 mg SQ Q12HR #8 syr cefTRIAXone [Rocephin] 2,000 mg IVPB DAILY #42 vial Insulin DETEMIR [Levemir] 35 unit SQ HS #21 [id number] Insulin LISPRO [HumaLOG] 10 units SQ TIDWM #5 vial Home Medications: Albuterol Sulfate [Ventolin Hfa] 2 puff IH BID 05/14/16 [History] Allopurinol [Zyloprim 100 MG] 200 mg PO DAILY 05/14/16 [History] Aspirin [Lo-Dose Aspirin EC] 81 mg PO DAILY 05/14/16 [History] Bicalutamide [Casodex] 50 mg PO DAILY 05/14/16 [History] Calcitriol [Rocaltrol] 0.25 mcg PO DAILY 05/14/16 [History] Cholecalciferol (Vitamin D3) [Vitamin D3] 5,000 unit PO BID 05/14/16 [History] Docusate [Colace] 100 mg PO BID PRN 05/14/16 [History] Fenofibrate 145 mg PO DAILY 05/14/16 [History] Flecainide Acetate 100 mg PO Q12HR 05/14/16 [History] Furosemide [Lasix] 40 mg PO BID 05/14/16 [History] Levothyroxine [Synthroid] 150 mcg PO DAILY 05/14/16 [History] Montelukast [Singulair] 10 mg PO DAILY 05/14/16 [History] Nitroglycerin [Nitrostat] 0.4 mg SL AD PRN 05/14/16 [History] Simvastatin [Zocor] 40 mg PO HS 05/14/16 [History] Warfarin [Coumadin] 15 mg PO SUSA 05/14/16 [History] Metoprolol [Lopressor] 25 mg PO DAILY 07/31/16 [History] Pantoprazole Sodium [Protonix] 40 mg PO DAILY 07/31/16 [History] Albuterol Neb [Proventil Neb] 2.5 mg IH Q4HR PRN 10/07/17 [History] Citalopram [CeleXA] 20 mg PO DAILY 10/07/17 [History] Phenylephrine/Dm/Acetaminop/GG [Kro Mucus Relief Cold-Flu Cplt] 1 tab PO Q6-8H PRN 10/07/17 [History] Budesonide/Formoterol 160/4.5 [Symbicort 160/4.5] 2 puff IH BIDR 10/31/17 [ History] Nut.tx.gluc.intoler,Lac-Fr,Soy [Glucerna] 1 can PO TID 10/31/17 [History] Primidone [Mysoline] 50 mg PO BID 10/31/17 [History] Valsartan [Diovan] 80 mg PO DAILY 10/31/17 [History] Gabapentin [Neurontin] 100 mg PO HS #10 capsule 11/08/17 [Rx] Ferrous Sulfate 325 mg PO BIDWM tablet 11/18/17 [Rx] Collagenase Oint [Santyl] 1 appl TP BID 01/20/18 [History] Famotidine [Pepcid] 40 mg PO DAILY 01/20/18 [History] Gabapentin [Neurontin] 300 mg PO TID 01/20/18 [History] Warfarin [Coumadin] 10 mg PO MOTUWETHFR 01/20/18 [History] Enoxaparin [Lovenox] 120 mg SQ Q12HR #8 syr 01/28/18 [Rx] Insulin DETEMIR [Levemir] 35 unit SQ HS #21 [id number] 01/28/18 [Rx] Insulin LISPRO [HumaLOG] 10 units SQ TIDWM #5 vial 01/28/18 [Rx] cefTRIAXone [Rocephin] 2,000 mg IVPB DAILY #42 vial 01/28/18 [Rx] Allergies/Adverse Reactions: 3 Allergy/AdvReac Type Severity Reaction Status Date / Time niacin Allergy See Verified 01/20/18 15:22 [From [facility] Comments Extended-Release] Date of admission: 01/23/18 14:28 Primary care physician: Calli Estes CNP Consults: 01/25/18 17:12 Consult to Heating Operators Engineer [CONS] Routine Reason for SW Consult: Discharge planning, patient will require wound vac upon discharge and will need wound vac changes every --. 05/03/18 13:52 Consult to Infectious Diseases [CONS] Routine Consulting Provider: Infectious Disease [place] Reason for Consult: S/p I&D, purulent drainage of left foot and ankle. Call Completed: Yes Discharging clinician: Jordan Price Anticipated date of discharge: 01/28/18 - Constitutional Vitals: Temp Pulse Resp BP Pulse Ox 98.6 F 72 16 145/72 96 01/28/18 07:18 01/28/18 07:18 01/28/18 08:06 01/28/18 07:18 01/28/18 08:06 General appearance: Present: A&O X 3 Exam: Gen.: Vitals noted. No acute distress. AAOx3 HEENT: PERRL/EOMI, oropharynx clear, Normocephalic, atraumatic Cardiac: RRR, no murmur, +S1/S2, prominent S2 Pulmonary: CTA bilaterally, no wheezes, rales or rhonchi, equal chest expansion Abdomen: soft, nontender, BS noted, no guarding MSK: ROM intact, no joint swelling noted Extremities: no BLE edema, nontender calf, no cyanosis or clubbing. LLE in brace. No evidence of infection. Wound vac attached with no drainage noted. Neuro: A&Ox3, moves all extremities, no focal deficits Psych: Appropriate mood and behavior - Patient Status Disposition: Transfer SNF Condition: Good Functional capacity at discharge: wheelchair bound Overall status at discharge: patient is progressing back to baseline - Ambulatory Orders Ambulatory Orders: Basic Metabolic Panel [CHEM] Time Frame: 1 Week, Facility: [facility], Location: Lab C-Reactive Protein [CHEM] Time Frame: 1 Week, Facility: [facility], Location: Lab Complete Blood Count w/o Diff [HEME] Time Frame: 1 Week, Facility: [facility], Location: Lab Erythrocyte Sedimentation Rate [HEME] Time Frame: 1 Week, Facility: [facility], Location: Lab - Discharge Instructions Follow Up With: Calli Estes CNP [Primary Care Provider] - Additional Instructions: Wound care orders: Apply adaptic with small back simplace wound vac sponge to ulceration at base of 5th metatarsal lateral aspect, left foot, connect to 125 mmhg low continuous suction. Prep surrounding skin with Allkare and apply drape , apply calcium alginate to incision line of left lateral ankle with 4x4 dry sterile gauze and kerlix. Apply 50/50 mix of Santyl and Gentamicin on saline moistened gauze to the left heel ulcer. Wound Vac to be changed every - Follow up orders for Infection: Weekly labs including: CBC, BMP, ESR, CRP. Follow up with Dr. Waldron in 2 weeks. Podiatry: Follow up with Dr. Alegre in 1 week. - Diet and Activity Activity: increase activity as tolerated, return to work once cleared by your PCP/specialist, resume usual activities as tolerated Diet: diabetic diet <Shine Hein - Last Filed: 01/28/18 17:21> Orders not resulted at time of discharge: Pending orders 01/27/18 17:12 Culture,Blood [BC] Stat 01/28/18 16:45 PTT [Activated Partial Thrombo Time] [COAG] Timed 01/29/18 04:00 PT/INR [Prothrombin Time INR] [COAG] AM 0400 01/30/18 04:00 PT/INR [Prothrombin Time INR] [COAG] AM 0400 01/31/18 04:00 PT/INR [Prothrombin Time INR] [COAG] AM 0400 02/01/18 04:00 PT/INR [Prothrombin Time INR] [COAG] AM 0400 02/02/18 04:00 PT/INR [Prothrombin Time INR] [COAG] AM 0400 Date of Encounter: 01/28/18 - Discharge Diagnosis (1) Type 2 diabetes mellitus with foot ulcer Status: Acute Qualifiers: Diabetes mellitus correction insulin use: with termite technician use Qualified Code( s): E11.621 - Type 2 diabetes mellitus with foot ulcer; L97.509 - Non-pressure chronic ulcer of other part of unspecified foot with unspecified severity; L97.509 - Non-pressure chronic ulcer of other part of unspecified foot with unspecified severity; L97.509 - Non-pressure chronic ulcer of other part of unspecified foot with unspecified severity; L97.509 - Non-pressure chronic ulcer of other part of unspecified foot with unspecified severity; Z79.4 - termite control service representative (current) use of insulin; Z79.4 - termite control service representative (current) use of insulin; Z79.4 - senior care (current) use of insulin; Z79.4 - termite control service representative (current) use of insulin (2) Osteomyelitis Priority: Primary Status: Chronic Qualifiers: Osteomyelitis type: chronic, with draining sinus Osteomyelitis location: foot Laterality: left Qualified Code(s): M86.472 - Chronic osteomyelitis with draining sinus, left ankle and foot (3) Cellulitis Status: Acute Qualifiers: Site of cellulitis: extremity Site of cellulitis of extremity: lower extremity Laterality: left Qualified Code(s): L03.116 - Cellulitis of left lower limb (4) S/P aortic valve replacement Status: Chronic (5) Chronic renal failure, stage 3 (moderate) Status: Chronic (6) GERD (gastroesophageal reflux disease) Status: Chronic Qualifiers: Esophagitis presence: esophagitis presence not specified Qualified Code(s) : K21.9 - Gastro-esophageal reflux disease without esophagitis (7) Diastolic heart failure Status: Chronic Qualifiers: Heart failure chronicity: chronic Qualified Code(s): I50.32 - Chronic diastolic (congestive) heart failure (8) Hypertension Status: Chronic Qualifiers: Hypertension type: essential hypertension Qualified Code(s): I10 - Essential (primary) hypertension (9) Tobacco use Status: Chronic (10) DVT prophylaxis Status: Acute Hospital course: Mr. Cortez is a 67 year old male - Time Spent with Patient Total time spent providing and/or coordinating discharge services: 38min Date of admission: 01/23/18 14:28 Primary care physician: Calli Estes CNP Consults: 01/25/18 17:12 Consult to Heating Operators Engineer [CONS] Routine Reason for SW Consult: Discharge planning, patient will require wound vac upon discharge and will need wound vac changes every --. 01/27/18 13:52 Consult to Infectious Diseases [CONS] Routine Consulting Provider: Infectious Disease [place] Reason for Consult: S/p I&D, purulent drainage of left foot and ankle. Call Completed: Yes - Constitutional Vitals: Temp Pulse Resp BP Pulse Ox 98.4 F 71 16 124/78 95 01/28/18 15:49 01/28/18 15:49 01/28/18 15:49 01/28/18 15:49 01/28/18 15:49 - Attending Attestation I examined this patient and my medical decision-making was reviewed with the Resident Physician on 01/28/18. I agree with the documented findings, disposition and treatment plan as described except to the extent set forth below. Mr Cortez has been admitted for foot ulcer and presumed osteomyelitis. He is on IV abx. He is to be discharged to SNF when arranged. At this time he is afebrile and ready to go. Exam alert Comfortable Mucus membranes dry Heart distant with click No wheeze Abd soft Dressing intact I/P 1. OM 2. Diabetic foot ulcer Further diagnoses and plan as above D/C to SNF when arranged.
[2018-01-28] MEDS: cefTRIAXone 2,000 MG in Water for inj. (sterile) 20 ML 20 ML IVP SCH (12:57)
--- NOTE | 2018-01-28 13:05 | Podiatry Progress Note ---
Date of Encounter: 01/28/18 Time of Encounter: 12:00 - Assessment and Plan (1) Suspected deep tissue injury of unknown depth of heel Current Visit: Yes Status: Acute DTI of left heel, eshcar tissue present- no fluctuance no surrounding warmth, edema or erythema. No appearance of infection Prevalon boot in place, continue offloading. Dry dressing (2) Type 2 diabetes mellitus with foot ulcer Current Visit: Yes Status: Acute S/p incision and drainage left foot/ankle, excisional debridement of left foot wound, bone biopsy by Dr. Alegre on 01/22/18. Unstageable left heel ulcer. Wound cultures: 01/21/18 Left foot- isolated Haemophilus parainfluenzae 01/22/18 Left ankle- isolated MSSA 01/22/18 Left foot: no pathogens isolated Intraop bone culture pending. Plan: Wound vac to be changed today- patient states he is going home. Home vac at bedside, needs to be applied by [facility] today if he is discharged home, change every M-W-F. Wound vac paperwork completed Wound care orders: Apply adaptic with small back simplace wound vac sponge to ulceration at base of 5th metatarsal lateral aspect, connect to 125 mmhg low continuous suction. Prep surrounding skin with Allkare and apply drape, apply calcium alginate to incision line of left lateral ankle with 4x4 dry sterile gauze and kerlix. . Apply 50/50 mix of Santyl and Gentamicin on saline moistened gauze to the left heel ulcer. Change daily. director of patient financial services consulted for discharge needs. Patient will require wound vac changes every M-W-F. Continue heel relief boot while in bed. NWB to left foot. Recommend consult to Infectious Disease for antibiotic therapy. Spoke with Dr. Hein and will consult ID once bone culture is finalized. F/u with Dr. Alegre in wound care one week after discharge from hospital. Qualifiers: Diabetes mellitus buttermaker insulin use: with buttermaker use Qualified Code( s): E11.621 - Type 2 diabetes mellitus with foot ulcer; L97.509 - Non-pressure chronic ulcer of other part of unspecified foot with unspecified severity; L97.509 - Non-pressure chronic ulcer of other part of unspecified foot with unspecified severity; L97.509 - Non-pressure chronic ulcer of other part of unspecified foot with unspecified severity; L97.509 - Non-pressure chronic ulcer of other part of unspecified foot with unspecified severity; Z79.4 - ferry terminal agent (current) use of insulin; Z79.4 - ferry terminal agent (current) use of insulin; Z79.4 - detention (current) use of insulin; Z79.4 - ferry terminal agent (current) use of insulin Subjective Interval history: Patient is s/p incision and drainage left foot/ankle, excisional debridement of left foot wound, bone biopsy by Dr. Alegre on 01/22/18. Patient is sitting up in bed with dressing intact to the left foot, connected to wound vac. Patient denies any pain currently. No c/o fever, cp, sob. Wound vac running without issue. No drainage to canister Objective - Vital Signs Vital Signs: Vital Signs Temp Pulse Resp BP Pulse Ox 01/28/18 11:26 98.1 F 63 16 114/63 94 01/28/18 08:06 16 96 01/28/18 07:18 98.6 F 72 14 145/72 96 01/28/18 03:47 98.7 F 69 17 122/73 95 01/27/18 23:44 98.8 F 77 16 131/75 92 01/27/18 22:45 18 91 01/27/18 19:13 98.3 F 67 17 138/74 95 01/27/18 15:10 98.1 F 63 17 149/73 98 Intake and Output 01/27/18 01/28/18 01/28/18 23:59 07:59 15:59 Intake Total 294 / 294 406 / 406 294.8 / 294.8 Output Total 950 / 950 350 / 350 Balance -656 / -656 56 / 56 294.8 / 294.8 Intake: IV Fluids 294 / 294 406 / 406 54.8 / 54.8 Heparin 25,000 UNIT/500 ML D5W 194 / 194 306 / 306 54.8 / 54.8 25,000 unit In 500 ml @ 14 UNIT /KG/HR 35.924 mls/hr IVC . [id number] [facility] Rx#:[id number] Unasyn 3,000 MG In 0.9 % Sodium 100 / 100 100 / 100 Chloride (Mini-Bag +) 100 ML @ 200 mls/hr IVPB Q6HR [facility] Rx#: [id number] Oral 0 / 0 0 / 0 240 / 240 Output: Urine 950 / 950 350 / 350 Other: Meal Dinner Breakfast Percent of Meal Consumed 100% 100% # Voids 1 Weight 129.685 kg Blood Glucose* 150 143 134 Patient Weight 01/28/18 23:59 Weight 129.685 kg - Exam Exam: Awake alert and oriented Toes warm to touch, cap refill <3 seconds Movement to toes intact Sensation intact to moderate touch NO calf pain with manual compression Wound vac intact and running without issue- no drainage to canister noted at this time. No surrounding erythema or warmth to foot concerning of infection. - Lab Result Diagrams: 01/26/18 05:04 01/26/18 05:30 Labs: Abnormal lab results RBC 2.75 M/mcL (4.19-5.50) L 01/26/18 05:04 Hgb 8.1 g/dL (12.9-16.9) L 01/26/18 05:04 Hct 25.6 % (37.5-50.1) L 01/26/18 05:04 RDW 15.3 % (11.5-14.5) H 01/26/18 05:04 Nucleated RBCs/100 WBC 0.6 /100 WBC (0) H 01/26/18 05:04 ESR 48 mm/hr (0-10) H 01/27/18 13:52 PT 24.1 Seconds (9.4-12.1) H 01/28/18 03:00 APTT 50.7 Seconds (26.0-36.0) H 01/28/18 09:26 Heparin Anti-Xa, Unfract 0.25 IU/mL (0.30-0.70) L 01/25/18 22:45 Creatinine 1.38 mg/dL (0.70-1.30) H 01/26/18 05:30 Est GFR (Non-Af Amer) 52 (> 60) L 01/26/18 05:30 Glucose 212 mg/dL (70-105) H 01/26/18 05:30 POC Glucose 134 mg/dL (70-99) H 01/28/18 11:28 Hemoglobin A1c 7.5 % (-5.6) H 01/22/18 03:28 AST 11 Units/L (13-39) L 01/21/18 05:12 C-Reactive Protein 60 mg/L (Less than 10) H 01/27/18 13:52 Albumin 3.1 g/dL (3.5-5.7) L 01/21/18 05:12 Globulin 3.6 g/dL (2.4-3.5) H 01/21/18 05:12 Albumin/Globulin Ratio 0.9 (1.1-2.2) L 01/21/18 05:12 Vancomycin Trough 15 mcg/mL (5-10) H 01/23/18 08:00 Consult Discharge Plan - Plan Additional Instructions: Wound care orders: Apply adaptic with small back simplace wound vac sponge to ulceration at base of 5th metatarsal lateral aspect, left foot, connect to 125 mmhg low continuous suction. Prep surrounding skin with Allkare and apply drape , apply calcium alginate to incision line of left lateral ankle with 4x4 dry sterile gauze and kerlix. Apply 50/50 mix of Santyl and Gentamicin on saline moistened gauze to the left heel ulcer. Wound Vac to be changed every -- Follow up orders for Infection: Weekly labs including: CBC, BMP, ESR, CRP. Follow up with Dr. Waldron in 2 weeks. Podiatry: Follow up with Dr. Alegre in 1 week. Referrals: Calli Estes CNP [Primary Care Provider] - Prescriptions: cefTRIAXone [Rocephin] 2,000 mg IVPB DAILY #42 vial Enoxaparin [Lovenox] 120 mg SQ Q12HR #8 syr Insulin DETEMIR [Levemir] 35 unit SQ HS #21 [id number] Insulin LISPRO [HumaLOG] 10 units SQ TIDWM #5 vial
--- NOTE | 2018-01-28 17:01 | Physician Discharge Referral ---
[facility] Referral Info Provider in Charge after Transfer: PCP Institutional Level of Care: Skilled - Diagnosis (1) DVT prophylaxis Priority: Secondary Status: Acute (2) S/P aortic valve replacement Priority: Secondary Status: Chronic (3) Chronic renal failure, stage 3 (moderate) Priority: Secondary Status: Chronic (4) GERD (gastroesophageal reflux disease) Priority: Secondary Status: Chronic (5) Diastolic heart failure Priority: Secondary Status: Chronic (6) Hypertension Priority: Secondary Status: Chronic (7) Type 2 diabetes mellitus with foot ulcer Priority: Primary Status: Acute (8) Cellulitis Priority: Secondary Status: Acute (9) Tobacco use Priority: Secondary Status: Chronic Prognosis: Fair Aware of Diagnosis: Patient Aware of Prognosis: Patient - Transfer Medications Prescriptions: Enoxaparin [Lovenox] 120 mg SQ Q12HR #8 syr cefTRIAXone [Rocephin] 2,000 mg IVPB DAILY #42 vial Insulin DETEMIR [Levemir] 35 unit SQ HS #21 [id number] Insulin LISPRO [HumaLOG] 10 units SQ TIDWM #5 vial Home Medications: Albuterol Sulfate [Ventolin Hfa] 2 puff IH BID 05/14/16 [History] Allopurinol [Zyloprim 100 MG] 200 mg PO DAILY 05/14/16 [History] Aspirin [Lo-Dose Aspirin EC] 81 mg PO DAILY 05/14/16 [History] Bicalutamide [Casodex] 50 mg PO DAILY 05/14/16 [History] Calcitriol [Rocaltrol] 0.25 mcg PO DAILY 05/14/16 [History] Cholecalciferol (Vitamin D3) [Vitamin D3] 5,000 unit PO BID 05/14/16 [History] Docusate [Colace] 100 mg PO BID PRN 05/14/16 [History] Fenofibrate 145 mg PO DAILY 05/14/16 [History] Flecainide Acetate 100 mg PO Q12HR 05/14/16 [History] Furosemide [Lasix] 40 mg PO BID 05/14/16 [History] Levothyroxine [Synthroid] 150 mcg PO DAILY 05/14/16 [History] Montelukast [Singulair] 10 mg PO DAILY 05/14/16 [History] Nitroglycerin [Nitrostat] 0.4 mg SL AD PRN 05/14/16 [History] Simvastatin [Zocor] 40 mg PO HS 05/14/16 [History] Warfarin [Coumadin] 15 mg PO SUSA 05/14/16 [History] Metoprolol [Lopressor] 25 mg PO DAILY 07/31/16 [History] Pantoprazole Sodium [Protonix] 40 mg PO DAILY 07/31/16 [History] Albuterol Neb [Proventil Neb] 2.5 mg IH Q4HR PRN 10/07/17 [History] Citalopram [CeleXA] 20 mg PO DAILY 10/07/17 [History] Phenylephrine/Dm/Acetaminop/GG [Kro Mucus Relief Cold-Flu Cplt] 1 tab PO Q6-8H PRN 10/07/17 [History] Budesonide/Formoterol 160/4.5 [Symbicort 160/4.5] 2 puff IH BIDR 10/31/17 [ History] Nut.tx.gluc.intoler,Lac-Fr,Soy [Glucerna] 1 can PO TID 10/31/17 [History] Primidone [Mysoline] 50 mg PO BID 10/31/17 [History] Valsartan [Diovan] 80 mg PO DAILY 10/31/17 [History] Gabapentin [Neurontin] 100 mg PO HS #10 capsule 11/08/17 [Rx] Ferrous Sulfate 325 mg PO BIDWM tablet 11/18/17 [Rx] Collagenase Oint [Santyl] 1 appl TP BID 01/20/18 [History] Famotidine [Pepcid] 40 mg PO DAILY 01/20/18 [History] Gabapentin [Neurontin] 300 mg PO TID 01/20/18 [History] Warfarin [Coumadin] 10 mg PO MOTUWETHFR 01/20/18 [History] Enoxaparin [Lovenox] 120 mg SQ Q12HR #8 syr 01/28/18 [Rx] Insulin DETEMIR [Levemir] 35 unit SQ HS #21 [id number] 01/28/18 [Rx] Insulin LISPRO [HumaLOG] 10 units SQ TIDWM #5 vial 01/28/18 [Rx] cefTRIAXone [Rocephin] 2,000 mg IVPB DAILY #42 vial 01/28/18 [Rx] Allergies/Adverse Reactions: 3 Allergy/AdvReac Type Severity Reaction Status Date / Time niacin Allergy See Verified 01/20/18 15:22 [From Lindsey Shukla Extended-Release] - Respiratory Orders Smoking Cessation: Smoking cessation has been advised. For more information, call the [place] Tobacco Quit Line at 4-264-ZDPE-NOW. - Ancillary Orders May use pressure relief devices daily prn - Advance Directives Code Status: Full Code - Mobility Orders Chair - Rehabiliation Orders Rehab Potential: Good - Treatments Skin tear care topically daily PRN per policy, May check for fecal impaction rectally daily PRN - Diet Orders No Concentrated Sweets CERTIFICATION: I certify that the transfer of the above named patient to an Extended Care Facility is necessary for the continuing treatment of the diagnosis listed. The above information is true and accurate reflection of patient's current condition. Confidential - Redisclosure prohibited without a patient's written consent.
[2018-01-28] MEDS ORDERED: *HR* Warfarin 10 MG TABLET PO ONE (18:00)
[2018-01-28] MEDS: Gabapentin 100 MG CAPSULE PO SCH (21:13)
[2018-01-28] MEDS: Insulin DETEMIR 100 UNIT/ML X5UNITS SQ SCH (21:13)
[2018-01-29] MEDS: Heparin 25,000 UNIT/500 ML D5W 25,000 UNIT/500 ML BAG IVC SCH ×2 (00:25→17:54)
[2018-01-29 02:24] LABS: INR 2.3; Prothrombin Time 25.3 Seconds (9.4-12.1)
[2018-01-29] MEDS: OXYCODONE Oral CONC 10 MG/0.5 ML ORAL.SYG SL PRN ×3 (02:45→16:40)
[2018-01-29 02:47] LABS: Activated Partial Thrombo Time 127.3 Seconds (26.0-36.0)
[2018-01-29 03:01] LABS: Heparin anti-factor XA UFH 0.36 IU/mL (0.30-0.70)
[2018-01-29] MEDS: FLECAINIDE ACETATE 100 MG PO SCH ×2 (05:36→17:53)
[2018-01-29] MEDS: Budesonide/Formoterol 160/4.5 MDI IH SCH ×2 (09:45→21:34)
[2018-01-29] MEDS: Insulin LISPRO 300 UNITS/3 ML VIAL SQ SCH ×7 (09:55→21:50)
[2018-01-29] MEDS: Cholecalciferol (D-3) 1,000 UNIT TABLET PO SCH (09:58)
[2018-01-29] MEDS: Bicalutamide 50 MG TABLET PO SCH (09:58)
[2018-01-29] MEDS: Fenofibrate 54 MG TABLET PO SCH (09:59)
[2018-01-29] MEDS: Gentamicin Oint 15 GM TUBE TP SCH (09:59)
[2018-01-29] MEDS: Valsartan 80 MG TABLET PO SCH (09:59)
[2018-01-29] MEDS: Aspirin Enteric Coated 81 MG Tablet PO SCH (09:59)
[2018-01-29] MEDS: Gabapentin 300 MG CAPSULE PO SCH ×3 (09:59→16:40)
[2018-01-29] MEDS: Primidone 50 MG TABLET PO SCH ×2 (09:59→21:49)
[2018-01-29] MEDS: cefTRIAXone 2,000 MG in Water for inj. (sterile) 20 ML 20 ML IVP SCH (12:43)
--- NOTE | 2018-01-29 13:37 | Internal Med Progress Note ---
<Jordan Price - Last Filed: 01/29/18 13:35> Date of Encounter: 01/29/18 Time of Encounter: 10:05 - Assessment and plan (1) DVT prophylaxis Current Visit: Yes Status: Acute Assessment and plan: - On heparin gtt while bridging back to coumadin (2) S/P aortic valve replacement Current Visit: Yes Status: Chronic Assessment and plan: Bridging back to Coumadin for goal INR of 2.5-3.5 INR continues to be subtherapeutic at 2.3, pharmacy to dose Discussed with pharmacy and will increase coumadin dose tonight to increase goal Continue heparin drip until INR is therapeutic (3) Chronic renal failure, stage 3 (moderate) Current Visit: No Status: Chronic Assessment and plan: - Chronic renal failure stage III - The BUN/creatinine of 17.38 most recently, stable from previous. - Creatinine appears to be at baseline levels Plan - Continue supportive care, avoid nephrotoxic agents - Renally dose medications and trend BMP (4) GERD (gastroesophageal reflux disease) Current Visit: No Status: Chronic Assessment and plan: - Continue home medications. - Stable, no acute exacerbations per patient Qualifiers: Esophagitis presence: esophagitis presence not specified Qualified Code(s) : K21.9 - Gastro-esophageal reflux disease without esophagitis (5) Diastolic heart failure Current Visit: No Status: Chronic Assessment and plan: - Euvolemic, we will continue to monitor. No acute issues Qualifiers: Heart failure chronicity: chronic Qualified Code(s): I50.32 - Chronic diastolic (congestive) heart failure (6) Hypertension Current Visit: No Status: Chronic Assessment and plan: - BP under control, continue home medications. Mildly elevated this morning, has been under control. Most recent BP of 125/75 Qualifiers: Hypertension type: essential hypertension Qualified Code(s): I10 - Essential (primary) hypertension (7) Type 2 diabetes mellitus with foot ulcer Current Visit: Yes Status: Acute Assessment and plan: - pt had a diabetic ulcer at the bottom of the left foot, had a recent procedure done by a self storage manager, wound was poorly healed after surgery. - He has an insulin pump, however he reports not using it consistently due to complexity. Blood sugars were poorly controlled on admission the hospital. 01/22: I&D with bone biopsy, tolerated procedure well. Pain control with Tylenol and Roxicodone prn. 01/23 blood cultures NGTD, wound culture prelim gram neg coccobacilli ( H.parainfluenza), MSSA. - A1c of 7.5% on admission, blood sugars improved to 100s. Possibly elevated secondary to infection vs stress. - Basal insulin was increased to 30 units QHS. Adjust sliding scale insulin yesterday - Wound cultures growing MSSA, H. parainfluenza. Plan - Continue antibiotics, reocpehi 2g Qday per ID recommendations. - Bone biopsy negative, operative report stated soft bone on debridement. Will treat as osteomyelitis per ID recs. - Podiatry following, appreciate recommendations. Per note continue wound VAC and follow-up with Dr. Alegre one week after discharge - Will need weekly ESR, CRP, CBC, BMP, ID visits. 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 controller insulin use: with longterm use Qualified Code( s): E11.621 - Type 2 diabetes mellitus with foot ulcer; L97.509 - Non-pressure chronic ulcer of other part of unspecified foot with unspecified severity; L97.509 - Non-pressure chronic ulcer of other part of unspecified foot with unspecified severity; L97.509 - Non-pressure chronic ulcer of other part of unspecified foot with unspecified severity; L97.509 - Non-pressure chronic ulcer of other part of unspecified foot with unspecified severity; Z79.4 - long term care phlebotomist (current) use of insulin; Z79.4 - prison (current) use of insulin; Z79.4 - prison (current) use of insulin; Z79.4 - long term care phlebotomist (current) use of insulin (8) Cellulitis Current Visit: Yes Status: Acute Assessment and plan: - See plan as mentioned above. Continue antibiotics. Blood cultures NGTD - Wound culture growing Haemophilus parainfluenza, MSSA Qualifiers: Site of cellulitis: extremity Site of cellulitis of extremity: lower extremity Laterality: left Qualified Code(s): L03.116 - Cellulitis of left lower limb (9) Tobacco use Current Visit: Yes Status: Chronic Assessment and plan: - Pt observed to be using chewing tobacco on exam. Encouraged to quit both while inpatient and after discharge. (10) Osteomyelitis Current Visit: Yes Status: Chronic Assessment and plan: as above for cellulitis, diabetic foot ulcer. Qualifiers: Osteomyelitis type: chronic, with draining sinus Osteomyelitis location: foot Laterality: left Qualified Code(s): M86.472 - Chronic osteomyelitis with draining sinus, left ankle and foot - Time Spent With Patient Total time spent is greater than 50% in coordination of care (as documented) at patient's floor/unit and/or counseling patient: 25 - 35 minutes - Subjective Interval history: Patient seen and examined at bedside. Patient is ready for discharge from medicine standpoint as soon as he has placement. He continues to deny pain, fevers, chills, nausea, vomiting, swelling or erythema of leg. No concern or complaints today - Constitutional Vitals: Temp Pulse Resp BP Pulse Ox 98.8 F 81 16 124/75 95 01/29/18 10:53 01/29/18 10:53 01/29/18 10:53 01/29/18 10:53 01/29/18 10:53 General appearance: Present: A&O X 3 Exam: Gen.: Vitals noted. No acute distress. AAOx3 HEENT: PERRL/EOMI, oropharynx clear, Normocephalic, atraumatic Cardiac: RRR, no murmur, +S1/S2, prominent S2 Pulmonary: CTA bilaterally, no wheezes, rales or rhonchi, equal chest expansion Abdomen: soft, nontender, BS noted, no guarding MSK: ROM intact, no joint swelling noted Extremities: no BLE edema, nontender calf, no cyanosis or clubbing. LLE in brace. No evidence of infection. Wound vac attached with no drainage noted. Neuro: A&Ox3, moves all extremities, no focal deficits Psych: Appropriate mood and behavior Internal Medicine: Result - Labs CBC & Chem 7: 01/26/18 05:04 01/26/18 05:30 - ABG Interpretation ABG results: PT/INR, D-dimer PT 25.3 Seconds (9.4-12.1) H 01/29/18 02:08 Consult Discharge Plan - Plan Additional Instructions: Wound care orders: Apply adaptic with small back simplace wound vac sponge to ulceration at base of 5th metatarsal lateral aspect, left foot, connect to 125 mmhg low continuous suction. Prep surrounding skin with Allkare and apply drape , apply calcium alginate to incision line of left lateral ankle with 4x4 dry sterile gauze and kerlix. Apply 50/50 mix of Santyl and Gentamicin on saline moistened gauze to the left heel ulcer. Wound Vac to be changed every -- Follow up orders for Infection: Weekly labs including: CBC, BMP, ESR, CRP. Follow up with Dr. Waldron in 2 weeks. Podiatry: Follow up with Dr. Alegre in 1 week. Referrals: Calli Estes, SNOWBOARDING INSTRUCTOR [Primary Care Provider] - Prescriptions: Enoxaparin [Lovenox] 120 mg SQ Q12HR #8 syr cefTRIAXone [Rocephin] 2,000 mg IVPB DAILY #42 vial Insulin DETEMIR [Levemir] 35 unit SQ HS #21 [id number] Insulin LISPRO [HumaLOG] 10 units SQ TIDWM #5 vial <Shine Hein - Last Filed: 01/29/18 16:16> Date of Encounter: 01/29/18 - Assessment and plan (1) Osteomyelitis Current Visit: Yes Status: Chronic Qualifiers: Osteomyelitis type: chronic, with draining sinus Osteomyelitis location: foot Laterality: left Qualified Code(s): M86.472 - Chronic osteomyelitis with draining sinus, left ankle and foot (2) Type 2 diabetes mellitus with foot ulcer Current Visit: Yes Status: Acute Qualifiers: Diabetes mellitus longterm insulin use: with longterm use Qualified Code( s): E11.621 - Type 2 diabetes mellitus with foot ulcer; L97.509 - Non-pressure chronic ulcer of other part of unspecified foot with unspecified severity; L97.509 - Non-pressure chronic ulcer of other part of unspecified foot with unspecified severity; L97.509 - Non-pressure chronic ulcer of other part of unspecified foot with unspecified severity; L97.509 - Non-pressure chronic ulcer of other part of unspecified foot with unspecified severity; Z79.4 - long term care phlebotomist (current) use of insulin; Z79.4 - prison (current) use of insulin; Z79.4 - long term care phlebotomist (current) use of insulin; Z79.4 - long term care phlebotomist (current) use of insulin (3) Cellulitis Current Visit: Yes Status: Acute Qualifiers: Site of cellulitis: extremity Site of cellulitis of extremity: lower extremity Laterality: left Qualified Code(s): L03.116 - Cellulitis of left lower limb (4) S/P aortic valve replacement Current Visit: Yes Status: Chronic (5) Chronic renal failure, stage 3 (moderate) Current Visit: No Status: Chronic (6) GERD (gastroesophageal reflux disease) Current Visit: No Status: Chronic Qualifiers: Esophagitis presence: esophagitis presence not specified Qualified Code(s) : K21.9 - Gastro-esophageal reflux disease without esophagitis (7) Diastolic heart failure Current Visit: No Status: Chronic Qualifiers: Heart failure chronicity: chronic Qualified Code(s): I50.32 - Chronic diastolic (congestive) heart failure (8) Hypertension Current Visit: No Status: Chronic Qualifiers: Hypertension type: essential hypertension Qualified Code(s): I10 - Essential (primary) hypertension (9) Tobacco use Current Visit: Yes Status: Chronic (10) DVT prophylaxis Current Visit: Yes Status: Acute - Time Spent With Patient Total time spent is greater than 50% in coordination of care (as documented) at patient's floor/unit and/or counseling patient: - Constitutional Vitals: Temp Pulse Resp BP Pulse Ox 98.8 F 65 18 119/64 96 01/29/18 14:50 01/29/18 14:50 01/29/18 14:50 01/29/18 14:50 01/29/18 14:50 Internal Medicine: Result - Labs CBC & Chem 7: 01/26/18 05:04 01/26/18 05:30 - ABG Interpretation ABG results: PT/INR, D-dimer PT 25.3 Seconds (9.4-12.1) H 01/29/18 02:08 - Attending Attestation I examined this patient and my medical decision-making was reviewed with the Resident Physician on 01/29/18. I agree with the documented findings, disposition and treatment plan as described except to the extent set forth below. Mr Cortez is currently admitted for diabetic foot ulcer and presumed osteomyelitis. He remains moderate to high risk due to potential for worsening clinical status. Mr Cortez is doing OK. No new issues. Tolerating meds. Awaiting discharge to SNF (next week). Exam alert Comfortable Mucus membranes dry Heart reg with click Lungs clear Abd soft Dressing intact I/P 1. Diabetic foot ulcer 2. Presumptive OM Further diagnoses and plan as above.
[2018-01-29] MEDS ORDERED: *HR* Warfarin 5 MG TABLET PO ONE (18:00)
[2018-01-29] MEDS: Gabapentin 100 MG CAPSULE PO SCH (21:49)
[2018-01-29] MEDS: Insulin DETEMIR 100 UNIT/ML X5UNITS SQ SCH (21:51)
[2018-01-30] MEDS: OXYCODONE Oral CONC 10 MG/0.5 ML ORAL.SYG SL PRN ×3 (00:33→18:36)
[2018-01-30] MEDS: FLECAINIDE ACETATE 100 MG PO SCH ×2 (07:03→18:34)
[2018-01-30] MEDS: Fenofibrate 54 MG TABLET PO SCH (07:56)
[2018-01-30] MEDS: Valsartan 80 MG TABLET PO SCH (07:56)
[2018-01-30] MEDS: Cholecalciferol (D-3) 1,000 UNIT TABLET PO SCH (07:57)
[2018-01-30] MEDS: Aspirin Enteric Coated 81 MG Tablet PO SCH (07:57)
[2018-01-30] MEDS: Primidone 50 MG TABLET PO SCH ×2 (07:57→21:41)
[2018-01-30] MEDS: Gabapentin 300 MG CAPSULE PO SCH ×3 (07:57→18:36)
[2018-01-30] MEDS: Bicalutamide 50 MG TABLET PO SCH (08:00)
[2018-01-30] MEDS: Budesonide/Formoterol 160/4.5 MDI IH SCH ×2 (08:00→22:36)
[2018-01-30] MEDS: Insulin LISPRO 300 UNITS/3 ML VIAL SQ SCH ×7 (08:04→21:45)
[2018-01-30 08:16] LABS: Prothrombin Time 22.3 Seconds (9.4-12.1)
[2018-01-30] MEDS: Heparin 25,000 UNIT/500 ML D5W 25,000 UNIT/500 ML BAG IVC SCH (10:46)
--- NOTE | 2018-01-30 11:37 | Internal Med Progress Note ---
<Jordan Price - Last Filed: 01/30/18 11:28> Date of Encounter: 01/30/18 Time of Encounter: 11:28 - Assessment and plan (1) Type 2 diabetes mellitus with foot ulcer Current Visit: Yes Status: Acute Assessment and plan: - pt had a diabetic ulcer at the bottom of the left foot, had a recent procedure done by a precision crop manager, wound was poorly healed after surgery. - He has an insulin pump, however he reports not using it consistently due to complexity. Blood sugars were poorly controlled on admission the hospital. 01/22: I&D with bone biopsy, tolerated procedure well. Pain control with Tylenol and Roxicodone prn. 01/23 blood cultures NGTD, wound culture prelim gram neg coccobacilli ( H.parainfluenza), MSSA. - A1c of 7.5% on admission, blood sugars improved to 100s. Possibly elevated secondary to infection vs stress. - Basal insulin was increased to 30 units QHS. Adjust sliding scale insulin yesterday - Wound cultures growing MSSA, H. parainfluenza. Gram negative cocci anaerobic with beta lactamase, possible contaminate. Contacted ID Plan - Continue antibiotics, reocpehin 2g Qday per ID recommendations. - Bone biopsy negative, operative report stated soft bone on debridement. Will treat as osteomyelitis per ID recs. - Podiatry following, appreciate recommendations. Per note continue wound VAC and follow-up with Dr. Alegre one week after discharge - Will need weekly ESR, CRP, CBC, BMP, ID visits. Qualifiers: Diabetes mellitus terminal operator insulin use: with terminal operator use Qualified Code( s): E11.621 - Type 2 diabetes mellitus with foot ulcer; L97.509 - Non-pressure chronic ulcer of other part of unspecified foot with unspecified severity; L97.509 - Non-pressure chronic ulcer of other part of unspecified foot with unspecified severity; L97.509 - Non-pressure chronic ulcer of other part of unspecified foot with unspecified severity; L97.509 - Non-pressure chronic ulcer of other part of unspecified foot with unspecified severity; Z79.4 - longterm (current) use of insulin; Z79.4 - longterm (current) use of insulin; Z79.4 - longterm (current) use of insulin; Z79.4 - longterm (current) use of insulin (2) Cellulitis Current Visit: Yes Status: Acute Assessment and plan: - See plan as mentioned above. Continue antibiotics. Blood cultures NGTD - Wound culture growing Haemophilus parainfluenza, MSSA - New anaerobic culture growing gram negative cocci with beta lactamase. ID contacted, pending any new recommendations. Qualifiers: Site of cellulitis: extremity Site of cellulitis of extremity: lower extremity Laterality: left Qualified Code(s): L03.116 - Cellulitis of left lower limb (3) S/P aortic valve replacement Current Visit: Yes Status: Chronic Assessment and plan: Bridging back to Coumadin for goal INR of 2.5-3.5 INR continues to be subtherapeutic at 2.0, pharmacy to dose Discussed with pharmacy and will increase coumadin dose tonight to increase goal Continue heparin drip until INR is therapeutic (4) Chronic renal failure, stage 3 (moderate) Current Visit: No Status: Chronic Assessment and plan: - Chronic renal failure stage III - The BUN/creatinine of 17/1.38 most recently, stable from previous. - Creatinine appears to be at baseline levels Plan - Continue supportive care, avoid nephrotoxic agents - Renally dose medications and trend BMP (5) GERD (gastroesophageal reflux disease) Current Visit: No Status: Chronic Assessment and plan: - Continue home medications. - Stable, no acute exacerbations per patient Qualifiers: Esophagitis presence: esophagitis presence not specified Qualified Code(s) : K21.9 - Gastro-esophageal reflux disease without esophagitis (6) Diastolic heart failure Current Visit: No Status: Chronic Assessment and plan: - Euvolemic, we will continue to monitor. No acute issues Qualifiers: Heart failure chronicity: chronic Qualified Code(s): I50.32 - Chronic diastolic (congestive) heart failure (7) Hypertension Current Visit: No Status: Chronic Assessment and plan: - BP under control, continue home medications. Mildly elevated this morning, has been under control. Most recent BP of 149/63 Qualifiers: Hypertension type: essential hypertension Qualified Code(s): I10 - Essential (primary) hypertension (8) Tobacco use Current Visit: Yes Status: Chronic Assessment and plan: - Pt observed to be using chewing tobacco on exam. Encouraged to quit both while inpatient and after discharge. (9) DVT prophylaxis Current Visit: Yes Status: Acute Assessment and plan: - On heparin gtt while bridging back to coumadin (10) Osteomyelitis Current Visit: Yes Status: Chronic Assessment and plan: as above for cellulitis, diabetic foot ulcer. Qualifiers: Osteomyelitis type: chronic, with draining sinus Osteomyelitis location: foot Laterality: left Qualified Code(s): M86.472 - Chronic osteomyelitis with draining sinus, left ankle and foot - Time Spent With Patient Total time spent is greater than 50% in coordination of care (as documented) at patient's floor/unit and/or counseling patient: less than 15 minutes - Subjective Interval history: Patient seen and examined at bedside. No new complaints. Stable and waiting for SW placement. - Constitutional Vitals: Temp Pulse Resp BP Pulse Ox 98.1 F 61 16 149/63 96 01/30/18 10:47 01/30/18 10:47 01/30/18 10:47 01/30/18 10:47 01/30/18 10:47 General appearance: Present: A&O X 3 Exam: Gen.: Vitals noted. No acute distress. AAOx3 HEENT: PERRL/EOMI, oropharynx clear, Normocephalic, atraumatic Cardiac: RRR, no murmur, +S1/S2, prominent S2 Pulmonary: CTA bilaterally, no wheezes, rales or rhonchi, equal chest expansion Abdomen: soft, nontender, BS noted, no guarding MSK: ROM intact, no joint swelling noted Extremities: no BLE edema, nontender calf, no cyanosis or clubbing. LLE in brace. No evidence of infection. Wound vac attached with no drainage noted. Neuro: A&Ox3, moves all extremities, no focal deficits Psych: Appropriate mood and behavior Internal Medicine: Result - Labs CBC & Chem 7: 01/26/18 05:04 01/26/18 05:30 - ABG Interpretation ABG results: PT/INR, D-dimer PT 22.3 Seconds (9.4-12.1) H 01/30/18 07:45 Consult Discharge Plan - Plan Additional Instructions: Wound care orders: Apply adaptic with small back simplace wound vac sponge to ulceration at base of 5th metatarsal lateral aspect, left foot, connect to 125 mmhg low continuous suction. Prep surrounding skin with Allkare and apply drape , apply calcium alginate to incision line of left lateral ankle with 4x4 dry sterile gauze and kerlix. Apply 50/50 mix of Santyl and Gentamicin on saline moistened gauze to the left heel ulcer. Wound Vac to be changed every -- Follow up orders for Infection: Weekly labs including: CBC, BMP, ESR, CRP. Follow up with Dr. Waldron in 2 weeks. Podiatry: Follow up with Dr. Alegre in 1 week. Referrals: Calli Estes, PROCESS CONTROL ENGINEER [Primary Care Provider] - Prescriptions: Enoxaparin [Lovenox] 120 mg SQ Q12HR #8 syr cefTRIAXone [Rocephin] 2,000 mg IVPB DAILY #42 vial Insulin DETEMIR [Levemir] 35 unit SQ HS #21 [id number] Insulin LISPRO [HumaLOG] 10 units SQ TIDWM #5 vial <Shine Hein - Last Filed: 01/30/18 16:24> Date of Encounter: 01/30/18 - Assessment and plan (1) Osteomyelitis Current Visit: Yes Status: Chronic Qualifiers: Osteomyelitis type: chronic, with draining sinus Osteomyelitis location: foot Laterality: left Qualified Code(s): M86.472 - Chronic osteomyelitis with draining sinus, left ankle and foot (2) Type 2 diabetes mellitus with foot ulcer Current Visit: Yes Status: Acute Qualifiers: Diabetes mellitus terminal operator insulin use: with group home use Qualified Code( s): E11.621 - Type 2 diabetes mellitus with foot ulcer; L97.509 - Non-pressure chronic ulcer of other part of unspecified foot with unspecified severity; L97.509 - Non-pressure chronic ulcer of other part of unspecified foot with unspecified severity; L97.509 - Non-pressure chronic ulcer of other part of unspecified foot with unspecified severity; L97.509 - Non-pressure chronic ulcer of other part of unspecified foot with unspecified severity; Z79.4 - exterminator termite (current) use of insulin; Z79.4 - exterminator termite (current) use of insulin; Z79.4 - longterm (current) use of insulin; Z79.4 - exterminator termite (current) use of insulin (3) S/P aortic valve replacement Current Visit: Yes Status: Chronic (4) Chronic renal failure, stage 3 (moderate) Current Visit: No Status: Chronic (5) GERD (gastroesophageal reflux disease) Current Visit: No Status: Chronic Qualifiers: Esophagitis presence: esophagitis presence not specified Qualified Code(s) : K21.9 - Gastro-esophageal reflux disease without esophagitis (6) Diastolic heart failure Current Visit: No Status: Chronic Qualifiers: Heart failure chronicity: chronic Qualified Code(s): I50.32 - Chronic diastolic (congestive) heart failure (7) Hypertension Current Visit: No Status: Chronic Qualifiers: Hypertension type: essential hypertension Qualified Code(s): I10 - Essential (primary) hypertension (8) Cellulitis Current Visit: Yes Status: Acute Qualifiers: Site of cellulitis: extremity Site of cellulitis of extremity: lower extremity Laterality: left Qualified Code(s): L03.116 - Cellulitis of left lower limb (9) Tobacco use Current Visit: Yes Status: Chronic (10) DVT prophylaxis Current Visit: Yes Status: Acute - Time Spent With Patient Total time spent is greater than 50% in coordination of care (as documented) at patient's floor/unit and/or counseling patient: - Constitutional Vitals: Temp Pulse Resp BP Pulse Ox 98.8 F 60 18 149/86 97 01/30/18 14:41 01/30/18 14:41 01/30/18 14:41 01/30/18 14:41 01/30/18 14:41 Internal Medicine: Result - Labs CBC & Chem 7: 01/26/18 05:04 01/26/18 05:30 - ABG Interpretation ABG results: PT/INR, D-dimer PT 22.3 Seconds (9.4-12.1) H 01/30/18 07:45 - Attending Attestation I examined this patient and my medical decision-making was reviewed with the Resident Physician on 01/30/18. I agree with the documented findings, disposition and treatment plan as described except to the extent set forth below. Mr Cortez is currently admitted for OM of L foot and cellulitis. He remains moderate to high risk due to potential for worsening clinical status. Mr Cortez has no new issues overnight. No fever. No CP or SOB. Awaiting plans for discharge. Exam alert Comfortable Mucus membranes dry Heart not tachy No wheeze I/P 1. Cellulitis 2. OM Further diagnoses and plan as above.
[2018-01-30] MEDS: cefTRIAXone 2,000 MG in Water for inj. (sterile) 20 ML 20 ML IVP SCH (15:13)
[2018-01-30] MEDS ORDERED: *HR* Warfarin 10 MG TABLET PO ONE (18:00)
[2018-01-30] MEDS: Gentamicin Oint 15 GM TUBE TP SCH (18:38)
[2018-01-30] MEDS: Gabapentin 100 MG CAPSULE PO SCH (21:41)
[2018-01-30] MEDS: Insulin DETEMIR 100 UNIT/ML X5UNITS SQ SCH (21:48)
[2018-01-31] MEDS: Heparin 25,000 UNIT/500 ML D5W 25,000 UNIT/500 ML BAG IVC SCH ×3 (02:15→18:36)
[2018-01-31 05:17] LABS: Hematocrit 25.7 % (37.5-50.1); Hemoglobin 8.2 g/dL (12.9-16.9); Mean Corpuscular HGB Conc 31.9 g/dL (31.6-35.5); Mean Corpuscular Hemoglobin 29.6 pg (28.0-33.3); Mean Corpuscular Volume 92.8 fL (83.0-100.0); Platelet Count 259 K/mcL (140-400); Red Blood Count 2.77 M/mcL (4.19-5.50); Red Cell Distribution Width 15.5 % (11.5-14.5)
[2018-01-31 05:20] LABS: INR 1.9; Prothrombin Time 20.5 Seconds (9.4-12.1)
[2018-01-31] MEDS: FLECAINIDE ACETATE 100 MG PO SCH ×2 (05:24→20:05)
[2018-01-31 05:40] LABS: Calcium 8.6 mg/dL (8.6-10.3); Potassium 4.3 mEq/L (3.5-5.1)
[2018-01-31] MEDS: *HR* Heparin 5,000 UNIT/ML VIAL IVP PRN ×2 (07:08→20:10)
[2018-01-31] MEDS: Budesonide/Formoterol 160/4.5 MDI IH SCH ×2 (07:36→21:20)
[2018-01-31] MEDS: Insulin LISPRO 300 UNITS/3 ML VIAL SQ SCH ×7 (09:02→22:34)
[2018-01-31] MEDS: Bicalutamide 50 MG TABLET PO SCH (09:03)
[2018-01-31] MEDS: Valsartan 80 MG TABLET PO SCH (09:03)
[2018-01-31] MEDS: Aspirin Enteric Coated 81 MG Tablet PO SCH (09:03)
[2018-01-31] MEDS: Gabapentin 300 MG CAPSULE PO SCH ×3 (09:03→18:18)
[2018-01-31] MEDS: Primidone 50 MG TABLET PO SCH ×2 (09:03→20:05)
[2018-01-31] MEDS: Fenofibrate 54 MG TABLET PO SCH (09:04)
[2018-01-31] MEDS: Cholecalciferol (D-3) 1,000 UNIT TABLET PO SCH (09:04)
--- NOTE | 2018-01-31 11:15 | Infectious Disease Progress No ---
Date of Encounter: 01/31/18 Time of Encounter: 11:13 - Assessment and Plan (1) Osteomyelitis Current Visit: Yes Status: Chronic patient met one SIRS interior upon admission. 01/20/18 left foot x-ray showed diffuse soft tissue swelling along dorsal aspect of the left foot, near the metatarsals. No areas of bone destruction or periosteum reaction to suggest osteomyelitis. 01/20/18 blood cultures negative X2 sets. 01/21/18: left foot wound culture positive for Haemophilus parainfluenza 01/22/18 wound culture from left ankle positive for MSSA. 01/22/18 anaerobic cultures preliminary negative. 01/22/18 wound culture and anaerobic cultures show anaerobic gram negative cocci , beta lactamase positive. Creatinine clearance: 75 plan: left foot bone biopsy pending. patient received one day cefepime-stopped 01/25 he received 2 days vancomycin-stopped 01/24. he received unasyn once on 01/25 Currently on Rocephin 2g daily Continue Rocephin Will add Flagyl 500mg TID given anaerobic organism duration of antibiotics: minimum six weeks place PICC line before dishcharge repeat blood culutres x2 sets from 01/27 preliminary no growth sensitivities for Haemophilus paraInfluenza pending- called micro. Follow u with ID in 2 weeks. On discharge, need weekly CBC, BMP, ESR, CRP. Qualifiers: Osteomyelitis type: chronic, with draining sinus Osteomyelitis location: foot Laterality: left Qualified Code(s): M86.472 - Chronic osteomyelitis with draining sinus, left ankle and foot (2) Foot ulcer Current Visit: Yes Status: Acute plan as above Qualifiers: Laterality: right Non-pressure ulcer stage: unspecified non-pressure ulcer stage Qualified Code(s): L97.519 - Non-pressure chronic ulcer of other part of right foot with unspecified severity (3) Closed trimalleolar fracture of left ankle Current Visit: No Status: Acute On 11/03/17,patient had ORIF for left try malleolus her ankle fracture, ORIF for left syndesmosis, let deltoid ligament repair by Dr. Alegre. After this he had been seeing wound clinic and podiatry for continued wound care. Due to a nonhealing surgical wound, patient was sent over from the care clinic for IV antibiotics. Qualifiers: Encounter type: subsequent encounter Fracture healing: with routine healing Qualified Code(s): S82.852D - Displaced trimalleolar fracture of left lower leg, subsequent encounter for closed fracture with routine healing (4) S/P aortic valve replacement Current Visit: Yes Status: Chronic Patient is still being bridged with heparin and Coumadin due to sub therapeutic INR. Management per primary team. (5) Anemia Current Visit: No Status: Chronic Qualifiers: Anemia type: iron deficiency Iron deficiency anemia type: other iron deficiency Qualified Code(s): D50.8 - Other iron deficiency anemias (6) Hypothyroid Current Visit: No Status: Chronic Qualifiers: Hypothyroidism type: unspecified Qualified Code(s): E03.9 - Hypothyroidism , unspecified (7) GERD (gastroesophageal reflux disease) Current Visit: No Status: Chronic Qualifiers: Esophagitis presence: esophagitis presence not specified Qualified Code(s) : K21.9 - Gastro-esophageal reflux disease without esophagitis (8) COPD (chronic obstructive pulmonary disease) Current Visit: No Status: Chronic Qualifiers: COPD type: unspecified COPD Qualified Code(s): J44.9 - Chronic obstructive pulmonary disease, unspecified (9) Chronic renal failure, stage 3 (moderate) Current Visit: No Status: Chronic (10) HTN (hypertension) Current Visit: No Status: Chronic Qualifiers: Hypertension type: essential hypertension Qualified Code(s): I10 - Essential (primary) hypertension (11) HLD (hyperlipidemia) Current Visit: No Status: Chronic Qualifiers: Hyperlipidemia type: pure hypercholesterolemia Qualified Code(s): E78.00 - Pure hypercholesterolemia, unspecified; E78.0 - Pure hypercholesterolemia - Subjective Interval history: 67-year-old male evaluated bedside. He denies fever, chills, chest pain, shortness of breath, abdominal pain, nausea, vomiting, diarrhea. Infect Dis PN-Objective Data - Labs CBC & Chem 7: 01/31/18 04:00 01/31/18 04:00 Labs: Laboratory Results - last 24 hr 01/30/18 01/31/18 01/31/18 20:36 04:00 04:00 WBC 6.5 RBC 2.77 L Hgb 8.2 L Hct 25.7 L MCV 92.8 MCH 29.6 MCHC 31.9 RDW 15.5 H Plt Count 259 MPV 10.0 PT INR APTT Sodium 135 L Potassium 4.3 Chloride 100 Carbon Dioxide 29 BUN 20 Creatinine 1.45 H Est GFR ( Amer) 59 L Est GFR (Non-Af Amer) 49 L BUN/Creatinine Ratio 14 Glucose 134 H POC Glucose 222 H Calculated Osmolality 285 Calcium 8.6 01/31/18 04:00 WBC RBC Hgb Hct MCV MCH MCHC RDW Plt Count MPV PT 20.5 H INR 1.9 APTT 52.0 H Sodium Potassium Chloride Carbon Dioxide BUN Creatinine Est GFR ( Amer) Est GFR (Non-Af Amer) BUN/Creatinine Ratio Glucose POC Glucose Calculated Osmolality Calcium Cultures: Cultures 01/27/18 17:12 Blood Culture - Preliminary Peripheral Venipuncture No growth. 01/27/18 17:00 Blood Culture - Preliminary Peripheral Venipuncture No growth. Exam - Constitutional Vitals: Temp Pulse Resp BP Pulse Ox 98.2 F 61 17 153/76 95 01/31/18 07:06 01/31/18 07:06 01/31/18 07:35 01/31/18 07:06 01/31/18 07:35 General appearance: no acute distress, obese - Respiratory Respiratory exam: Absent: rhonchi, wheezes, tachypnea - Cardiovascular Cardiovascular exam: Present: RRR, +S1, +S2 Additional comments: Systolic click noted - GI/Abdominal GI/Abdominal exam: Present: normal bowel sounds, soft. Absent: distended, tenderness Additional comments: Previous surgical scars present - Extremities Exam Additional comments: Left lower extremity has dressing applied with boot over top of it. - Neurological Exam Neurological exam: Present: alert, oriented X3, no focal deficits Consult Discharge Plan - Plan Additional Instructions: Wound care orders: Apply adaptic with small back simplace wound vac sponge to ulceration at base of 5th metatarsal lateral aspect, left foot, connect to 125 mmhg low continuous suction. Prep surrounding skin with Allkare and apply drape , apply calcium alginate to incision line of left lateral ankle with 4x4 dry sterile gauze and kerlix. Apply 50/50 mix of Santyl and Gentamicin on saline moistened gauze to the left heel ulcer. Wound Vac to be changed every -- Follow up orders for Infection: Weekly labs including: CBC, BMP, ESR, CRP. Follow up with Dr. Waldron in 2 weeks. Podiatry: Follow up with Dr. Alegre in 1 week. Referrals: Calli Estes, STANISLAV [Primary Care Provider] - Prescriptions: Enoxaparin [Lovenox] 120 mg SQ Q12HR #8 syr cefTRIAXone [Rocephin] 2,000 mg IVPB DAILY #42 vial Insulin DETEMIR [Levemir] 35 unit SQ HS #21 [id number] Insulin LISPRO [HumaLOG] 10 units SQ TIDWM #5 vial - Attending Attestation I examined this patient and my medical decision-making was reviewed with the Resident Physician. I agree with the documented findings, disposition and treatment plan as described except to the extent set forth below.
[2018-01-31] MEDS: OXYCODONE Oral CONC 10 MG/0.5 ML ORAL.SYG SL PRN (12:35)
[2018-01-31] MEDS: cefTRIAXone 2,000 MG in Water for inj. (sterile) 20 ML 20 ML IVP SCH (12:36)
--- NOTE | 2018-01-31 14:48 | Internal Med Progress Note ---
Date of Encounter: 01/31/18 Time of Encounter: 14:47 - Assessment and plan (1) Type 2 diabetes mellitus with foot ulcer Current Visit: Yes Status: Acute Assessment and plan: - pt had a diabetic ulcer at the bottom of the left foot, had a recent procedure done by a global marketing specialist, wound was poorly healed after surgery. - He has an insulin pump, however he reports not using it consistently due to complexity. Blood sugars were poorly controlled on admission the hospital. 01/22: I&D with bone biopsy, tolerated procedure well. Pain control with Tylenol and Roxicodone prn. 01/23 blood cultures NGTD, wound culture prelim gram neg coccobacilli ( H.parainfluenza), MSSA. - A1c of 7.5% on admission, blood sugars improved to 100s. Possibly elevated secondary to infection vs stress. - Basal insulin was increased to 30 units QHS. Adjust sliding scale insulin yesterday - Wound cultures growing MSSA, H. parainfluenza. Gram negative cocci anaerobic with beta lactamase, possible contaminate. Contacted ID Plan - Continue antibiotics per ID recommendations. - Bone biopsy negative, operative report stated soft bone on debridement. Will treat as osteomyelitis per ID recs. - Podiatry following, appreciate recommendations. Per note continue wound VAC and follow-up with Dr. Alegre one week after discharge () - Will need weekly ESR, CRP, CBC, BMP, ID visits. 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 use Qualified Code( s): E11.621 - Type 2 diabetes mellitus with foot ulcer; L97.509 - Non-pressure chronic ulcer of other part of unspecified foot with unspecified severity; L97.509 - Non-pressure chronic ulcer of other part of unspecified foot with unspecified severity; L97.509 - Non-pressure chronic ulcer of other part of unspecified foot with unspecified severity; L97.509 - Non-pressure chronic ulcer of other part of unspecified foot with unspecified severity; Z79.4 - longterm (current) use of insulin; Z79.4 - meterman (current) use of insulin; Z79.4 - meterman (current) use of insulin; Z79.4 - longterm (current) use of insulin (2) Osteomyelitis Current Visit: Yes Status: Chronic Assessment and plan: Currently on IV abx per ID. Plan for 6 weeks of treatment. Working on discharge planning to SNF. Qualifiers: Osteomyelitis type: chronic, with draining sinus Osteomyelitis location: foot Laterality: left Qualified Code(s): M86.472 - Chronic osteomyelitis with draining sinus, left ankle and foot (3) S/P aortic valve replacement Current Visit: Yes Status: Chronic Assessment and plan: Bridging back to Coumadin for goal INR of 2.5-3.5 INR continues to be subtherapeutic, pharmacy to dose Continue heparin drip until INR is therapeutic (4) Chronic renal failure, stage 3 (moderate) Current Visit: No Status: Chronic Assessment and plan: - Chronic renal failure stage III - The BUN/creatinine of 17/.38 most recently, stable from previous. - Creatinine appears to be at baseline levels Plan - Continue supportive care, avoid nephrotoxic agents - Renally dose medications and trend BMP (5) GERD (gastroesophageal reflux disease) Current Visit: No Status: Chronic Assessment and plan: - Continue home medications. - Stable, no acute exacerbations per patient Qualifiers: Esophagitis presence: esophagitis presence not specified Qualified Code(s) : K21.9 - Gastro-esophageal reflux disease without esophagitis (6) Diastolic heart failure Current Visit: No Status: Chronic Assessment and plan: - Euvolemic, we will continue to monitor. No acute issues Qualifiers: Heart failure chronicity: chronic Qualified Code(s): I50.32 - Chronic diastolic (congestive) heart failure (7) Hypertension Current Visit: No Status: Chronic Assessment and plan: - BP under control, continue home medications. Qualifiers: Hypertension type: essential hypertension Qualified Code(s): I10 - Essential (primary) hypertension (8) Cellulitis Current Visit: Yes Status: Acute Assessment and plan: - See plan as mentioned above. Continue antibiotics. Blood cultures NGTD Qualifiers: Site of cellulitis: extremity Site of cellulitis of extremity: lower extremity Laterality: left Qualified Code(s): L03.116 - Cellulitis of left lower limb (9) Tobacco use Current Visit: Yes Status: Chronic Assessment and plan: - Pt observed to be using chewing tobacco on exam. Encouraged to quit both while inpatient and after discharge. (10) DVT prophylaxis Current Visit: Yes Status: Acute Assessment and plan: - On heparin gtt while bridging back to coumadin - Time Spent With Patient Total time spent is greater than 50% in coordination of care (as documented) at patient's floor/unit and/or counseling patient: - Subjective Interval history: Mr Cortez is currently admitted for diabetic foot ulcer and presumed OM. He is awaiting discharge plans. He remains moderate risk at this time. Mr Cortez feels OK. He is urinating a lot at night. No fever. No dysuria. Tolerating IV abx. No CP or SOB. No GI issues. - Constitutional Vitals: Temp Pulse Resp BP Pulse Ox 98.2 F 61 17 153/76 95 01/31/18 07:06 01/31/18 07:06 01/31/18 07:35 01/31/18 07:06 01/31/18 07:35 General appearance: Present: A&O X 3 - Head Head exam: Present: normocephalic - Eye Eye exam: Present: conjuntiva pink - ENT ENT exam: Present: mucous membranes dry - Respiratory Respiratory exam: Present: CTAB. Absent: rales, rhonchi, wheezes - Cardiovascular Cardiovascular exam: Present: RRR. Absent: tachycardia - GI/Abdominal GI/Abdominal exam: Present: normal bowel sounds, soft. Absent: tenderness - Extremities Exam Extremities exam: Present: warm Additional comments: Wound vac in place - Neurological Exam Neurological exam: Present: alert, oriented X3, no focal deficits - Skin Skin exam: Present: dry, warm Internal Medicine: Result - Labs CBC & Chem 7: 01/31/18 04:00 01/31/18 04:00 Labs: Short CBC 01/31/18 Range/Units 04:00 WBC 6.5 (4.3-11.1) K/mcL Hgb 8.2 L (12.9-16.9) g/dL Hct 25.7 L (37.5-50.1) % Plt Count 259 (140-400) K/mcL BMP 01/31/18 04:00 Sodium 135 L Potassium 4.3 Chloride 100 Carbon Dioxide 29 BUN 20 Creatinine 1.45 H Glucose 134 H Calcium 8.6 - ABG Interpretation ABG results: PT/INR, D-dimer PT 20.5 Seconds (9.4-12.1) H 01/31/18 04:00 Consult Discharge Plan - Plan Additional Instructions: Wound care orders: Apply adaptic with small back simplace wound vac sponge to ulceration at base of 5th metatarsal lateral aspect, left foot, connect to 125 mmhg low continuous suction. Prep surrounding skin with Allkare and apply drape , apply calcium alginate to incision line of left lateral ankle with 4x4 dry sterile gauze and kerlix. Apply 50/50 mix of Santyl and Gentamicin on saline moistened gauze to the left heel ulcer. Wound Vac to be changed every M-W- Follow up orders for Infection: Weekly labs including: CBC, BMP, ESR, CRP. Follow up with Dr. Waldron in 2 weeks. Podiatry: Follow up with Dr. Alegre in 1 week. Referrals: Calli Estes, STANISLAV [Primary Care Provider] - Prescriptions: Enoxaparin [Lovenox] 120 mg SQ Q12HR #8 syr cefTRIAXone [Rocephin] 2,000 mg IVPB DAILY #42 vial Insulin DETEMIR [Levemir] 35 unit SQ HS #21 [id number] Insulin LISPRO [HumaLOG] 10 units SQ TIDWM #5 vial
[2018-01-31] MEDS: Gentamicin Oint 15 GM TUBE TP SCH (14:53)
[2018-01-31] MEDS: Acetaminophen 325 MG TABLET PO PRN (15:27)
[2018-01-31] MEDS: metroNIDAZOLE 500 MG TABLET PO SCH ×2 (15:27→20:05)
[2018-01-31] MEDS ORDERED: *HR* Warfarin 10 MG TABLET PO ONE (18:00)
[2018-01-31] MEDS: Gabapentin 100 MG CAPSULE PO SCH (20:05)
[2018-01-31] MEDS: Insulin DETEMIR 100 UNIT/ML X5UNITS SQ SCH (22:34)
[2018-02-01 01:20] LABS: Activated Partial Thrombo Time 186.1 Seconds (26.0-36.0)
[2018-02-01 01:32] LABS: Heparin anti-factor XA UFH 0.61 IU/mL (0.30-0.70)
[2018-02-01 04:26] LABS: INR 2.4; Prothrombin Time 26.1 Seconds (9.4-12.1)
[2018-02-01] MEDS: FLECAINIDE ACETATE 100 MG PO SCH ×2 (06:38→17:04)
[2018-02-01 07:08] LABS: Activated Partial Thrombo Time 67.3 Seconds (26.0-36.0)
[2018-02-01] MEDS: Budesonide/Formoterol 160/4.5 MDI IH SCH ×2 (07:36→21:48)
[2018-02-01] MEDS: Insulin LISPRO 300 UNITS/3 ML VIAL SQ SCH ×7 (07:46→21:12)
[2018-02-01] MEDS: Cholecalciferol (D-3) 1,000 UNIT TABLET PO SCH (07:56)
[2018-02-01] MEDS: Fenofibrate 54 MG TABLET PO SCH (07:56)
[2018-02-01] MEDS: metroNIDAZOLE 500 MG TABLET PO SCH ×3 (07:56→21:13)
[2018-02-01] MEDS: Bicalutamide 50 MG TABLET PO SCH (07:56)
[2018-02-01] MEDS: Gabapentin 300 MG CAPSULE PO SCH ×3 (07:56→17:03)
[2018-02-01] MEDS: Valsartan 80 MG TABLET PO SCH (07:57)
[2018-02-01] MEDS: Aspirin Enteric Coated 81 MG Tablet PO SCH (07:57)
[2018-02-01] MEDS: Primidone 50 MG TABLET PO SCH ×2 (07:57→21:13)
[2018-02-01] MEDS: Heparin 25,000 UNIT/500 ML D5W 25,000 UNIT/500 ML BAG IVC SCH ×2 (07:57→21:14)
[2018-02-01] MEDS: Furosemide 40 MG TABLET PO SCH (07:57)
[2018-02-01] MEDS: Gentamicin Oint 15 GM TUBE TP SCH (07:58)
--- NOTE | 2018-02-01 09:23 | Infectious Disease Progress No ---
Date of Encounter: 02/01/18 Time of Encounter: 09:21 - Assessment and Plan (1) Osteomyelitis Current Visit: Yes Status: Chronic patient met one SIRS interior upon admission. 01/20/18 left foot x-ray showed diffuse soft tissue swelling along dorsal aspect of the left foot, near the metatarsals. No areas of bone destruction or periosteum reaction to suggest osteomyelitis. 01/20/18 blood cultures negative X2 sets. 01/21/18: left foot wound culture positive for Haemophilus parainfluenza 01/22/18 wound culture from left ankle positive for MSSA. 01/22/18 anaerobic cultures preliminary negative. 01/22/18 wound culture and anaerobic cultures show anaerobic gram negative cocci , beta lactamase positive. Creatinine clearance: 75 plan: left foot bone biopsy pending. patient received one day cefepime-stopped 01/25 he received 2 days vancomycin-stopped 01/24. he received unasyn once on 01/25 Currently on Rocephin 2g daily Continue Rocephin Continue Flagyl 500mg TID given anaerobic organism duration of antibiotics: minimum six weeks [address] PICC line before dishcharge repeat blood culutres x2 sets from 01/27 preliminary no growth sensitivities for Haemophilus paraInfluenza pending- called micro. Follow u with ID in 2 weeks. On discharge, need weekly CBC, BMP, ESR, CRP. Qualifiers: Osteomyelitis type: chronic, with draining sinus Osteomyelitis location: foot Laterality: left Qualified Code(s): M86.472 - Chronic osteomyelitis with draining sinus, left ankle and foot (2) Foot ulcer Current Visit: Yes Status: Acute plan as above Qualifiers: Laterality: right Non-pressure ulcer stage: unspecified non-pressure ulcer stage Qualified Code(s): L97.519 - Non-pressure chronic ulcer of other part of right foot with unspecified severity (3) Closed trimalleolar fracture of left ankle Current Visit: No Status: Acute On 11/03/17,patient had ORIF for left try malleolus her ankle fracture, ORIF for left syndesmosis, let deltoid ligament repair by Dr. Alegre. After this he had been seeing wound clinic and podiatry for continued wound care. Due to a nonhealing surgical wound, patient was sent over from the care clinic for IV antibiotics. Qualifiers: Encounter type: subsequent encounter Fracture healing: with routine healing Qualified Code(s): S82.852D - Displaced trimalleolar fracture of left lower leg, subsequent encounter for closed fracture with routine healing (4) S/P aortic valve replacement Current Visit: Yes Status: Chronic Patient is still being bridged with heparin and Coumadin due to sub therapeutic INR. Management per primary team. (5) Anemia Current Visit: No Status: Chronic Qualifiers: Anemia type: iron deficiency Iron deficiency anemia type: other iron deficiency Qualified Code(s): D50.8 - Other iron deficiency anemias (6) Hypothyroid Current Visit: No Status: Chronic Qualifiers: Hypothyroidism type: unspecified Qualified Code(s): E03.9 - Hypothyroidism , unspecified (7) GERD (gastroesophageal reflux disease) Current Visit: No Status: Chronic Qualifiers: Esophagitis presence: esophagitis presence not specified Qualified Code(s) : K21.9 - Gastro-esophageal reflux disease without esophagitis (8) COPD (chronic obstructive pulmonary disease) Current Visit: No Status: Chronic Qualifiers: COPD type: unspecified COPD Qualified Code(s): J44.9 - Chronic obstructive pulmonary disease, unspecified (9) Chronic renal failure, stage 3 (moderate) Current Visit: No Status: Chronic (10) HTN (hypertension) Current Visit: No Status: Chronic Qualifiers: Hypertension type: essential hypertension Qualified Code(s): I10 - Essential (primary) hypertension (11) HLD (hyperlipidemia) Current Visit: No Status: Chronic Qualifiers: Hyperlipidemia type: pure hypercholesterolemia Qualified Code(s): E78.00 - Pure hypercholesterolemia, unspecified; E78.0 - Pure hypercholesterolemia - Subjective Interval history: 67-year-old male evaluated at bedside. He has no complaints. He denies fever, chills, chest pain, shortness of breath, abdominal pain, nausea, vomiting, diarrhea. Infect Dis PN-Objective Data - Labs CBC & Chem 7: 01/31/18 04:00 01/31/18 04:00 Labs: Laboratory Results - last 24 hr 01/31/18 01/31/18 01/31/18 07:03 11:10 13:00 PT INR APTT 83.3 H D Heparin Anti-Xa, Unfract POC Glucose 134 H 165 H 01/31/18 01/31/18 02/01/18 16:06 18:43 00:50 PT INR APTT 49.5 H 186.1 H* D Heparin Anti-Xa, Unfract 0.61 POC Glucose 117 H 02/01/18 02/01/18 04:00 07:12 PT 26.1 H INR 2.4 APTT 67.3 H D Heparin Anti-Xa, Unfract POC Glucose 118 H Cultures: Cultures 01/27/18 17:12 Blood Culture - Preliminary Peripheral Venipuncture No growth. 01/27/18 17:00 Blood Culture - Preliminary Peripheral Venipuncture No growth. Exam - Constitutional Vitals: Temp Pulse Resp BP Pulse Ox 98.0 F 62 17 131/81 96 02/01/18 07:09 02/01/18 07:09 02/01/18 07:39 02/01/18 07:09 02/01/18 07:39 - Respiratory Respiratory exam: Present: CTAB. Absent: rales, rhonchi, wheezes - Cardiovascular Cardiovascular exam: Present: irregular rhythm. Absent: rubs, systolic murmur - GI/Abdominal GI/Abdominal exam: Present: normal bowel sounds, soft. Absent: tenderness - Extremities Exam Additional comments: Left foot: Dressing applied with boot present. Wound VAC present - Neurological Exam Neurological exam: Present: alert, oriented X3, no focal deficits Consult Discharge Plan - Plan Additional Instructions: Wound care orders: Apply adaptic with small back simplace wound vac sponge to ulceration at base of 5th metatarsal lateral aspect, left foot, connect to 125 mmhg low continuous suction. Prep surrounding skin with Allkare and apply drape , apply calcium alginate to incision line of left lateral ankle with 4x4 dry sterile gauze and kerlix. Apply 50/50 mix of Santyl and Gentamicin on saline moistened gauze to the left heel ulcer. Wound Vac to be changed every -- Follow up orders for Infection: Weekly labs including: CBC, BMP, ESR, CRP. Follow up with Dr. Waldron in 2 weeks. Podiatry: Follow up with Dr. Alegre in 1 week. Referrals: Calli Estes, STANISLAV [Primary Care Provider] - Prescriptions: Enoxaparin [Lovenox] 120 mg SQ Q12HR #8 syr cefTRIAXone [Rocephin] 2,000 mg IVPB DAILY #42 vial Insulin DETEMIR [Levemir] 35 unit SQ HS #21 [id number] Insulin LISPRO [HumaLOG] 10 units SQ TIDWM #5 vial - Attending Attestation I examined this patient and my medical decision-making was reviewed with the Resident Physician. I agree with the documented findings, disposition and treatment plan as described except to the extent set forth below.
[2018-02-01 11:27] LABS: Activated Partial Thrombo Time 194.3 Seconds (26.0-36.0)
[2018-02-01 11:37] LABS: Heparin anti-factor XA UFH 0.31 IU/mL (0.30-0.70)
[2018-02-01] MEDS: cefTRIAXone 2,000 MG in Water for inj. (sterile) 20 ML 20 ML IVP SCH (11:44)
[2018-02-01] MEDS ORDERED: *HR* Warfarin 10 MG TABLET PO ONE (18:00)
--- NOTE | 2018-02-01 18:47 | Internal Med Progress Note ---
Date of Encounter: 02/01/18 Time of Encounter: 18:47 - Assessment and plan (1) Osteomyelitis Current Visit: Yes Status: Chronic Assessment and plan: Currently on IV abx per ID. Plan for 6 weeks of treatment. Discharge to SNF tomorrow. Qualifiers: Osteomyelitis type: chronic, with draining sinus Osteomyelitis location: foot Laterality: left Qualified Code(s): M86.472 - Chronic osteomyelitis with draining sinus, left ankle and foot (2) S/P aortic valve replacement Current Visit: Yes Status: Chronic Assessment and plan: Bridging back to Coumadin for goal INR of 2.5-3.5 INR continues to be subtherapeutic, pharmacy to dose Continue heparin drip until INR is therapeutic (3) Chronic renal failure, stage 3 (moderate) Current Visit: No Status: Chronic Assessment and plan: - Chronic renal failure stage III - Creatinine appears to be at baseline levels Plan - Continue supportive care, avoid nephrotoxic agents - Renally dose medications and trend BMP (4) GERD (gastroesophageal reflux disease) Current Visit: No Status: Chronic Assessment and plan: - Continue home medications. - Stable, no acute exacerbations per patient Qualifiers: Esophagitis presence: esophagitis presence not specified Qualified Code(s) : K21.9 - Gastro-esophageal reflux disease without esophagitis (5) Diastolic heart failure Current Visit: No Status: Chronic Assessment and plan: No acute issues Qualifiers: Heart failure chronicity: chronic Qualified Code(s): I50.32 - Chronic diastolic (congestive) heart failure (6) Hypertension Current Visit: No Status: Chronic Assessment and plan: - BP under control, continue home medications. Qualifiers: Hypertension type: essential hypertension Qualified Code(s): I10 - Essential (primary) hypertension (7) Type 2 diabetes mellitus with foot ulcer Current Visit: Yes Status: Acute Assessment and plan: - pt had a diabetic ulcer at the bottom of the left foot, had a recent procedure done by a town planner, wound was poorly healed after surgery. - He has an insulin pump, however he reports not using it consistently due to complexity. Blood sugars were poorly controlled on admission the hospital. 01/22: I&D with bone biopsy, tolerated procedure well. Pain control with Tylenol and Roxicodone prn. 01/23 blood cultures NGTD, wound culture prelim gram neg coccobacilli ( H.parainfluenza), MSSA. - A1c of 7.5% on admission, blood sugars improved to 100s. Possibly elevated secondary to infection vs stress. - Basal insulin was increased to 30 units QHS. Adjust sliding scale insulin yesterday - Wound cultures growing MSSA, H. parainfluenza. Gram negative cocci anaerobic with beta lactamase, possible contaminate. Contacted ID Plan - Continue antibiotics per ID recommendations. - Bone biopsy negative, operative report stated soft bone on debridement. Will treat as osteomyelitis per ID recs. - Podiatry following, appreciate recommendations. Per note continue wound VAC and follow-up with Dr. Alegre one week after discharge () - Will need weekly ESR, CRP, CBC, BMP, ID visits. 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 Continue antibiotics. Blood cultures NGTD Qualifiers: Site of cellulitis: extremity Site of cellulitis of extremity: lower extremity Laterality: left Qualified Code(s): L03.116 - Cellulitis of left lower limb (9) Tobacco use Current Visit: Yes Status: Chronic Assessment and plan: - Pt observed to be using chewing tobacco on exam. Encouraged to quit both while inpatient and after discharge. (10) DVT prophylaxis Current Visit: Yes Status: Acute Assessment and plan: - On heparin gtt while bridging back to coumadin - Time Spent With Patient Total time spent is greater than 50% in coordination of care (as documented) at patient's floor/unit and/or counseling patient: - Subjective Interval history: No acute events. - Constitutional Vitals: Temp Pulse Resp BP Pulse Ox 97.5 F L 63 15 103/67 95 02/01/18 15:29 02/01/18 15:29 02/01/18 15:29 02/01/18 15:29 02/01/18 15:29 General appearance: Present: A&O X 3 Exam: - Head Head exam: Present: normocephalic - Eye Eye exam: Present: conjuntiva pink - ENT ENT exam: Present: mucous membranes dry - Respiratory Respiratory exam: Present: CTAB. Absent: rales, rhonchi, wheezes - Cardiovascular Cardiovascular exam: Present: RRR. Absent: tachycardia - GI/Abdominal GI/Abdominal exam: Present: normal bowel sounds, soft. Absent: tenderness - Extremities Exam Extremities exam: Present: warm Additional comments: Wound vac in place - Neurological Exam Neurological exam: Present: alert, oriented X3, no focal deficits - Skin Skin exam: Present: dry, warm Internal Medicine: Result - Labs CBC & Chem 7: 01/31/18 04:00 01/31/18 04:00 - ABG Interpretation ABG results: PT/INR, D-dimer PT 26.1 Seconds (9.4-12.1) H 02/01/18 04:00 Consult Discharge Plan - Plan Additional Instructions: Wound care orders: Apply adaptic with small back simplace wound vac sponge to ulceration at base of 5th metatarsal lateral aspect, left foot, connect to 125 mmhg low continuous suction. Prep surrounding skin with Allkare and apply drape , apply calcium alginate to incision line of left lateral ankle with 4x4 dry sterile gauze and kerlix. Apply 50/50 mix of Santyl and Gentamicin on saline moistened gauze to the left heel ulcer. Wound Vac to be changed every -- Follow up orders for Infection: Weekly labs including: CBC, BMP, ESR, CRP. Follow up with Dr. Waldron in 2 weeks. Podiatry: Follow up with Dr. Alegre in 1 week. Referrals: Calli Estes, VOIP NETWORK TECHNICIAN [Primary Care Provider] - Prescriptions: Enoxaparin [Lovenox] 120 mg SQ Q12HR #8 syr cefTRIAXone [Rocephin] 2,000 mg IVPB DAILY #42 vial Insulin DETEMIR [Levemir] 35 unit SQ HS #21 [id number] Insulin LISPRO [HumaLOG] 10 units SQ TIDWM #5 vial
[2018-02-01] MEDS: Insulin DETEMIR 100 UNIT/ML X5UNITS SQ SCH (21:12)
[2018-02-01] MEDS: OXYCODONE Oral CONC 10 MG/0.5 ML ORAL.SYG SL PRN (21:13)
[2018-02-01] MEDS: Gabapentin 100 MG CAPSULE PO SCH (21:13)
[2018-02-02 05:02] LABS: INR 2.4; Prothrombin Time 25.9 Seconds (9.4-12.1)
[2018-02-02] MEDS: FLECAINIDE ACETATE 100 MG PO SCH (05:44)
--- NOTE | 2018-02-02 08:00 | Discharge Summary ---
- NOTES TO OUTPATIENT PROVIDER Notes to Outpatient Provider: - Follow-up INR. Most recent INR 2.4, giving Lovenox to bridge and please adjust Warfarin dose accordingly. Goal 2.5-3.5. - Adjust inulin dosage as needed. Orders not resulted at time of discharge: Pending orders 01/27/18 17:12 Culture,Blood [BC] Stat 02/02/18 11:40 PTT [Activated Partial Thrombo Time] [COAG] Timed 02/03/18 04:00 PT/INR [Prothrombin Time INR] [COAG] AM 0400 02/04/18 04:00 PT/INR [Prothrombin Time INR] [COAG] AM 0400 02/05/18 04:00 PT/INR [Prothrombin Time INR] [COAG] AM 0400 02/06/18 04:00 PT/INR [Prothrombin Time INR] [COAG] AM 0400 02/07/18 04:00 PT/INR [Prothrombin Time INR] [COAG] AM 0400 Date of Encounter: 02/02/18 Time of Encounter: 08:00 - Discharge Diagnosis (1) Osteomyelitis Priority: Primary Status: Chronic Assessment and Plan: Currently on IV abx per ID. Plan for 6 weeks of treatment. Discharge to SNF tomorrow. Qualifiers: Osteomyelitis type: chronic, with draining sinus Osteomyelitis location: foot Laterality: left Qualified Code(s): M86.472 - Chronic osteomyelitis with draining sinus, left ankle and foot (2) S/P aortic valve replacement Priority: Secondary Status: Chronic (3) Chronic renal failure, stage 3 (moderate) Priority: Secondary Status: Chronic (4) GERD (gastroesophageal reflux disease) Priority: Secondary Status: Chronic Qualifiers: Esophagitis presence: esophagitis presence not specified Qualified Code(s) : K21.9 - Gastro-esophageal reflux disease without esophagitis (5) Diastolic heart failure Priority: Secondary Status: Chronic Qualifiers: Heart failure chronicity: chronic Qualified Code(s): I50.32 - Chronic diastolic (congestive) heart failure (6) Hypertension Priority: Secondary Status: Chronic Qualifiers: Hypertension type: essential hypertension Qualified Code(s): I10 - Essential (primary) hypertension (7) Type 2 diabetes mellitus with foot ulcer Priority: Secondary Status: Acute Qualifiers: Diabetes mellitus group home insulin use: with intermodal dispatcher use Qualified Code( s): E11.621 - Type 2 diabetes mellitus with foot ulcer; L97.509 - Non-pressure chronic ulcer of other part of unspecified foot with unspecified severity; L97.509 - Non-pressure chronic ulcer of other part of unspecified foot with unspecified severity; L97.509 - Non-pressure chronic ulcer of other part of unspecified foot with unspecified severity; L97.509 - Non-pressure chronic ulcer of other part of unspecified foot with unspecified severity; Z79.4 - [facility] (current) use of insulin; Z79.4 - terminal supervisor (current) use of insulin; Z79.4 - terminal supervisor (current) use of insulin; Z79.4 - terminal supervisor (current) use of insulin (8) Cellulitis Priority: Secondary Status: Acute Qualifiers: Site of cellulitis: extremity Site of cellulitis of extremity: lower extremity Laterality: left Qualified Code(s): L03.116 - Cellulitis of left lower limb (9) Tobacco use Priority: Secondary Status: Chronic (10) DVT prophylaxis Priority: Secondary Status: Acute Hospital course: Mr. Cortez is a 67 year old male with past medical history of asthma, CHF, COPD, insulin-dependent diabetes, hypertension, CAD, CKD, mechanical valve since the emergency room from wound care for a nonhealing left heel wound. He did have surgery in October for a fractured ankle and has had poor healing ever since. Physical exam in ED reported purulent discharge and necrotic center. Vitals wnl. Labs showed no WBC elevation, hyponatremia at 131, BUN/Cr of 33/1.80, glucose 272, INR 2.4. Foot Xray showed diffuse soft tissue swelling without evidence of bone destruction or periosteal reaction. He was admitted for surgical intervention with a podiatry consult for non healing diabetic foot ulcer. During course of hospital stay, patient gradually improved. He did have a podiatry consult who after reversing his INR with a heparin drip, performed an I &D with debridement and cultures on 01/22/18. He was started on Vancomycin. After debridement, wound care was consulted for further dressing management. He was later started on cefepime for gram negative coverage. Cultures returned with growth of MSSA, H.parainfluenza. Antibiotics were then changed to unasyn given sensitivities. Infectious disease was consulted for Operative report stating there was periosteal purulence with concern for osteomyelitis. Per their suggestion, he will need ceftriaxone 2g Qday for 6 weeks. Bone biopsy returned negative for infection, however ID felt that he would need treatment for 6 weeks regardless. He had a wound vac placed. His Labs returned to baseline. He was bridged back to therapeutic INR of 2.5-3.5 using heparin drip and lovenox. He will follow up with podiatry, wound care, infectious disease, and PCP for further management. He will be discharged in stable condition to SNF. He will also have weekly labs to follow up with infection per ID. Insulin pump which he had been using was reportedly not working, he will be discharged on insulin. - Time Spent with Patient Total time spent providing and/or coordinating discharge services: - Discharge Medications Prescriptions: Enoxaparin [Lovenox] 120 mg SQ Q12HR #8 syr cefTRIAXone [Rocephin] 2,000 mg IVPB DAILY #42 vial Insulin DETEMIR [Levemir] 35 unit SQ HS #21 [id number] Insulin LISPRO [HumaLOG] 10 units SQ TIDWM #5 vial metroNIDAZOLE [Flagyl] 500 mg PO TID #126 tablet Home Medications: Albuterol Sulfate [Ventolin Hfa] 2 puff IH BID 05/14/16 [History] Allopurinol [Zyloprim 100 MG] 200 mg PO DAILY 05/14/16 [History] Aspirin [Lo-Dose Aspirin EC] 81 mg PO DAILY 05/14/16 [History] Bicalutamide [Casodex] 50 mg PO DAILY 05/14/16 [History] Calcitriol [Rocaltrol] 0.25 mcg PO DAILY 05/14/16 [History] Cholecalciferol (Vitamin D3) [Vitamin D3] 5,000 unit PO BID 05/14/16 [History] Docusate [Colace] 100 mg PO BID PRN 05/14/16 [History] Fenofibrate 145 mg PO DAILY 05/14/16 [History] Flecainide Acetate 100 mg PO Q12HR 05/14/16 [History] Furosemide [Lasix] 40 mg PO BID 05/14/16 [History] Levothyroxine [Synthroid] 150 mcg PO DAILY 05/14/16 [History] Montelukast [Singulair] 10 mg PO DAILY 05/14/16 [History] Nitroglycerin [Nitrostat] 0.4 mg SL AD PRN 05/14/16 [History] Simvastatin [Zocor] 40 mg PO HS 05/14/16 [History] Warfarin [Coumadin] 15 mg PO SUSA 05/14/16 [History] Metoprolol [Lopressor] 25 mg PO DAILY 07/31/16 [History] Pantoprazole Sodium [Protonix] 40 mg PO DAILY 07/31/16 [History] Albuterol Neb [Proventil Neb] 2.5 mg IH Q4HR PRN 10/07/17 [History] Citalopram [CeleXA] 20 mg PO DAILY 10/07/17 [History] Phenylephrine/Dm/Acetaminop/GG [Kro Mucus Relief Cold-Flu Cplt] 1 tab PO Q6-8H PRN 10/07/17 [History] Budesonide/Formoterol 160/4.5 [Symbicort 160/4.5] 2 puff IH BIDR 10/31/17 [ History] Nut.tx.gluc.intoler,Lac-Fr,Soy [Glucerna] 1 can PO TID 10/31/17 [History] Primidone [Mysoline] 50 mg PO BID 10/31/17 [History] Valsartan [Diovan] 80 mg PO DAILY 10/31/17 [History] Gabapentin [Neurontin] 100 mg PO HS #10 capsule 11/08/17 [Rx] Ferrous Sulfate 325 mg PO BIDWM tablet 11/18/17 [Rx] Collagenase Oint [Santyl] 1 appl TP BID 01/20/18 [History] Famotidine [Pepcid] 40 mg PO DAILY 01/20/18 [History] Gabapentin [Neurontin] 300 mg PO TID 01/20/18 [History] Warfarin [Coumadin] 10 mg PO MOTUWETHFR 01/20/18 [History] Enoxaparin [Lovenox] 120 mg SQ Q12HR #8 syr 01/28/18 [Rx] Insulin DETEMIR [Levemir] 35 unit SQ HS #21 [id number] 01/28/18 [Rx] Insulin LISPRO [HumaLOG] 10 units SQ TIDWM #5 vial 01/28/18 [Rx] cefTRIAXone [Rocephin] 2,000 mg IVPB DAILY #42 vial 01/28/18 [Rx] metroNIDAZOLE [Flagyl] 500 mg PO TID #126 tablet 02/02/18 [Rx] Allergies/Adverse Reactions: 3 Allergy/AdvReac Type Severity Reaction Status Date / Time niacin Allergy See Verified 01/20/18 15:22 [From Heatherspjyoti Comments Extended-Release] Date of admission: 01/23/18 14:28 Primary care physician: Calli Estes CNP Consults: 01/25/18 17:12 Consult to Metal Furniture Polisher [CONS] Routine Reason for SW Consult: Discharge planning, patient will require wound vac upon discharge and will need wound vac changes every M-W-. 01/27/18 13:52 Consult to Infectious Diseases [CONS] Routine Consulting Provider: Infectious Disease [place] Reason for Consult: S/p I&D, purulent drainage of left foot and ankle. Call Completed: Yes Discharging clinician: Otis Qiu - Constitutional Vitals: Temp Pulse Resp BP Pulse Ox 98.5 F 70 18 140/76 98 02/02/18 06:44 02/02/18 06:44 02/02/18 06:44 02/02/18 06:44 02/02/18 06:44 General appearance: Present: A&O X 3 Exam: Gen.: Vitals noted. No acute distress. AAOx3 HEENT: PERRL/EOMI, oropharynx clear, Normocephalic, atraumatic Cardiac: RRR, no murmur, +S1/S2, prominent S2 Pulmonary: CTA bilaterally, no wheezes, rales or rhonchi, equal chest expansion Abdomen: soft, nontender, BS noted, no guarding MSK: ROM intact, no joint swelling noted Extremities: no BLE edema, nontender calf, no cyanosis or clubbing. LLE in brace. No evidence of infection. Wound vac attached with no drainage noted. Neuro: A&Ox3, moves all extremities, no focal deficits Psych: Appropriate mood and behavior - Patient Status Disposition: Transfer SNF Condition: Good - Ambulatory Orders Ambulatory Orders: Basic Metabolic Panel [CHEM] Time Frame: 1 Week, Facility: [facility], Location: Lab C-Reactive Protein [CHEM] Time Frame: 1 Week, Facility: [facility], Location: Lab Complete Blood Count w/o Diff [HEME] Time Frame: 1 Week, Facility: [facility], Location: Lab Erythrocyte Sedimentation Rate [HEME] Time Frame: 1 Week, Facility: [facility], Location: Lab - Discharge Instructions Follow Up With: Calli Estes CNP [Primary Care Provider] - Additional Instructions: Wound care orders: Apply adaptic with small back simplace wound vac sponge to ulceration at base of 5th metatarsal lateral aspect, left foot, connect to 125 mmhg low continuous suction. Prep surrounding skin with Allkare and apply drape , apply calcium alginate to incision line of left lateral ankle with 4x4 dry sterile gauze and kerlix. Apply 50/50 mix of Santyl and Gentamicin on saline moistened gauze to the left heel ulcer. Wound Vac to be changed every -- Follow up orders for Infection: Weekly labs including: CBC, BMP, ESR, CRP. Follow up with Dr. Waldron in 2 weeks. Podiatry: Follow up with Dr. Alegre in 1 week. - Diet and Activity Activity: as per physical therapy Diet: diabetic diet, low fat, low cholesterol, low salt diet
--- NOTE | 2018-02-02 08:14 | Physician Discharge Referral ---
ExtendedCare Referral Info Provider in Charge after Transfer: Other Institutional Level of Care: Skilled - Diagnosis (1) Osteomyelitis Priority: Primary Status: Chronic (2) S/P aortic valve replacement Priority: Secondary Status: Chronic (3) Chronic renal failure, stage 3 (moderate) Priority: Secondary Status: Chronic (4) GERD (gastroesophageal reflux disease) Priority: Secondary Status: Chronic (5) Diastolic heart failure Priority: Secondary Status: Chronic (6) Hypertension Priority: Secondary Status: Chronic (7) Type 2 diabetes mellitus with foot ulcer Priority: Secondary Status: Acute (8) Cellulitis Priority: Secondary Status: Acute (9) Tobacco use Priority: Secondary Status: Chronic (10) DVT prophylaxis Priority: Secondary Status: Acute - Transfer Medications Prescriptions: Enoxaparin [Lovenox] 120 mg SQ Q12HR #8 syr cefTRIAXone [Rocephin] 2,000 mg IVPB DAILY #42 vial Insulin DETEMIR [Levemir] 35 unit SQ HS #21 [id number] Insulin LISPRO [HumaLOG] 10 units SQ TIDWM #5 vial metroNIDAZOLE [Flagyl] 500 mg PO TID #126 tablet Home Medications: Albuterol Sulfate [Ventolin Hfa] 2 puff IH BID 05/14/16 [History] Allopurinol [Zyloprim 100 MG] 200 mg PO DAILY 05/14/16 [History] Aspirin [Lo-Dose Aspirin EC] 81 mg PO DAILY 05/14/16 [History] Bicalutamide [Casodex] 50 mg PO DAILY 05/14/16 [History] Calcitriol [Rocaltrol] 0.25 mcg PO DAILY 05/14/16 [History] Cholecalciferol (Vitamin D3) [Vitamin D3] 5,000 unit PO BID 05/14/16 [History] Docusate [Colace] 100 mg PO BID PRN 05/14/16 [History] Fenofibrate 145 mg PO DAILY 05/14/16 [History] Flecainide Acetate 100 mg PO Q12HR 05/14/16 [History] Furosemide [Lasix] 40 mg PO BID 05/14/16 [History] Levothyroxine [Synthroid] 150 mcg PO DAILY 05/14/16 [History] Montelukast [Singulair] 10 mg PO DAILY 05/14/16 [History] Nitroglycerin [Nitrostat] 0.4 mg SL AD PRN 05/14/16 [History] Simvastatin [Zocor] 40 mg PO HS 05/14/16 [History] Warfarin [Coumadin] 15 mg PO SUSA 05/14/16 [History] Metoprolol [Lopressor] 25 mg PO DAILY 07/31/16 [History] Pantoprazole Sodium [Protonix] 40 mg PO DAILY 07/31/16 [History] Albuterol Neb [Proventil Neb] 2.5 mg IH Q4HR PRN 10/07/17 [History] Citalopram [CeleXA] 20 mg PO DAILY 10/07/17 [History] Phenylephrine/Dm/Acetaminop/GG [Kro Mucus Relief Cold-Flu Cplt] 1 tab PO Q6-8H PRN 10/07/17 [History] Budesonide/Formoterol 160/4.5 [Symbicort 160/4.5] 2 puff IH BIDR 10/31/17 [ History] Nut.tx.gluc.intoler,Lac-Fr,Soy [Glucerna] 1 can PO TID 10/31/17 [History] Primidone [Mysoline] 50 mg PO BID 10/31/17 [History] Valsartan [Diovan] 80 mg PO DAILY 10/31/17 [History] Gabapentin [Neurontin] 100 mg PO HS #10 capsule 11/08/17 [Rx] Ferrous Sulfate 325 mg PO BIDWM tablet 11/18/17 [Rx] Collagenase Oint [Santyl] 1 appl TP BID 01/20/18 [History] Famotidine [Pepcid] 40 mg PO DAILY 01/20/18 [History] Gabapentin [Neurontin] 300 mg PO TID 01/20/18 [History] Warfarin [Coumadin] 10 mg PO MOTUWETHFR 01/20/18 [History] Enoxaparin [Lovenox] 120 mg SQ Q12HR #8 syr 01/28/18 [Rx] Insulin DETEMIR [Levemir] 35 unit SQ HS #21 [id number] 01/28/18 [Rx] Insulin LISPRO [HumaLOG] 10 units SQ TIDWM #5 vial 01/28/18 [Rx] cefTRIAXone [Rocephin] 2,000 mg IVPB DAILY #42 vial 01/28/18 [Rx] metroNIDAZOLE [Flagyl] 500 mg PO TID #126 tablet 02/02/18 [Rx] Allergies/Adverse Reactions: 3 Allergy/AdvReac Type Severity Reaction Status Date / Time niacin Allergy See Verified 01/20/18 15:22 [From Niaspan Comments Extended-Release] - Respiratory Orders Smoking Cessation: Smoking cessation has been advised. For more information, call the [place] Tobacco Quit Line at 0-856-YUEY-NOW. - Ancillary Orders May use pressure relief devices daily prn, May consult with Dentist, Business Mgr, Grizzlyman PRN - Advance Directives Code Status: Full Code - Mobility Orders Other (as per physical therapy) - Rehabiliation Orders Rehab Orders: Evaluation for Physical Therapy, Evaluation for Occupational Therapy - Treatments Skin tear care topically daily PRN per policy, May check for fecal impaction rectally daily PRN - Diet Orders No Concentrated Sweets, Cardiac CERTIFICATION: I certify that the transfer of the above named patient to an Extended Care Facility is necessary for the continuing treatment of the diagnosis listed. The above information is true and accurate reflection of patient's current condition. Confidential - Redisclosure prohibited without a patient's written consent.
[2018-02-02] MEDS: Aspirin Enteric Coated 81 MG Tablet PO SCH (08:17)
[2018-02-02] MEDS: Primidone 50 MG TABLET PO SCH (08:17)
[2018-02-02] MEDS: Valsartan 80 MG TABLET PO SCH (08:18)
[2018-02-02] MEDS: Furosemide 40 MG TABLET PO SCH (08:18)
[2018-02-02] MEDS: Fenofibrate 54 MG TABLET PO SCH (08:18)
[2018-02-02] MEDS: metroNIDAZOLE 500 MG TABLET PO SCH ×2 (08:18→14:03)
[2018-02-02] MEDS: Gabapentin 300 MG CAPSULE PO SCH ×2 (08:18→11:41)
[2018-02-02] MEDS: Cholecalciferol (D-3) 1,000 UNIT TABLET PO SCH (08:19)
[2018-02-02] MEDS: Bicalutamide 50 MG TABLET PO SCH (08:19)
[2018-02-02] MEDS: Insulin LISPRO 300 UNITS/3 ML VIAL SQ SCH ×4 (08:19→11:41)
[2018-02-02] MEDS: Gentamicin Oint 15 GM TUBE TP SCH (08:20)
[2018-02-02] MEDS: Budesonide/Formoterol 160/4.5 MDI IH SCH (10:50)
[2018-02-02 11:02] VITALS: BP 133/75
[2018-02-02] MEDS: cefTRIAXone 2,000 MG in Water for inj. (sterile) 20 ML 20 ML IVP SCH (11:37)
[2018-02-02] MEDS ORDERED: *HR* Enoxaparin 40 MG/0.4 ML SYRINGE SQ ONE (13:39)
--- NOTE | 2018-02-02 14:44 | Infectious Disease Progress No ---
Date of Encounter: 02/02/18 Time of Encounter: 14:43 - Assessment and Plan (1) Osteomyelitis Status: Chronic patient met one SIRS interior upon admission. 01/20/18 left foot x-ray showed diffuse soft tissue swelling along dorsal aspect of the left foot, near the metatarsals. No areas of bone destruction or periosteum reaction to suggest osteomyelitis. 01/20/18 blood cultures negative X2 sets. 01/21/18: left foot wound culture positive for Haemophilus parainfluenza 01/22/18 wound culture from left ankle positive for MSSA. 01/22/18 anaerobic cultures preliminary negative. 01/22/18 wound culture and anaerobic cultures show anaerobic gram negative cocci , beta lactamase positive. Creatinine clearance: 74 plan: left foot bone biopsy pending. patient received one day cefepime-stopped 01/25 he received 2 days vancomycin-stopped 01/24. he received unasyn once on 01/25 Currently on Rocephin 2g daily Continue Rocephin Continue Flagyl 500mg TID given anaerobic organism duration of antibiotics: minimum six weeks place PICC line before dishcharge repeat blood culutres x2 sets from 01/27 preliminary no growth sensitivities for Haemophilus paraInfluenza pending- called micro. Follow u with ID in 2 weeks. On discharge, need weekly CBC, BMP, ESR, CRP. Qualifiers: Osteomyelitis type: chronic, with draining sinus Osteomyelitis location: foot Laterality: left Qualified Code(s): M86.472 - Chronic osteomyelitis with draining sinus, left ankle and foot (2) Foot ulcer Status: Acute plan as above Qualifiers: Laterality: right Non-pressure ulcer stage: unspecified non-pressure ulcer stage Qualified Code(s): L97.519 - Non-pressure chronic ulcer of other part of right foot with unspecified severity (3) Closed trimalleolar fracture of left ankle Status: Acute On 11/03/17,patient had ORIF for left try malleolus her ankle fracture, ORIF for left syndesmosis, let deltoid ligament repair by Dr. Alegre. After this he had been seeing wound clinic and podiatry for continued wound care. Due to a nonhealing surgical wound, patient was sent over from the care clinic for IV antibiotics. Qualifiers: Encounter type: subsequent encounter Fracture healing: with routine healing Qualified Code(s): S82.852D - Displaced trimalleolar fracture of left lower leg, subsequent encounter for closed fracture with routine healing (4) S/P aortic valve replacement Status: Chronic Patient is still being bridged with heparin and Coumadin due to sub therapeutic INR. Management per primary team. (5) Anemia Status: Chronic Qualifiers: Anemia type: iron deficiency Iron deficiency anemia type: other iron deficiency Qualified Code(s): D50.8 - Other iron deficiency anemias (6) Hypothyroid Status: Chronic Qualifiers: Hypothyroidism type: unspecified Qualified Code(s): E03.9 - Hypothyroidism , unspecified (7) GERD (gastroesophageal reflux disease) Status: Chronic Qualifiers: Esophagitis presence: esophagitis presence not specified Qualified Code(s) : K21.9 - Gastro-esophageal reflux disease without esophagitis (8) COPD (chronic obstructive pulmonary disease) Status: Chronic Qualifiers: COPD type: unspecified COPD Qualified Code(s): J44.9 - Chronic obstructive pulmonary disease, unspecified (9) Chronic renal failure, stage 3 (moderate) Status: Chronic (10) HTN (hypertension) Status: Chronic Qualifiers: Hypertension type: essential hypertension Qualified Code(s): I10 - Essential (primary) hypertension (11) HLD (hyperlipidemia) Status: Chronic Qualifiers: Hyperlipidemia type: pure hypercholesterolemia Qualified Code(s): E78.00 - Pure hypercholesterolemia, unspecified; E78.0 - Pure hypercholesterolemia - Subjective Interval history: 67-year-old male evaluated at bedside. He has no complaints. He denies fever, chills, chest pain, shortness of breath, abdominal pain, nausea, vomiting, diarrhea. Infect Dis PN-Objective Data - Labs CBC & Chem 7: 01/31/18 04:00 01/31/18 04:00 Labs: Laboratory Results - last 24 hr 02/02/18 04:15 PT 25.9 H INR 2.4 Cultures: Cultures 01/27/18 17:12 Blood Culture - Final Peripheral Venipuncture No growth. 01/27/18 17:00 Blood Culture - Final Peripheral Venipuncture No growth. Exam - Constitutional Vitals: Temp Pulse Resp BP Pulse Ox 98.7 F 61 16 133/75 98 02/02/18 10:56 02/02/18 10:56 02/02/18 10:56 02/02/18 10:56 05/09/18 10:56 - Respiratory Respiratory exam: Present: CTAB - Cardiovascular Cardiovascular exam: Present: RRR. Absent: diastolic murmur, systolic murmur - GI/Abdominal GI/Abdominal exam: Present: normal bowel sounds, soft. Absent: tenderness - Extremities Exam Additional comments: Bandage to R foot with boot present Consult Discharge Plan - Plan Additional Instructions: Wound care orders: Apply adaptic with small back simplace wound vac sponge to ulceration at base of 5th metatarsal lateral aspect, left foot, connect to 125 mmhg low continuous suction. Prep surrounding skin with Allkare and apply drape , apply calcium alginate to incision line of left lateral ankle with 4x4 dry sterile gauze and kerlix. Apply 50/50 mix of Santyl and Gentamicin on saline moistened gauze to the left heel ulcer. Wound Vac to be changed every M-W- Follow up orders for Infection: Weekly labs including: CBC, BMP, ESR, CRP. Follow up with Dr. Waldron in 2 weeks. Podiatry: Follow up with Dr. Alegre in 1 week. Referrals: Calli Estes, SOUND EDITOR [Primary Care Provider] - Prescriptions: Enoxaparin [Lovenox] 120 mg SQ Q12HR #8 syr cefTRIAXone [Rocephin] 2,000 mg IVPB DAILY #42 vial Insulin DETEMIR [Levemir] 35 unit SQ HS #21 [id number] Insulin LISPRO [HumaLOG] 10 units SQ TIDWM #5 vial metroNIDAZOLE [Flagyl] 500 mg PO TID #126 tablet - Attending Attestation I examined this patient and my medical decision-making was reviewed with the Resident Physician. I agree with the documented findings, disposition and treatment plan as described except to the extent set forth below.
[2018-02-02] MEDS ORDERED: *HR* Warfarin 10 MG TABLET PO ONE (18:00)
== END 2018-02-02 14:52 | DRG 629 ==
LOC: 3ANU 10:48 → EMEROO 10:48 → 3ANU 15:35 → SUATTDRO 01-23 14:28
PROVIDERS: ADMIT Student in an Organized Health Care Education/Training Program; ATTEND Student in an Organized Health Care Education/Training Program

== ENCOUNTER 2018-03-24 11:48 | Inpatient (IN) ==
[2018-03-24] MEDS ORDERED: Naloxone 0.4 MG/ML INJ IVP PRN (13:14)
--- NOTE | 2018-03-24 13:57 | Internal Med History&Physical ---
Date of Encounter: 03/24/18 Time of Encounter: 13:45 Internal Medicine - H&P: HPI Chief complaint: Left foot diabetic ulcer Admitted From: Emergency Dept Plans for Post Hospital Care: Transfer [facility] History of present illness: Mr. Cortez is a 67 year old male patient with a history of diabetes, COPD, chronic kidney disease stage III who was hospitalized at [facility] for bilateral upper and lower extremity neuropathy pain and also ulcer in the left lateral ankle and left heel related to his diabetes. He was placed on Rocephin and Flagyl over there and wound culture was positive for Corynebacterium which is likely contaminant. Blood cultures were negative. Patient was then sent to wound care clinic today and was found to have possible underlying abscess and so was sent over here for admission. She did have some pain in his left foot but otherwise is feeling much better. Neuropathic pain appears to have improved after he was placed on higher dose of Neurontin. He felt febrile earlier today. Denies any chills. No shortness of breath or chest pain at this time. Patient is on Coumadin for mechanical aortic valve. His INR is supratherapeutic. His Coumadin dosage was held yesterday. Past Med Surg Social Fam HX - Past Medical History Attestation: Yes The following information was validated with the patient. Source: patient Medical history: asthma, cancer, CHF, COPD, diabetes, hyperlipidemia, hypertension, myocardial infarction, renal disease, thyroid disease, valvular heart disease Additional medical history: prostate cancer Psychiatric history: no psych history - Past Surgical History Surgical History: cholecystectomy Additional surgical history: WOUND VAC TO LT FOOT - Social History Smoking Status: Former smoker Smokeless Tobacco Status: Yes Alcohol use: none Drug use: none - Family History Father Family Member Ethnicity: Non- Living Status: Hx Family Cancer: Yes (Lung) Mother Family Member Ethnicity: Non- Living Status: Hx Family Cardiac Disorders: Yes ([place]) Hx Family Respiratory Disorders: Yes Hx Family Cancer: No Hx Family GI Disorders: No Hx Family Endocrine Disorder: No Hx Family Neuromuscular Disorders: No Hx Family Neurologic Disorders: No Hx Family HEENT Disorders: No Hx Family Autoimmune Disorders: No Sister Adopted: No Family Member Ethnicity: Non- Living Status: Still Living Hx Family Cardiac Disorders: No Hx Family Respiratory Disorders: Yes Hx Family Cancer: Yes (lung) Hx Family GI Disorders: No Hx Family Endocrine Disorder: No Hx Family Neuromuscular Disorders: No Hx Family Neurologic Disorders: No Hx Family HEENT Disorders: No Hx Family Autoimmune Disorders: No Internal Medicine - H&P: Meds Albuterol Sulfate [Ventolin Hfa] 18 gm IH BID 02/11/18 [History] Allopurinol [Zyloprim 100 MG] 200 mg PO DAILY 02/11/18 [History] Aspirin 81 mg PO DAILY 02/11/18 [History] Bicalutamide [Casodex] 50 mg PO DAILY 02/11/18 [History] Budesonide/Formoterol 160/4.5 [Symbicort 160/4.5] 2 puff IH BIDR 02/11/18 [ History] Citalopram [CeleXA] 20 mg PO DAILY 02/11/18 [History] Enoxaparin [Lovenox] 120 mg SQ Q12HR 02/11/18 [History] Famotidine [Pepcid] 40 mg PO DAILY 02/11/18 [History] Fenofibrate Nanocrystallized [Fenofibrate] 145 mg PO DAILY 02/11/18 [History] Ferrous Sulfate [Iron] 325 mg PO BID 02/11/18 [History] Flecainide 50 mg PO Q12HR 02/11/18 [History] Furosemide [Lasix] 40 mg PO BID 02/11/18 [History] Gabapentin [Neurontin] 100 mg PO HS 02/11/18 [History] Insulin DETEMIR [Levemir] 35 unit SQ HS 02/11/18 [History] Insulin LISPRO [HumaLOG] 10 units SQ TIDWM 02/11/18 [History] Levothyroxine [Synthroid] 150 mcg PO DAILY 02/11/18 [History] Metoprolol [Lopressor] 25 mg PO DAILY 02/11/18 [History] Montelukast [Singulair] 10 mg PO DAILY 02/11/18 [History] Pantoprazole Sodium [Protonix] 40 mg PO DAILY 02/11/18 [History] Primidone [Mysoline] 50 mg PO BID 02/11/18 [History] Simvastatin [Zocor] 40 mg PO HS 02/11/18 [History] Sodium Chloride [Saline Nasal Mist] 2 puff NS AD #30 mist 02/11/18 [Rx] Valsartan [Diovan] 80 mg PO DAILY 02/11/18 [History] Vit D3/Folic Acid/B2/B6/B12 [Folgard Tablet] 1 each PO DAILY 02/11/18 [History] Warfarin [Coumadin] 15 mg PO DAILY 02/11/18 [History] 3 Allergy/AdvReac Type Severity Reaction Status Date / Time niacin Allergy See Verified 03/18/18 20:37 [From [facility] Comments Extended-Release] All Systems PM: A 10-system review of systems was performed and is negative for pertinent findings except as documented above in the HPI. - Constitutional Constitutional: fever(s), no chills, no night sweats - EENT Eyes: no change in vision, no discharge, no pain, no photophobia Ears: no ear discharge, no ear pain, no tinnitus Nose, mouth and throat: no dysphagia, no nasal discharge, no neck pain, no sore throat - Cardiovascular Cardiovascular ROS IM: no chest pain, no diaphoresis, no dyspnea, no lightheadedness, no palpitations, no syncope - Respiratory Respiratory: no cough, no dyspnea, no wheezing, no excessive phlegm production - Gastrointestinal Gastrointestinal: no abdominal pain, no diarrhea, no hematemesis, no hematochezia, no melena, no nausea, no vomiting - Musculoskeletal Musculoskeletal ROS IM: other (Left foot pain) - Integumentary Integumentary IM: no rash, no unusual bruising - Neurological Neurological ROS: no confusion, no convulsions, no focal weakness, no numbness, no tingling, no tremor(s) - Hematologic/Lymphatic Hematologic/Lymphatic: no easy bruising - Constitutional Vitals: Temp Pulse Resp BP Pulse Ox 98.4 F 80 17 132/80 97 03/24/18 13:03 03/24/18 13:03 03/24/18 13:03 03/24/18 13:03 03/24/18 13:03 General appearance: Present: cooperative, A&O X 3, obese, answers questions appropriately - Neck Neck exam general surgery: Present: supple, trachea midline. Absent: lymphadenopathy - Respiratory Respiratory exam: Present: CTAB. Absent: accessory muscle use, rales, rhonchi, wheezes - Cardiovascular Cardiovascular exam: Present: RRR, +S1, +S2. Absent: diastolic murmur, gallop, rubs, systolic murmur - GI/Abdominal GI/Abdominal exam: Present: normal bowel sounds, soft, no peritoneal signs. Absent: distended, tenderness - Extremities Exam Extremities exam: Present: warm, radial pulses palpable and symmetrical. Absent : calf tenderness, cyanotic, pedal edema Additional comments: Left foot swollen with erythema over the lateral ankle. Currently bandaged - Neurological Exam Neurological exam: Present: CN II-XII intact, oriented X3, no focal deficits. Absent: facial droop, speech deficit Internal Med - H&P Results - Labs CBC & Chem 7: 03/24/18 13:47 Labs: INR 4.7 PT 52.9 - Assessment and plan (1) Diabetic ulcer of left foot Current Visit: Yes Status: Acute Assessment and plan: Infected diabetic ulcer left foot with associated cellulitis. We will consult infectious disease and podiatry. We will hold off on antibiotics till infectious disease evaluates patient. Patient was receiving Rocephin and Flagyl at [facility]. Wound culture growing Corynebacterium which is likely skin contaminant. Will check ESR and CRP. Also check left foot x-ray. High risk for complications. Qualifiers: Diabetic foot ulcer location: other Diabetes mellitus type: type 2 Non- pressure ulcer stage: with other severity Qualified Code(s): E11.621 - Type 2 diabetes mellitus with foot ulcer; L97.528 - Non-pressure chronic ulcer of other part of left foot with other specified severity (2) CKD (chronic kidney disease) stage 3, GFR 30-59 ml/min Current Visit: Yes Status: Chronic Assessment and plan: Check basic panel. Monitor renal function closely. (3) COPD (chronic obstructive pulmonary disease) Current Visit: Yes Status: Chronic Assessment and plan: Not in acute exacerbation. Place patient on as needed bronchodilators Qualifiers: COPD type: unspecified COPD Qualified Code(s): J44.9 - Chronic obstructive pulmonary disease, unspecified (4) Diabetes mellitus Current Visit: Yes Status: Chronic Assessment and plan: With CK D stage III and neuropathy. Monitor blood sugars. Sliding scale insulin and Levemir. 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 Target INR 2.5-3.5 due to presence of mechanical aortic valve - Time Spent With Patient Total time spent is greater than 50% in coordination of care (as documented) at patient's floor/unit and/or counseling patient:
[2018-03-24 14:14] LABS: Basophils % 0.3 %; Eosinophils # 0.2 K/mcL (0.0-0.6); Eosinophils % 1.7 %; Hematocrit 29.5 % (37.5-50.1); Hemoglobin 9.8 g/dL (12.9-16.9); Immature Granulocytes % 0.8 % (0-4); Lymphocytes # 0.9 K/mcL (0.6-4.6); Lymphocytes % 10.2 %; Mean Corpuscular HGB Conc 33.2 g/dL (31.6-35.5); Mean Corpuscular Hemoglobin 29.5 pg (28.0-33.3); Mean Corpuscular Volume 88.9 fL (83.0-100.0); Monocytes # 0.7 K/mcL (0.0-1.3); Monocytes % 7.4 %; Platelet Count 314 K/mcL (140-400); Red Blood Count 3.32 M/mcL (4.19-5.50); Red Cell Distribution Width 14.3 % (11.5-14.5); Segmented Neutrophils % 79.6 %
[2018-03-24] MEDS ORDERED: D5% in Water 1,000 ML IVC PRN (14:19)
[2018-03-24] MEDS ORDERED: Dextrose Gel 15 GM/37.5 ML TUBE PO PRN ×2 (14:19)
[2018-03-24] MEDS ORDERED: *HR* Dextrose 50 % in Water (Syg) 50 ML SYRINGE IVP PRN (14:19)
[2018-03-24 14:29] LABS: BUN/Creatinine Ratio 20 (6-26); Blood Urea Nitrogen 28 mg/dL (8-23); Calcium 8.6 mg/dL (8.6-10.3); Carbon Dioxide 27 mEq/L (23-29); Chloride 96 mEq/L (98-107); Glucose 221 mg/dL (70-105); Osmolality,Calculated 284 (280-300); Potassium 4.1 mEq/L (3.5-5.1); Sodium 131 mEq/L (136-145); eGFR For African Americans > 60 (> 60); eGFR For Non-African Americans 50 (> 60)
--- NOTE | 2018-03-24 15:02 | Infectious Disease Consult ---
Date of Encounter: 03/24/18 Time of Encounter: 15:00 Assessment and Plan (1) Cellulitis of left leg Status: Acute Assessment and plan: Location: Left medial ankle. Etiology unclear, but non-healing surgical wounds likely the source, although clinically they do not appear infected. X-ray of the left foot showed a non-displaced fracture of the 5th metatarsal, but no evidence of OM. Non-purulent. Causative organism unclear. Has been on Rocephin and Flagyl since admission at [facility] on 03/19, but has had progression of symptoms. Afebrile x 48 hours. No other SIRS criteria. Hold antibiotics for now until cultures can be obtained. If the patient becomes septic or takes a turn to the worse, consider starting broad-spectrum antibiotics (Vancomycin and Zosyn.) Podiatry consulted and following. Per the patient, planning for CT scan later today and possible I & D in the OR at some point. Check ESR and CRP. We will continue to follow closely. (2) Diabetic ulcer of left foot Status: Acute Assessment and plan: Non-healing surgical wounds. Location: Left lateral foot, left lateral ankle, and left heel. Clinically, the do not appear infected. Podiatry consulted and following. Wound care and activity restrictions per the podiatry team. Qualifiers: Diabetic foot ulcer location: other Diabetes mellitus type: type 2 Non- pressure ulcer stage: with other severity Qualified Code(s): E11.621 - Type 2 diabetes mellitus with foot ulcer; L97.528 - Non-pressure chronic ulcer of other part of left foot with other specified severity (3) Chronic kidney disease Status: Chronic Assessment and plan: Appears to be at baseline. Continue to trend. Dose-adjust antibiotics. Avoid nephrotoxins as able. Qualifiers: Chronic kidney disease stage: stage 3 (moderate) Qualified Code(s): N18.3 - Chronic kidney disease, stage 3 (moderate) (4) Type 2 diabetes mellitus with foot ulcer Status: Acute Assessment and plan: Recommend aggressive glucose monitoring and control to promote wound healing and prevent re-infection. Management per the primary team. 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 Cortez is a 67 year old male with a past medical history of diabetes, COPD, chronic kidney disease stage III, osteomyelitis of the left foot, diabetic neuropathy. The patient was admitted to the hospital March 24 for left ankle cellulitis. We are consulted 03/24/18 for antibiotic recommendations for left ankle cellulitis. Briefly, the patient is a 67-year-old male with past medical history as stated above. The patient is well-known to the infectious disease services were consulted on this case 2 months ago when he was diagnosed with osteomyelitis of the left foot. Cultures grew MSSA, H. influenzae, and anaerobes from I & D by Dr. Alegre secondary to a non-healing ORIF surgical site. He was treated with IV Rocephin and PO Flagyl. He did well clinically, but had persistently elevated inflammatory markers. He completed 6 weeks of IV antibiotics and was transitioned to PO Augmentin for 14 days, which he completed about a week ago. The patient presented to [facility] on 03/18/18 with complaints of bilateral hand and bilateral foot pain. He was discharged home, but came back to the ER the following day due to persistent pain. He was admitted at [facility]. His neuropathy pain improved with increasing his gabapentin dose. He was started back on IV Rocephin and flagyl for concerns of left ankle cellulitis. According to the notes, the cellulitis seemed to progress, so the patient was sent to the wound clinic for evaluation by Dr. Alegre today and was admitted for further evaluation. Review of the records from [facility] reveal that the patient was febrile with a Tmax of 102.2 on 03/20, but has been afebrile since then. His WBC has remained normal. Renal function is at baseline.X-ray of the left foot showed minimally displaced fracture of the base of the 5th metatarsal, new since previous x-ray in December, but no evidence of OM. We've been asked to evaluate and make further recommendations. During my exam today, the patient endorses the history as stated above. He reports fevers at [facility], but denies chills or rigors. He denies congestion, earache, or sore throat. Denies chest pain, shortness of breath, or cough. Denies nausea, vomiting, or diarrhea. Denies abdominal pain, urinary complaints , or appetite changes. Denies oral thrush. States he noticed the redness to the left medial ankle about 3 days ago and states it has continued to get worse. He denies any increased drainage from his chronic foot wounds and state they seem to be healing well. He states his blood sugars have been pretty well-controlled with his insulin pump at home. He states the bilateral foot and hand pain has resolved. The patient lives at home with his and three children. He has a cat and three dogs in the house, but denies known exposure between the animals and the foot. He denies tick or mosquito bites. Denies tobacco, alcohol, or illicit drug use. He does not work outside the home. CC: Lilibeth Madrigal MD Past Med Surg Social Fam HX - Past Medical History Attestation: Yes The following information was validated with the patient. Source: patient, old records reviewed, nursing notes reviewed Medical history: asthma, cancer, CHF, COPD, diabetes, hyperlipidemia, hypertension, myocardial infarction, renal disease, thyroid disease, valvular heart disease Additional medical history: prostate cancer Psychiatric history: no psych history - Past Surgical History Surgical History: cholecystectomy Additional surgical history: WOUND VAC TO LT FOOT - Social History Smoking Status: Former smoker Smokeless Tobacco Status: Yes Alcohol use: none Drug use: none Occupational status: disabled Current living situation: Home, With Family Activity Level: Uses cane/walker Recent Out of Country Travel Within the Last 8 Weeks: No Exposure or Possible Exposure to Illness During Travel: No - Family History Father Family Member Ethnicity: Non- Living Status: Hx Family Cancer: Yes (Lung) Mother Family Member Ethnicity: Non- Living Status: Hx Family Cardiac Disorders: Yes ([place]) Hx Family Respiratory Disorders: Yes Hx Family Cancer: No Hx Family GI Disorders: No Hx Family Endocrine Disorder: No Hx Family Neuromuscular Disorders: No Hx Family Neurologic Disorders: No Hx Family HEENT Disorders: No Hx Family Autoimmune Disorders: No Sister Adopted: No Family Member Ethnicity: Non- Living Status: Still Living Hx Family Cardiac Disorders: No Hx Family Respiratory Disorders: Yes Hx Family Cancer: Yes (lung) Hx Family GI Disorders: No Hx Family Endocrine Disorder: No Hx Family Neuromuscular Disorders: No Hx Family Neurologic Disorders: No Hx Family HEENT Disorders: No Hx Family Autoimmune Disorders: No Infectious Disease-CN:Meds Albuterol Sulfate [Ventolin Hfa] 18 gm IH BID 02/11/18 [History] Allopurinol [Zyloprim 100 MG] 200 mg PO DAILY 02/11/18 [History] Aspirin 81 mg PO DAILY 02/11/18 [History] Bicalutamide [Casodex] 50 mg PO DAILY 02/11/18 [History] Citalopram [CeleXA] 20 mg PO DAILY 02/11/18 [History] Fenofibrate Nanocrystallized [Fenofibrate] 145 mg PO DAILY 02/11/18 [History] Ferrous Sulfate [Iron] 325 mg PO BID 02/11/18 [History] Furosemide [Lasix] 40 mg PO BID 02/11/18 [History] Gabapentin [Neurontin] 100 mg PO HS 02/11/18 [History] Insulin DETEMIR [Levemir] 35 unit SQ HS 02/11/18 [History] Insulin LISPRO [HumaLOG] 10 units SQ TIDWM 02/11/18 [History] Levothyroxine [Synthroid] 150 mcg PO DAILY 02/11/18 [History] Montelukast [Singulair] 10 mg PO DAILY 02/11/18 [History] Pantoprazole Sodium [Protonix] 40 mg PO DAILY 02/11/18 [History] Primidone [Mysoline] 50 mg PO BID 02/11/18 [History] Valsartan [Diovan] 80 mg PO DAILY 02/11/18 [History] Vit D3/Folic Acid/B2/B6/B12 [Folgard Tablet] 1 each PO DAILY 02/11/18 [History] Warfarin [Coumadin] 15 mg PO DAILY 02/11/18 [History] Calcitriol [Rocaltrol] 0.25 mcg PO DAILY 03/25/18 [History] Flecainide 100 mg PO Q12HR 03/25/18 [History] Fluticasone/Vilanterol [Breo Ellipta 100-25 Mcg INH] 1 puff IH DAILY 03/25/18 [ History] Metoprolol Succinate [Toprol Xl] 25 mg PO DAILY 03/25/18 [History] 3 Allergy/AdvReac Type Severity Reaction Status Date / Time niacin Allergy See Verified 03/18/18 20:37 [From [facility] Comments Extended-Release] All systems: reviewed and no additional remarkable complaints except as stated Exam - Constitutional Vitals: Temp Pulse Resp BP Pulse Ox 98.4 F 80 17 132/80 97 03/24/18 13:03 03/24/18 13:03 03/24/18 13:03 03/24/18 13:03 03/24/18 13:03 General appearance: cooperative, no acute distress, obese - Head Head exam: Present: atraumatic, normal inspection, normocephalic - Eye Eye exam: Present: EOMI, normal appearance, PERRL Pupils: Present: normal accommodation - ENT ENT exam: Present: mucous membranes moist - Neck Neck exam: Present: normal inspection - Respiratory Respiratory exam: Present: CTAB. Absent: rales, respiratory distress, rhonchi, wheezes - Cardiovascular Cardiovascular exam: Present: RRR, +S1, +S2 - GI/Abdominal GI/Abdominal exam: Present: distended (obese, large ventral hernia noted.), normal bowel sounds, soft. Absent: tenderness - Extremities Exam Extremities exam: Present: joint swelling (Left ankle), pedal edema (Left ankle) . Absent: tenderness Additional comments: Left medial ankle erythematous and warm to touch. Left lateral ankle wound with packing noted. No erythema, warmth, or drainage noted. Left lateral foot wound with calcium alginate dressing intact. No surrounding warmth, erythema, or drainage noted. Left heel wound with calcium alginate dressing intact. Small amount of serosanguinous drainage noted on the dressing. No warmth, tenderness, drainage, or fluctuance noted. - Neurological Exam Neurological exam: Present: alert, oriented X3, no focal deficits - Psychiatric Psychiatric exam: Present: normal affect, normal mood - Skin Skin exam: Present: dry, intact, normal color, warm Infectious Disease CN: Results - Labs CBC & Chem 7: 03/28/18 09:09 03/28/18 09:09 Consult Discharge Plan - Plan Referrals: Calli Estes, [employer] [Primary Care Provider] - - Attending Attestation I examined this patient and my medical decision-making was reviewed with the Resident Physician. I agree with the documented findings, disposition and treatment plan as described except to the extent set forth below. This is an addendum to original report dictated by Peyton Chambers CNP. Please refer to Sunil arnett for full details. Patient is a 67 year old gentleman well known to my service who was treated by me for left foot osteomyelitis caused by MSSA and H influenza and anaerobes treated with IV rocephin and flagyl for 6 weeks followed by 2 weeks of oral augmentin. Patient was then seen by Dr. Alegre for cellulitis of the foot and sent to the ED for admission. Patient has been having edema and erythema of the left foot but no fevers, chills, sweats, etc. Since admission he has been septic . CT of the foot done and results pending. cultures obtained. Patient was started on broad spectrum antibiotics and we were consulted to evaluate patient and make further recommendations. A/P: Cellulitis of the left leg with concern for osteomyelitis Diabetic foot ulcer CKD Diabetes Mellitus type 2 Recent osteomyelitis left foot Recommendations: Etiology unclear, but non-healing surgical wounds likely the source, although clinically they do not appear infected. X-ray of the left foot showed a non-displaced fracture of the 5th metatarsal, but no evidence of OM. Non-purulent. Causative organism unclear. Has been on Rocephin and Flagyl since admission at [facility] on 03/19, but has had progression of symptoms. Afebrile x 48 hours. No other SIRS criteria. Hold antibiotics for now until cultures can be obtained. If the patient becomes septic or takes a turn to the worse, consider starting broad-spectrum antibiotics (Vancomycin and Zosyn.) Podiatry consulted and following. Per the patient, planning for CT scan later today and possible I & D in the OR at some point. Check ESR and CRP. We will continue to follow closely.
[2018-03-24 15:48] LABS: C-Reactive Protein 212 mg/L (Less than 10)
[2018-03-24] MEDS: Insulin LISPRO 300 UNITS/3 ML VIAL SQ SCH (17:48)
[2018-03-24] MEDS ORDERED: Insulin LISPRO 300 UNITS/3 ML VIAL SQ SCH (21:00)
[2018-03-24] MEDS ORDERED: Insulin DETEMIR 100 UNIT/ML X5UNITS SQ SCH (21:00)
[2018-03-25 05:42] LABS: Basophils % 0.4 %; Eosinophils # 0.3 K/mcL (0.0-0.6); Hematocrit 31.4 % (37.5-50.1); Hemoglobin 10.2 g/dL (12.9-16.9); Immature Granulocytes % 0.7 % (0-4); Lymphocytes # 0.9 K/mcL (0.6-4.6); Lymphocytes % 10.1 %; Mean Corpuscular HGB Conc 32.5 g/dL (31.6-35.5); Mean Corpuscular Hemoglobin 29.2 pg (28.0-33.3); Mean Platelet Volume 10.5 fL (9.4-12.4); Monocytes # 0.6 K/mcL (0.0-1.3); Monocytes % 7.1 %; Neutrophils # 6.7 K/mcL (1.6-8.9); Platelet Count 344 K/mcL (140-400); Red Blood Count 3.49 M/mcL (4.19-5.50); Red Cell Distribution Width 14.4 % (11.5-14.5); Segmented Neutrophils % 78.7 %
[2018-03-25 05:56] LABS: BUN/Creatinine Ratio 19 (6-26); Blood Urea Nitrogen 26 mg/dL (8-23); Calcium 8.9 mg/dL (8.6-10.3); Carbon Dioxide 28 mEq/L (23-29); Chloride 98 mEq/L (98-107); Glucose 135 mg/dL (70-105); Osmolality,Calculated 285 (280-300); Potassium 3.8 mEq/L (3.5-5.1); Sodium 134 mEq/L (136-145); eGFR For African Americans > 60 (> 60); eGFR For Non-African Americans 53 (> 60)
[2018-03-25] MEDS: Insulin LISPRO 300 UNITS/3 ML VIAL SQ SCH ×4 (08:27→21:35)
[2018-03-25 08:42] LABS: INR 2.9; Prothrombin Time 33.2 Seconds (9.4-12.1)
--- NOTE | 2018-03-25 10:42 | Internal Med Progress Note ---
Date of Encounter: 03/25/18 Time of Encounter: 10:38 - Assessment and plan (1) COPD (chronic obstructive pulmonary disease) Current Visit: Yes Status: Chronic Assessment and plan: Not in acute exacerbation. Place patient on as needed bronchodilators Qualifiers: COPD type: unspecified COPD Qualified Code(s): J44.9 - Chronic obstructive pulmonary disease, unspecified (2) CKD (chronic kidney disease) stage 3, GFR 30-59 ml/min Current Visit: Yes Status: Chronic Assessment and plan: Check basic panel. Monitor renal function closely. (3) Diabetes mellitus Current Visit: Yes Status: Chronic Assessment and plan: With CK D stage III and neuropathy. Monitor blood sugars. Sliding scale insulin and Levemir. 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 dispatcher insulin use: with fpc use Diabetes mellitus complication status: with kidney complications Diabetes mellitus complication detail: with chronic kidney disease Chronic kidney disease stage: stage 3 (moderate) Qualified Code(s): E11.22 - Type 2 diabetes mellitus with diabetic chronic kidney disease; N18.3 - Chronic kidney disease, stage 3 (moderate); N18.3 - Chronic kidney disease, stage 3 (moderate); Z79.4 - FPC (current) use of insulin; Z79.4 - FPC (current) use of insulin; Z79.4 - 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 Patient was receiving Rocephin and Flagyl at [facility]. Wound culture growing Corynebacterium which is likely skin contaminant. X-ray of left foot no osteomyelitis, fifth metatarsal fracture. ID consulted and appreciate help. [place] consult. On culture obtained and results pending, hold all antibiotics for now per ID recommendation. INR 2.9 today, patient Coumadin due to mechanical cardiac valve. We will reverse INR if podiatry decided to do surgery. Qualifiers: Diabetic foot ulcer location: other Diabetes mellitus type: type 2 Non- pressure ulcer stage: with other severity Qualified Code(s): E11.621 - Type 2 diabetes mellitus with foot ulcer; L97.528 - Non-pressure chronic ulcer of other part of left foot with other specified severity - Time Spent With Patient Total time spent is greater than 50% in coordination of care (as documented) at patient's floor/unit and/or counseling patient: Greater than 35 minutes - Subjective Interval history: Patient seen and examined in the room, he has no complaints at this time. - Constitutional Vitals: Temp Pulse Resp BP Pulse Ox 98.7 F 100 18 121/82 97 03/25/18 07:43 03/25/18 07:43 03/25/18 07:43 03/25/18 07:43 03/25/18 07:43 General appearance: Present: cooperative, A&O X 3, obese, answers questions appropriately Internal Medicine: Result - Labs CBC & Chem 7: 03/25/18 05:12 03/25/18 05:12 Labs: Short CBC 03/24/18 03/25/18 Range/Units 13:47 05:12 WBC 8.8 8.4 (4.3-11.1) K/mcL Hgb 9.8 L 10.2 L (12.9-16.9) g/dL Hct 29.5 L 31.4 L (37.5-50.1) % Plt Count 314 344 (140-400) K/mcL Neutrophils # 7.0 6.7 (1.6-8.9) K/mcL BMP 03/24/18 03/25/18 13:47 05:12 Sodium 131 L 134 L Potassium 4.1 3.8 Chloride 96 L 98 Carbon Dioxide 27 28 BUN 28 H 26 H Creatinine 1.42 H 1.36 H Glucose 221 H 135 H Calcium 8.6 8.9 - ABG Interpretation ABG results: PT/INR, D-dimer PT 33.2 Seconds (9.4-12.1) H 03/25/18 08:18 - Impressions Impressions Foot X-Ray 03/24/18 14:27 IMPRESSION: Stable soft tissue swelling of the left foot. No evidence of osteomyelitis. D/ / Angel Luis Serna MD / Angel Luis Serna MD Interpreting Provider: Angel Luis Serna MD Ankle X-Ray 03/24/18 17:21 IMPRESSION: Malalignment of the ankle mortise. Lucency around the lateral malleolus screws. Additional abnormalities are better evaluated on the recently performed CT. D/ / 03/24/2018 18:59:52 Rhett Mcclain MD / theodore Interpreting Provider: Rhett Mcclain MD Ankle CT 03/24/18 17:22 IMPRESSION: 1. Large complex fluid collection along the medial ankle measuring approximately 2.6 x 3.5 x 6.5 cm which is highly suspicious for abscess. The posterior tibialis tendon is not visualized and is indistinct and is likely disrupted within limits of CT examination. 2. Distal and lateral displacement of the medial malleolar fracture fragment with resultant exposure of the medial hardware. 3. Malalignment of the ankle mortise with lateral subluxation of the talus and widening of the medial clear space. 4. The fracture line at the lateral malleolus remains visible with surrounding callus formation present with only minimal bridging callus posteriorly. 5. Partial fusion of the posterior malleolar fracture with 80% of the fracture line remaining visible. 6. Nondisplaced fracture of the base of the 5th metatarsal. 7. Osteopenia. D/ / Ajit Butts MD / Ajit Butts MD Interpreting Provider: Ajit Butts MD Consult Discharge Plan - Plan Referrals: Calli Estes, NURSE TECHNICIAN [Primary Care Provider] -
--- NOTE | 2018-03-25 13:02 | Podiatry Consult Note ---
Date of Encounter: 03/25/18 Time of Encounter: 12:00 Assessment and Plan (1) Abscess of leg without foot, left Current visit: Yes Status: Acute I had a thorough review with the patient regarding his condition, CT scan, my findings, and recommendations for treatment. We discussed the abscess present and an incision and drainage of the left leg. Nature procedure, risks versus benefits potential complications consequences of surgery and his condition discussed at length. No guarantees made as to the outcome. Patient NPO for surgical intervention added onto the OR today. History of Present Illness HPI: Mr. Cortez is a 67 year old diabetic male with neuropathy who was admitted to [facility] in [place] and somehow brought for an outpatient appointment to [facility]. He had been receiving IV antibiotics for cellulitis he developed after leaving the [place] [facility]. He was subsequently transferred here as he may need surgical intervention as it was questionable as to whether or not he had an abscess in the left leg. A CT scan was done and abscess identified. Past Med Surg Social Fam HX - Past Medical History Medical history: asthma, cancer, CHF, COPD, diabetes, hyperlipidemia, hypertension, myocardial infarction, renal disease, thyroid disease, valvular heart disease Additional medical history: prostate cancer Psychiatric history: no psych history - Past Surgical History Surgical History: cholecystectomy Additional surgical history: WOUND VAC TO LT FOOT - Social History Smoking Status: Former smoker Smokeless Tobacco Status: Yes Alcohol use: none Drug use: none - Family History Father Family Member Ethnicity: Non- Living Status: Hx Family Cancer: Yes (Lung) Mother Family Member Ethnicity: Non- Living Status: Hx Family Cardiac Disorders: Yes ([place]) Hx Family Respiratory Disorders: Yes Hx Family Cancer: No Hx Family GI Disorders: No Hx Family Endocrine Disorder: No Hx Family Neuromuscular Disorders: No Hx Family Neurologic Disorders: No Hx Family HEENT Disorders: No Hx Family Autoimmune Disorders: No Sister Adopted: No Family Member Ethnicity: Non- Living Status: Still Living Hx Family Cardiac Disorders: No Hx Family Respiratory Disorders: Yes Hx Family Cancer: Yes (lung) Hx Family GI Disorders: No Hx Family Endocrine Disorder: No Hx Family Neuromuscular Disorders: No Hx Family Neurologic Disorders: No Hx Family HEENT Disorders: No Hx Family Autoimmune Disorders: No Medications and Allergies Albuterol Sulfate [Ventolin Hfa] 18 gm IH BID 02/11/18 [History] Allopurinol [Zyloprim 100 MG] 200 mg PO DAILY 02/11/18 [History] Aspirin 81 mg PO DAILY 02/11/18 [History] Bicalutamide [Casodex] 50 mg PO DAILY 02/11/18 [History] Budesonide/Formoterol 160/4.5 [Symbicort 160/4.5] 2 puff IH BIDR 02/11/18 [ History] Citalopram [CeleXA] 20 mg PO DAILY 02/11/18 [History] Enoxaparin [Lovenox] 120 mg SQ Q12HR 02/11/18 [History] Famotidine [Pepcid] 40 mg PO DAILY 02/11/18 [History] Fenofibrate Nanocrystallized [Fenofibrate] 145 mg PO DAILY 02/11/18 [History] Ferrous Sulfate [Iron] 325 mg PO BID 02/11/18 [History] Flecainide 50 mg PO Q12HR 02/11/18 [History] Furosemide [Lasix] 40 mg PO BID 02/11/18 [History] Gabapentin [Neurontin] 100 mg PO HS 02/11/18 [History] Insulin DETEMIR [Levemir] 35 unit SQ HS 02/11/18 [History] Insulin LISPRO [HumaLOG] 10 units SQ TIDWM 02/11/18 [History] Levothyroxine [Synthroid] 150 mcg PO DAILY 02/11/18 [History] Metoprolol [Lopressor] 25 mg PO DAILY 02/11/18 [History] Montelukast [Singulair] 10 mg PO DAILY 02/11/18 [History] Pantoprazole Sodium [Protonix] 40 mg PO DAILY 02/11/18 [History] Primidone [Mysoline] 50 mg PO BID 02/11/18 [History] Simvastatin [Zocor] 40 mg PO HS 02/11/18 [History] Sodium Chloride [Saline Nasal Mist] 2 puff NS AD #30 mist 02/11/18 [Rx] Valsartan [Diovan] 80 mg PO DAILY 02/11/18 [History] Vit D3/Folic Acid/B2/B6/B12 [Folgard Tablet] 1 each PO DAILY 02/11/18 [History] Warfarin [Coumadin] 15 mg PO DAILY 02/11/18 [History] 3 Allergy/AdvReac Type Severity Reaction Status Date / Time niacin Allergy See Verified 03/18/18 20:37 [From [facility] Comments Extended-Release] All Systems Reviewed: The remainder of the systems were reviewed and are negative - Constitutional Constitutional: no fever(s) - Cardiovascular Cardiovascular: no chest pain - Respiratory Respiratory: no cough, no dyspnea - Musculoskeletal Musculoskeletal: numbness Physical Exam - Constitutional Vitals: Temp Pulse Resp BP Pulse Ox 97.4 F L 109 14 124/79 97 03/25/18 11:49 03/25/18 11:49 03/25/18 11:49 03/25/18 11:49 03/25/18 07:43 General appearance: cooperative, no acute distress, obese Exam: resolving erythema of left leg. fluctuance of the left medial leg. no open wound medially. does have lateral foot wound and posterior heel wound and lateral ankle sinus tract. absent sensation at baseline. CFT < 3 sec x 5 digits left foot. no erythema of the foot. Results - Labs Result Diagrams: 03/25/18 05:12 03/25/18 05:12 Labs: Abnormal lab results RBC 3.49 M/mcL (4.19-5.50) L 03/25/18 05:12 Hgb 10.2 g/dL (12.9-16.9) L 03/25/18 05:12 Hct 31.4 % (37.5-50.1) L 03/25/18 05:12 ESR 128 mm/hr (0-10) H 03/24/18 13:47 PT 33.2 Seconds (9.4-12.1) H 03/25/18 08:18 Sodium 134 mEq/L (136-145) L 03/25/18 05:12 BUN 26 mg/dL (8-23) H 03/25/18 05:12 Creatinine 1.36 mg/dL (0.70-1.30) H 03/25/18 05:12 Est GFR (Non-Af Amer) 53 (> 60) L 03/25/18 05:12 Glucose 135 mg/dL (70-105) H 03/25/18 05:12 C-Reactive Protein 212 mg/L (Less than 10) H 03/24/18 13:47 H & H 03/24/18 03/25/18 Range/Units 13:47 05:12 Hgb 9.8 L 10.2 L (12.9-16.9) g/dL Hct 29.5 L 31.4 L (37.5-50.1) % All other labs normal. Consult Discharge Plan - Plan Referrals: Calli Estes, STANISLAV [Primary Care Provider] -
[2018-03-25] MEDS ORDERED: Methyl Salicylate/Menthol 28 GM TUBE TP PRN (15:11)
--- NOTE | 2018-03-25 15:33 | Infectious Disease Progress No ---
Date of Encounter: 03/25/18 Time of Encounter: 15:31 - Assessment and Plan (1) Abscess of leg without foot, left Current Visit: Yes Status: Acute CT 03/24: Large complex fluid collection along the medial ankle measuring approximately 2.6 x 3.5 x 6.5 cm which is highly suspicious for abscess. The posterior tibialis tendon is not visualized and is indistinct and is likely disrupted within limits of CT examination. going for I&D today by Dr. Alegre follow up on intra op cultures will likely need picc line and IV antibiotics for prolonged time (2) Cellulitis of left leg Current Visit: No Status: Acute Location: Left medial ankle. Etiology unclear, but non-healing surgical wounds likely the source, although clinically they do not appear infected. X-ray of the left foot showed a non-displaced fracture of the 5th metatarsal, but no evidence of OM. Non-purulent. Causative organism unclear. Has been on Rocephin and Flagyl since admission at [facility] on 03/19, but has had progression of symptoms. Afebrile x 48 hours. No other SIRS criteria. Hold antibiotics for now until cultures can be obtained. If the patient becomes septic or takes a turn to the worse, consider starting broad-spectrum antibiotics (Vancomycin and Zosyn.) Podiatry consulted and following. CT with positive abscess; I&D today at 4 please send intra op cultures. Check ESR and CRP. We will continue to follow closely. (3) Insulin dependent diabetes mellitus Current Visit: No Status: Chronic (4) CKD (chronic kidney disease) stage 3, GFR 30-59 ml/min Current Visit: Yes Status: Chronic (5) Diabetic ulcer of left foot Current Visit: Yes Status: Acute on-healing surgical wounds. Location: Left lateral foot, left lateral ankle, and left heel. Clinically, the do not appear infected. Podiatry consulted and following. Wound care and activity restrictions per the podiatry team. Qualifiers: Diabetic foot ulcer location: other Diabetes mellitus type: type 2 Non- pressure ulcer stage: with other severity Qualified Code(s): E11.621 - Type 2 diabetes mellitus with foot ulcer; L97.528 - Non-pressure chronic ulcer of other part of left foot with other specified severity - Subjective Interval history: Patient seen and examined. Appears comfortable laying in bed. Denies any headache. No chest pain. No abdominal pain. No shortness of breath. No diarrhea. No urinary symptoms. In the last 24 hours patient's MAXIMUM TEMPERATURE has been 99.9, patient is tachycardic. WBC is 8.4, INR is 2.9, creatinine 1.36. Infect Dis PN-Objective Data - Labs CBC & Chem 7: 03/25/18 05:12 03/25/18 05:12 Labs: Laboratory Results - last 24 hr 03/24/18 03/24/18 03/25/18 13:47 13:47 05:12 WBC 8.4 RBC 3.49 L Hgb 10.2 L Hct 31.4 L MCV 90.0 MCH 29.2 MCHC 32.5 RDW 14.4 Plt Count 344 MPV 10.5 Immature Gran % 0.7 Seg Neutrophils % 78.7 Lymphocytes % 10.1 Monocytes % 7.1 Eosinophils % 3.0 Basophils % 0.4 Neutrophils # 6.7 Lymphocytes # 0.9 Monocytes # 0.6 Eosinophils # 0.3 Basophils # 0.0 ESR 128 H PT INR Sodium Potassium Chloride Carbon Dioxide BUN Creatinine Est GFR ( Amer) Est GFR (Non-Af Amer) BUN/Creatinine Ratio Glucose Calculated Osmolality Calcium C-Reactive Protein 212 H 03/25/18 03/25/18 05:12 08:18 WBC RBC Hgb Hct MCV MCH MCHC RDW Plt Count MPV Immature Gran % Seg Neutrophils % Lymphocytes % Monocytes % Eosinophils % Basophils % Neutrophils # Lymphocytes # Monocytes # Eosinophils # Basophils # ESR PT 33.2 H INR 2.9 Sodium 134 L Potassium 3.8 Chloride 98 Carbon Dioxide 28 BUN 26 H Creatinine 1.36 H Est GFR ( Amer) > 60 Est GFR (Non-Af Amer) 53 L BUN/Creatinine Ratio 19 Glucose 135 H Calculated Osmolality 285 Calcium 8.9 C-Reactive Protein - Impressions Impressions Ankle X-Ray 03/24/18 17:21 IMPRESSION: Malalignment of the ankle mortise. Lucency around the lateral malleolus screws. Additional abnormalities are better evaluated on the recently performed CT. D/ / 03/24/2018 18:59:52 Rhett Mcclain MD / theodore Interpreting Provider: Rhett Mcclain MD Ankle CT 03/24/18 17:22 IMPRESSION: 1. Large complex fluid collection along the medial ankle measuring approximately 2.6 x 3.5 x 6.5 cm which is highly suspicious for abscess. The posterior tibialis tendon is not visualized and is indistinct and is likely disrupted within limits of CT examination. 2. Distal and lateral displacement of the medial malleolar fracture fragment with resultant exposure of the medial hardware. 3. Malalignment of the ankle mortise with lateral subluxation of the talus and widening of the medial clear space. 4. The fracture line at the lateral malleolus remains visible with surrounding callus formation present with only minimal bridging callus posteriorly. 5. Partial fusion of the posterior malleolar fracture with 80% of the fracture line remaining visible. 6. Nondisplaced fracture of the base of the 5th metatarsal. 7. Osteopenia. D/ / Ajit Butts MD / Ajit Butts MD Interpreting Provider: Ajit Butts MD Exam - Constitutional Vitals: Temp Pulse Resp BP Pulse Ox 99.9 F H 120 14 118/85 98 03/25/18 15:26 03/25/18 15:26 03/25/18 15:26 03/25/18 15:26 03/25/18 15:26 General appearance: cooperative, no febrile - Head Head exam: Present: atraumatic, normocephalic - Neck Neck exam: Present: full ROM. Absent: meningismus - Respiratory Respiratory exam: Present: CTAB. Absent: wheezes - Cardiovascular Cardiovascular exam: Present: RRR, +S1, +S2 - GI/Abdominal GI/Abdominal exam: Present: normal bowel sounds, soft. Absent: tenderness Consult Discharge Plan - Plan Referrals: Calli Estes, STANISLAV [Primary Care Provider] -
[2018-03-25] MEDS ORDERED: Lidocaine -MPF 2% 2 ML VIAL ONE (18:04)
--- NOTE | 2018-03-25 18:05 | Anesthesia Evaluation PreOp ---
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 History: Other (tremors) Other Medical History: Renal, Diabetes Type II, Thyroid, GERD Anesthesia History: No Prior Anesthetic Complications, Past Anesthesia Alcohol Use: none Drug use: none Medications and Allergies Albuterol Sulfate [Ventolin Hfa] 18 gm IH BID 02/11/18 [History] Allopurinol [Zyloprim 100 MG] 200 mg PO DAILY 02/11/18 [History] Aspirin 81 mg PO DAILY 02/11/18 [History] Bicalutamide [Casodex] 50 mg PO DAILY 02/11/18 [History] Citalopram [CeleXA] 20 mg PO DAILY 02/11/18 [History] Fenofibrate Nanocrystallized [Fenofibrate] 145 mg PO DAILY 02/11/18 [History] Ferrous Sulfate [Iron] 325 mg PO BID 02/11/18 [History] Furosemide [Lasix] 40 mg PO BID 02/11/18 [History] Gabapentin [Neurontin] 100 mg PO HS 02/11/18 [History] Insulin DETEMIR [Levemir] 35 unit SQ HS 02/11/18 [History] Insulin LISPRO [HumaLOG] 10 units SQ TIDWM 02/11/18 [History] Levothyroxine [Synthroid] 150 mcg PO DAILY 02/11/18 [History] Montelukast [Singulair] 10 mg PO DAILY 02/11/18 [History] Pantoprazole Sodium [Protonix] 40 mg PO DAILY 02/11/18 [History] Primidone [Mysoline] 50 mg PO BID 02/11/18 [History] Valsartan [Diovan] 80 mg PO DAILY 02/11/18 [History] Vit D3/Folic Acid/B2/B6/B12 [Folgard Tablet] 1 each PO DAILY 02/11/18 [History] Warfarin [Coumadin] 15 mg PO DAILY 02/11/18 [History] Calcitriol [Rocaltrol] 0.25 mcg PO DAILY 03/25/18 [History] Flecainide 100 mg PO Q12HR 03/25/18 [History] Fluticasone/Vilanterol [Breo Ellipta 100-25 Mcg INH] 1 puff IH DAILY 03/25/18 [ History] Metoprolol Succinate [Toprol Xl] 25 mg PO DAILY 03/25/18 [History] 3 Allergy/AdvReac Type Severity Reaction Status Date / Time niacin Allergy See Verified 03/18/18 20:37 [From [facility] Comments Extended-Release] - Meds/Allergy Pre-op Review Medications Reviewed: Yes Allergies Reviewed: Yes Beta Blockers on Current Med List: No Anesthesia Results - Labs 03/25/18 05:12 03/25/18 05:12 - Imaging EKG: report reviewed (10/30/2017 SINUS RHYTHM WITH FIRST DEGREE AV BLOCK MARKED LEFT AXIS DEVIATION RIGHT BUNDLE BRANCH BLOCK) Additional studies: 11/01/2017 Echo Impressions: LVEF 55-60%. Mild concentric left ventricular hypertrophy. Mild left ventricular diastolic dysfunction. Normal right ventricular structure with low normal function. Mechanical aortic valve is suboptimally visualized. Borderline criteria for prosthetic stenosis. No regurgitation. Mild mitral regurgitation. Mild tricuspid regurgitation. Borderline pulmonary hypertension. There is a trivial pericardial effusion present. There is no echocardiographic evidence of tamponade. Anesthesia Exam Vital Signs/O2 Sat/Glucose, Most Recent Temp Pulse Resp BP Pulse Ox 98.5 F 57 14 138/91 98 03/25/18 15:40 03/25/18 15:40 03/25/18 15:26 03/25/18 15:40 03/25/18 15:26 Blood Glucose* 145 Height: 6'3''/1.91m Weight: 271 lbs/123.1 kg NPO (# of Hours): 8 Pain Scale: 0 Pain Scale Used: Numeric (1 - 10) - HEENT Pupil (Motor): EOMI Mallampati: III Teeth: Edentulous Oral Opening: Greater than 3 - OFFENDER JOB RETENTION SPECIALIST LOC: Oriented OFFENDER JOB RETENTION SPECIALIST Motor: Normal RUE, Normal RLE, Normal LLE, Normal Face, Deficit LUE OFFENDER JOB RETENTION SPECIALIST Sensory: Normal: RUE, LUE, Face, Deficit: RLE, LLE - Cardiac Rhythm: Regular Murmur: None - Pulmonary Breath Sounds: bilateral Clear Respiratory Effort: Symmetrical Anesthesia Assess/Plan ASA Score: 4 Modified Javier Scale for Level of Consciousness: Cooperative, oriented, and tranquil Anesthetic Plan: MAC Monitoring Plan: Standard Monitors
[2018-03-25] MEDS ORDERED: Propofol 500 MG/50 ML INFUS..BTL ONE (18:06)
[2018-03-25] MEDS ORDERED: Vancomycin 1,000 MG VIAL ONE (18:53)
--- NOTE | 2018-03-25 19:44 | Event Note ---
Date of Encounter: 03/25/18 Time of Encounter: 07:40 ok to restart any anticoagulation.
--- NOTE | 2018-03-25 19:54 | Operative Note ---
Date of procedure: 03/25/18 Pre-op diagnosis: abscess left leg Post-op diagnosis: same Procedure: incision and drainage left leg removal of hardware left ankle Implants: 1/2 inch iodoform packing Complications: none Anesthesia: MAC Local Anesthetics: 0.25% Sensorcaine HCL SubQ (cc) Surgeon: Ajith Alegre Was there an bus assistant present: No Estimated blood loss (cc): 20 Specimen: cultures left leg Condition: stable Disposition: PACU Procedure in Detail: Indications: 67-year-old diabetic male with left leg cellulitis transferred to [facility] and on CT scan found to have abscess of the left leg. Patient has sinus tract lateral ankle which probed to a prominent screw from previous ankle ORIF surgery. Nature of the above procedures, risks versus benefits potential complications and consequences of his condition and surgery discussed at length. No guarantees were made as to the outcome of any procedure. He understood that due to his infection he could lose his leg. Informed consent in that signed and all questions answered. Patient was taken from the preoperative holding area and operating room placed on the operating room table in the supine position. A tourniquet was applied but not inflated during the entire procedure. Incision and drainage left leg. Attention was directed to the patient's left leg where a #15 blade was used to make an incision approximately 6 cm in length. Skin incision was deepened through blunt dissection down to the level of the deep tissue where a pocket of serous fluid was encountered and evacuated. The site was flushed with vancomycin in normal sterile saline with the pulse lavage. No purulence was expressed from the leg. Cultures of the area were taken and sent to microbiology. The wound area was deemed adequate for partial closure. 0 Prolene was used to partially close the wound and the remaining area was packed open. Removal of hardware. Patient has had draining sinus tract lateral aspect of ankle this area was incised and sinus track excised. The area probed to a prominent screw which had become loose from the plate. The screw was removed. No purulence was expressed. The site was flushed with vancomycin and normal sterile saline. As there was no purulence present or cellulitis of the lateral ankle the decision was made to leave the remaining plate from previous ORIF. The site was partially closed with 0 Prolene. The patient tolerated the anesthesia and the procedure well and was escorted the recovery room with vital signs stable and vascular status intact to the left foot noted by instant capillary refill time of all digits of the left foot and adequate hemostasis was present at the surgical sites. Postoperative bandaging included Xeroform 4 x 4 gauze Kerlix and an Roly bandage. He will return to the floor where he will continue IV antibiotics.
--- NOTE | 2018-03-25 19:55 | Anesthesia Evaluation Post Op ---
Date of Encounter: 03/25/18 Time of Encounter: 19:54 - Vital Signs Vital Signs: 3 Vital Signs Temp 98.8 BP 101/49 Pulse 106 Resp 16 O2 Sat 98% - Lungs Lungs: Clear Ascult./Percussion - Airway Airway: Non-obstructed - Cardiovascular Irregular Rate, Baseline Rhythm - Mental Status Mental Status: Alert & Oriented, Answers Appropriately - Pain Pain Scale: 0 Pain Scale used: Numeric (1 - 10) - Nausea Vomiting Nausea Vomiting: Not Present - Hydration Hydration: NPO, Has not voided - Discharge PostOp Status: Transfer Patient to floor
[2018-03-25] MEDS ORDERED: D5% in Water 1,000 ML IVC PRN (20:24)
[2018-03-25] MEDS ORDERED: Dextrose Gel 15 GM/37.5 ML TUBE PO PRN ×2 (20:24)
[2018-03-25] MEDS ORDERED: Naloxone 0.4 MG/ML INJ IVP PRN (20:24)
[2018-03-25] MEDS ORDERED: *HR* Dextrose 50 % in Water (Syg) 50 ML SYRINGE IVP PRN (20:24)
[2018-03-25] MEDS ORDERED: Insulin DETEMIR 100 UNIT/ML X5UNITS SQ SCH (21:00)
[2018-03-25] MEDS: *HR* HYDROcodone/Acet 7.5/325 mg TABLET PO PRN (21:36)
[2018-03-25] MEDS: Methyl Salicylate/Menthol 28 GM TUBE TP PRN (21:36)
[2018-03-26 04:11] LABS: Basophils % 0.4 %; Eosinophils # 0.2 K/mcL (0.0-0.6); Eosinophils % 2.5 %; Hematocrit 29.5 % (37.5-50.1); Hemoglobin 9.7 g/dL (12.9-16.9); Immature Granulocytes % 0.6 % (0-4); Lymphocytes # 0.7 K/mcL (0.6-4.6); Lymphocytes % 9.8 %; Mean Corpuscular HGB Conc 32.9 g/dL (31.6-35.5); Mean Corpuscular Hemoglobin 30.5 pg (28.0-33.3); Mean Corpuscular Volume 92.8 fL (83.0-100.0); Mean Platelet Volume 10.1 fL (9.4-12.4); Monocytes # 0.5 K/mcL (0.0-1.3); Monocytes % 7.9 %; Neutrophils # 5.3 K/mcL (1.6-8.9); Platelet Count 299 K/mcL (140-400); Red Blood Count 3.18 M/mcL (4.19-5.50); Segmented Neutrophils % 78.8 %
[2018-03-26 04:19] LABS: INR 2.6; Prothrombin Time 29.5 Seconds (9.4-12.1)
[2018-03-26 04:34] LABS: BUN/Creatinine Ratio 18 (6-26); Blood Urea Nitrogen 25 mg/dL (8-23); Calcium 8.6 mg/dL (8.6-10.3); Carbon Dioxide 28 mEq/L (23-29); Chloride 96 mEq/L (98-107); Glucose 299 mg/dL (70-105); Osmolality,Calculated 290 (280-300); Potassium 3.8 mEq/L (3.5-5.1); Sodium 132 mEq/L (136-145); eGFR For African Americans > 60 (> 60); eGFR For Non-African Americans 51 (> 60)
[2018-03-26] MEDS: *HR* HYDROcodone/Acet 7.5/325 mg TABLET PO PRN ×2 (06:08→16:02)
[2018-03-26] MEDS: Insulin LISPRO 300 UNITS/3 ML VIAL SQ SCH ×4 (07:57→20:26)
--- NOTE | 2018-03-26 09:23 | Internal Med Progress Note ---
Date of Encounter: 03/26/18 Time of Encounter: 09:14 - Assessment and plan (1) Abscess of leg without foot, left Current Visit: Yes Status: Acute Assessment and plan: Postop day 1 per incision and drainage of the abscess found on CAT scan of his left leg with removal of a loose screw from previous ankle ORIF. Surgical left lateral malleolus is well adhesed without any drainage, continued swelling of the distal left lower extremity with swelling of the left foot. We will continue on current vancomycin routine, and per surgical recommendations for dressing changes (2) Diabetes mellitus Current Visit: Yes Status: Chronic Assessment and plan: Glucose was 266 Will resume home medications. Will obtain nutriional consult for evaluation of poor diet habits, increase for wound healing, and control of blood sugars. Requesting to have dietary supplement of Ensure , OK with this, as patient reports only eating yogurt. 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 Cortez is a 67-year-old male that was admitted for a abscess on the left lateral malleolus with cellulitis per CT scan of the ankle. Found to have hardware failure with loose screw from the ankle plate, and previous ORIF. Review of surgical note I&D on the abscess and removal of loose screw was completed on 03/25/2018. Today he is requesting nutritional supplement of ensure as he has poor appetite, and only eats yogurt. Denies acute pain at this time. - Constitutional Vitals: Temp Pulse Resp BP Pulse Ox 99.0 F 93 17 106/67 95 03/26/18 06:53 03/26/18 06:53 03/26/18 06:53 03/26/18 06:53 03/26/18 06:53 General appearance: Present: cooperative, A&O X 3, obese, answers questions appropriately - Cardiovascular Cardiovascular exam: Present: clicks, RRR Additional comments: Noted clinic at S1-S2 due to mechanical valve - Extremities Exam Extremities exam: Present: full ROM, joint swelling, pedal edema, tenderness - Expanded Lower Extremities Exam Lower Leg exam: Present: swelling, tenderness Ankle exam: Present: swelling, tenderness (lateral surgical incision well adhesied with small amount of old bleeding on dressing, no active bleeding at this time, ) Foot/Toe exam: Present: deformity, swelling Gait: Present: unable to bear weight - Incison Incision: Present: draining, clean and dry, intact, approximated Internal Medicine: Result - Labs CBC & Chem 7: 03/26/18 04:00 03/26/18 04:00 Labs: Short CBC 03/26/18 Range/Units 04:00 WBC 6.7 (4.3-11.1) K/mcL Hgb 9.7 L (12.9-16.9) g/dL Hct 29.5 L (37.5-50.1) % Plt Count 299 (140-400) K/mcL Neutrophils # 5.3 (1.6-8.9) K/mcL BMP 03/26/18 04:00 Sodium 132 L Potassium 3.8 Chloride 96 L Carbon Dioxide 28 BUN 25 H Creatinine 1.40 H Glucose 299 H Calcium 8.6 - ABG Interpretation ABG results: PT/INR, D-dimer PT 29.5 Seconds (9.4-12.1) H 03/26/18 04:00 Consult Discharge Plan - Plan Referrals: Calli Estes, YOUTH CARE SPECIALIST [Primary Care Provider] -
[2018-03-26] MEDS: Furosemide 40 MG TABLET PO SCH ×2 (10:06→20:26)
[2018-03-26] MEDS: Metoprolol XL (24 HR) Succ 25 MG TAB.ER.24H PO SCH (10:06)
[2018-03-26] MEDS: Gabapentin 100 MG CAPSULE PO SCH ×2 (10:06→20:26)
[2018-03-26] MEDS: Valsartan 80 MG TABLET PO SCH (10:06)
--- NOTE | 2018-03-26 11:45 | Infectious Disease Progress No ---
Date of Encounter: 03/26/18 Time of Encounter: 11:43 - Assessment and Plan (1) Cellulitis of left leg Current Visit: No Status: Acute Location: Left medial ankle. Etiology unclear, but non-healing surgical wounds likely the source, although clinically they do not appear infected. X-ray of the left foot showed a non-displaced fracture of the 5th metatarsal, but no evidence of OM. CT of the LLE showed a large complex fluid collection along the medial ankle highly suspicious for abscess. Non-purulent. Causative organism unclear. Had been on Rocephin and Flagyl since admission at [facility] on 03/19, but had progression of symptoms. Afebrile since admission here. No other SIRS criteria. Pre-op ESR 128, CRP 212. Hold antibiotics for now pending culture results. If the patient becomes septic or takes a turn to the worse, consider starting broad-spectrum antibiotics ( Vancomycin and Zosyn.) Podiatry consulted and following. Status post I & D of the left leg and partial removal of hardware 03/25/[address] Alegre. Operative note reviewed. No purulence, but serous fluid. Cultures are pending. We will continue to follow closely. (2) Abscess of leg without foot, left Current Visit: Yes Status: Acute Location: Left ankle. Causative organism unclear. Status post I & D 03/25/[address] Alegre. Cultures pending. Wound care and activity per the podiatry team. Antibiotics as above. (3) Diabetic ulcer of left foot Current Visit: Yes Status: Acute Non-healing surgical wounds. Location: Left lateral foot, left lateral ankle, and left heel. Clinically, the do not appear infected. Podiatry consulted and following. Wound care and activity restrictions per the podiatry team. Qualifiers: Diabetic foot ulcer location: other Diabetes mellitus type: type 2 Non- pressure ulcer stage: with other severity Qualified Code(s): E11.621 - Type 2 diabetes mellitus with foot ulcer; L97.528 - Non-pressure chronic ulcer of other part of left foot with other specified severity (4) Chronic kidney disease Current Visit: No Status: Chronic Qualifiers: Chronic kidney disease stage: stage 3 (moderate) Qualified Code(s): N18.3 - Chronic kidney disease, stage 3 (moderate) (5) Type 2 diabetes mellitus with foot ulcer Current Visit: No Status: Acute Recommend aggressive glucose monitoring and control to promote wound healing and prevent re-infection Management per the primary team. 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 No acute events noted overnight. Patient states overall he feels okay. Denies fevers, chills, or rigors. Denies chest pain, shortness of breath, or cough. Denies nausea, vomiting, or diarrhea. Denies abdominal pain, urinary complaints, or appetite changes. Denies oral thrush or skin lesions. Reports mild pain in the left lateral ankle. Infect Dis PN-Objective Data - Labs CBC & Chem 7: 03/26/18 04:00 03/26/18 04:00 Labs: Laboratory Results - last 24 hr 03/25/18 03/25/18 03/25/18 07:05 11:23 16:18 WBC RBC Hgb Hct MCV MCH MCHC RDW Plt Count MPV Immature Gran % Seg Neutrophils % Lymphocytes % Monocytes % Eosinophils % Basophils % Neutrophils # Lymphocytes # Monocytes # Eosinophils # Basophils # PT INR Sodium Potassium Chloride Carbon Dioxide BUN Creatinine Est GFR ( Amer) Est GFR (Non-Af Amer) BUN/Creatinine Ratio Glucose POC Glucose 126 H 149 H 145 H Calculated Osmolality Calcium 03/25/18 03/26/18 03/26/18 20:18 04:00 04:00 WBC 6.7 RBC 3.18 L Hgb 9.7 L Hct 29.5 L MCV 92.8 MCH 30.5 MCHC 32.9 RDW 14.0 Plt Count 299 MPV 10.1 Immature Gran % 0.6 Seg Neutrophils % 78.8 Lymphocytes % 9.8 Monocytes % 7.9 Eosinophils % 2.5 Basophils % 0.4 Neutrophils # 5.3 Lymphocytes # 0.7 Monocytes # 0.5 Eosinophils # 0.2 Basophils # 0.0 PT 29.5 H INR 2.6 Sodium Potassium Chloride Carbon Dioxide BUN Creatinine Est GFR ( Amer) Est GFR (Non-Af Amer) BUN/Creatinine Ratio Glucose POC Glucose 147 H Calculated Osmolality Calcium 03/26/18 04:00 WBC RBC Hgb Hct MCV MCH MCHC RDW Plt Count MPV Immature Gran % Seg Neutrophils % Lymphocytes % Monocytes % Eosinophils % Basophils % Neutrophils # Lymphocytes # Monocytes # Eosinophils # Basophils # PT INR Sodium 132 L Potassium 3.8 Chloride 96 L Carbon Dioxide 28 BUN 25 H Creatinine 1.40 H Est GFR ( Amer) > 60 Est GFR (Non-Af Amer) 51 L BUN/Creatinine Ratio 18 Glucose 299 H POC Glucose Calculated Osmolality 290 Calcium 8.6 Exam - Constitutional Vitals: Temp Pulse Resp BP Pulse Ox 98.0 F 68 17 149/92 94 03/26/18 10:55 03/26/18 10:55 03/26/18 10:55 03/26/18 10:55 03/26/18 10:55 General appearance: cooperative, no acute distress, obese - Head Head exam: Present: atraumatic, normal inspection, normocephalic - Eye Eye exam: Present: EOMI, normal appearance, PERRL Pupils: Present: normal accommodation - ENT ENT exam: Present: mucous membranes moist - Neck Neck exam: Present: normal inspection - Respiratory Respiratory exam: Present: CTAB. Absent: rales, respiratory distress, rhonchi, wheezes - Cardiovascular Cardiovascular exam: Present: RRR, +S1, +S2 - GI/Abdominal GI/Abdominal exam: Present: distended (obese), normal bowel sounds, soft. Absent: tenderness - Extremities Exam Extremities exam: Absent: joint swelling, pedal edema, tenderness Additional comments: Left foot post-op dressing C/D/I. - Neurological Exam Neurological exam: Present: alert, oriented X3, no focal deficits - Psychiatric Psychiatric exam: Present: normal affect, normal mood - Skin Skin exam: Present: dry, intact, normal color, warm Consult Discharge Plan - Plan Referrals: Calli Estes, SCRAP DROP OPERATOR [Primary Care Provider] -
[2018-03-26] MEDS: *HR* Warfarin 10 MG TABLET PO SCH (17:01)
[2018-03-26] MEDS: Insulin DETEMIR 100 UNIT/ML X5UNITS SQ SCH (20:26)
[2018-03-26] MEDS: Methyl Salicylate/Menthol 28 GM TUBE TP PRN (20:27)
[2018-03-26] MEDS ORDERED: NON-FORMULARY MEDICATION 1 EACH EACH (Insulin Detemir 35 UNIT) SQ SCH (21:00)
[2018-03-27] MEDS: *HR* HYDROcodone/Acet 7.5/325 mg TABLET PO PRN ×2 (02:59→21:23)
[2018-03-27] MEDS: Valsartan 80 MG TABLET PO SCH (07:49)
[2018-03-27] MEDS: Metoprolol XL (24 HR) Succ 25 MG TAB.ER.24H PO SCH (07:49)
[2018-03-27] MEDS: Furosemide 40 MG TABLET PO SCH ×2 (07:50→21:23)
[2018-03-27] MEDS: Insulin LISPRO 300 UNITS/3 ML VIAL SQ SCH ×5 (07:50→21:22)
--- NOTE | 2018-03-27 12:44 | Internal Med Progress Note ---
Date of Encounter: 03/27/18 Time of Encounter: 12:42 - Assessment and plan (1) Diabetic ulcer of left foot Current Visit: Yes Status: Acute Assessment and plan: Infected diabetic ulcer left foot with associated cellulitis. Patient was receiving Rocephin and Flagyl at [facility] but is still progressed the symptoms. Wound culture growing Corynebacterium which is likely skin contaminant. X-ray of left foot no osteomyelitis, fifth metatarsal nondisplaced fracture. ID and [employer] hrms consultant on board. Status post I&D of the left leg and partial removal of hardware on 03/25/[address] Alegre. Causative organism unclear. hold all antibiotics for now as per ID recommendation and will follow discharge plan as per his advice. Cultures are pending. 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 Qualifiers: Diabetic foot ulcer location: other Diabetes mellitus type: type 2 Non- pressure ulcer stage: with other severity Qualified Code(s): E11.621 - Type 2 diabetes mellitus with foot ulcer; L97.528 - Non-pressure chronic ulcer of other part of left foot with other specified severity (2) Diabetes mellitus Current Visit: Yes Status: Chronic Assessment and plan: Resumed home medication. Better controlled blood glucose level. Diabetic diet. Continue Accu-Chek before meals with sliding scale insulin coverage. 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 Avoid nephrotoxic drugs. Monitor renal function closely. (4) COPD (chronic obstructive pulmonary disease) Current Visit: Yes Status: Chronic Assessment and plan: Not in acute exacerbation. Continue home medicine. Qualifiers: COPD type: unspecified COPD Qualified Code(s): J44.9 - Chronic obstructive pulmonary disease, unspecified - Time Spent With Patient Total time spent is greater than 50% in coordination of care (as documented) at patient's floor/unit and/or counseling patient: - Subjective Interval history: Today patient does not have any new complaint. Denies acute pain and able to bear the weight with the help of physiotherapy. Patient denies fever and chills nausea vomiting headache dizziness chest pain shortness of breath, urinary or bowel complaint - Constitutional Vitals: Temp Pulse Resp BP Pulse Ox 97.9 F 103 16 106/69 95 03/27/18 11:06 03/27/18 11:06 03/27/18 11:06 03/27/18 11:06 03/27/18 11:06 General appearance: Present: cooperative, A&O X 3, obese, answers questions appropriately Exam: General appearance: No acute distress, A&O X 3 Head exam: Atraumatic Eye exam: EOMI, PERRLA ENT exam: Moist oral mucosa Neck nontender, supple Respiratory exam: Clear to auscultation bilaterally Cardiovascular exam: Regular rate and rhythm, no systolic murmur Abdominal exam: Soft, nontender, nondistended, positive bowel sounds Extremities exam: Left lower extremity Swelling tenderness present. dressing and cam boot is in place Neurological exam: Grossly intact Internal Medicine: Result - Labs CBC & Chem 7: 03/26/18 04:00 03/26/18 04:00 - ABG Interpretation ABG results: PT/INR, D-dimer PT 29.5 Seconds (9.4-12.1) H 03/26/18 04:00 - VTE Documentation of Mechanical Device: Intermittent pneumatic compression device Consult Discharge Plan - Plan Referrals: Calli Estes, CHEMISTRY MANAGER [Primary Care Provider] -
--- NOTE | 2018-03-27 17:07 | Podiatry Progress Note ---
Date of Encounter: 03/27/18 Time of Encounter: 15:30 - Assessment and Plan (1) Abscess of leg without foot, left Current Visit: Yes Status: Acute patient admitted this started at home after he was mowing the lawn without his boot on and no bandage on the foot. recorded him and asked me to watch the video today on her phone. he says he knows its serious and he could lose his leg. reviewed surgical procedure. flushed and packed the medial ankle wound. serous drainage, no purulence. he can ambulate with a walker and only in the boot. he is going to benefit from going to a nursing facility, if he goes home he will end up in the hospital again with another infection. get infectious disease recs on antibiotics. Objective - Vital Signs Vital Signs: Vital Signs Temp Pulse Resp BP Pulse Ox 03/27/18 16:02 98.5 F 102 16 105/61 95 03/27/18 11:06 97.9 F 103 16 106/69 95 03/27/18 07:22 98.1 F 95 16 108/69 95 03/27/18 04:05 99.5 F 83 16 90/57 94 03/26/18 23:39 98.4 F 122 16 100/67 93 03/26/18 19:12 98.1 F 106 16 114/70 97 Intake and Output 03/27/18 03/27/18 03/27/18 07:59 15:59 23:59 Other: Weight 124.3 kg Blood Glucose* 142 129 Patient Weight 03/27/18 23:59 Weight 124.3 kg - Lab Result Diagrams: 03/26/18 04:00 03/26/18 04:00 Labs: Abnormal lab results RBC 3.18 M/mcL (4.19-5.50) L 03/26/18 04:00 Hgb 9.7 g/dL (12.9-16.9) L 03/26/18 04:00 Hct 29.5 % (37.5-50.1) L 03/26/18 04:00 ESR 128 mm/hr (0-10) H 03/24/18 13:47 PT 29.5 Seconds (9.4-12.1) H 03/26/18 04:00 Sodium 132 mEq/L (136-145) L 03/26/18 04:00 Chloride 96 mEq/L (98-107) L 03/26/18 04:00 BUN 25 mg/dL (8-23) H 03/26/18 04:00 Creatinine 1.40 mg/dL (0.70-1.30) H 03/26/18 04:00 Est GFR (Non-Af Amer) 51 (> 60) L 03/26/18 04:00 Glucose 299 mg/dL (70-105) H 03/26/18 04:00 POC Glucose 293 mg/dL (70-99) H 03/26/18 19:58 C-Reactive Protein 212 mg/L (Less than 10) H 03/24/18 13:47 Microbiology, Last 48 Hours 03/25/18 19:20 Wound Culture - Preliminary Left Leg No growth. - VTE Documentation of Mechanical Device: Intermittent pneumatic compression device Consult Discharge Plan - Plan Referrals: Calli Estes, LOCOMOTIVE ELECTRICIAN [Primary Care Provider] -
[2018-03-27] MEDS: *HR* Warfarin 10 MG TABLET PO SCH (17:27)
[2018-03-27] MEDS: Gabapentin 100 MG CAPSULE PO SCH (21:23)
[2018-03-27] MEDS: Insulin DETEMIR 100 UNIT/ML X5UNITS SQ SCH (21:23)
[2018-03-27] MEDS: Methyl Salicylate/Menthol 28 GM TUBE TP PRN (21:23)
[2018-03-27] MEDS: Primidone 50 MG TABLET PO SCH (21:23)
[2018-03-28] MEDS: Insulin LISPRO 300 UNITS/3 ML VIAL SQ SCH ×7 (07:35→21:15)
[2018-03-28] MEDS: Bicalutamide 50 MG TABLET PO SCH (08:19)
[2018-03-28] MEDS: Fenofibrate 54 MG TABLET PO SCH (08:20)
[2018-03-28] MEDS: Aspirin 81 MG TAB.CHEW PO SCH (08:20)
[2018-03-28] MEDS: Valsartan 80 MG TABLET PO SCH (08:20)
[2018-03-28] MEDS: B2 PO SCH (08:21)
[2018-03-28] MEDS: Primidone 50 MG TABLET PO SCH ×2 (08:21→21:14)
[2018-03-28] MEDS: B6 PO SCH (08:21)
[2018-03-28] MEDS: Furosemide 40 MG TABLET PO SCH ×2 (08:21→21:14)
[2018-03-28] MEDS: FOLIC ACID PO SCH (08:21)
[2018-03-28] MEDS: VIT D3 PO SCH (08:21)
[2018-03-28] MEDS: B12 PO SCH (08:21)
[2018-03-28] MEDS: Metoprolol XL (24 HR) Succ 25 MG TAB.ER.24H PO SCH (08:23)
[2018-03-28 10:27] LABS: Basophils % 0.3 %; Eosinophils # 0.2 K/mcL (0.0-0.6); Eosinophils % 2.8 %; Hematocrit 30.1 % (37.5-50.1); Hemoglobin 9.8 g/dL (12.9-16.9); Immature Granulocytes % 0.8 % (0-4); Lymphocytes # 0.6 K/mcL (0.6-4.6); Lymphocytes % 8.9 %; Mean Corpuscular HGB Conc 32.6 g/dL (31.6-35.5); Mean Corpuscular Hemoglobin 29.5 pg (28.0-33.3); Mean Corpuscular Volume 90.7 fL (83.0-100.0); Mean Platelet Volume 10.4 fL (9.4-12.4); Monocytes # 0.4 K/mcL (0.0-1.3); Monocytes % 5.3 %; Neutrophils # 5.9 K/mcL (1.6-8.9); Platelet Count 396 K/mcL (140-400); Red Blood Count 3.32 M/mcL (4.19-5.50); Red Cell Distribution Width 14.2 % (11.5-14.5); Segmented Neutrophils % 81.9 %
[2018-03-28 10:33] LABS: BUN/Creatinine Ratio 19 (6-26); Blood Urea Nitrogen 22 mg/dL (8-23); Calcium 8.6 mg/dL (8.6-10.3); Carbon Dioxide 29 mEq/L (23-29); Chloride 99 mEq/L (98-107); Glucose 204 mg/dL (70-105); Osmolality,Calculated 287 (280-300); Sodium 134 mEq/L (136-145); eGFR For African Americans > 60 (> 60); eGFR For Non-African Americans > 60 (> 60)
--- NOTE | 2018-03-28 12:31 | Infectious Disease Progress No ---
Date of Encounter: 03/28/18 Time of Encounter: 12:28 - Assessment and Plan (1) Cellulitis of left leg Current Visit: No Status: Acute Location: Left medial ankle. Etiology unclear, but non-healing surgical wounds likely the source, although clinically they do not appear infected. The patient's did report that the patient went outside without his boot on and was mowing the grass. Non-purulent. Causative organism unclear. Previous wound cultures positive for Corynebacterium , but likely a skin contaminant. Intra-op cultures are negative. X-ray of the left foot showed a non-displaced fracture of the 5th metatarsal, but no evidence of OM. CT of the LLE showed a large complex fluid collection along the medial ankle highly suspicious for abscess. Had been on Rocephin and Flagyl since admission at [facility] on 03/19, but had progression of symptoms. Afebrile since admission here. No other SIRS criteria. Pre-op ESR 128, CRP 212. Podiatry consulted and following. Status post I & D of the left leg and partial removal of hardware 03/25/[address] Alegre. Operative note reviewed. No purulence, but serous fluid. Cultures are negative. Continue to observe off antibiotics. Will discuss with podiatry. Not sure if there is still drainage if we can get another set of cultures since the patient has been off antibiotics for several days now. Continue to observe off antibiotics for now. Repeat ESR and CRP in the AM. We will continue to follow closely. (2) Abscess of leg without foot, left Current Visit: Yes Status: Acute Location: Left ankle. Causative organism unclear. Cultures are negative. Status post I & D 03/25/[address] Alegre. Serous fluid noted intra-op, but no pus. Screw was removed, but the previous ORIF plate left in place. Wound care and activity per the podiatry team. Continue to observe off antibiotics for now. (3) Diabetic ulcer of left foot Current Visit: Yes Status: Acute Non-healing surgical wounds. Location: Left lateral foot, left lateral ankle, and left heel. Clinically, the do not appear infected. Podiatry consulted and following. Wound care and activity restrictions per the podiatry team. Qualifiers: Diabetic foot ulcer location: other Diabetes mellitus type: type 2 Non- pressure ulcer stage: with other severity Qualified Code(s): E11.621 - Type 2 diabetes mellitus with foot ulcer; L97.528 - Non-pressure chronic ulcer of other part of left foot with other specified severity (4) Chronic kidney disease Current Visit: No Status: Chronic Qualifiers: Chronic kidney disease stage: stage 3 (moderate) Qualified Code(s): N18.3 - Chronic kidney disease, stage 3 (moderate) (5) Type 2 diabetes mellitus with foot ulcer Current Visit: No Status: Acute Recommend aggressive glucose monitoring and control to promote wound healing and prevent re-infection Management per the primary team. 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 No acute events noted overnight. Patient states overall he feels okay. Denies fevers, chills, or rigors. Denies chest pain, shortness of breath, or cough. Denies nausea, vomiting, or diarrhea. Denies abdominal pain, urinary complaints, or appetite changes. Denies oral thrush or skin lesions. Reports mild pain in the left lateral ankle, improved since surgery. Infect Dis PN-Objective Data - Labs CBC & Chem 7: 03/28/18 09:09 03/28/18 09:09 Labs: Laboratory Results - last 24 hr 03/27/18 03/27/18 03/27/18 07:20 11:04 16:01 WBC RBC Hgb Hct MCV MCH MCHC RDW Plt Count MPV Immature Gran % Seg Neutrophils % Lymphocytes % Monocytes % Eosinophils % Basophils % Neutrophils # Lymphocytes # Monocytes # Eosinophils # Basophils # Sodium Potassium Chloride Carbon Dioxide BUN Creatinine Est GFR ( Amer) Est GFR (Non-Af Amer) BUN/Creatinine Ratio Glucose POC Glucose 142 H 129 H 317 H Calculated Osmolality Calcium 03/27/18 03/28/18 03/28/18 20:49 09:09 09:09 WBC 7.2 RBC 3.32 L Hgb 9.8 L Hct 30.1 L MCV 90.7 MCH 29.5 MCHC 32.6 RDW 14.2 Plt Count 396 MPV 10.4 Immature Gran % 0.8 Seg Neutrophils % 81.9 Lymphocytes % 8.9 Monocytes % 5.3 Eosinophils % 2.8 Basophils % 0.3 Neutrophils # 5.9 Lymphocytes # 0.6 Monocytes # 0.4 Eosinophils # 0.2 Basophils # 0.0 Sodium 134 L Potassium 4.0 Chloride 99 Carbon Dioxide 29 BUN 22 Creatinine 1.18 Est GFR ( Amer) > 60 Est GFR (Non-Af Amer) > 60 BUN/Creatinine Ratio 19 Glucose 204 H POC Glucose 234 H Calculated Osmolality 287 Calcium 8.6 Cultures: Cultures 03/25/18 19:20 Wound Culture - Preliminary Left Leg No growth. Exam - Constitutional Vitals: Temp Pulse Resp BP Pulse Ox 98.2 F 97 18 99/68 97 03/28/18 11:34 03/28/18 11:34 03/28/18 11:34 03/28/18 11:34 03/28/18 11:34 General appearance: cooperative, morbidly obese, no acute distress - Head Head exam: Present: atraumatic, normal inspection, normocephalic - Eye Eye exam: Present: EOMI, normal appearance, PERRL Pupils: Present: normal accommodation - ENT ENT exam: Present: mucous membranes moist - Neck Neck exam: Present: normal inspection - Respiratory Respiratory exam: Present: CTAB. Absent: rales, respiratory distress, rhonchi, wheezes - Cardiovascular Cardiovascular exam: Present: clicks, RRR, +S1, +S2 - GI/Abdominal GI/Abdominal exam: Present: distended (obese), normal bowel sounds, soft. Absent: tenderness - Extremities Exam Extremities exam: Absent: joint swelling, pedal edema, tenderness Additional comments: Left foot dressing C/D/I. - Neurological Exam Neurological exam: Present: alert, oriented X3, no focal deficits - Psychiatric Psychiatric exam: Present: normal affect, normal mood - Skin Skin exam: Present: dry, intact, normal color, warm - VTE Documentation of Mechanical Device: Intermittent pneumatic compression device Consult Discharge Plan - Plan Referrals: Calli Estes, FLOTATION TENDER [Primary Care Provider] - - Attending Attestation I examined this patient and my medical decision-making was reviewed with the Resident Physician. I agree with the documented findings, disposition and treatment plan as described except to the extent set forth below.
--- NOTE | 2018-03-28 13:12 | Internal Med Progress Note ---
Date of Encounter: 03/28/18 Time of Encounter: 12:45 - Assessment and plan (1) Diabetic ulcer of left foot Current Visit: Yes Status: Acute Assessment and plan: Infected diabetic ulcer left foot with associated cellulitis. Patient was receiving Rocephin and Flagyl at [facility] but is still progressed the symptoms. Wound culture growing Corynebacterium which is likely skin contaminant. X-ray of left foot no osteomyelitis, fifth metatarsal nondisplaced fracture. ID and underwriting support manager on board. Status post I&D of the left leg and partial removal of hardware on 03/25/[address] Alegre. Causative organism unclear. hold all antibiotics for now as per ID recommendation and will follow discharge plan as per his advice. Cultures are pending. 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 03/28: Management as per infectious disease and podiatry. Currently being observed off antibiotics. Qualifiers: Diabetic foot ulcer location: other Diabetes mellitus type: type 2 Non- pressure ulcer stage: with other severity Qualified Code(s): E11.621 - Type 2 diabetes mellitus with foot ulcer; L97.528 - Non-pressure chronic ulcer of other part of left foot with other specified severity (2) COPD (chronic obstructive pulmonary disease) Current Visit: Yes Status: Chronic Assessment and plan: Not in acute exacerbation. Continue home medicine. Qualifiers: COPD type: unspecified COPD Qualified Code(s): J44.9 - Chronic obstructive pulmonary disease, unspecified (3) CKD (chronic kidney disease) stage 3, GFR 30-59 ml/min Current Visit: Yes Status: Chronic Assessment and plan: Stable. Avoid nephrotoxic drugs. Monitor renal function closely. (4) Diabetes mellitus Current Visit: Yes Status: Chronic Assessment and plan: Resumed home medication. Better controlled blood glucose level. Diabetic diet. Continue Accu-Chek before meals with sliding scale insulin coverage. 7/2: Variable reads, monitor. Remains elevated in 200's. Will increase Levemir to 40 units SubQ every HS. Qualifiers: Diabetes mellitus type: type 2 Diabetes mellitus extermination inspector insulin use: with mcc use Diabetes mellitus complication status: with kidney complications Diabetes mellitus complication detail: with chronic kidney disease Chronic kidney disease stage: stage 3 (moderate) Qualified Code(s): E11.22 - Type 2 diabetes mellitus with diabetic chronic kidney disease; N18.3 - Chronic kidney disease, stage 3 (moderate); N18.3 - Chronic kidney disease, stage 3 (moderate); Z79.4 - penitentiary (current) use of insulin; Z79.4 - penitentiary (current) use of insulin; Z79.4 - penitentiary (current) use of insulin; Z79.4 - penitentiary (current) use of insulin - Time Spent With Patient Total time spent is greater than 50% in coordination of care (as documented) at patient's floor/unit and/or counseling patient: - Subjective Interval history: Patient without any complaints today. Frustrated that he is staying in the hospital additional day. Infectious disease saw this patient earlier was recommending reevaluation in the morning, and continue observation off antibiotics. No chest pain or shortness of breath. No fevers or chills. No nausea, vomiting, diarrhea. - Constitutional Vitals: Temp Pulse Resp BP Pulse Ox 98.2 F 97 18 99/68 97 03/28/18 11:34 03/28/18 11:34 03/28/18 11:34 03/28/18 11:34 03/28/18 11:34 General appearance: Present: cooperative, A&O X 3, obese, answers questions appropriately - Head Head exam: Present: atraumatic, normocephalic - Eye Eye exam: Present: PERRL, conjuntiva pink, sclera anicteric Pupils: Present: PERRL - Neck Neck exam general surgery: Present: supple, trachea midline. Absent: lymphadenopathy - Respiratory Respiratory exam: Present: CTAB. Absent: accessory muscle use, rales, rhonchi, wheezes - Cardiovascular Cardiovascular exam: Present: RRR, +S1, +S2. Absent: diastolic murmur, gallop, rubs, systolic murmur - GI/Abdominal GI/Abdominal exam: Present: normal bowel sounds, soft, no peritoneal signs. Absent: distended, tenderness - Extremities Exam Extremities exam: Present: warm, radial pulses palpable and symmetrical. Absent : calf tenderness, cyanotic, pedal edema Additional comments: Left foot has dressing in place - Neurological Exam Neurological exam: Present: CN II-XII intact, oriented X3, no focal deficits. Absent: pronater drift, facial droop, speech deficit - Skin Skin exam: Present: dry, intact Internal Medicine: Result - Labs CBC & Chem 7: 03/28/18 09:09 03/28/18 09:09 Labs: Short CBC 03/28/18 Range/Units 09:09 WBC 7.2 (4.3-11.1) K/mcL Hgb 9.8 L (12.9-16.9) g/dL Hct 30.1 L (37.5-50.1) % Plt Count 396 (140-400) K/mcL Neutrophils # 5.9 (1.6-8.9) K/mcL BMP 03/28/18 09:09 Sodium 134 L Potassium 4.0 Chloride 99 Carbon Dioxide 29 BUN 22 Creatinine 1.18 Glucose 204 H Calcium 8.6 - ABG Interpretation ABG results: PT/INR, D-dimer PT 29.5 Seconds (9.4-12.1) H 03/26/18 04:00 - VTE Documentation of Mechanical Device: Intermittent pneumatic compression device Consult Discharge Plan - Plan Referrals: Calli Estes, BILINGUAL SALES CONSULTANT [Primary Care Provider] -
[2018-03-28] MEDS ORDERED: Insulin DETEMIR 100 UNIT/ML X5UNITS SQ SCH (13:15)
[2018-03-28] MEDS: *HR* Warfarin 10 MG TABLET PO SCH (16:49)
[2018-03-28] MEDS ORDERED: Warfarin perPT PO PRN (18:00)
[2018-03-28 19:01] LABS: INR 1.9; Prothrombin Time 20.9 Seconds (9.4-12.1)
[2018-03-28] MEDS: Gabapentin 100 MG CAPSULE PO SCH (21:14)
[2018-03-28] MEDS: Methyl Salicylate/Menthol 28 GM TUBE TP PRN (21:15)
[2018-03-29] MEDS: Furosemide 40 MG TABLET PO SCH (08:15)
[2018-03-29] MEDS: Bicalutamide 50 MG TABLET PO SCH (08:15)
[2018-03-29] MEDS: Aspirin 81 MG TAB.CHEW PO SCH (08:15)
[2018-03-29] MEDS: Primidone 50 MG TABLET PO SCH (08:15)
[2018-03-29] MEDS: Insulin LISPRO 300 UNITS/3 ML VIAL SQ SCH ×6 (08:15→17:13)
[2018-03-29] MEDS: Metoprolol XL (24 HR) Succ 25 MG TAB.ER.24H PO SCH (08:15)
[2018-03-29] MEDS: Fenofibrate 54 MG TABLET PO SCH (08:15)
--- NOTE | 2018-03-29 08:17 | Internal Med Progress Note ---
Date of Encounter: 03/29/18 Time of Encounter: 15:30 - Assessment and plan (1) Diabetic ulcer of left foot Current Visit: Yes Status: Acute Qualifiers: Diabetic foot ulcer location: other Diabetes mellitus type: type 2 Non- pressure ulcer stage: with other severity Qualified Code(s): E11.621 - Type 2 diabetes mellitus with foot ulcer; L97.528 - Non-pressure chronic ulcer of other part of left foot with other specified severity (2) COPD (chronic obstructive pulmonary disease) Current Visit: Yes Status: Chronic Qualifiers: COPD type: unspecified COPD Qualified Code(s): J44.9 - Chronic obstructive pulmonary disease, unspecified (3) Diabetes mellitus Current Visit: Yes Status: Chronic Qualifiers: Diabetes mellitus type: type 2 Diabetes mellitus termite technician insulin use: with termite technician use Diabetes mellitus complication status: with kidney complications Diabetes mellitus complication detail: with chronic kidney disease Chronic kidney disease stage: stage 3 (moderate) Qualified Code(s): E11.22 - Type 2 diabetes mellitus with diabetic chronic kidney disease; N18.3 - Chronic kidney disease, stage 3 (moderate); Z79.4 - termite inspector (current) use of insulin (4) CKD (chronic kidney disease) stage 3, GFR 30-59 ml/min Current Visit: Yes Status: Chronic - Time Spent With Patient Total time spent is greater than 50% in coordination of care (as documented) at patient's floor/unit and/or counseling patient: - Subjective Interval history: Pt seen and examined at bedside. No acute events overnight. Pt states he feels "fine". Denies any fever, chills, chest pain, SOB, nausea, or vomiting. Endorses no difficulty urinating and regular bowel movements with no blood noted. - Constitutional Vitals: Temp Pulse Resp BP Pulse Ox 98.0 F 115 16 102/67 98 03/29/18 06:46 03/29/18 06:46 03/29/18 06:46 03/29/18 06:46 03/29/18 06:46 General appearance: Present: cooperative, A&O X 3, obese, answers questions appropriately Exam: Head: Normocephalic, atraumatic. No lesions or contusions. Eyes: PERRL, EOMI. No scleral icterus. Respiratory: CTA bilaterally. No wheezes, rales, or rhonchi noted. Heart: RRR. No murmurs, clicks, or rubs. Abdomen: soft, nontender, normoactive bowel sounds. Midline scar noted. Extremities: warm, UE ROM bilaterally, radial pulses palpable and symmetrical. Left ankle/foot dressing clean and intact. Neurological: alert and oriented x3. No focal deficits. No slurred speech. Skin: warm, dry, and intact. Internal Medicine: Result - Labs CBC & Chem 7: 03/29/18 14:11 03/28/18 09:09 Labs: Short CBC 03/28/18 Range/Units 09:09 WBC 7.2 (4.3-11.1) K/mcL Hgb 9.8 L (12.9-16.9) g/dL Hct 30.1 L (37.5-50.1) % Plt Count 396 (140-400) K/mcL Neutrophils # 5.9 (1.6-8.9) K/mcL BMP 03/28/18 09:09 Sodium 134 L Potassium 4.0 Chloride 99 Carbon Dioxide 29 BUN 22 Creatinine 1.18 Glucose 204 H Calcium 8.6 - ABG Interpretation ABG results: PT/INR, D-dimer PT 23.0 Seconds (9.4-12.1) H 03/29/18 04:20 - VTE Documentation of Mechanical Device: Intermittent pneumatic compression device Consult Discharge Plan - Plan Referrals: Calli Estes, STANISLAV [Primary Care Provider] -
[2018-03-29] MEDS: FOLIC ACID PO SCH (08:18)
[2018-03-29] MEDS: B2 PO SCH (08:18)
[2018-03-29] MEDS: B12 PO SCH (08:18)
[2018-03-29] MEDS: Valsartan 80 MG TABLET PO SCH (08:18)
[2018-03-29] MEDS: B6 PO SCH (08:18)
[2018-03-29] MEDS: VIT D3 PO SCH (08:18)
[2018-03-29] MEDS ORDERED: *HR* Heparin 5,000 UNIT/ML VIAL IVP PRN ×2 (11:06)
[2018-03-29] MEDS ORDERED: Heparin 25,000 UNIT/500 ML D5W 25,000 UNIT/500 ML BAG IVC SCH (11:15)
[2018-03-29] MEDS ORDERED: *HR* Enoxaparin 120 MG/0.8 ML SYRINGE SQ SCH (12:00)
--- NOTE | 2018-03-29 13:12 | Infectious Disease Progress No ---
Date of Encounter: 03/29/18 Time of Encounter: 13:09 - Assessment and Plan (1) Cellulitis of left leg Current Visit: No Status: Acute Location: Left medial ankle. Etiology unclear, but non-healing surgical wounds likely the source, although clinically they do not appear infected. The patient's did report that the patient went outside without his boot on and was mowing the grass. Non-purulent. Causative organism unclear. Previous wound cultures positive for Corynebacterium , but likely a skin contaminant. Intra-op cultures are negative. X-ray of the left foot showed a non-displaced fracture of the 5th metatarsal, but no evidence of OM. CT of the LLE showed a large complex fluid collection along the medial ankle highly suspicious for abscess. Had been on Rocephin and Flagyl since admission at [facility] on 03/19, but had progression of symptoms. Afebrile since admission here. No other SIRS criteria. Pre-op ESR 128, CRP 212. Podiatry consulted and following. Status post I & D of the left leg and partial removal of hardware 03/25/[address] Alegre. Operative note reviewed. No purulence, but serous fluid. Cultures are negative. Continue to observe off antibiotics. Will discuss with podiatry. Not sure if there is still drainage if we can get another set of cultures since the patient has been off antibiotics for several days now. Continue to observe off antibiotics for now. Repeat ESR and CRP now. We will continue to follow closely. (2) Abscess of leg without foot, left Current Visit: Yes Status: Acute Location: Left ankle. Causative organism unclear. Cultures are negative. Status post I & D 03/25/[address] Alegre. Serous fluid noted intra-op, but no pus. Screw was removed, but the previous ORIF plate left in place. Wound care and activity per the podiatry team. Continue to observe off antibiotics for now. (3) Diabetic ulcer of left foot Current Visit: Yes Status: Acute Non-healing surgical wounds. Location: Left lateral foot, left lateral ankle, and left heel. Clinically, the do not appear infected. Podiatry consulted and following. Wound care and activity restrictions per the podiatry team. Qualifiers: Diabetic foot ulcer location: other Diabetes mellitus type: type 2 Non- pressure ulcer stage: with other severity Qualified Code(s): E11.621 - Type 2 diabetes mellitus with foot ulcer; L97.528 - Non-pressure chronic ulcer of other part of left foot with other specified severity (4) Chronic kidney disease Current Visit: No Status: Chronic Qualifiers: Chronic kidney disease stage: stage 3 (moderate) Qualified Code(s): N18.3 - Chronic kidney disease, stage 3 (moderate) (5) Type 2 diabetes mellitus with foot ulcer Current Visit: No Status: Acute Recommend aggressive glucose monitoring and control to promote wound healing and prevent re-infection Management per the primary team. Qualifiers: Diabetes mellitus group home insulin use: with intermodal dispatcher use Qualified Code( s): E11.621 - Type 2 diabetes mellitus with foot ulcer; L97.509 - Non-pressure chronic ulcer of other part of unspecified foot with unspecified severity; Z79.4 - terminal make up operator (current) use of insulin - Subjective Interval history: Patient seen and examined. No acute events noted overnight. Patient states overall he feels okay. Denies fevers, chills, or rigors. Denies chest pain, shortness of breath, or cough. Denies nausea, vomiting, or diarrhea. Denies abdominal pain, urinary complaints, or appetite changes. Denies oral thrush or skin lesions. Denies pain. Infect Dis PN-Objective Data - Labs CBC & Chem 7: 03/29/18 14:11 03/28/18 09:09 Labs: Laboratory Results - last 24 hr 03/28/18 03/28/18 03/28/18 07:18 11:32 16:14 PT INR POC Glucose 98 274 H 349 H Specimen Rejected 03/28/18 03/28/18 03/29/18 18:40 20:40 03:58 PT 20.9 H INR 1.9 POC Glucose 275 H Specimen Rejected Volume 03/29/18 03/29/18 04:20 06:44 PT 23.0 H INR 2.0 POC Glucose 212 H Specimen Rejected Cultures: Cultures 03/25/18 19:20 Anaerobic Culture - Preliminary Left Leg At this time, no anaerobic growth is present. The culture will be finalized after 5 days of incubation. 03/25/18 19:20 Wound Culture - Final Left Leg No growth. Exam - Constitutional Vitals: Temp Pulse Resp BP Pulse Ox 98.2 F 96 16 109/73 95 03/29/18 11:34 03/29/18 11:34 03/29/18 11:34 03/29/18 11:34 03/29/18 11:34 General appearance: cooperative, no acute distress, obese - Head Head exam: Present: atraumatic, normal inspection, normocephalic - Eye Eye exam: Present: EOMI, normal appearance, PERRL Pupils: Present: normal accommodation - ENT ENT exam: Present: mucous membranes moist - Neck Neck exam: Present: normal inspection - Respiratory Respiratory exam: Present: CTAB. Absent: rales, respiratory distress, rhonchi, wheezes - Cardiovascular Cardiovascular exam: Present: clicks, RRR, +S1, +S2 - GI/Abdominal GI/Abdominal exam: Present: distended, normal bowel sounds, soft. Absent: tenderness - Extremities Exam Extremities exam: Absent: joint swelling, pedal edema, tenderness Additional comments: Left foot dressing C/D/I. - Neurological Exam Neurological exam: Present: alert, oriented X3, no focal deficits - Psychiatric Psychiatric exam: Present: normal affect, normal mood - Skin Skin exam: Present: dry, intact, normal color, warm - VTE Documentation of Mechanical Device: Intermittent pneumatic compression device Consult Discharge Plan - Plan Referrals: Calli Estes, SADDLE STITCHER [Primary Care Provider] - - Attending Attestation I examined this patient and my medical decision-making was reviewed with the Resident Physician. I agree with the documented findings, disposition and treatment plan as described except to the extent set forth below. We had a long discussino with Dr. Alegre, We went over the CT's together and met to discuss the case. the overall conclusion is, we feel both infections are separate entities. He told me there was a sinus tract of the lateral heal and hardware "screw" was visible. the screw was surgically removed and the sinus tract incised and wound sutured. the previous foot wound had fully healed and no signs of infection. the medial aspect of the ankle was with cellulitis and edema/ erytehma. drainage was serous intra operatively but cultures were negative. He said wound was superficial and not close to the bone/hardware. Will treat with 2 weeks of Augmentin/Bactrim Augmentin 875 mg po bid which covers pervious cultures and bactrim for possible MRSA and possible GNR bactrim DS I tab bid treat through april 12
[2018-03-29 14:25] LABS: Hematocrit 30.4 % (37.5-50.1); Mean Corpuscular HGB Conc 32.9 g/dL (31.6-35.5); Mean Corpuscular Hemoglobin 30.2 pg (28.0-33.3); Mean Corpuscular Volume 91.8 fL (83.0-100.0); Mean Platelet Volume 9.6 fL (9.4-12.4); Platelet Count 398 K/mcL (140-400); Red Blood Count 3.31 M/mcL (4.19-5.50); Red Cell Distribution Width 14.1 % (11.5-14.5)
[2018-03-29 14:32] LABS: INR 2.2; Prothrombin Time 24.3 Seconds (9.4-12.1)
[2018-03-29 14:34] LABS: Activated Partial Thrombo Time 35.4 Seconds (26.0-36.0)
[2018-03-29 15:40] VITALS: BP 110/72
--- NOTE | 2018-03-29 15:50 | Podiatry Progress Note ---
Date of Encounter: 03/29/18 Time of Encounter: 12:30 - Assessment and Plan (1) Type 2 diabetes mellitus with foot ulcer Current Visit: No Status: Acute Qualifiers: Diabetes mellitus dedicated intermodal truck driver insulin use: with dedicated intermodal truck driver use Qualified Code( s): E11.621 - Type 2 diabetes mellitus with foot ulcer; L97.509 - Non-pressure chronic ulcer of other part of unspecified foot with unspecified severity; Z79.4 - intermediate (current) use of insulin (2) Foot ulcer Current Visit: No Status: Acute s/p incision and drainage left leg and removal of hardware left ankle by Dr. Alegre on 03/25/18. WBC: 8.1 Plan: Dressing changed at bedside. Continue wound care as ordered. Antibiotics per infectious disease. Continue diabetic cast boot to LLE with walker. Patient will benefit from going to a nursing facility. Patient will need to follow-up in wound care center with Dr. Alegre one week after discharge from hospital. Qualifiers: Laterality: right Non-pressure ulcer stage: unspecified non-pressure ulcer stage Qualified Code(s): L97.519 - Non-pressure chronic ulcer of other part of right foot with unspecified severity (3) Cellulitis of left leg Current Visit: No Status: Acute Subjective Interval history: Patient is s/p incision and drainage left leg and removal of hardware left ankle by Dr. Alegre on 03/25/18. Patient is sitting up in bed eating lunch with dressing intact to the right foot. Patient denies any pain, no fever, no chills , no Pain, no chest pain, no shortness of breath. Objective - Vital Signs Vital Signs: Vital Signs Temp Pulse Resp BP Pulse Ox 03/29/18 15:39 98.1 F 98 15 110/72 96 03/29/18 11:34 98.2 F 96 16 109/73 95 03/29/18 06:46 98.0 F 115 16 102/67 98 03/29/18 04:23 98.1 F 63 16 132/76 98 03/28/18 23:10 98.6 F 75 16 91/55 98 03/28/18 20:33 97 03/28/18 19:13 98.3 F 76 16 112/70 97 03/28/18 16:16 98.7 F 76 20 122/78 98 Intake and Output 0703/29/18 03/29/18 23:59 07:59 15:59 Intake Total 400 / 400 360 / 360 Output Total 475 / 475 700 / 700 Balance -75 / -75 -340 / -340 Intake: Oral 400 / 400 360 / 360 Output: Urine 475 / 475 700 / 700 Other: Meal Breakfast Percent of Meal Consumed 100% Stool Size Large Stool Consistency soft Stool Color Black # Voids 1 # Bowel Movements 1 Weight 124.7 kg Blood Glucose* 275 212 290 Patient Weight 03/29/18 23:59 Weight 124.7 kg - Exam Exam: General appearance: alert awake oriented X 3. Calm and pleasant, no acute distress.. Vascular: Left: Pedal pulses palpable. No evidence of cyanosis, pallor or rubor , Edema graded at 1+/4, Skin Temperature warm, No calf pain with manual compression. capillary refill time is immediate to digits. Neurologic: Sensation intact with light touch to foot. . Postop Exam: S/P Sutures intact to incision lines, open wound to medial incision line measuring approximately 0.5 cm in diameter x 2 cm in depth, no pus, no odor, moderate amount of serous drainage observed to dressing, light periwound erythema, no streaking. Minimal edema. - Lab Result Diagrams: 03/29/18 14:11 03/28/18 09:09 Labs: Abnormal lab results RBC 3.31 M/mcL (4.19-5.50) L 03/29/18 14:11 Hgb 10.0 g/dL (12.9-16.9) L 03/29/18 14:11 Hct 30.4 % (37.5-50.1) L 03/29/18 14:11 ESR 97 mm/hr (0-10) H 03/29/18 14:11 PT 24.3 Seconds (9.4-12.1) H 03/29/18 14:11 Sodium 134 mEq/L (136-145) L 03/28/18 09:09 Glucose 204 mg/dL (70-105) H 03/28/18 09:09 POC Glucose 212 mg/dL (70-99) H 03/29/18 06:44 C-Reactive Protein 49 mg/L (Less than 10) H 03/29/18 14:11 Microbiology, Last 48 Hours 03/25/18 19:20 Anaerobic Culture - Preliminary Left Leg At this time, no anaerobic growth is present. The culture will be finalized after 5 days of incubation. 03/25/18 19:20 Wound Culture - Final Left Leg No growth. - VTE Documentation of Mechanical Device: Intermittent pneumatic compression device Consult Discharge Plan - Plan Referrals: Calli Estes, STANISLAV [Primary Care Provider] -
[2018-03-29] MEDS: *HR* Warfarin 10 MG TABLET PO SCH (17:12)
--- NOTE | 2018-03-29 17:35 | Discharge Summary ---
<Arslan Cobos - Last Filed: 03/29/18 17:33> - NOTES TO OUTPATIENT PROVIDER Notes to Outpatient Provider: Here for diabetic foot ulcer. D/c with Augmentin and Bactrim 14 day supply. Orders not resulted at time of discharge: Pending orders 03/25/18 19:20 Culture,Anaerobic [RM] Routine 03/30/18 04:00 PT/INR [Prothrombin Time INR] [COAG] AM 0400 03/31/18 04:00 PT/INR [Prothrombin Time INR] [COAG] AM 0400 04/01/18 04:00 PT/INR [Prothrombin Time INR] [COAG] AM 0400 Date of Encounter: 03/29/18 Time of Encounter: 15:30 - Discharge Diagnosis (1) COPD (chronic obstructive pulmonary disease) Priority: Secondary Status: Chronic Assessment and Plan: Not in acute exacerbation. Continue home medicine. Qualifiers: COPD type: unspecified COPD Qualified Code(s): J44.9 - Chronic obstructive pulmonary disease, unspecified (2) Diabetes mellitus Priority: Secondary Status: Chronic Assessment and Plan: Uncontrolled. Complication of diabetic foot ulcer. Qualifiers: Diabetes mellitus type: type 2 Diabetes mellitus watermelon inspector insulin use: with watermelon inspector use Diabetes mellitus complication status: with kidney complications Diabetes mellitus complication detail: with chronic kidney disease Chronic kidney disease stage: stage 3 (moderate) Qualified Code(s): E11.22 - Type 2 diabetes mellitus with diabetic chronic kidney disease; N18.3 - Chronic kidney disease, stage 3 (moderate); Z79.4 - correction (current) use of insulin (3) CKD (chronic kidney disease) stage 3, GFR 30-59 ml/min Priority: Secondary Status: Chronic Assessment and Plan: Stable. Avoid nephrotoxic drugs. Monitor renal function closely. (4) Diabetic ulcer of left foot Priority: Primary Status: Acute Assessment and Plan: Started on Augmentin and Bactrim per ID recommendations. Follow up with wound care. Qualifiers: Diabetic foot ulcer location: other Diabetes mellitus type: type 2 Non- pressure ulcer stage: with other severity Qualified Code(s): E11.621 - Type 2 diabetes mellitus with foot ulcer; L97.528 - Non-pressure chronic ulcer of other part of left foot with other specified severity Hospital course: Mr. Cortez is a 67 year old male who presented with a left diabetic foot ulcer. Pt underwent debridement and removal of hardware on 03/25. Cultures revealed no causative organism. INR became subtherapeutic at 2.0. Pt refused heparin drip and opted for Lovenox. ID recommended Augmentin and Bactrim therapy for 14 days. - Time Spent with Patient Total time spent providing and/or coordinating discharge services: - Discharge Medications Prescriptions: Amoxicillin/Clavulanate [Augmentin] 875 mg PO BIDWM #28 tablet Sulfamethoxazole/Trimeth DS [Bactrim DS] 1 each PO BID #28 tablet Home Medications: Albuterol Sulfate [Ventolin Hfa] 18 gm IH BID 02/11/18 [History] Allopurinol [Zyloprim 100 MG] 200 mg PO DAILY 02/11/18 [History] Aspirin 81 mg PO DAILY 02/11/18 [History] Bicalutamide [Casodex] 50 mg PO DAILY 02/11/18 [History] Citalopram [CeleXA] 20 mg PO DAILY 02/11/18 [History] Fenofibrate Nanocrystallized [Fenofibrate] 145 mg PO DAILY 02/11/18 [History] Ferrous Sulfate [Iron] 325 mg PO BID 02/11/18 [History] Furosemide [Lasix] 40 mg PO BID 02/11/18 [History] Gabapentin [Neurontin] 100 mg PO HS 02/11/18 [History] Insulin DETEMIR [Levemir] 35 unit SQ HS 02/11/18 [History] Insulin LISPRO [HumaLOG] 10 units SQ TIDWM 02/11/18 [History] Levothyroxine [Synthroid] 150 mcg PO DAILY 02/11/18 [History] Montelukast [Singulair] 10 mg PO DAILY 02/11/18 [History] Pantoprazole Sodium [Protonix] 40 mg PO DAILY 02/11/18 [History] Primidone [Mysoline] 50 mg PO BID 02/11/18 [History] Valsartan [Diovan] 80 mg PO DAILY 02/11/18 [History] Vit D3/Folic Acid/B2/B6/B12 [Folgard Tablet] 1 each PO DAILY 02/11/18 [History] Warfarin [Coumadin] 15 mg PO DAILY 02/11/18 [History] Calcitriol [Rocaltrol] 0.25 mcg PO DAILY 03/25/18 [History] Flecainide 100 mg PO Q12HR 03/25/18 [History] Fluticasone/Vilanterol [Breo Ellipta 100-25 Mcg INH] 1 puff IH DAILY 03/25/18 [ History] Metoprolol Succinate [Toprol Xl] 25 mg PO DAILY 03/25/18 [History] Amoxicillin/Clavulanate [Augmentin] 875 mg PO BIDWM #28 tablet 03/29/18 [Rx] Sulfamethoxazole/Trimeth DS [Bactrim DS] 1 each PO BID #28 tablet 03/29/18 [Rx] Allergies/Adverse Reactions: 3 Allergy/AdvReac Type Severity Reaction Status Date / Time niacin Allergy See Verified 03/18/18 20:37 [From [facility] Comments Extended-Release] Date of admission: 03/24/18 13:14 Primary care physician: Calli Estes CNP Consults: 03/24/18 14:03 Consult to Infectious Diseases [CONS] Routine Consulting Provider: [facility] Reason for Consult: Left foot ulcer wound infection Time Notified: 14:03 Call Completed: Yes Consult to Podiatry [CONS] Routine Consulting Provider: [facility] Reason for Consult: Left foot ulcer wound infection Time Notified: 14:03 Call Completed: Yes 03/24/18 18:54 Consult to Occupational Therapy [CONS] Routine Comment: Evaluate, develop and implement POC Reason for Consult: discharge needs Does patient have active BEDREST order?: No Is patient medically & hemodynamically stable?: Yes Consult to Flour Broker [CONS] Routine Reason for SW Consult: discharge needs 03/26/18 09:09 Consult to Nutrition [CONS] Routine Comment: req ensure. HX of DM, surgical wound , poor appit Consulting Provider: NUTRITION Reason for Dietary Consult: PO Supplementation Discharging clinician: Arslan Cobos Anticipated date of discharge: 03/29/18 - Constitutional Vitals: Temp Pulse Resp BP Pulse Ox 98.1 F 98 15 110/72 96 03/29/18 15:39 03/29/18 15:39 03/29/18 15:39 03/29/18 15:39 03/29/18 15:39 General appearance: Present: cooperative, A&O X 3, obese, answers questions appropriately Exam: Head: Normocephalic, atraumatic. No lesions or contusions. Eyes: PERRL, EOMI. No scleral icterus. Respiratory: CTA bilaterally. No wheezes, rales, or rhonchi. Heart: RRR. No murmurs, clicks, or rubs. Abdomen: soft, nontender, normoactive bowel sounds Extremities: warm, full ROM in UEs, radial pulses palpable and symmetrical. Left foot and ankle dressing clean and intact Neurological: alert and oriented x3. No focal deficits. Skin: warm, dry, and intact. - Patient Status Disposition: Home, Self-Care Condition: Good Overall status at discharge: patient is progressing back to baseline - Discharge Instructions Follow Up With: Calli Estes CNP [Primary Care Provider] - Additional Instructions: Follow up with PCP and note teller. Take all medications as prescribed. Return to ED if symptoms return or worsen. - Diet and Activity Activity: increase activity as tolerated Diet: diabetic diet - VTE Documentation of Mechanical Device: Intermittent pneumatic compression device <Shine Hein - Last Filed: 03/29/18 18:11> Orders not resulted at time of discharge: Pending orders 03/25/18 19:20 Culture,Anaerobic [RM] Routine 03/30/18 04:00 PT/INR [Prothrombin Time INR] [COAG] AM 0400 03/31/18 04:00 PT/INR [Prothrombin Time INR] [COAG] AM 0400 04/01/18 04:00 PT/INR [Prothrombin Time INR] [COAG] AM 0400 Date of Encounter: 03/29/18 - Discharge Diagnosis (1) Diabetic ulcer of left foot Status: Acute Qualifiers: Diabetic foot ulcer location: other Diabetes mellitus type: type 2 Non- pressure ulcer stage: with other severity Qualified Code(s): E11.621 - Type 2 diabetes mellitus with foot ulcer; L97.528 - Non-pressure chronic ulcer of other part of left foot with other specified severity (2) COPD (chronic obstructive pulmonary disease) Status: Chronic Qualifiers: COPD type: unspecified COPD Qualified Code(s): J44.9 - Chronic obstructive pulmonary disease, unspecified (3) CKD (chronic kidney disease) stage 3, GFR 30-59 ml/min Status: Chronic (4) Diabetes mellitus Status: Chronic Qualifiers: Diabetes mellitus type: type 2 Diabetes mellitus watermelon inspector insulin use: with penitentiary use Diabetes mellitus complication status: with kidney complications Diabetes mellitus complication detail: with chronic kidney disease Chronic kidney disease stage: stage 3 (moderate) Qualified Code(s): E11.22 - Type 2 diabetes mellitus with diabetic chronic kidney disease; N18.3 - Chronic kidney disease, stage 3 (moderate); Z79.4 - correction (current) use of insulin (5) Hypertension Priority: Secondary Status: Chronic Qualifiers: Hypertension type: essential hypertension Qualified Code(s): I10 - Essential (primary) hypertension (6) Hypothyroid Priority: Secondary Status: Chronic Qualifiers: Hypothyroidism type: acquired Qualified Code(s): E03.9 - Hypothyroidism, unspecified (7) Tobacco use Priority: Secondary Status: Chronic (8) S/P aortic valve replacement Priority: Secondary Status: Chronic (9) CHF (congestive heart failure) Priority: Secondary Status: Chronic Qualifiers: Heart failure type: diastolic Heart failure chronicity: chronic Qualified Code(s): I50.32 - Chronic diastolic (congestive) heart failure Hospital course: Mr. Cortez is a 67 year old male Discharge discussed with: patient - Time Spent with Patient Total time spent providing and/or coordinating discharge services: 37min Date of admission: 03/24/18 13:14 Primary care physician: Calli Estes CNP Consults: 03/24/18 14:03 Consult to Infectious Diseases [CONS] Routine Consulting Provider: [facility] Reason for Consult: Left foot ulcer wound infection Time Notified: 14:03 Call Completed: Yes Consult to Podiatry [CONS] Routine Consulting Provider: [facility] Reason for Consult: Left foot ulcer wound infection Time Notified: 14:03 Call Completed: Yes 03/24/18 18:54 Consult to Occupational Therapy [CONS] Routine Comment: Evaluate, develop and implement POC Reason for Consult: discharge needs Does patient have active BEDREST order?: No Is patient medically & hemodynamically stable?: Yes Consult to Flour Broker [CONS] Routine Reason for SW Consult: discharge needs 03/26/18 09:09 Consult to Nutrition [CONS] Routine Comment: req ensure. HX of DM, surgical wound , poor appit Consulting Provider: NUTRITION Reason for Dietary Consult: PO Supplementation - Constitutional Vitals: Temp Pulse Resp BP Pulse Ox 98.1 F 98 15 110/72 96 03/29/18 15:39 03/29/18 15:39 03/29/18 15:39 03/29/18 15:39 03/29/18 15:39 - Attending Attestation I examined this patient and my medical decision-making was reviewed with the Resident Physician on 03/29/18. I agree with the documented findings, disposition and treatment plan as described except to the extent set forth below. Mr Cortez has been admitted for possible diabetic foot infection. He was seen by podiatry and had debridement. He was seen by ID and he will have PO abx at discharge. His INR was slightly low but he refused heparin drip. Currently he is afebrile and will be discharged home. Exam alert Comfortable Mucus membranes dry Heart reg No wheeze Dressing intact Plan D/C home today Augmentin and Bactrim both BID for 14 days Follow up in wound care.
--- NOTE | 2018-03-31 09:55 | Physician Discharge Referral ---
Home Health/Hosp Referral Info Transfer to: Home Health Provider in Charge Post Discharge: PCP - Diagnosis (1) Diabetic ulcer of left foot Priority: Primary Status: Acute (2) COPD (chronic obstructive pulmonary disease) Priority: Secondary Status: Chronic (3) CKD (chronic kidney disease) stage 3, GFR 30-59 ml/min Priority: Secondary Status: Chronic (4) Diabetes mellitus Priority: Secondary Status: Chronic (5) Hypertension Priority: Secondary Status: Chronic (6) Hypothyroid Priority: Secondary Status: Chronic (7) Tobacco use Priority: Secondary Status: Chronic (8) S/P aortic valve replacement Priority: Secondary Status: Chronic (9) CHF (congestive heart failure) Priority: Secondary Status: Chronic - Respiratory Orders None Smoking Cessation: Smoking cessation has been advised. For more information, call the [place] [employer] Quit Line at 6-486-FWQQ-NOW. - Diet/Nutrition Diet/Nutrition Orders: No Concentrated Sweets - Activity Activity Orders: Up ad deborah (Post op shoe) - Services Needed Following services are medically necessary services: Nursing, Home Health Aide - Transfer Medications Prescriptions: Amoxicillin/Clavulanate [Augmentin] 875 mg PO BIDWM #28 tablet Sulfamethoxazole/Trimeth DS [Bactrim DS] 1 each PO BID #28 tablet Home Medications: Albuterol Sulfate [Ventolin Hfa] 18 gm IH BID 02/11/18 [History] Allopurinol [Zyloprim 100 MG] 200 mg PO DAILY 02/11/18 [History] Aspirin 81 mg PO DAILY 02/11/18 [History] Bicalutamide [Casodex] 50 mg PO DAILY 02/11/18 [History] Citalopram [CeleXA] 20 mg PO DAILY 02/11/18 [History] Fenofibrate Nanocrystallized [Fenofibrate] 145 mg PO DAILY 02/11/18 [History] Ferrous Sulfate [Iron] 325 mg PO BID 02/11/18 [History] Furosemide [Lasix] 40 mg PO BID 02/11/18 [History] Gabapentin [Neurontin] 100 mg PO HS 02/11/18 [History] Insulin DETEMIR [Levemir] 35 unit SQ HS 02/11/18 [History] Insulin LISPRO [HumaLOG] 10 units SQ TIDWM 02/11/18 [History] Levothyroxine [Synthroid] 150 mcg PO DAILY 02/11/18 [History] Montelukast [Singulair] 10 mg PO DAILY 02/11/18 [History] Pantoprazole Sodium [Protonix] 40 mg PO DAILY 02/11/18 [History] Primidone [Mysoline] 50 mg PO BID 02/11/18 [History] Valsartan [Diovan] 80 mg PO DAILY 02/11/18 [History] Vit D3/Folic Acid/B2/B6/B12 [Folgard Tablet] 1 each PO DAILY 02/11/18 [History] Warfarin [Coumadin] 15 mg PO DAILY 02/11/18 [History] Calcitriol [Rocaltrol] 0.25 mcg PO DAILY 03/25/18 [History] Flecainide 100 mg PO Q12HR 03/25/18 [History] Fluticasone/Vilanterol [Breo Ellipta 100-25 Mcg INH] 1 puff IH DAILY 03/25/18 [ History] Metoprolol Succinate [Toprol Xl] 25 mg PO DAILY 03/25/18 [History] Amoxicillin/Clavulanate [Augmentin] 875 mg PO BIDWM #28 tablet 03/29/18 [Rx] Sulfamethoxazole/Trimeth DS [Bactrim DS] 1 each PO BID #28 tablet 03/29/18 [Rx] Allergies/Adverse Reactions: 3 Allergy/AdvReac Type Severity Reaction Status Date / Time niacin Allergy See Verified 03/18/18 20:37 [From [facility] Comments Extended-Release] Certification: Further, I certify that my clinical findings support that this patient is homebound (i.e. absences from home require considerable and taxing effort and are for medical reasons or shinto services or infrequently or short duration when for other reasons) because: Homebound Reason: Patient requires assistance of a person or device to safely leave home Attestation: My signature below is to certify that this patient is under my care and that I, or nurse practitioner, or a physician's music assistant working with me, has a face-to -face encounter with this patient.
== END 2018-03-29 19:29 | disposition home or self-care (01) | DRG 982 ==
LOC: 3BNU → SUATTDRO 13:14
PROVIDERS: ADMIT Internal Medicine; ATTEND Internal Medicine

== ENCOUNTER 2018-12-02 20:50 | Observation (INO) ==
[2018-12-03] MEDS ORDERED: Ondansetron 4 MG/2 ML VIAL IVP PRN (02:25)
[2018-12-03] MEDS ORDERED: D5% in Water 1,000 ML IVC PRN (02:25)
[2018-12-03] MEDS ORDERED: Acetaminophen 325 MG TABLET PO PRN (02:25)
[2018-12-03] MEDS ORDERED: *HR* Dextrose 50 % in Water (Syg) 50 ML SYRINGE IVP PRN (02:25)
[2018-12-03] MEDS ORDERED: Dextrose Gel 15 GM/37.5 ML TUBE PO PRN ×2 (02:25)
[2018-12-03] MEDS ORDERED: *HR* Heparin 5,000 UNIT/ML VIAL IVP PRN ×2 (02:25)
[2018-12-03] MEDS ORDERED: *HR* Heparin 5,000 UNIT/ML VIAL IVP ONE (02:25)
[2018-12-03] MEDS ORDERED: Dextrose 4 GM Chewable Tablets PO PRN ×2 (02:25)
[2018-12-03] MEDS ORDERED: Naloxone 0.4 MG/ML INJ IVP PRN (02:25)
[2018-12-03] MEDS ORDERED: 0.9 % Sodium Chloride 1,000 ML IVC SCH (02:30)
[2018-12-03] MEDS ORDERED: *HR* OxyCODONE/APAP 5/325 TABLET PO PRN (02:34)
[2018-12-03] MEDS: Heparin 25,000 UNIT/250 ML D5W 25,000 UNIT/250 ML IV.SOLN IVC SCH ×2 (03:10→18:29)
--- NOTE | 2018-12-03 03:31 | Internal Med History&Physical ---
Date of Encounter: 12/03/18 Time of Encounter: 01:30 Internal Medicine - H&P: HPI Chief complaint: abdominal pain; atrial fib/RVR Admitted From: Hospital to Hospital Transfer Plans for Post Hospital Care: Home History of present illness: Mr. Cortez is a 68 year old male who presents in transfer from [facility] ER. He presented there with complaints of abdominal pain. He had robotic surgery 3 days ago for incisional hernia repair. He is complaining of pain all over his his abdomen, and not just his incisional site. Workup at [facility] revealed negative findings. However, he did have evidence of a bump in his troponin and new onset atrial fibrillation with rapid ventricular response. He was therefore transferred to [facility]. Upon my assessment of the patient, he is lying in bed complaining of abdominal pain. He states the pain is diffuse and nauseating and cramping at times. He does not appear to be in severe distress, however. On exam, his abdomen is nonsurgical, but he does have diffuse tenderness. He also has a hematoma along his left lower abdomen where he was receiving heparin/Lovenox injections. He denies any chest pain or shortness of breath. He has had some nausea but no vomiting. He denies any diarrhea. His last bowel movement was less than 12 hours ago. He is passing flatus well. He denies any fevers, chills, or night sweats. He denies any dysuria or hematuria. Of note, patient does have a mechanical heart valve. His INR is subtherapeutic, but he has been on Lovenox injections at home. Past Med Surg Social Fam HX - Past Medical History Attestation: Yes The following information was validated with the patient. Source: patient, old records reviewed Medical history: asthma, cancer, CHF, COPD, diabetes, hyperlipidemia, hypertension, myocardial infarction, renal disease, thyroid disease, valvular heart disease Additional medical history: prostate cancer Psychiatric history: no psych history - Past Surgical History Surgical History: colectomy Additional surgical history: WOUND VAC TO LT FOOT - Social History Smoking Status: Never smoker Smokeless Tobacco Status: Yes Alcohol use: none Drug use: none Current living situation: Home, With Family Activity Level: Independent ambulation Recent Out of Country Travel Within the Last 8 Weeks: No - Family History Father Adopted: [place]: Kyle Cortez Family Member Ethnicity: Non- Living Status: Age at : 62 Cause of : Lung Cancer Hx Family Cardiac Disorders: No Hx Family Respiratory Disorders: Yes (lung cancer) Hx Family Cancer: Yes (lung cancer) Hx Family GI Disorders: No Hx Family Genitourinary Disorders: No Hx Family Endocrine Disorder: No Hx Family Musculoskeletal Disorders: No Hx Family Neuromuscular Disorders: No Hx Family Neurologic Disorders: No Hx Family HEENT Disorders: No Hx Family Autoimmune Disorders: No Hx Family Reproductive Disorders: No Hx Family Psychosocial Disorders: No Hx Family Medical Disorders: No Mother Family Member Ethnicity: Non- Living Status: Hx Family Cardiac Disorders: Yes (NH) Hx Family Respiratory Disorders: Yes Hx Family Cancer: No Hx Family GI Disorders: No Hx Family Endocrine Disorder: No Hx Family Neuromuscular Disorders: No Hx Family Neurologic Disorders: No Hx Family HEENT Disorders: No Hx Family Autoimmune Disorders: No Sister Adopted: No Family Member Ethnicity: Non- Living Status: Still Living Hx Family Cardiac Disorders: No Hx Family Respiratory Disorders: (lung cancr) Hx Family Cancer: (lung cancer) Hx Family GI Disorders: No Hx Family Endocrine Disorder: No Hx Family Neuromuscular Disorders: No Hx Family Neurologic Disorders: No Hx Family HEENT Disorders: No Hx Family Autoimmune Disorders: No Internal Medicine - H&P: Meds Allopurinol [Zyloprim 100 MG] 100 mg PO BID 02/11/18 [History] Aspirin 81 mg PO DAILY 02/11/18 [History] Bicalutamide [Casodex] 50 mg PO QAM 02/11/18 [History] Fenofibrate Nanocrystallized [Fenofibrate] 145 mg PO DAILY 02/11/18 [History] Ferrous Sulfate [Iron] 325 mg PO BID 02/11/18 [History] Gabapentin [Neurontin] 600 mg PO TID 02/11/18 [History] Levothyroxine [Synthroid] 150 mcg PO DAILY 02/11/18 [History] Montelukast [Singulair] 10 mg PO DAILY 02/11/18 [History] Primidone [Mysoline] 50 mg PO BID 02/11/18 [History] Warfarin [Coumadin] 10 mg PO DAILY 02/11/18 [History] Calcitriol [Rocaltrol] 0.25 mcg PO DAILY 03/25/18 [History] Metoprolol Succinate [Toprol Xl] 25 mg PO DAILY 03/25/18 [History] Albuterol Sulfate [Ventolin Hfa] 90 mcg IH BID PRN 11/28/18 [History] Atorvastatin [Lipitor] 80 mg PO HS 11/28/18 [History] Budesonide/Formoterol 160/4.5 [Symbicort 160/4.5] 2 puff IH BID 11/28/18 [History] Cholecalciferol (D-3) [Vitamin D] 5,000 unit PO DAILY 11/28/18 [History] Docusate [Colace] 100 mg PO BID 11/28/18 [History] Famotidine [Pepcid] 40 mg PO DAILY 11/28/18 [History] Guaifenesin [Mucinex] 600 mg PO Q12H 11/28/18 [History] Trazodone HCl 100 mg PO HS 11/28/18 [History] Citalopram Hydrobromide [Citalopram HBr] 40 mg PO DAILY 11/29/18 [History] Insulin Regular U-500 [HumuLIN R U-500] 0 units SQ AD 11/29/18 [History] Ipratropium/Albuterol Sulfate [Iprat-Albut 0.5-3(2.5) mg/3 ml] 3 ml IH Q6H PRN 11/29/18 [History] Leuprolide Acetate [Lupron Depot] 22.5 mg IM [id number] 11/29/18 [History] Subcutaneous Insulin Pump [T:Slim] 1 each MC DAILY 11/29/18 [History] Docusate Sodium [Colace] 100 mg PO BID PRN #30 capsule 12/01/18 [Rx] Enoxaparin [Lovenox] 130 mg SQ Q12HR #14 syringe 12/01/18 [Rx] OxyCODONE/APAP 5/325 [Percocet 5/325 MG] 1 each PO Q6HR PRN 7 Days #28 tablet 12/01/18 [Rx] Allergy/AdvReac Type Severity Reaction Status Date / Time niacin Allergy See Verified 12/02/18 20:11 [From [facility] Comments Extended-Release] - Constitutional Constitutional: fatigue, no chills, no fever(s), no night sweats - EENT Eyes: no blurry vision, no change in vision Ears: no ear pain, no tinnitus Nose, mouth and throat: no nasal congestion, no sinus pressure, no sore throat - Cardiovascular Cardiovascular ROS IM: irregular heart rhythm, palpitations, no chest pain, no dyspnea, no orthopnea, no syncope - Respiratory Respiratory: no cough, no dyspnea, no hemoptysis, no chest congestion, no ex cessive phlegm production - Gastrointestinal Gastrointestinal: abdominal pain, nausea, no coffee ground emesis, no diarrhea, no hematemesis, no hematochezia, no melena, no vomiting - Genitourinary Genitourinary ROS male: no dysuria, no flank pain, no hematuria - Musculoskeletal Musculoskeletal ROS IM: no arthralgias, no back pain - Integumentary Integumentary IM: no rash, no jaundice - Neurological Neurological ROS: no disequilibrium, no dizziness, no focal weakness, no frequent falls, no headache(s) - Psychiatric Psychiatric: no anxiety, no depression - Endocrine Endocrine IM: no cold intolerance, no heat intolerance, no polydipsia, no polyuria - Hematologic/Lymphatic Hematologic/Lymphatic: easy bruising - Allergic/Immunologic Allergic/Immunologic: no wheezing, no GI upset with certain foods - Constitutional Vitals: Temp Pulse Resp BP Pulse Ox 98.3 F 98 16 128/79 95 12/03/18 01:07 12/03/18 01:07 12/03/18 01:07 12/03/18 01:07 12/03/18 01:07 General appearance: Present: cooperative, mild distress, A&O X 3, pleasant, answers questions appropriately Exam: patient complaining of diffuse abdominal pain - Head Head exam: Present: atraumatic, normal inspection - Eye Eye exam: Present: EOMI, PERRL. Absent: scleral icterus Pupils: Present: normal accommodation - ENT ENT exam: Present: mucous membranes dry, normal exam, normal oropharynx - Neck Neck exam general surgery: Present: full ROM, supple, trachea midline. Absent: lymphadenopathy, tenderness, nuchal rigidity, thyromegaly - Respiratory Respiratory exam: Present: CTAB. Absent: chest wall tenderness, rales, respiratory distress, rhonchi, wheezes, tachypnea - Cardiovascular Cardiovascular exam: Present: clicks (mechanical), irregular rhythm, +S1, +S2, systolic murmur, tachycardia (HR 100's). Absent: diastolic murmur - GI/Abdominal GI/Abdominal exam: Present: distended, normal bowel sounds, tenderness (diffuse), no peritoneal signs. Absent: guarding, rebound Additional comments: hematoma along left lateral abdominal wall - Extremities Exam Extremities exam: Present: full ROM, warm, radial pulses palpable and symmetrical. Absent: calf tenderness, joint swelling, tenderness - Back Exam Back exam: Absent: CVA tenderness (L), CVA tenderness (R) - Neurological Exam Neurological exam: Present: alert, CN II-XII intact, oriented X3, no focal deficits, strengths equal and symetr throughout - Psychiatric Psychiatric exam: Present: normal affect, normal mood - Skin Skin exam: Present: dry, intact, warm Internal Med - H&P Results - Labs Labs: I reviewed his labs from [facility] and include the following: WBC 12.2 Hemoglobin 10.8 Hematocrit 33.3 Platelets 267 PT 13.7 INR 1.2 PTT 29.4 Sodium 129 Potassium 4.6 Chloride 95 Carbon dioxide 27 BUN 30 Creatinine 1.54 Troponin 0.06 Chest and abdominal x-ray were negative - EKG Data -: EKG Interpreted by Myself - EKG Data Prior EKG available for review: no EKG comments: 12/03/18 03:50 atrial fibrillation - Assessment and Plan (1) Abdominal pain Current Visit: Yes Status: Acute Assessment and plan: 1. Will consult surgery given he had surgery 3 days ago. 2. Will proceed with CT abdomen and pelvis. 3. Pain and nausea control. 4. NPO for now. Qualifiers: Abdominal location: generalized Qualified Code(s): R10.84 - Generalized a bdominal pain (2) Elevated troponin I level Current Visit: Yes Status: Acute Assessment and plan: 1. Will cycle troponins and EKG's. 2. Will order ECHO. 3. Patient denies chest pain. 4. Likely due to atrial fib/RVR. (3) Atrial fibrillation with rapid ventricular response Current Visit: Yes Status: Acute Assessment and plan: 1. Will continue Cardizem drip and titrate to control rate. 2. Resume home meds as appropriate. 3. Wean off Cardizem once rate controlled. 4. Monitor and correct electrolytes as necessary. (4) S/P aortic valve replacement Current Visit: Yes Status: Chronic Assessment and plan: 1. Patient has mechanical AVR. 2. PT/INR subtherapeutic. 3. Will place on heparin drip and resume Coumadin once stabilized. (5) DVT prophylaxis Current Visit: Yes Status: Acute Assessment and plan: 1. Heparin drip as above.
[2018-12-03 05:34] LABS: Basophils % 0.2 %; Eosinophils # 0.2 K/mcL (0.0-0.6); Eosinophils % 2.1 %; Hematocrit 30.5 % (37.5-50.1); Hemoglobin 9.9 g/dL (12.9-16.9); Immature Granulocytes % 0.6 % (0-4); Lymphocytes # 0.7 K/mcL (0.6-4.6); Lymphocytes % 5.8 %; Mean Corpuscular HGB Conc 32.5 g/dL (31.6-35.5); Mean Corpuscular Hemoglobin 29.8 pg (28.0-33.3); Mean Corpuscular Volume 91.9 fL (83.0-100.0); Mean Platelet Volume 10.4 fL (9.4-12.4); Monocytes # 0.8 K/mcL (0.0-1.3); Monocytes % 6.9 %; Neutrophils # 9.8 K/mcL (1.6-8.9); Platelet Count 237 K/mcL (140-400); Red Blood Count 3.32 M/mcL (4.19-5.50); Segmented Neutrophils % 84.4 %
[2018-12-03 05:41] LABS: INR 1.3; Prothrombin Time 15.1 Seconds (9.4-12.1)
[2018-12-03 05:44] LABS: Heparin anti-factor XA UFH 1.08 IU/mL (0.30-0.70)
[2018-12-03 05:58] LABS: Alanine Aminotransferase 7 Units/L (7-52); Albumin 3.1 g/dL (3.5-5.7); Albumin/Globulin Ratio 1.1 (1.1-2.2); Alkaline Phosphatase 61 Units/L (34-104); Aspartate Amino Transferase 12 Units/L (13-39); BUN/Creatinine Ratio 20 (6-26); Bilirubin,Total 0.6 mg/dL (0.3-1.0); Blood Urea Nitrogen 28 mg/dL (8-23); Calcium 8.5 mg/dL (8.6-10.3); Carbon Dioxide 26 mEq/L (23-29); Chloride 98 mEq/L (98-107); Globulin 2.8 g/dL (2.4-3.5); Glucose 330 mg/dL (70-105); Magnesium 1.9 mg/dL (1.6-2.6); Osmolality,Calculated 290 (280-300); Potassium 4.2 mEq/L (3.5-5.1); Sodium 131 mEq/L (136-145); Total Protein 5.9 g/dL (6.4-8.9); eGFR For Non-African Americans 50 (> 60)
[2018-12-03] MEDS: Insulin LISPRO 300 UNITS/3 ML VIAL SQ SCH ×3 (06:11→17:45)
[2018-12-03] MEDS ORDERED: Perflutren Lipid Microsphere 1.3 ML in 0.9 % Sodium Chloride 8.7 ML IVP ONE (08:10)
[2018-12-03 09:12] LABS: Estimated Average Glucose 171 mg/dl; Hemoglobin A1C 7.6 %
[2018-12-03] MEDS: Primidone 50 MG TABLET PO SCH ×2 (10:20→21:49)
[2018-12-03] MEDS: Fenofibrate 54 MG TABLET PO SCH (10:21)
[2018-12-03] MEDS: Aspirin 81 MG TAB.CHEW PO SCH (10:21)
[2018-12-03] MEDS: Metoprolol XL (24 HR) Succ 25 MG TAB.ER.24H PO SCH (10:21)
[2018-12-03] MEDS: Famotidine 20 MG TABLET PO SCH (10:21)
[2018-12-03] MEDS: Cholecalciferol (D-3) 1,000 UNIT TABLET PO SCH (10:21)
[2018-12-03] MEDS: Budesonide/Formoterol 160/4.5 1 PUFF INH IH SCH ×2 (10:35→19:59)
[2018-12-03] MEDS: Bicalutamide 50 MG TABLET PO SCH (13:18)
--- NOTE | 2018-12-03 14:17 | General Surgery Consult Note ---
<Nicole Wallis - Last Filed: 12/03/18 18:02> Date of Encounter: 12/03/18 Time of Encounter: 10:50 Assessment and Plan (1) Abdominal pain Current Visit: Yes Status: Acute Pain over old midline incision scar after coughing Status post robotic incisional hernia repair on 11/29/18 XR abd shows nonspecific small bowel and colon distention, mild. Possibly ileus Today, abdominal pain is 100% better. Passing gas and bowel movements. CT abd/pelvis is unremarkable. Full liquid diet ok. Advance as tolerated. Will follow. Qualifiers: Abdominal location: generalized Qualified Code(s): R10.84 - Generalized abdominal pain (2) Incisional hernia Current Visit: No Status: Chronic Status post colectomy Status post robotic incisional hernia repair on 11/29/18 Qualifiers: Obstruction and gangrene presence: without obstruction or gangrene Qualified Code(s): K43.2 - Incisional hernia without obstruction or gangrene; K43.91 - Incisional hernia, without obstruction or gangrene History of Present Illness Consult date: 06/05/19 Reason for consult: abdominal pain Requesting physician: Tobin Ball History of present illness: 68 year old male with past medical history of RI, HTN, HLD, diabetes, COPD, CKD3, CHF, thyroid disease, and prostate cancer. Surgical history includes mechanical heart valve, colectomy, and hernia repair. Patient recently had robotic incisional hernia repair on 11/29/18. Was discharged on 12/01. Presented to [place] [facility] on 12/02 for abdominal pain. Patient states that he developed achy abdominal pain 9/10 after coughing. It occurred gradually over old midline incision from previous colectomy. Patient states he could feel it coming apart. Vomited once. Denies nausea. Denies diarrhea or constipation. Denies any other symptoms. Did not try anything for it at home. After 10 minutes of pain, patient went to ER. Today, patient states he feels good. States he has no abdominal pain. Denies nausea/vomiting, fever. Passing gas and making bowel movements. States he feels back to normal and wants to go home. Past Med Surg Social Fam HX - Past Medical History Medical history: asthma, cancer, CHF, COPD, diabetes, hyperlipidemia, hypertension, myocardial infarction, renal disease, thyroid disease, valvular he art disease Additional medical history: prostate cancer Psychiatric history: no psych history - Past Surgical History Surgical History: colectomy Additional surgical history: WOUND VAC TO LT FOOT - Social History Smoking Status: Never smoker Smokeless Tobacco Status: Yes Alcohol use: none Drug use: none - Family History Father Adopted: [place]: Kyle Cortez Family Member Ethnicity: Non- Living Status: Age at : 62 Cause of : Lung Cancer Hx Family Cardiac Disorders: No Hx Family Respiratory Disorders: Yes (lung cancer) Hx Family Cancer: Yes (lung cancer) Hx Family GI Disorders: No Hx Family Genitourinary Disorders: No Hx Family Endocrine Disorder: No Hx Family Musculoskeletal Disorders: No Hx Family Neuromuscular Disorders: No Hx Family Neurologic Disorders: No Hx Family HEENT Disorders: No Hx Family Autoimmune Disorders: No Hx Family Reproductive Disorders: No Hx Family Psychosocial Disorders: No Hx Family Medical Disorders: No Mother Family Member Ethnicity: Non- Living Status: Hx Family Cardiac Disorders: Yes (RI) Hx Family Respiratory Disorders: Yes Hx Family Cancer: No Hx Family GI Disorders: No Hx Family Endocrine Disorder: No Hx Family Neuromuscular Disorders: No Hx Family Neurologic Disorders: No Hx Family HEENT Disorders: No Hx Family Autoimmune Disorders: No Sister Adopted: No Family Member Ethnicity: Non- Living Status: Still Living Hx Family Cardiac Disorders: No Hx Family Respiratory Disorders: (lung cancr) Hx Family Cancer: (lung cancer) Hx Family GI Disorders: No Hx Family Endocrine Disorder: No Hx Family Neuromuscular Disorders: No Hx Family Neurologic Disorders: No Hx Family HEENT Disorders: No Hx Family Autoimmune Disorders: No Medications and Allergies Allopurinol [Zyloprim 100 MG] 100 mg PO BID 02/11/18 [History] Aspirin 81 mg PO DAILY 02/11/18 [History] Bicalutamide [Casodex] 50 mg PO QAM 02/11/18 [History] Fenofibrate Nanocrystallized [Fenofibrate] 145 mg PO DAILY 02/11/18 [History] Ferrous Sulfate [Iron] 325 mg PO BID 02/11/18 [History] Gabapentin [Neurontin] 600 mg PO TID 02/11/18 [History] Levothyroxine [Synthroid] 150 mcg PO DAILY 02/11/18 [History] Montelukast [Singulair] 10 mg PO DAILY 02/11/18 [History] Primidone [Mysoline] 50 mg PO BID 02/11/18 [History] Warfarin [Coumadin] 10 mg PO DAILY 02/11/18 [History] Calcitriol [Rocaltrol] 0.25 mcg PO DAILY 03/25/18 [History] Metoprolol Succinate [Toprol Xl] 25 mg PO DAILY 03/25/18 [History] Albuterol Sulfate [Ventolin Hfa] 90 mcg IH BID PRN 11/28/18 [History] Atorvastatin [Lipitor] 80 mg PO HS 11/28/18 [History] Budesonide/Formoterol 160/4.5 [Symbicort 160/4.5] 2 puff IH BID 11/28/18 [History] Cholecalciferol (D-3) [Vitamin D] 5,000 unit PO DAILY 11/28/18 [History] Docusate [Colace] 100 mg PO BID 11/28/18 [History] Famotidine [Pepcid] 40 mg PO DAILY 11/28/18 [History] Guaifenesin [Mucinex] 600 mg PO Q12H 11/28/18 [History] Trazodone HCl 100 mg PO HS 11/28/18 [History] Citalopram Hydrobromide [Citalopram HBr] 40 mg PO DAILY 11/29/18 [History] Insulin Regular U-500 [HumuLIN R U-500] 0 units SQ AD 11/29/18 [History] Ipratropium/Albuterol Sulfate [Iprat-Albut 0.5-3(2.5) mg/3 ml] 3 ml IH Q6H PRN 11/29/18 [History] Leuprolide Acetate [Lupron Depot] 22.5 mg IM [id number] 11/29/18 [History] Subcutaneous Insulin Pump [T:Slim] 1 each MC DAILY 11/29/18 [History] Docusate Sodium [Colace] 100 mg PO BID PRN #30 capsule 12/01/18 [Rx] Enoxaparin [Lovenox] 130 mg SQ Q12HR #14 syringe 12/01/18 [Rx] OxyCODONE/APAP 5/325 [Percocet 5/325 MG] 1 each PO Q6HR PRN 7 Days #28 tablet 12/01/18 [Rx] Allergy/AdvReac Type Severity Reaction Status Date / Time niacin Allergy See Verified 12/02/18 20:11 [[facility] Review of Systems All systems PM: The remainder of the systems were reviewed and are negative - Constitutional no anorexia, no chills - EENT Nose, mouth and throat: no abnormal hearing, no dizziness - Cardiovascular no chest pain, no claudication - Respiratory no cough, no dyspnea - Gastrointestinal abdominal pain, no constipation - Genitourinary no difficulty urinating, no flank pain - Musculoskeletal no abnormal gait, no atrophy - Integumentary no dry skin, no rash - Neurological no abnormal gait, no disequilibrium - Psychiatric no confusion, no hallucinations - Endocrine no cold intolerance, no excessive sweating - Hematologic/Lymphatic no easy bleeding, no lymphadenopathy - Allergic/Immunologic no itchy eyes, no wheezing General Surgery Exam Initial Vital Signs Temp Pulse Resp BP Pulse Ox 98.3 F 98 16 128/79 95 12/03/18 01:07 12/03/18 01:07 12/03/18 01:07 12/03/18 01:07 12/03/18 01:07 - Additional Findings VITAL SIGNS: Reviewed. See [facility] GENERAL: In no apparent distress. HEENT: Normocephalic, atraumatic, pupils are equal and reactive, extraocular motions intact, oral mucosa pink and moist. CHEST/RESPIRATORY: The thorax is free from signs of trauma. Lung sounds: clear to auscultation, normal respiratory effort CARDIAC: Irregular rate and rhythm. Tachycardic. Normal S1 and S2, without murmur, gallops, or rubs. VASCULAR: No Edema. ABDOMEN: Soft. Obese. Diffusely tender to palpation. Quiet bowel sounds present. INCISION: Incision sites are clean, dry, and intact. There is no sign of cellulitis or infection. Midline incision scar appears well-healed, there is no evidence of dehiscence or bleeding. MUSCULOSKELETAL: Good range of motion of all major joints. Extremities without clubbing, cyanosis or edema. NEUROLOGIC EXAM: Alert and oriented x3. Speech normal. Follows commands. PSYCHIATRIC: Mood normal. SKIN: No rash or lesions. Exam Initial Vital Signs Temp Pulse Resp BP Pulse Ox 98.3 F 98 16 128/79 95 12/03/18 01:07 12/03/18 01:07 12/03/18 01:07 12/03/18 01:07 12/03/18 01:07 Results - Labs 12/03/18 05:12 12/03/18 05:12 Abnormal lab results WBC 11.7 K/mcL (4.3-11.1) H 12/03/18 05:12 RBC 3.32 M/mcL (4.19-5.50) L 12/03/18 05:12 Hgb 9.9 g/dL (12.9-16.9) L 12/03/18 05:12 Hct 30.5 % (37.5-50.1) L 12/03/18 05:12 Neutrophils # 9.8 K/mcL (1.6-8.9) H 12/03/18 05:12 PT 15.1 Seconds (9.4-12.1) H 12/03/18 05:12 Heparin Anti-Xa, Unfract 0.27 IU/mL (0.30-0.70) L 12/03/18 13:15 Sodium 131 mEq/L (136-145) L 12/03/18 05:12 BUN 28 mg/dL (8-23) H 12/03/18 05:12 Creatinine 1.42 mg/dL (0.70-1.30) H 12/03/18 05:12 Est GFR (Non-Af Amer) 50 (> 60) L 12/03/18 05:12 Glucose 330 mg/dL (70-105) H 12/03/18 05:12 POC Glucose 311 mg/dL (70-99) H 12/03/18 05:28 Hemoglobin A1c 7.6 % (-5.6) H 12/03/18 05:12 Calcium 8.5 mg/dL (8.6-10.3) L 12/03/18 05:12 AST 12 Units/L (13-39) L 12/03/18 05:12 Troponin I 0.04 ng/mL (< 0.04) H* 12/03/18 11:12 Serum Total Protein 5.9 g/dL (6.4-8.9) L 12/03/18 05:12 Albumin 3.1 g/dL (3.5-5.7) L 12/03/18 05:12 Diabetes panel 12/03/18 12/03/18 Range/Units 05:12 05:12 Sodium 131 L (136-145) mEq/L Potassium 4.2 (3.5-5.1) mEq/L Chloride 98 (98-107) mEq/L Carbon Dioxide 26 (23-29) mEq/L BUN 28 H (8-23) mg/dL Creatinine 1.42 H (0.70-1.30) mg/dL Glucose 330 H (70-105) mg/dL Hemoglobin A1c 7.6 H ( - 5.6) % Calcium 8.5 L (8.6-10.3) mg/dL AST 12 L (13-39) Units/L ALT 7 (7-52) Units/L Alkaline Phosphatase 61 (34-104) Units/L Albumin 3.1 L (3.5-5.7) g/dL Calcium panel 12/03/18 Range/Units 05:12 Calcium 8.5 L (8.6-10.3) mg/dL Albumin 3.1 L (3.5-5.7) g/dL Pituitary panel 12/03/18 Range/Units 05:12 Sodium 131 L (136-145) mEq/L Potassium 4.2 (3.5-5.1) mEq/L Chloride 98 (98-107) mEq/L Carbon Dioxide 26 (23-29) mEq/L BUN 28 H (8-23) mg/dL Creatinine 1.42 H (0.70-1.30) mg/dL Glucose 330 H (70-105) mg/dL Calcium 8.5 L (8.6-10.3) mg/dL Adrenal panel 12/03/18 Range/Units 05:12 Sodium 131 L (136-145) mEq/L Potassium 4.2 (3.5-5.1) mEq/L Chloride 98 (98-107) mEq/L Carbon Dioxide 26 (23-29) mEq/L BUN 28 H (8-23) mg/dL Creatinine 1.42 H (0.70-1.30) mg/dL Glucose 330 H (70-105) mg/dL Calcium 8.5 L (8.6-10.3) mg/dL Total Bilirubin 0.6 (0.3-1.0) mg/dL AST 12 L (13-39) Units/L ALT 7 (7-52) Units/L Alkaline Phosphatase 61 (34-104) Units/L Albumin 3.1 L (3.5-5.7) g/dL All other labs normal. - Imaging Abdominal x-ray: report reviewed Consult Discharge Plan - Plan Referrals: NONE,PCP [Primary Care Provider] - <Didier Fan - Last Filed: 12/03/18 18:19> Date of Encounter: 12/03/18 Review of Systems All systems PM: The remainder of the systems were reviewed and are negative General Surgery Exam Initial Vital Signs Temp Pulse Resp BP Pulse Ox 98.3 F 98 16 128/79 95 12/03/18 01:07 12/03/18 01:07 12/03/18 01:07 12/03/18 01:07 12/03/18 01:07 Exam Initial Vital Signs Temp Pulse Resp BP Pulse Ox 98.3 F 98 16 128/79 95 12/03/18 01:07 12/03/18 01:07 12/03/18 01:07 12/03/18 01:07 12/03/18 01:07 Results - Labs 12/03/18 05:12 12/03/18 05:12 Abnormal lab results WBC 11.7 K/mcL (4.3-11.1) H 12/03/18 05:12 RBC 3.32 M/mcL (4.19-5.50) L 12/03/18 05:12 Hgb 9.9 g/dL (12.9-16.9) L 12/03/18 05:12 Hct 30.5 % (37.5-50.1) L 12/03/18 05:12 Neutrophils # 9.8 K/mcL (1.6-8.9) H 12/03/18 05:12 PT 15.1 Seconds (9.4-12.1) H 12/03/18 05:12 Heparin Anti-Xa, Unfract 0.27 IU/mL (0.30-0.70) L 12/03/18 13:15 Sodium 131 mEq/L (136-145) L 12/03/18 05:12 BUN 28 mg/dL (8-23) H 12/03/18 05:12 Creatinine 1.42 mg/dL (0.70-1.30) H 12/03/18 05:12 Est GFR (Non-Af Amer) 50 (> 60) L 12/03/18 05:12 Glucose 330 mg/dL (70-105) H 12/03/18 05:12 POC Glucose 311 mg/dL (70-99) H 12/03/18 05:28 Hemoglobin A1c 7.6 % (-5.6) H 12/03/18 05:12 Calcium 8.5 mg/dL (8.6-10.3) L 12/03/18 05:12 AST 12 Units/L (13-39) L 12/03/18 05:12 Troponin I 0.04 ng/mL (< 0.04) H* 12/03/18 16:56 Serum Total Protein 5.9 g/dL (6.4-8.9) L 12/03/18 05:12 Albumin 3.1 g/dL (3.5-5.7) L 12/03/18 05:12 Diabetes panel 12/03/18 12/03/18 Range/Units 05:12 05:12 Sodium 131 L (136-145) mEq/L Potassium 4.2 (3.5-5.1) mEq/L Chloride 98 (98-107) mEq/L Carbon Dioxide 26 (23-29) mEq/L BUN 28 H (8-23) mg/dL Creatinine 1.42 H (0.70-1.30) mg/dL Glucose 330 H (70-105) mg/dL Hemoglobin A1c 7.6 H ( - 5.6) % Calcium 8.5 L (8.6-10.3) mg/dL AST 12 L (13-39) Units/L ALT 7 (7-52) Units/L Alkaline Phosphatase 61 (34-104) Units/L Albumin 3.1 L (3.5-5.7) g/dL Calcium panel 12/03/18 Range/Units 05:12 Calcium 8.5 L (8.6-10.3) mg/dL Albumin 3.1 L (3.5-5.7) g/dL Pituitary panel 12/03/18 Range/Units 05:12 Sodium 131 L (136-145) mEq/L Potassium 4.2 (3.5-5.1) mEq/L Chloride 98 (98-107) mEq/L Carbon Dioxide 26 (23-29) mEq/L BUN 28 H (8-23) mg/dL Creatinine 1.42 H (0.70-1.30) mg/dL Glucose 330 H (70-105) mg/dL Calcium 8.5 L (8.6-10.3) mg/dL Adrenal panel 12/03/18 Range/Units 05:12 Sodium 131 L (136-145) mEq/L Potassium 4.2 (3.5-5.1) mEq/L Chloride 98 (98-107) mEq/L Carbon Dioxide 26 (23-29) mEq/L BUN 28 H (8-23) mg/dL Creatinine 1.42 H (0.70-1.30) mg/dL Glucose 330 H (70-105) mg/dL Calcium 8.5 L (8.6-10.3) mg/dL Total Bilirubin 0.6 (0.3-1.0) mg/dL AST 12 L (13-39) Units/L ALT 7 (7-52) Units/L Alkaline Phosphatase 61 (34-104) Units/L Albumin 3.1 L (3.5-5.7) g/dL All other labs normal. - Attending Attestation I examined this patient and my medical decision-making was reviewed with the Resident Physician. I agree with the documented findings, disposition and treatment plan as described except to the extent set forth below. Review the above assessment and evaluation agree with the above plan. Patient has some midline incisional pain following a coughing episode at home. He is re cently status post a robot incisional hernia repair with mesh. Has some mild bruising on his exam and is mildly tender to palpation on his midline which is consistent with his recent surgery. I personally reviewed the CT scan images which show some fluid likely seroma at the level of his hernia repair. No evidence of recurrence of his hernia. It may be a mild ileus however he is having flatus and his been having bowel movements. I do not think that he has any signs of a bowel obstruction or lymphoid surgical standpoint can have his diet advanced. My standpoint he would be okay to be discharged home once he is cleared from the medical
--- NOTE | 2018-12-03 14:41 | Event Note ---
Date of Encounter: 12/03/18 Time of Encounter: 14:34 Seen and evaluated at bedside with his family, asking for when he will go home, says abdominal pain is improving, he is NPO, awaiting surgery eval, HR is controlled May d/c IVF and cardizem and titrate home meds Will resume warfarin tonight if there's no planned surgical intervention continue other management
[2018-12-04] MEDS: Insulin LISPRO 300 UNITS/3 ML VIAL SQ SCH ×5 (00:20→22:04)
[2018-12-04 04:36] LABS: Basophils % 0.2 %; Eosinophils # 0.3 K/mcL (0.0-0.6); Eosinophils % 4.1 %; Hematocrit 30.4 % (37.5-50.1); Hemoglobin 9.9 g/dL (12.9-16.9); Immature Granulocytes % 0.5 % (0-4); Lymphocytes # 0.6 K/mcL (0.6-4.6); Lymphocytes % 7.7 %; Mean Corpuscular HGB Conc 32.6 g/dL (31.6-35.5); Mean Corpuscular Hemoglobin 30.1 pg (28.0-33.3); Mean Corpuscular Volume 92.4 fL (83.0-100.0); Mean Platelet Volume 10.8 fL (9.4-12.4); Monocytes # 0.6 K/mcL (0.0-1.3); Monocytes % 7.4 %; Neutrophils # 6.4 K/mcL (1.6-8.9); Platelet Count 235 K/mcL (140-400); Red Blood Count 3.29 M/mcL (4.19-5.50); Red Cell Distribution Width 14.1 % (11.5-14.5); Segmented Neutrophils % 80.1 %
[2018-12-04 04:51] LABS: BUN/Creatinine Ratio 16 (6-26); Blood Urea Nitrogen 21 mg/dL (8-23); Calcium 8.6 mg/dL (8.6-10.3); Carbon Dioxide 29 mEq/L (23-29); Chloride 100 mEq/L (98-107); Glucose 206 mg/dL (70-105); Osmolality,Calculated 289 (280-300); Potassium 3.8 mEq/L (3.5-5.1); Sodium 135 mEq/L (136-145); eGFR For Non-African Americans 56 (> 60)
[2018-12-04] MEDS: Famotidine 20 MG TABLET PO SCH (08:48)
[2018-12-04] MEDS: Fenofibrate 54 MG TABLET PO SCH (08:49)
[2018-12-04] MEDS: Primidone 50 MG TABLET PO SCH ×2 (08:49→21:46)
[2018-12-04] MEDS: Metoprolol XL (24 HR) Succ 25 MG TAB.ER.24H PO SCH (08:49)
[2018-12-04] MEDS: Aspirin 81 MG TAB.CHEW PO SCH (08:49)
[2018-12-04] MEDS: Cholecalciferol (D-3) 1,000 UNIT TABLET PO SCH (08:49)
[2018-12-04] MEDS: Budesonide/Formoterol 160/4.5 1 PUFF INH IH SCH ×2 (10:33→20:50)
[2018-12-04] MEDS: Heparin 25,000 UNIT/250 ML D5W 25,000 UNIT/250 ML IV.SOLN IVC SCH (10:55)
[2018-12-04] MEDS: Bicalutamide 50 MG TABLET PO SCH (11:30)
--- NOTE | 2018-12-04 16:24 | Internal Med Progress Note ---
Hospitalist Progress Note - Encounter Date of Encounter: 12/04/18 Time of Encounter: 16:24 - Subjective Interval History: Seen and examined at bedside. Patient is new to me, information obtained from chart review and patient report. Patient giving conflicting information regarding his abdominal pain. At times he says he still having severe sharp abdominal pain and then other times he same pain is intermittent. Having some nausea he wants to eat. He told me earlier in the shift he was not passing gas within later told me he was. Said he did have a bowel movement yesterday. - Exam Vitals: Temp Pulse Resp BP Pulse Ox 98.6 F 112 16 154/72 99 12/04/18 15:17 12/04/18 15:17 12/04/18 15:17 12/04/18 15:17 12/04/18 15:17 Exam: General appearance: Present: A&O X 3, pleasant, no acute distress - Head Head exam: Present: atraumatic, normocephalic - Eye Eye exam: Present: PERRL, conjuntiva pink, sclera anicteric Pupils: Present: PERRL - Neck Neck exam general surgery: Present: supple, trachea midline. Absent: lymphadenopathy - Respiratory Respiratory exam: Present: chest wall tenderness, CTAB. Absent: accessory muscle use, rales, rhonchi, wheezes - Cardiovascular Cardiovascular exam: Present: RRR, +S1, +S2. Absent: diastolic murmur, gallop, rubs, systolic murmur - GI/Abdominal GI/Abdominal exam: Present: ABD obese, hypoactive bowel sounds. + tenderness with palpation. Absent: distended, tenderness - Extremities Exam Extremities exam: Present: warm, radial pulses palpable and symmetrical. Absent: calf tenderness, cyanotic, pedal edema - Neurological Exam Neurological exam: Present: CN II-XII intact, oriented X3, no focal deficits. Absent: pronater drift, facial droop, speech deficit - Skin Skin exam: Present: dry, intact - Assessment and Plan (1) Abdominal pain Current Visit: Yes Status: Acute Assessment and Plan: presented with diffuse abdominal pain. S/p robotic incisional hernia repair on 11/29/[address] Millan. KUB showed possible ileus. ABD CT with evidence of ventral hernia repair, no obstruction or residual ventral hernia seen. Symptoms improved with conservative care. Advance diet as tolerated, continue bowel regimen. General surgery followed (2) S/P aortic valve replacement Current Visit: Yes Status: Chronic Assessment and Plan: mechanical valve replacement. INR subtherapeutic. Continue Coumadin with heparin bridge. (3) Atrial fibrillation with rapid ventricular response Current Visit: Yes Status: Acute Assessment and Plan: has known atrial fibrillation. In RVR on arrival with HRs in 120s. Cont home CCB, home BB incraesed for better rate control. Cont coumadin (4) Elevated troponin I level Current Visit: Yes Status: Acute Assessment and Plan: serial troponin 0.05, 0.04, 0.04. Denied chest pain. EKG without acute ST changes. 10/19/18 nuclear stress test perfusion imaging negative for ischemia or infarct. 12/03/2018 TTE limited study due to body habitus but showed ASA normal LV systolic function. Unable to, on segmental wall motion due to body habitus. Asymptomatic, denied chest pain. Suspect possibly secondary to AYDEN and A. fib/RVR. (5) DVT prophylaxis Current Visit: Yes Status: Acute Assessment and Plan: heparin gtt - Time Spent with Patient Total time spent is greater than 50% in coordination of care (as documented) at patient's floor/unit and/or counseling patient: Internal Medicine: Result - Labs CBC & Chem 7: 12/04/18 04:14 12/04/18 04:14 Labs: Short CBC 12/04/18 Range/Units 04:14 WBC 8.0 (4.3-11.1) K/mcL Hgb 9.9 L (12.9-16.9) g/dL Hct 30.4 L (37.5-50.1) % Plt Count 235 (140-400) K/mcL Neutrophils # 6.4 (1.6-8.9) K/mcL BMP 12/04/18 04:14 Sodium 135 L Potassium 3.8 Chloride 100 Carbon Dioxide 29 BUN 21 Creatinine 1.28 Glucose 206 H Calcium 8.6 Cardiac Enzymes 12/03/18 Range/Units 16:56 Troponin I 0.04 H* (< 0.04) ng/mL - ABG Interpretation ABG results: PT/INR, D-dimer PT 15.1 Seconds (9.4-12.1) H 12/03/18 05:12 - Impressions Impressions Abdomen/Pelvis CT 12/03/18 02:25 IMPRESSION: Status post recent repair of a ventral hernia with fluid and gas seen in the soft tissues related to recent surgery. No bowel obstruction or recurrent or residual ventral hernia is seen. D/ / 12/03/2018 15:47:28 Jose Torres MD / gauri Interpreting Provider: Jose Torres MD Echocardiogram 12/03/18 02:25 Impressions: Technically challenging due to body habitus. Grossly normal LV systolic function. Unable to evaluate segmental wall motion due to technical quality. Definity echo contrast was used. Indeterminate diastolic function. Atypical septal motion consistent with post-operative status. Mild concentric left ventricular hypertrophy. RV is not well evaluated. Mechanical aortic valve. 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 No significant regurgitation. Mild-moderate mitral regurgitation. No pulmonary hypertension. Dilated ascending thoracic aorta, 4.1cm. Findings: Study Quality * Technically challenging due to body habitus. ECG Findings * Atrial fibrillation. Left Ventricle * Grossly normal LV systolic function. * Indeterminate diastolic function. * Atypical septal motion consistent with post-operative status. * Mild concentric left ventricular hypertrophy. * Definity echo contrast was used. * Unable to evaluate segmental wall motion due to technical quality. Right Ventricle * RV is not well evaluated. Left Atrium * Normal left atrial size. Right Atrium * Normal right atrial size. Aortic Valve * Prosthetic aortic valve not well visualized. * Trace aortic regurgitation. * Abnormal prosthetic aortic valve Doppler parameters. PV 3.3m/s, MG 25 mmHg, DVI 0.25, EOA 0.77cm2 Mitral Valve * Mitral valve not well visualized. * No mitral stenosis. * Mild-moderate mitral regurgitation. Tricuspid Valve * Tricuspid valve not well visualized. * Trace tricuspid regurgitation. * Estimated RA pressure is 8 mmHg. Pulmonic Valve * Pulmonic valve is not well visualized. * No pulmonic stenosis. * No pulmonic regurgitation. Pulmonary Artery * Pulmonary artery not well visualized. Aorta * Dilated ascending thoracic aorta, 4.1cm. Pericardium * There is no pericardial effusion present. Interatrial Septum * No evidence of PFO by color Doppler. IVC * The IVC is not dilated. * < 50% respiratory change. Consult Discharge Plan - Plan Referrals: NONE,PCP [Primary Care Provider] - (1) Abdominal pain Qualifiers: Abdominal location: generalized Qualified Code(s): R10.84 - Generalized abdominal pain
[2018-12-04] MEDS ORDERED: Metoprolol XL (24 HR) Succ 25 MG TAB.ER.24H PO ONE (16:35)
--- NOTE | 2018-12-04 17:48 | General Surgery Progress Note ---
Date of Encounter: 12/04/18 Time of Encounter: 09:00 - Assessment and Plan (1) Abdominal pain Current Visit: Yes Status: Acute Pain over old midline incision scar after coughing. Pain only with coughing Status post robotic incisional hernia repair on 11/29/18 XR abd shows nonspecific small bowel and colon distention, mild. Possibly ileus CT abd/pelvis shows expected postop changes No abdominal pain since admission. Passing gas and bowel movements. Tolerating full liquids. Ok to advance diet as tolerated. Surgery will sign off. Qualifiers: Abdominal location: generalized Qualified Code(s): R10.84 - Generalized abdominal pain (2) Incisional hernia Current Visit: No Status: Chronic Status post colectomy Status post robotic incisional hernia repair on 11/29/18 Qualifiers: Obstruction and gangrene presence: without obstruction or gangrene Qualified Code(s): K43.2 - Incisional hernia without obstruction or gangrene; K43.91 - Incisional hernia, without obstruction or gangrene Subjective Narrative: Patient seen and examined. No acute events overnight. Patient is sleeping comfortably in bed. Patient reports hes had no abdominal pain since admission. Denies nausea/vomiting. Tolerating full liquids well. Passing flatus and bowel movement. Objective Vital Signs - Last 8 Hours Temp Pulse Resp BP Pulse Ox 12/04/18 15:17 98.6 F 112 16 154/72 99 12/04/18 11:27 98.3 F 115 20 115/76 99 12/04/18 10:33 18 96 Intake and Output 12/04/18 12/04/18 12/04/18 07:59 15:59 23:59 Intake Total Output Total 180 / 180 200 / 200 Balance -180 / -180 -200 / -200 Intake: IV Fluids Heparin 25,000 UNIT/250 ML D5W 25,000 unit In 250 ml @ 14 UNIT /KG/HR 19.614 mls/hr IVC . [id number] [facility] Rx#:[id number] Output: Urine 180 / 180 200 / 200 Other: Meal Lunch Percent of Meal Consumed 75% Weight Blood Glucose* 316 260 Patient Weight 12/05/18 00:59 Weight 140.5 kg - Additional Exam VITAL SIGNS: Reviewed. See [facility] GENERAL: In no apparent distress. HEENT: Normocephalic, atraumatic, pupils are equal and reactive, extraocular motions intact, oral mucosa pink and moist. Wad of tobacco in left cheek. CHEST/RESPIRATORY: The thorax is free from signs of trauma. Lung sounds: clear to auscultation, normal respiratory effort CARDIAC: Irregular rate and rhythm. Tachycardic. Normal S1 and S2, without murmur, gallops, or rubs. VASCULAR: No Edema. ABDOMEN: Soft. Obese. Diffusely tender to palpation, most at midline. Normal bowel sounds. INCISION: Incision sites are clean, dry, and intact. There is no sign of cellulitis or infection. Old midline incision scar is well-healed, there is no evidence of dehiscence or bleeding. MUSCULOSKELETAL: Good range of motion of all major joints. Extremities without clubbing, cyanosis or edema. NEUROLOGIC EXAM: Alert and oriented x3. Speech normal. Follows commands. PSYCHIATRIC: Mood depressed SKIN: No rash or lesions. - Labs 12/04/18 04:14 12/04/18 04:14 Diabetes panel 12/04/18 Range/Units 04:14 Sodium 135 L (136-145) mEq/L Potassium 3.8 (3.5-5.1) mEq/L Chloride 100 (98-107) mEq/L Carbon Dioxide 29 (23-29) mEq/L BUN 21 (8-23) mg/dL Creatinine 1.28 (0.70-1.30) mg/dL Glucose 206 H (70-105) mg/dL Calcium 8.6 (8.6-10.3) mg/dL Calcium panel 12/04/18 Range/Units 04:14 Calcium 8.6 (8.6-10.3) mg/dL Pituitary panel 12/04/18 Range/Units 04:14 Sodium 135 L (136-145) mEq/L Potassium 3.8 (3.5-5.1) mEq/L Chloride 100 (98-107) mEq/L Carbon Dioxide 29 (23-29) mEq/L BUN 21 (8-23) mg/dL Creatinine 1.28 (0.70-1.30) mg/dL Glucose 206 H (70-105) mg/dL Calcium 8.6 (8.6-10.3) mg/dL Adrenal panel 12/04/18 Range/Units 04:14 Sodium 135 L (136-145) mEq/L Potassium 3.8 (3.5-5.1) mEq/L Chloride 100 (98-107) mEq/L Carbon Dioxide 29 (23-29) mEq/L BUN 21 (8-23) mg/dL Creatinine 1.28 (0.70-1.30) mg/dL Glucose 206 H (70-105) mg/dL Calcium 8.6 (8.6-10.3) mg/dL Consult Discharge Plan - Plan Referrals: NONE,PCP [Primary Care Provider] -
[2018-12-04] MEDS ORDERED: *HR* Warfarin 10 MG TABLET PO ONE (18:00)
[2018-12-04] MEDS ORDERED: Warfarin perPT PO PRN (18:00)
[2018-12-05] MEDS: Heparin 25,000 UNIT/250 ML D5W 25,000 UNIT/250 ML IV.SOLN IVC SCH ×3 (01:06→15:46)
[2018-12-05 04:41] LABS: Hematocrit 29.4 % (37.5-50.1); Hemoglobin 9.5 g/dL (12.9-16.9); Mean Corpuscular HGB Conc 32.3 g/dL (31.6-35.5); Mean Corpuscular Hemoglobin 29.7 pg (28.0-33.3); Mean Corpuscular Volume 91.9 fL (83.0-100.0); Mean Platelet Volume 10.4 fL (9.4-12.4); Platelet Count 259 K/mcL (140-400)
[2018-12-05 04:54] LABS: INR 1.7; Prothrombin Time 18.7 Seconds (9.4-12.1)
[2018-12-05 05:00] LABS: BUN/Creatinine Ratio 14 (6-26); Blood Urea Nitrogen 17 mg/dL (8-23); Calcium 8.4 mg/dL (8.6-10.3); Carbon Dioxide 28 mEq/L (23-29); Chloride 98 mEq/L (98-107); Glucose 211 mg/dL (70-105); Osmolality,Calculated 288 (280-300); Potassium 3.7 mEq/L (3.5-5.1); Sodium 135 mEq/L (136-145); eGFR For Non-African Americans 59 (> 60)
[2018-12-05] MEDS: Metoprolol XL (24 HR) Succ 50 MG TAB.ER.24H PO SCH (07:58)
[2018-12-05] MEDS: Insulin LISPRO 300 UNITS/3 ML VIAL SQ SCH ×4 (07:58→20:54)
[2018-12-05] MEDS: Cholecalciferol (D-3) 1,000 UNIT TABLET PO SCH (07:59)
[2018-12-05] MEDS: Famotidine 20 MG TABLET PO SCH (07:59)
[2018-12-05] MEDS: Aspirin 81 MG TAB.CHEW PO SCH (07:59)
[2018-12-05] MEDS: Primidone 50 MG TABLET PO SCH ×2 (07:59→20:46)
[2018-12-05] MEDS: Bicalutamide 50 MG TABLET PO SCH (07:59)
[2018-12-05] MEDS: Fenofibrate 54 MG TABLET PO SCH (07:59)
[2018-12-05] MEDS: Budesonide/Formoterol 160/4.5 1 PUFF INH IH SCH ×2 (10:21→20:03)
[2018-12-05] MEDS ORDERED: *HR* Metoprolol 5 MG/5 ML VIAL IVP PRN (14:14)
--- NOTE | 2018-12-05 14:19 | Internal Med Progress Note ---
Hospitalist Progress Note - Encounter Date of Encounter: 12/05/18 Time of Encounter: 14:17 - Subjective Interval History: No acute events, no complaints. Denies CP, SOB, palpitations. - Exam Vitals: Temp Pulse Resp BP Pulse Ox 97.7 F 117 20 158/91 100 12/05/18 11:49 12/05/18 11:49 12/05/18 11:49 12/05/18 11:49 12/05/18 11:49 Exam: General appearance: Present: A&O X 3, pleasant, no acute distress - Head Head exam: Present: atraumatic, normocephalic - Eye Eye exam: Present: PERRL, conjuntiva pink, sclera anicteric Pupils: Present: PERRL - Neck Neck exam general surgery: Present: supple, trachea midline. Absent: lymphadenopathy - Respiratory Respiratory exam: Present: chest wall tenderness, CTAB. Absent: accessory muscle use, rales, rhonchi, wheezes - Cardiovascular Cardiovascular exam: Present: RRR, +S1, +S2. Absent: diastolic murmur, gallop, rubs, systolic murmur - GI/Abdominal GI/Abdominal exam: Present: ABD obese, hypoactive bowel sounds. + tenderness with palpation. Absent: distended, tenderness - Extremities Exam Extremities exam: Present: warm, radial pulses palpable and symmetrical. Absent: calf tenderness, cyanotic, pedal edema - Neurological Exam Neurological exam: Present: CN II-XII intact, oriented X3, no focal deficits. Absent: pronater drift, facial droop, speech deficit - Skin Skin exam: Present: dry, intact - Assessment and Plan (1) Atrial fibrillation with rapid ventricular response Current Visit: Yes Status: Acute Assessment and Plan: has known atrial fibrillation. In RVR on arrival with HRs in 120s. Cont home CCB, Toprol XL increased today to 50 mg daily with better response. Continue heparin drip with coumadin until INR 2.5-3.5 (2) Abdominal pain Current Visit: Yes Status: Acute Assessment and Plan: presented with diffuse abdominal pain. S/p robotic incisional hernia repair on 11/29/[address] Millan. KUB showed possible ileus. ABD CT with evidence of ventral hernia repair, no obstruction or residual ventral hernia seen. Symptoms improved with conservative care. Advance diet as tolerated, continue bowel regimen. General surgery followed, based on negative findings, no further tre p is needed. Disposition: Patient will need to stay to get therapeutic INR as he has AVR with mechanical valve. (3) DVT prophylaxis Current Visit: Yes Status: Acute Assessment and Plan: heparin gtt (4) S/P aortic valve replacement Current Visit: Yes Status: Chronic Assessment and Plan: mechanical valve replacement. INR subtherapeutic. Continue Coumadin with heparin bridge. (5) Elevated troponin I level Current Visit: Yes Status: Acute Assessment and Plan: serial troponin 0.05, 0.04, 0.04. Denied chest pain. EKG without acute ST changes. 10/19/18 nuclear stress test perfusion imaging negative for ischemia or infarct. 12/03/2018 TTE limited study due to body habitus but showed ASA normal LV systolic function. Unable to, on segmental wall motion due to body habitus. Asymptomatic, denied chest pain. Suspect possibly secondary to AYDEN and A. fib/RVR. - Time Spent with Patient Total time spent is greater than 50% in coordination of care (as documented) at patient's floor/unit and/or counseling patient: Internal Medicine: Result - Labs CBC & Chem 7: 12/05/18 04:27 12/05/18 04:27 Labs: Short CBC 12/05/18 Range/Units 04:27 WBC 7.8 (4.3-11.1) K/mcL Hgb 9.5 L (12.9-16.9) g/dL Hct 29.4 L (37.5-50.1) % Plt Count 259 (140-400) K/mcL BMP 12/05/18 04:27 Sodium 135 L Potassium 3.7 Chloride 98 Carbon Dioxide 28 BUN 17 Creatinine 1.23 Glucose 211 H Calcium 8.4 L - ABG Interpretation ABG results: PT/INR, D-dimer PT 18.7 Seconds (9.4-12.1) H 12/05/18 04:27 Consult Discharge Plan - Plan Referrals: Ivana Schafer CITY MANAGER [Partnered Physician] - (Your appointment has been requested. Our offices will call with an appointment time and date.) (2) Abdominal pain Qualifiers: Abdominal location: generalized Qualified Code(s): R10.84 - Generalized abdominal pain
[2018-12-05] MEDS ORDERED: *HR* Warfarin 10 MG TABLET PO ONE (18:00)
[2018-12-05] MEDS: *HR* HYDROcodone/Acet 5/325 mg TABLET PO PRN (20:46)
--- NOTE | 2018-12-05 21:30 | Electrocardiograph Report ---
[address] [place], [place] [address] Test Date: 2018-12-03 Pat Name: Kyle Cortez Department: 113 Room: 3B21 Gender: M [employer]: : 1950 Requested By: Tobin Ball Order Number: [id number] Reading MD: Vanessa Jonas Measurements Intervals [place] Rate: 109 P: [place]: 0 QRS: -76 QRSD: 149 T: 60 QT: 387 QTc: 451 Interpretive Statements ATRIAL FIBRILLATION WITH RAPID VENTRICULAR RESPONSE RIGHT BUNDLE BRANCH BLOCK LEFT ANTERIOR FASCICULAR BLOCK POOR R-WAVE PROGRESSION Electronically Signed On 12-05-2018 21:28:56 EDT by Vanessa Jonas
[2018-12-06 05:06] LABS: Hematocrit 30.7 % (37.5-50.1); Hemoglobin 9.8 g/dL (12.9-16.9); Mean Corpuscular HGB Conc 31.9 g/dL (31.6-35.5); Mean Corpuscular Hemoglobin 29.6 pg (28.0-33.3); Mean Corpuscular Volume 92.7 fL (83.0-100.0); Mean Platelet Volume 11.1 fL (9.4-12.4); Platelet Count 264 K/mcL (140-400); Red Blood Count 3.31 M/mcL (4.19-5.50); Red Cell Distribution Width 14.1 % (11.5-14.5)
[2018-12-06 05:14] LABS: INR 2.6
[2018-12-06 05:25] LABS: BUN/Creatinine Ratio 13 (6-26); Blood Urea Nitrogen 16 mg/dL (8-23); Calcium 8.9 mg/dL (8.6-10.3); Carbon Dioxide 29 mEq/L (23-29); Chloride 97 mEq/L (98-107); Glucose 202 mg/dL (70-105); Osmolality,Calculated 291 (280-300); Potassium 3.7 mEq/L (3.5-5.1); Sodium 137 mEq/L (136-145); eGFR For Non-African Americans > 60 (> 60)
--- NOTE | 2018-12-06 05:30 | Event Note ---
Date of Encounter: 12/06/18 Time of Encounter: 05:29 Notified by nurse of morning INR of 2.6, will stop heparin drip, and continue coumadin.
[2018-12-06] MEDS: Insulin LISPRO 300 UNITS/3 ML VIAL SQ SCH ×4 (07:52→21:05)
[2018-12-06] MEDS: Famotidine 20 MG TABLET PO SCH (07:54)
[2018-12-06] MEDS: Fenofibrate 54 MG TABLET PO SCH (07:54)
[2018-12-06] MEDS: Cholecalciferol (D-3) 1,000 UNIT TABLET PO SCH (07:54)
[2018-12-06] MEDS: Primidone 50 MG TABLET PO SCH ×2 (07:54→21:11)
[2018-12-06] MEDS: Metoprolol XL (24 HR) Succ 50 MG TAB.ER.24H PO SCH (07:54)
[2018-12-06] MEDS: Aspirin 81 MG TAB.CHEW PO SCH (07:54)
[2018-12-06] MEDS: Bicalutamide 50 MG TABLET PO SCH (07:54)
[2018-12-06] MEDS: Budesonide/Formoterol 160/4.5 1 PUFF INH IH SCH ×2 (07:56→20:06)
[2018-12-06] MEDS: *HR* HYDROcodone/Acet 5/325 mg TABLET PO PRN (08:03)
[2018-12-06] MEDS ORDERED: Metoprolol XL (24 HR) Succ 50 MG TAB.ER.24H PO ONE (10:59)
[2018-12-06] MEDS ORDERED: *HR* Warfarin 7.5 MG TABLET PO ONE (18:00)
[2018-12-07] MEDS: *HR* HYDROcodone/Acet 5/325 mg TABLET PO PRN (03:24)
[2018-12-07 05:57] LABS: Hematocrit 30.5 % (37.5-50.1); Mean Corpuscular HGB Conc 32.8 g/dL (31.6-35.5); Mean Corpuscular Hemoglobin 30.2 pg (28.0-33.3); Mean Corpuscular Volume 92.1 fL (83.0-100.0); Mean Platelet Volume 10.9 fL (9.4-12.4); Platelet Count 288 K/mcL (140-400); Red Blood Count 3.31 M/mcL (4.19-5.50); Red Cell Distribution Width 13.9 % (11.5-14.5)
[2018-12-07 06:05] LABS: INR 3.4; Prothrombin Time 38.7 Seconds (9.4-12.1)
[2018-12-07 06:16] LABS: BUN/Creatinine Ratio 16 (6-26); Blood Urea Nitrogen 19 mg/dL (8-23); Calcium 8.9 mg/dL (8.6-10.3); Carbon Dioxide 27 mEq/L (23-29); Chloride 98 mEq/L (98-107); Glucose 187 mg/dL (70-105); Osmolality,Calculated 285 (280-300); Potassium 3.7 mEq/L (3.5-5.1); Sodium 134 mEq/L (136-145); eGFR For Non-African Americans 60 (> 60)
[2018-12-07 07:59] VITALS: BP 106/65
[2018-12-07] MEDS: Insulin LISPRO 300 UNITS/3 ML VIAL SQ SCH (08:33)
[2018-12-07] MEDS: Primidone 50 MG TABLET PO SCH (08:34)
[2018-12-07] MEDS: Famotidine 20 MG TABLET PO SCH (08:34)
[2018-12-07] MEDS: Fenofibrate 54 MG TABLET PO SCH (08:34)
[2018-12-07] MEDS: Cholecalciferol (D-3) 1,000 UNIT TABLET PO SCH (08:35)
[2018-12-07] MEDS: Aspirin 81 MG TAB.CHEW PO SCH (08:35)
[2018-12-07] MEDS: Bicalutamide 50 MG TABLET PO SCH (08:35)
--- NOTE | 2018-12-07 11:37 | Discharge Summary ---
Orders not resulted at time of discharge: Pending orders 12/08/18 04:00 BMP [Basic Metabolic Panel] AM 0400 Complete Blood Count w/o Diff [HEME] AM 0400 INR/PT [Prothrombin Time INR] [COAG] AM 0400 12/09/18 04:00 BMP [Basic Metabolic Panel] AM 0400 Complete Blood Count w/o Diff [HEME] AM 0400 INR/PT [Prothrombin Time INR] [COAG] AM 0400 12/10/18 04:00 INR/PT [Prothrombin Time INR] [COAG] AM 0400 Date of Encounter: 12/07/18 Time of Encounter: 11:35 - Discharge Diagnosis (1) Abdominal pain Priority: Primary Status: Acute Qualifiers: Abdominal location: generalized Qualified Code(s): R10.84 - Generalized abdominal pain (2) Atrial fibrillation with rapid ventricular response Priority: Primary Status: Acute (3) S/P aortic valve replacement Priority: Secondary Status: Chronic (4) CAD (coronary artery disease) Priority: Secondary Status: Chronic Qualifiers: Coronary Disease-Associated Artery/Lesion type: [place] artery [place] vs. transplanted heart: [place] heart Associated angina: without angina Qualified Code(s): I25.10 - Atherosclerotic heart disease of [place] coronary artery without angina pectoris (5) Chronic diastolic heart failure Priority: Secondary Status: Chronic Hospital course: HOSPITAL COURSE: The patient is a 68-year-old male. We admitted him with diffuse abdominal pain/mild ileusdeveloping shortly after repair of ventral hernia. With mild nausea but not vomiting. All those symptoms subsided in the first 48 hours after treating him with nothing by mouth diet and IV fluids. Very mild acute kidney injury subsided after fluid resuscitation. We also found him to have mild dyspnea and atrial fibrillation with rapid ventricular rate. It was treated with IV Cardizem/IV Cardizem drip. Then, I switched him to oral prednisone. The patient has mechanical aortic valve. His pro time INR was subtherapeutic at admission. We gave him IV heparin drip. We are asked our pharmacy to manage his warfarin. Eventually, we got his pro time therapeutic again. CONDITION AT DISCHARGE: He feels good. He has no problems with her diet at all. Denies abdominal pain, nausea and vomiting. She has no urinary symptoms. Denies chest pain. Denies difficulty breathing, coughing and wheezing. He ambulates on his own. Skin: Free of rash and discoloration. Respiratory: Normal breath sounds with no crackles and wheezes bilaterally. CV: Heart is regular with no gallop or murmur. GI: Abdomen is flat and soft with no palpable mass or visceromegaly. Neuro exam: There is no focal deficits. Normal speech, swallowing and gait. We noticed this patient to have mild elevated troponin: 0.04-0.05. Cardiology was consulted. It is likely secondary to AYDEN/AF with RVR. SEE DISCHARGE ORDERS/MEDICATIONS Discharge discussed with: patient, case management - Time Spent with Patient Total time spent providing and/or coordinating discharge services: Time spent: Greater than 30 minutes (40 minutes...) - Discharge Medications Prescriptions: New Metoprolol [Lopressor] 75 mg PO BID #90 tablet Continue Calcitriol [Rocaltrol] 0.25 mcg PO DAILY Trazodone HCl 100 mg PO HS PRN PRN Reason: Sleep Cholecalciferol (D-3) [Vitamin D] 5,000 unit PO DAILY Guaifenesin [Mucinex] 600 mg PO Q12H Famotidine [Pepcid] 40 mg PO DAILY Atorvastatin [Lipitor] 80 mg PO HS Budesonide/Formoterol 160/4.5 [Symbicort 160/4.5] 2 puff IH BID Insulin Regular U-500 [HumuLIN R U-500] 0 units SQ AD Subcutaneous Insulin Pump [T:Slim] 1 each MC DAILY Leuprolide Acetate [Lupron Depot] 22.5 mg IM [id number] Ipratropium/Albuterol Sulfate [Iprat-Albut 0.5-3(2.5) mg/3 ml] 3 ml IH Q6H PRN PRN Reason: Shortness Of Breath Citalopram Hydrobromide [Citalopram HBr] 40 mg PO DAILY Docusate Sodium [Colace] 100 mg PO BID PRN #30 capsule PRN Reason: Contstipation Diclofenac Sodium 1 applic TP QID PRN PRN Reason: Pain Montelukast [Singulair] 10 mg PO DAILY Ferrous Sulfate [Iron] 325 mg PO BID Primidone [Mysoline] 50 mg PO BID Gabapentin [Neurontin] 600 mg PO TID Bicalutamide [Casodex] 50 mg PO QAM Fenofibrate Nanocrystallized [Fenofibrate] 145 mg PO DAILY Levothyroxine [Synthroid] 150 mcg PO DAILY Aspirin 81 mg PO DAILY Warfarin [Coumadin] 10 mg PO DAILY Allopurinol [Zyloprim 100 MG] 100 mg PO BID Changed Albuterol Sulfate [Ventolin Hfa] 2 puff IH Q4H PRN #0 PRN Reason: Wheezing Discontinued Metoprolol Succinate [Toprol Xl] 25 mg PO DAILY Enoxaparin [Lovenox] 130 mg SQ Q12HR #14 syringe Home Medications: Allopurinol [Zyloprim 100 MG] 100 mg PO BID 02/11/18 [History] Aspirin 81 mg PO DAILY 02/11/18 [History] Bicalutamide [Casodex] 50 mg PO QAM 02/11/18 [History] Fenofibrate Nanocrystallized [Fenofibrate] 145 mg PO DAILY 02/11/18 [History] Ferrous Sulfate [Iron] 325 mg PO BID 02/11/18 [History] Gabapentin [Neurontin] 600 mg PO TID 02/11/18 [History] Levothyroxine [Synthroid] 150 mcg PO DAILY 02/11/18 [History] Montelukast [Singulair] 10 mg PO DAILY 02/11/18 [History] Primidone [Mysoline] 50 mg PO BID 02/11/18 [History] Warfarin [Coumadin] 10 mg PO DAILY 02/11/18 [History] Calcitriol [Rocaltrol] 0.25 mcg PO DAILY 03/25/18 [History] Atorvastatin [Lipitor] 80 mg PO HS 11/28/18 [History] Budesonide/Formoterol 160/4.5 [Symbicort 160/4.5] 2 puff IH BID 11/28/18 [History] Cholecalciferol (D-3) [Vitamin D] 5,000 unit PO DAILY 11/28/18 [History] Famotidine [Pepcid] 40 mg PO DAILY 11/28/18 [History] Guaifenesin [Mucinex] 600 mg PO Q12H 11/28/18 [History] Trazodone HCl 100 mg PO HS PRN 11/28/18 [History] Citalopram Hydrobromide [Citalopram HBr] 40 mg PO DAILY 11/29/18 [History] Insulin Regular U-500 [HumuLIN R U-500] 0 units SQ AD 11/29/18 [History] Ipratropium/Albuterol Sulfate [Iprat-Albut 0.5-3(2.5) mg/3 ml] 3 ml IH Q6H PRN 11/29/18 [History] Leuprolide Acetate [Lupron Depot] 22.5 mg IM [id number] 11/29/18 [History] Subcutaneous Insulin Pump [T:Slim] 1 each MC DAILY 11/29/18 [History] Docusate Sodium [Colace] 100 mg PO BID PRN #30 capsule 12/01/18 [Rx] Diclofenac Sodium 1 applic TP QID PRN 12/04/18 [History] Albuterol Sulfate [Ventolin Hfa] 2 puff IH Q4H PRN #0 12/07/18 [Rx] Metoprolol [Lopressor] 75 mg PO BID #90 tablet 12/07/18 [Rx] Allergies/Adverse Reactions: Allergy/AdvReac Type Severity Reaction Status Date / Time niacin Allergy See Verified 12/02/18 20:11 [From [facility] Comments Extended-Release] Date of admission: 12/03/18 00:48 Primary care physician: PCP NONE Consults: 12/03/18 02:29 Consult to Physician [CONS] Routine Consulting Provider: Didier Fan Reason for Consult: abdominal pain; s/p surgery Call Completed: No Discharging clinician: Alex Garcia Anticipated date of discharge: 12/07/18 - Constitutional Vitals: Temp Pulse Resp BP Pulse Ox 98.2 F 88 16 106/65 97 12/07/18 07:58 12/07/18 07:58 12/07/18 07:58 12/07/18 07:58 12/07/18 07:58 General appearance: Present: cooperative, mild distress, A&O X 3, pleasant, answers questions appropriately Exam: xx - Patient Status Disposition: Home, Self-Care Condition: Fair - Discharge Instructions Instructions: Metoprolol (By mouth), Atrial Fibrillation (DC) Follow Up With: Ivana Schafer CNP [Partnered Physician] - (Your appointment has been requested. Our offices will call with an appointment time and date.) Additional Instructions: FINGERSTICKS FORGLUCOSE - MONTHLY PLUS "IF NEEDED"; START TESTING ON 12/09/18... PHYSICAL THERAPY AT HOME -- BEFORE... - Diet and Activity Activity: as per physical therapy Diet: diabetic diet - VTE Reasons for not Prescribing Prophylaxis: Not indicated-Anticoagulated or INR therapeutic
[2018-12-07] MEDS: Budesonide/Formoterol 160/4.5 1 PUFF INH IH SCH (11:55)
--- NOTE | 2018-12-07 14:48 | Physician Discharge Referral ---
Home Health/Hosp Referral Info Attending Provider: Tyrese Garcia MD Provider in Charge Post Discharge: PCP - Diagnosis (1) Abdominal pain Priority: Primary Status: Acute (2) Atrial fibrillation with rapid ventricular response Priority: Primary Status: Acute (3) S/P aortic valve replacement Priority: Secondary Status: Chronic (4) CAD (coronary artery disease) Priority: Secondary Status: Chronic (5) Chronic diastolic heart failure Priority: Secondary Status: Chronic - Respiratory Orders None Smoking Cessation: Smoking cessation has been advised. For more information, call the [place] Tobacco Quit Line at 5-544-KTVZ-NOW. - Diet/Nutrition Diet/Nutrition Orders: No Concentrated Sweets - Activity Activity Orders: Up ad deborah - Services Needed Following services are medically necessary services: Nursing, Home Health Aide - Transfer Medications Prescriptions: Metoprolol [Lopressor] 75 mg PO BID #90 tablet Home Medications: Allopurinol [Zyloprim 100 MG] 100 mg PO BID 02/11/18 [History] Aspirin 81 mg PO DAILY 02/11/18 [History] Bicalutamide [Casodex] 50 mg PO QAM 02/11/18 [History] Fenofibrate Nanocrystallized [Fenofibrate] 145 mg PO DAILY 02/11/18 [History] Ferrous Sulfate [Iron] 325 mg PO BID 02/11/18 [History] Gabapentin [Neurontin] 600 mg PO TID 02/11/18 [History] Levothyroxine [Synthroid] 150 mcg PO DAILY 02/11/18 [History] Montelukast [Singulair] 10 mg PO DAILY 02/11/18 [History] Primidone [Mysoline] 50 mg PO BID 02/11/18 [History] Warfarin [Coumadin] 10 mg PO DAILY 02/11/18 [History] Calcitriol [Rocaltrol] 0.25 mcg PO DAILY 03/25/18 [History] Atorvastatin [Lipitor] 80 mg PO HS 11/28/18 [History] Budesonide/Formoterol 160/4.5 [Symbicort 160/4.5] 2 puff IH BID 11/28/18 [History] Cholecalciferol (D-3) [Vitamin D] 5,000 unit PO DAILY 11/28/18 [History] Famotidine [Pepcid] 40 mg PO DAILY 11/28/18 [History] Guaifenesin [Mucinex] 600 mg PO Q12H 11/28/18 [History] Trazodone HCl 100 mg PO HS PRN 11/28/18 [History] Citalopram Hydrobromide [Citalopram HBr] 40 mg PO DAILY 11/29/18 [History] Insulin Regular U-500 [HumuLIN R U-500] 0 units SQ AD 11/29/18 [History] Ipratropium/Albuterol Sulfate [Iprat-Albut 0.5-3(2.5) mg/3 ml] 3 ml IH Q6H PRN 11/29/18 [History] Leuprolide Acetate [Lupron Depot] 22.5 mg IM [id number] 11/29/18 [History] Subcutaneous Insulin Pump [T:Slim] 1 each MC DAILY 11/29/18 [History] Docusate Sodium [Colace] 100 mg PO BID PRN #30 capsule 12/01/18 [Rx] OxyCODONE/APAP 5/325 [Percocet 5/325 MG] 1 each PO Q6HR PRN 7 Days #28 tablet 12/01/18 [Rx] Diclofenac Sodium 1 applic TP QID PRN 12/04/18 [History] Albuterol Sulfate [Ventolin Hfa] 2 puff IH Q4H PRN #0 12/07/18 [Rx] Metoprolol [Lopressor] 75 mg PO BID #90 tablet 12/07/18 [Rx] Allergies/Adverse Reactions: Allergy/AdvReac Type Severity Reaction Status Date / Time niacin Allergy See Verified 12/02/18 20:11 [From Lindsey Shukla Extended-Release] Certification: Further, I certify that my clinical findings support that this patient is homebound (i.e. absences from home require considerable and taxing effort and are for medical reasons or muslim services or infrequently or short duration when for other reasons) because: Homebound Reason: Patient requires assistance of a person or device to safely leave home Attestation: My signature below is to certify that this patient is under my care and that I, or nurse practitioner, or a physician's digital assistant working with me, has a [id number] encounter with this patient.
[2018-12-07] MEDS ORDERED: *HR* Warfarin 5 MG TABLET PO ONE (18:00)
--- NOTE | 2018-12-07 22:34 | Internal Med Progress Note ---
Hospitalist Progress Note - Encounter Date of Encounter: 12/06/18 Time of Encounter: 19:00 - Subjective Interval History: SUBJECTIVE: The patient is a 68-year-old male. We admitted him with diffuse abdominal pain/ileusdeveloping shortly after repair of his ventral hernia. He has also atrial fibrillation with rapid ventricular rate at admission. The abdominal pain is pretty much gone. Denies nausea and vomiting. He continues to have atrial fibrillation; with heart rate around 120. The patient has been bedbound since October 2017injured his lower back. He moves around in a motorized the chair; his the is helping him. OBJECTIVE: Skin: Free of rash and discoloration. ENMT: Oral/pharyngeal mucosa is normal in appearance. Eyes: Sclera is white. There is no discharge from eyes. Respiratory: Normal breath sounds; no crackles or wheezes. CV: Heart is irregularly irregular with no audible murmur. GI: Abdomen is soft and not tender. There is no palpable mass or visceromegaly. Neuro: There is no focal deficits. ADDITIONAL DATA: Telemetry shows atrial fibrillation with heart rate around 120. Hemoglobin is 9.8 with normal WBC/platelet count. Creatinine is 1.19; 1.42 at admission. ASSESSMENT AND PLAN: Abdominal pain/ileus. Resolved. We are advancing his diet. He gets when necessary [place] and/or Percocet for pain control. Atrial fibrillation with rapid ventricular response. He currently takes Toprol- XL at 50 mg daily. I increased it to 75 mg by mouth twice a day by the end of the day. The patient is on warfarin, had aortic valve replaced in the past. His todays pro time is therapeutic2.6. He has a chronic diastolic heart failure. It seems to be compensated. He does not need any diuretics at this time. Mild fluid restriction will suffice. DISPOSITION: I am hoping to discharge him home tomorrow, when his heart rate is under better control. - Exam Vitals: Temp Pulse Resp BP Pulse Ox 98.2 F 88 16 106/65 97 12/07/18 07:58 12/07/18 07:58 12/07/18 11:55 12/07/18 07:58 12/07/18 11:55 Exam: xx - Assessment and Plan (1) Abdominal pain Status: Acute (2) Atrial fibrillation with rapid ventricular response Status: Acute (3) S/P aortic valve replacement Status: Chronic (4) CAD (coronary artery disease) Status: Chronic (5) Chronic diastolic heart failure Status: Chronic - Time Spent with Patient Total time spent is greater than 50% in coordination of care (as documented) at patient's floor/unit and/or counseling patient: 25 - 35 minutes Plan of Care Discussed with: patient Internal Medicine: Result - Labs CBC & Chem 7: 12/07/18 05:26 12/07/18 05:26 Labs: Short CBC 12/07/18 Range/Units 05:26 WBC 8.6 (4.3-11.1) K/mcL Hgb 10.0 L (12.9-16.9) g/dL Hct 30.5 L (37.5-50.1) % Plt Count 288 (140-400) K/mcL BMP 12/07/18 05:26 Sodium 134 L Potassium 3.7 Chloride 98 Carbon Dioxide 27 BUN 19 Creatinine 1.21 Glucose 187 H Calcium 8.9 - ABG Interpretation ABG results: PT/INR, D-dimer PT 38.7 Seconds (9.4-12.1) H 12/07/18 05:26 - VTE Reasons for not Prescribing Prophylaxis: Not indicated-Anticoagulated or INR therapeutic Consult Discharge Plan - Plan Instructions: Metoprolol (By mouth), Atrial Fibrillation (DC) Additional Instructions: FINGERSTICKS FORGLUCOSE - MONTHLY PLIU "IF NEEDED"; START TESTING ON 12/09/18... PHYSICAL THERAPY AT HOME -- BEFORE... Referrals: Ivana Schafer, BOX MACHINE OPERATOR [Partnered Physician] - (Your appointment has been requested. Our offices will call with an appointment time and date.) Prescriptions: Metoprolol [Lopressor] 75 mg PO BID #90 tablet (1) Abdominal pain Qualifiers: Abdominal location: generalized Qualified Code(s): R10.84 - Generalized abdominal pain (4) CAD (coronary artery disease) Qualifiers: Coronary Disease-Associated Artery/Lesion type: [place] artery [place] vs. transplanted heart: [place] heart Associated angina: without angina Qualified Code(s): I25.10 - Atherosclerotic heart disease of [place] coronary artery without angina pectoris
== END 2018-12-07 12:46 | disposition home or self-care (01) ==
LOC: 3BNU → SUATTDRO 12-03 00:48
PROVIDERS: ADMIT Family Medicine; ATTEND Internal Medicine

== ENCOUNTER 2019-02-26 13:15 | Inpatient (IN) ==
[2019-02-26] MEDS ORDERED: Acetaminophen 325 MG TABLET PO PRN (16:55)
[2019-02-26] MEDS ORDERED: Naloxone 0.4 MG/ML INJ IVP PRN (16:55)
[2019-02-26] MEDS ORDERED: Ondansetron ODT 4 MG TAB.RAPDIS SL PRN (16:55)
[2019-02-26] MEDS ORDERED: 0.9 % Sodium Chloride 1,000 ML IVC ONE (17:00)
[2019-02-26] MEDS ORDERED: *HR* Dextrose 50 % in Water (Syg) 50 ML SYRINGE IVP PRN ×3 (17:01→17:15)
[2019-02-26] MEDS ORDERED: Dextrose Gel 15 GM/37.5 ML TUBE PO PRN ×2 (17:04)
[2019-02-26] MEDS ORDERED: D5% in Water 1,000 ML IVC PRN (17:04)
[2019-02-26] MEDS ORDERED: Insulin Human Regular 100 UNIT in 0.9 % Sodium Chloride 100 ML IVC SCH (17:15)
--- NOTE | 2019-02-26 17:31 | Internal Med History&Physical ---
<Yaya Bates R - Last Filed: 02/26/19 17:13> Date of Encounter: 02/26/19 Time of Encounter: 17:14 Internal Medicine - H&P: HPI Chief complaint: Leg pain, hyperglycemia Admitted From: Hospital to Hospital Transfer ([facility]) History of present illness: Mr. Cortez is a 68 year old male with PMH of type 2 DM on insulin pump, diabetic neuropathy, HFpEF, HTN, HLD, A. fib on coumadin, mechanical aortic valve replacement, COPD not on home O2, and CKD III, presented to [facility] with complaint of bilateral foot pain and hyperglycemia. Reportedly his insulin pump has broken/malfunctioned and his has been given him about 6U with meals. He is very somnolent during my exam, requiring frequent redirecting, and was only able to answer a few questions. Some information gained from chart review. He does admit to bilateral foot pain. No hx of injuries to his feet. Takes gabapentin at home. He denies other symptoms. Denies fevers, chills, chest pain, dyspnea, abdominal pain, N/V/D, or dysuria. At [facility] his BG was 1031, LA 4.5 then down to 2.5, Na 117 (corrected to 132), K 3.4, CO2 28, SCr 1.67 (mild increase from baseline), pH 7.41, UA with glucose and blood, but no ketones, and beta-HBA normal at 0.24. He was started on an insulin drip and given 1L NS. Upon arrival to [facility] his BG was 291. Past Med Surg Social Fam HX - Past Medical History Medical history: asthma, atrial fibrillation, cancer, CHF, COPD, diabetes, hyperlipidemia, hypertension, myocardial infarction, renal disease, thyroid disease, valvular heart disease Additional medical history: prostate cancer Psychiatric history: no psych history - Past Surgical History Surgical History: colectomy Additional surgical history: WOUND VAC TO LT FOOT,AORTIC VALVE REPLACEMENT,COLON SURGERY - Social History Smoking Status: Never smoker Smokeless Tobacco Status: Yes Alcohol use: none Drug use: none - Family History Father Adopted: No Family Member Ethnicity: Non- Living Status: Hx Family Cardiac Disorders: No Hx Family Respiratory Disorders: Yes (lung cancer) Hx Family Cancer: Yes (lung cancer) Hx Family GI Disorders: No Hx Family Endocrine Disorder: No Hx Family Neuromuscular Disorders: No Hx Family Neurologic Disorders: No Hx Family HEENT Disorders: No Hx Family Autoimmune Disorders: No Mother Name: Jess Cortez Family Member Ethnicity: Non- Living Status: Age at : 85 Cause of : old age Hx Family Cardiac Disorders: Yes ([place]) Hx Family Respiratory Disorders: Yes Hx Family Cancer: No Hx Family GI Disorders: No Hx Family Endocrine Disorder: No Hx Family Neuromuscular Disorders: No Hx Family Neurologic Disorders: No Hx Family HEENT Disorders: No Hx Family Autoimmune Disorders: No Sister Adopted: [place]: Missy Humphreys Family Member Ethnicity: Non- Living Status: Age at : 64 Hx Family Cardiac Disorders: No Hx Family Respiratory Disorders: (lung cancr) Hx Family Cancer: Yes (lung CA with METS) Hx Family GI Disorders: No Hx Family Endocrine Disorder: No Hx Family Neuromuscular Disorders: No Hx Family Neurologic Disorders: No Hx Family HEENT Disorders: No Hx Family Autoimmune Disorders: No Internal Medicine - H&P: Meds Allopurinol [Zyloprim 100 MG] 100 mg PO BID 02/11/18 [History] Aspirin 81 mg PO DAILY 02/11/18 [History] Fenofibrate Nanocrystallized [Fenofibrate] 145 mg PO DAILY 02/11/18 [History] Ferrous Sulfate [Iron] 325 mg PO BID 02/11/18 [History] Levothyroxine [Synthroid] 150 mcg PO DAILY 02/11/18 [History] Montelukast [Singulair] 10 mg PO DAILY 02/11/18 [History] Primidone [Mysoline] 50 mg PO BID 02/11/18 [History] Warfarin [Coumadin] 15 mg PO DAILY 02/11/18 [History] Calcitriol [Rocaltrol] 0.25 mcg PO DAILY 03/25/18 [History] Budesonide/Formoterol 160/4.5 [Symbicort 160/4.5] 2 puff IH BID 11/28/18 [History] Cholecalciferol (D-3) [Vitamin D] 5,000 unit PO DAILY 11/28/18 [History] Famotidine [Pepcid] 40 mg PO DAILY 11/28/18 [History] Guaifenesin [Mucinex] 600 mg PO Q12H PRN 11/28/18 [History] Trazodone HCl 100 mg PO HS PRN 11/28/18 [History] Citalopram Hydrobromide [Citalopram HBr] 40 mg PO DAILY 11/29/18 [History] Ipratropium/Albuterol Sulfate [Iprat-Albut 0.5-3(2.5) mg/3 ml] 3 ml IH Q6H PRN 11/29/18 [History] Subcutaneous Insulin Pump [T:Slim] 1 each SQ DAILY 11/29/18 [History] Docusate Sodium [Colace] 100 mg PO BID PRN #30 capsule 12/01/18 [Rx] Albuterol Sulfate [Ventolin Hfa] 2 puff IH Q4H PRN #0 12/07/18 [Rx] Atorvastatin Calcium 40 mg PO DAILY 12/31/18 [History] Gabapentin 600 mg PO TID 12/31/18 [History] Nitroglycerin [Nitrostat] 0.4 mg SL Q5M PRN 12/31/18 [History] Furosemide [Lasix] 20 mg PO DAILY 01/13/19 [History] Metoprolol [Lopressor] 25 mg PO BID 01/13/19 [History] Allergy/AdvReac Type Severity Reaction Status Date / Time niacin Allergy See Verified 02/26/19 07:36 [From [facility] Comments Extended-Release] All Systems PM: A 10-system review of systems was performed and is negative for pertinent findings except as documented above in the HPI. - Constitutional Vitals: Temp Pulse Resp BP Pulse Ox 97.8 F 100 20 113/87 96 02/26/19 14:59 02/26/19 14:59 02/26/19 14:59 02/26/19 14:59 02/26/19 14:59 Exam: GEN: Somnolent, but arousable, able to follow simple commands HEAD: Atraumatic, normocephalic EENT: Pupils symmetric, sclera white, conjunctiva pink, mucous membranes dry HEART: Irregularly irregular, normal S2, mechanical S2, no murmurs LUNGS: Clear to auscultation bilaterally, no wheezes, rhonchi, or crackles, non- labored ABD: Soft, nontender, nondistended, bowel sounds present EXT:trace pitting edema bilaterally, pulses 2/4 NEURO: moving all 4 extremities - Assessment and Plan (1) Hyperglycemia Current Visit: Yes Status: Acute Assessment and plan: BG > 1031 on presentation. Labs consistent with HHS Patient is very somnolent on exam, but maintaining airway and arousable - d/t somnolence will try to avoid central acting agents, gabapentin, etc - pt is on primidone, unclear if for epilepsy, so will continue at half the dose at this time Repeat BG on arrival 291 Will get updated labs now Insulin drip to stablize BG and avoid changes - do not have to aggressively treat to goal, but to remain stable overnight Will give another 1L NS bolus, then likely start MIVF once labs return (2) Insulin dependent diabetes mellitus Current Visit: Yes Status: Chronic Assessment and plan: Plan as above currently Once more stable and awake, will need better insulin regimen, pharmacy teaching and SW consult (3) Hyponatremia Current Visit: Yes Status: Acute Assessment and plan: Corrected Na 132 (from 117 with BG 1031) Recheck now, IV fluids (4) Chronic a-fib Current Visit: Yes Status: Chronic Assessment and plan: Rate controlled at this time Resume coumadin and other home meds once reconciled (5) H/O aortic valve replacement Current Visit: Yes Status: Chronic Assessment and plan: Check INR and resume coumadin Hx of AV replacement + additional risk of A. fib places INR goal of 2.5-3.5 (6) CAD (coronary artery disease) Current Visit: Yes Status: Chronic Assessment and plan: Continuous telemetry at this time Resume home meds as able Qualifiers: Coronary Disease-Associated Artery/Lesion type: [place] artery [place] vs. transplanted heart: [place] heart Associated angina: without angina Qualified Code(s): I25.10 - Atherosclerotic heart disease of [place] coronary artery without angina pectoris (7) CHF (congestive heart failure) Current Visit: Yes Status: Chronic Assessment and plan: Not in acute exacerbation Watch fluid status closely with IV fluids Diuresis as needed Qualifiers: Heart failure type: diastolic Heart failure chronicity: chronic Qualified Code(s): I50.32 - Chronic diastolic (congestive) heart failure (8) CKD (chronic kidney disease) stage 3, GFR 30-59 ml/min Current Visit: Yes Status: Chronic Assessment and plan: Renal function appears close to baseline Mild increase in SCr to 1.67 and GFR 41 (baseline 1.2-1.5, GFR 40-50's) MIVF, strict I/O's, avoid nephrotoxic agents as able (9) COPD (chronic obstructive pulmonary disease) Current Visit: Yes Status: Chronic Assessment and plan: Not in acute exacerbation No wheezes on exam, maintaining O2 saturation Resume home inhalers as able Qualifiers: COPD type: unspecified COPD Qualified Code(s): J44.9 - Chronic obstructive pulmonary disease, unspecified (10) HTN (hypertension) Current Visit: Yes Status: Chronic Assessment and plan: Currently with low-normal BP Hold meds and provide IV fluids Resume meds as indicated if pressure increases Qualifiers: Hypertension type: essential hypertension Qualified Code(s): I10 - Essential (primary) hypertension (11) DVT prophylaxis Current Visit: Yes Status: Acute Assessment and plan: Resume coumadin (12) Lactic acidosis Current Visit: Yes Status: Acute Assessment and plan: Initially 4.5, down to 2.5 after 1L NS bolus Recheck lactate now - Time Spent With Patient Total time spent is greater than 50% in coordination of care (as documented) at patient's floor/unit and/or counseling patient: <Silas Sánchez - Last Filed: 02/27/19 07:33> Date of Encounter: 02/26/19 Internal Med - H&P Results - Labs CBC & Chem 7: 02/27/19 03:03 02/27/19 00:41 - ABG Interpretation ABG results: 02/26/19 22:31 VBG pH 7.37 VBG pCO2 56 H VBG pO2 69 H VBG HCO3 32 H - Attending Attestation Patient seen and examined independently. Objective data has been reviewed including labs, imaging, ECG, and previous records. I agree with the plan of car e as documented above by the resident, with the following comments: 68 M w multiple chronic comorbidities. Pt somnolent but not overtly confused. Says his insulin pump has not been working. Denies fevers, cough, dysuria. Very dry mucous membranes. Outside ED labs show significant hyperglycemia 1031, serum osmoles not measured but on my estimate is ~330, urine w/o ketones and pH 7.4, altogether suggestive of HHS. Pt arrived on insulin gtt and we will maintain this and give additional 1L bolus then start maintenance fluids, with goal of maintaining very stable blood glucose. Close monitoring of neuro status. Holding centrally acting medications except primidone; will give half home dose. Dx: HHS, acute metabolic encephalopathy, AYDEN, pseudohyponatremia, hypovolemic hyponatremia, hypokalemia
[2019-02-26] MEDS ORDERED: Warfarin perPT PO PRN (18:00)
[2019-02-26 18:21] LABS: INR 3.2; Prothrombin Time 35.8 Seconds (9.4-12.1)
[2019-02-26 18:33] LABS: Alanine Aminotransferase 10 Units/L (7-52); Albumin 3.4 g/dL (3.5-5.7); Alkaline Phosphatase 140 Units/L (34-104); Aspartate Amino Transferase 17 Units/L (13-39); BUN/Creatinine Ratio 12 (6-26); Bilirubin,Total 0.3 mg/dL (0.3-1.0); Blood Urea Nitrogen 16 mg/dL (8-23); Calcium 8.7 mg/dL (8.6-10.3); Carbon Dioxide 30 mEq/L (23-29); Chloride 84 mEq/L (98-107); Globulin 3.4 g/dL (2.4-3.5); Glucose 264 mg/dL (70-105); Magnesium 1.8 mg/dL (1.6-2.6); Osmolality,Calculated 286 (280-300); Phosphorous 3.3 mg/dL (2.7-4.5); Potassium 2.9 mEq/L (3.5-5.1); Sodium 133 mEq/L (136-145); Total Protein 6.8 g/dL (6.4-8.9); eGFR For Non-African Americans 51 (> 60)
[2019-02-26] MEDS: D5% in 0.45% NACL w KCl 20 MEQ/1,000 ML MLS IVC PRN ×2 (18:50→23:22)
[2019-02-26] MEDS: Budesonide/Formoterol 160/4.5 1 PUFF INH IH SCH (20:30)
[2019-02-26] MEDS ORDERED: Insulin Regular, Human 100 UNIT/ML IV PRN (20:46)
[2019-02-26] MEDS ORDERED: D5% in 0.45% NACL 1,000 ML IVC PRN (20:46)
[2019-02-26 20:48] LABS: BUN/Creatinine Ratio 13 (6-26); Blood Urea Nitrogen 17 mg/dL (8-23); Calcium 8.6 mg/dL (8.6-10.3); Carbon Dioxide 32 mEq/L (23-29); Chloride 91 mEq/L (98-107); Glucose 241 mg/dL (70-105); Osmolality,Calculated 279 (280-300); Potassium 2.7 mEq/L (3.5-5.1); Sodium 130 mEq/L (136-145); eGFR For Non-African Americans 55 (> 60)
[2019-02-26] MEDS ORDERED: Primidone 50 MG TABLET PO SCH (21:00)
[2019-02-26] MEDS: Insulin Human Regular 100 UNIT in 0.9 % Sodium Chloride 100 ML IVC SCH (21:03)
[2019-02-26] MEDS: Primidone 50 MG TABLET PO SCH (21:14)
[2019-02-26 22:34] LABS: VBG HCO3 32 mEq/L (21-27); VBG PCO2 56 mmHg (41-51); VBG PH 7.37 pH Units (7.32-7.42); VBG PO2 69 mmHg (25-50)
[2019-02-26 22:54] LABS: BUN/Creatinine Ratio 11 (6-26); Blood Urea Nitrogen 14 mg/dL (8-23); Calcium 8.5 mg/dL (8.6-10.3); Carbon Dioxide 31 mEq/L (23-29); Chloride 93 mEq/L (98-107); Glucose 197 mg/dL (70-105); Osmolality,Calculated 278 (280-300); Potassium 2.5 mEq/L (3.5-5.1); Sodium 131 mEq/L (136-145); eGFR For Non-African Americans 54 (> 60)
[2019-02-26] MEDS ORDERED: Potassium Chloride Elixir 20 MEQ/15 ML UDC PO ONE (23:03)
[2019-02-27] MEDS: Insulin Human Regular 100 UNIT in 0.9 % Sodium Chloride 100 ML IVC SCH (00:35)
[2019-02-27 01:43] LABS: BUN/Creatinine Ratio 11 (6-26); Blood Urea Nitrogen 14 mg/dL (8-23); Calcium 8.5 mg/dL (8.6-10.3); Carbon Dioxide 26 mEq/L (23-29); Chloride 98 mEq/L (98-107); Glucose 130 mg/dL (70-105); Osmolality,Calculated 278 (280-300); Potassium 3.7 mEq/L (3.5-5.1); Sodium 133 mEq/L (136-145); eGFR For Non-African Americans 55 (> 60)
[2019-02-27] MEDS ORDERED: Insulin DETEMIR 100 UNIT/ML X5UNITS SQ ONE (02:01)
[2019-02-27 04:14] LABS: Hematocrit 32.3 % (37.5-50.1); Hemoglobin 10.9 g/dL (12.9-16.9); Mean Corpuscular HGB Conc 33.7 g/dL (31.6-35.5); Mean Corpuscular Hemoglobin 29.9 pg (28.0-33.3); Mean Corpuscular Volume 88.7 fL (83.0-100.0); Mean Platelet Volume 11.1 fL (9.4-12.4); Platelet Count 223 K/mcL (140-400); Red Blood Count 3.64 M/mcL (4.19-5.50); Red Cell Distribution Width 14.2 % (11.5-14.5)
[2019-02-27 04:29] LABS: INR 2.8; Prothrombin Time 31.2 Seconds (9.4-12.1)
[2019-02-27] MEDS ORDERED: *HR* Dextrose 50 % in Water (Syg) 50 ML SYRINGE IVP PRN (04:46)
[2019-02-27] MEDS ORDERED: Dextrose Gel 15 GM/37.5 ML TUBE PO PRN ×2 (04:46)
[2019-02-27] MEDS ORDERED: D5% in Water 1,000 ML IVC PRN (04:46)
[2019-02-27] MEDS: Budesonide/Formoterol 160/4.5 1 PUFF INH IH SCH (07:28)
--- NOTE | 2019-02-27 08:08 | Internal Med Progress Note ---
Hospitalist Progress Note - Encounter Date of Encounter: 02/27/19 Time of Encounter: 08:08 - Exam Vitals: Temp Pulse Resp BP Pulse Ox 98.0 F 92 16 129/74 97 02/27/19 07:16 02/27/19 07:16 02/27/19 07:29 02/27/19 07:16 02/27/19 07:29 Internal Medicine: Result - Labs CBC & Chem 7: 02/27/19 03:03 02/27/19 00:41 Labs: Short CBC 02/27/19 Range/Units 03:03 WBC 8.1 (4.3-11.1) K/mcL Hgb 10.9 L (12.9-16.9) g/dL Hct 32.3 L (37.5-50.1) % Plt Count 223 (140-400) K/mcL BMP 02/26/19 02/26/19 02/26/19 17:49 20:08 22:25 Sodium 133 L D 130 L 131 L Potassium 2.9 L 2.7 L 2.5 L* Chloride 84 L 91 L 93 L Carbon Dioxide 30 H 32 H 31 H BUN 16 17 14 Creatinine 1.39 H 1.31 H 1.33 H Glucose 264 H 241 H 197 H Calcium 8.7 8.6 8.5 L 02/27/19 00:41 Sodium 133 L Potassium 3.7 D Chloride 98 Carbon Dioxide 26 BUN 14 Creatinine 1.30 Glucose 130 H Calcium 8.5 L Liver Function 02/26/19 Range/Units 17:49 Total Bilirubin 0.3 (0.3-1.0) mg/dL AST 17 (13-39) Units/L ALT 10 (7-52) Units/L Alkaline Phosphatase 140 H (34-104) Units/L Albumin 3.4 L (3.5-5.7) g/dL - ABG Interpretation ABG results: PT/INR, D-dimer PT 31.2 Seconds (9.4-12.1) H 02/27/19 03:03 Consult Discharge Plan - Plan Referrals: NONE,PCP [Primary Care Provider] -
[2019-02-27] MEDS ORDERED: Aspirin 81 MG TAB.CHEW PO SCH (09:00)
[2019-02-27] MEDS: Insulin LISPRO 300 UNITS/3 ML VIAL SQ SCH ×2 (09:33→12:32)
[2019-02-27] MEDS: Primidone 50 MG TABLET PO SCH (09:35)
--- NOTE | 2019-02-27 10:56 | Discharge Summary ---
- NOTES TO OUTPATIENT PROVIDER Notes to Outpatient Provider: Came in confused with Glucose 1000, responded to insulin gtt and hydration, confusion resolved, placed back on basal/bolus insulin Date of Encounter: 02/27/19 Time of Encounter: 10:48 Hospital course: Dear Doctors, I recently had the opportunity to care for this patient during their recent hospital stay at [facility]. Kyle Cortez is a 68 M w hx insulin dependent DM2 c/b neuropathy, HFpEF, HTN, HLD, A-Fib on coumadin, mAVR, COPD, CKD3a. He presented to [place] with complaint of foot pain and hyperglycemia. In the ED, pt noted to be somnolent, and to have glucose 1030. Urine without ketones, and pH 7.4. Pt started on insulin gtt and transferred to [facility] for inpatient management of likely HHS. In the hospital, pt monitored on insulin gtt until his sugar remained in the 100-200s for several hours, then patient was given basal levemir and eventually insulin gtt discontinued. Pt able to give better story today regarding his sugar, and his came who corroborated that pt's insulin pump broke about 1 month ago. They missed enough appts w Endo to be dismissed from practice, and currently PCP is attempting to refill insulin for pt's pump. However, the patien t's says they are no longer using the insulin pump, but instead taking the U-500 and intermittently bolus dosing the patient to keep sugars low. They are currently not using basal insulin due to concerns of hypoglycemia in the past. Pt started on Lantus 10 qhs in addition to continuing current odd achs bolus dosing per compromise with pt's , and patient discharged euglycemic, completely awake and oriented. Pt improved faster than expected. Dx: HHS, acute metabolic encephalopathy Pertinent tests/consults: Follow up: PCP 1 week Tests pending: none Med changes: - start Lantus 10 qhs Mental status: awake, fully oriented Code status: [place] spent on discharge: 35 minutes It has been my pleasure participating in this patient's care. Please contact me with any questions or concerns regarding their hospital stay. Sincerely, Silas Sánchez MD - Discharge Medications Prescriptions: New Insulin Glargine,Hum.rec.anlog [Lantus Solostar] 10 unit SQ HS #5 insuln.pen Continued Calcitriol [Rocaltrol] 0.25 mcg PO DAILY Trazodone HCl 100 mg PO HS PRN PRN Reason: Sleep Cholecalciferol (D-3) [Vitamin D] 5,000 unit PO DAILY Guaifenesin [Mucinex] 600 mg PO Q12H PRN PRN Reason: Congestion Famotidine [Pepcid] 40 mg PO DAILY Budesonide/Formoterol 160/4.5 [Symbicort 160/4.5] 2 puff IH BID Ipratropium/Albuterol Sulfate [Iprat-Albut 0.5-3(2.5) mg/3 ml] 3 ml IH Q6H PRN PRN Reason: Shortness Of Breath Citalopram Hydrobromide [Citalopram HBr] 40 mg PO DAILY Docusate Sodium [Colace] 100 mg PO BID PRN #30 capsule PRN Reason: Contstipation Albuterol Sulfate [Ventolin Hfa] 2 puff IH Q4H PRN #0 PRN Reason: Wheezing Atorvastatin Calcium 40 mg PO DAILY Gabapentin 600 mg PO TID Nitroglycerin [Nitrostat] 0.4 mg SL Q5M PRN PRN Reason: Chest Pain Montelukast [Singulair] 10 mg PO DAILY Ferrous Sulfate [Iron] 325 mg PO BID Primidone [Mysoline] 50 mg PO BID Fenofibrate Nanocrystallized [Fenofibrate] 145 mg PO DAILY Levothyroxine [Synthroid] 150 mcg PO DAILY Aspirin 81 mg PO DAILY Warfarin [Coumadin] 15 mg PO DAILY Allopurinol [Zyloprim 100 MG] 100 mg PO BID Metoprolol [Lopressor] 25 mg PO BID Furosemide [Lasix] 20 mg PO DAILY Discontinued Subcutaneous Insulin Pump [T:Slim] 1 each SQ DAILY Home Medications: Allopurinol [Zyloprim 100 MG] 100 mg PO BID 02/11/18 [History] Aspirin 81 mg PO DAILY 02/11/18 [History] Fenofibrate Nanocrystallized [Fenofibrate] 145 mg PO DAILY 02/11/18 [History] Ferrous Sulfate [Iron] 325 mg PO BID 02/11/18 [History] Levothyroxine [Synthroid] 150 mcg PO DAILY 02/11/18 [History] Montelukast [Singulair] 10 mg PO DAILY 02/11/18 [History] Primidone [Mysoline] 50 mg PO BID 02/11/18 [History] Warfarin [Coumadin] 15 mg PO DAILY 02/11/18 [History] Calcitriol [Rocaltrol] 0.25 mcg PO DAILY 03/25/18 [History] Budesonide/Formoterol 160/4.5 [Symbicort 160/4.5] 2 puff IH BID 11/28/18 [History] Cholecalciferol (D-3) [Vitamin D] 5,000 unit PO DAILY 11/28/18 [History] Famotidine [Pepcid] 40 mg PO DAILY 11/28/18 [History] Guaifenesin [Mucinex] 600 mg PO Q12H PRN 11/28/18 [History] Trazodone HCl 100 mg PO HS PRN 11/28/18 [History] Citalopram Hydrobromide [Citalopram HBr] 40 mg PO DAILY 11/29/18 [History] Ipratropium/Albuterol Sulfate [Iprat-Albut 0.5-3(2.5) mg/3 ml] 3 ml IH Q6H PRN 11/29/18 [History] Docusate Sodium [Colace] 100 mg PO BID PRN #30 capsule 12/01/18 [Rx] Albuterol Sulfate [Ventolin Hfa] 2 puff IH Q4H PRN #0 12/07/18 [Rx] Atorvastatin Calcium 40 mg PO DAILY 12/31/18 [History] Gabapentin 600 mg PO TID 12/31/18 [History] Nitroglycerin [Nitrostat] 0.4 mg SL Q5M PRN 12/31/18 [History] Furosemide [Lasix] 20 mg PO DAILY 01/13/19 [History] Metoprolol [Lopressor] 25 mg PO BID 01/13/19 [History] Insulin Glargine,Hum.rec.anlog [Lantus Solostar] 10 unit SQ HS #5 insuln.pen 02/27/19 [Rx] Allergies/Adverse Reactions: Allergy/AdvReac Type Severity Reaction Status Date / Time niacin Allergy See Verified 02/26/19 07:36 [From [facility] Comments Extended-Release] Date of admission: 02/26/19 18:31 Primary care physician: PCP NONE - Constitutional Vitals: Temp Pulse Resp BP Pulse Ox 98.0 F 92 16 129/74 97 02/27/19 07:16 02/27/19 07:16 02/27/19 07:29 02/27/19 07:16 02/27/19 07:29 Exam: General: NAD, good eye contact, chronically ill appearing but in no distress Thoracic: expiratory wheezing Cardio: irregularly irregular rhythm, regular rate Abdomen: Soft, nontender, obese Extremities: Warm, well perfused. DP pulses 2+ b/l. Mild edema b/l legs. Neuro: Awake, fully oriented. Speech fluent - Patient Status Disposition: Home Health Service Condition: Fair Overall status at discharge: patient is back to baseline - Discharge Instructions Instructions: Diabetes Mellitus Type 2 in Adults (DC), Chronic Obstructive Pulmonary Disease (DC), Chronic Hypertension (DC) Follow Up With: Calli Estes WATCH COMMANDER [Advanced Practice Nurse] - 03/03/19 1:00 pm Additional Instructions: Please have demonstrate accucheck and use of subQ insulin on pt - Diet and Activity Activity: resume usual activities as tolerated Diet: diabetic diet
[2019-02-27 11:12] VITALS: BP 106/79
--- NOTE | 2019-02-27 11:56 | Physician Discharge Referral ---
Home Health/Hosp Referral Info Transfer to: Home Health Provider in Charge Post Discharge: PCP - Respiratory Orders Oxygen / L per min Smoking Cessation: Smoking cessation has been advised. For more information, call the [place] Tobacco Quit Line at 6-327-ZQDO-NOW. - Services Needed Following services are medically necessary services: Nursing, Home Health Aide - Transfer Medications Prescriptions: Insulin LISPRO [Humalog Kwikpen U-100] 5 unit SQ TIDAC #5 pack Insulin Glargine,Hum.rec.anlog [Lantus Solostar] 10 unit SQ HS #5 insuln.pen Home Medications: Allopurinol [Zyloprim 100 MG] 100 mg PO BID 02/11/18 [History] Aspirin 81 mg PO DAILY 02/11/18 [History] Fenofibrate Nanocrystallized [Fenofibrate] 145 mg PO DAILY 02/11/18 [History] Ferrous Sulfate [Iron] 325 mg PO BID 02/11/18 [History] Levothyroxine [Synthroid] 150 mcg PO DAILY 02/11/18 [History] Montelukast [Singulair] 10 mg PO DAILY 02/11/18 [History] Primidone [Mysoline] 50 mg PO BID 02/11/18 [History] Warfarin [Coumadin] 15 mg PO DAILY 02/11/18 [History] Calcitriol [Rocaltrol] 0.25 mcg PO DAILY 03/25/18 [History] Budesonide/Formoterol 160/4.5 [Symbicort 160/4.5] 2 puff IH BID 11/28/18 [Histo ry] Cholecalciferol (D-3) [Vitamin D] 5,000 unit PO DAILY 11/28/18 [History] Famotidine [Pepcid] 40 mg PO DAILY 11/28/18 [History] Guaifenesin [Mucinex] 600 mg PO Q12H PRN 11/28/18 [History] Trazodone HCl 100 mg PO HS PRN 11/28/18 [History] Citalopram Hydrobromide [Citalopram HBr] 40 mg PO DAILY 11/29/18 [History] Ipratropium/Albuterol Sulfate [Iprat-Albut 0.5-3(2.5) mg/3 ml] 3 ml IH Q6H PRN 11/29/18 [History] Docusate Sodium [Colace] 100 mg PO BID PRN #30 capsule 12/01/18 [Rx] Albuterol Sulfate [Ventolin Hfa] 2 puff IH Q4H PRN #0 12/07/18 [Rx] Atorvastatin Calcium 40 mg PO DAILY 12/31/18 [History] Gabapentin 600 mg PO TID 12/31/18 [History] Nitroglycerin [Nitrostat] 0.4 mg SL Q5M PRN 12/31/18 [History] Furosemide [Lasix] 20 mg PO DAILY 01/13/19 [History] Metoprolol [Lopressor] 25 mg PO BID 01/13/19 [History] Insulin Glargine,Hum.rec.anlog [Lantus Solostar] 10 unit SQ HS #5 insuln.pen 02/27/19 [Rx] Insulin LISPRO [Humalog Kwikpen U-100] 5 unit SQ TIDAC #5 pack 02/27/19 [Rx] Allergies/Adverse Reactions: Allergy/AdvReac Type Severity Reaction Status Date / Time niacin Allergy See Verified 02/26/19 07:36 [From [facility] Comments Extended-Release] Certification: Further, I certify that my clinical findings support that this patient is homebound (i.e. absences from home require considerable and taxing effort and are for medical reasons or yarsanism services or infrequently or short duration when for other reasons) because: Homebound Reason: Leaving home requires considerable and taxing effort due to condition Attestation: My signature below is to certify that this patient is under my care and that I, or nurse practitioner, or a physician's assistant spa manager working with me, has a [id number] encounter with this patient.
[2019-02-27] MEDS ORDERED: *HR* Warfarin 10 MG TABLET PO ONE (18:00)
[2019-02-27] MEDS ORDERED: Insulin LISPRO 300 UNITS/3 ML VIAL SQ SCH (21:00)
== END 2019-02-27 13:45 | disposition home health service (06) | DRG 637 ==
LOC: 2NNU → SUATTDRO 14:34
PROVIDERS: ADMIT Internal Medicine; ATTEND Internal Medicine